=== PATIENT | female | born 1930 | race American Indian/Alaskan Native ===

== ENCOUNTER 2017-03-18 20:29 | Inpatient (IN) | payer MEDICARE ==
--- NOTE | 2017-03-18 20:52 | C.PDOC ---
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 Family notes earlier pt had slurred speech and c/o severe dizziness, stating that the room was turning. Denies headache, visual changes, change in speech, LOC, fever, chills, or any other complaints. Time Seen by Provider: 03/18/17 20:40 Chief Complaint (Nursing): Weakness/Neurological Deficit History Per: Patient History/Exam Limitations: no limitations Onset/Duration Of Symptoms: Hrs (2) Current Symptoms Are (Timing): Still Present Fall Associated With With Symptoms: No Severity: Mild Recent travel outside of the [place]: No Additional History Per: Patient, Family Past Medical History Reviewed: Historical Data, Nursing Documentation, Vital Signs Vital Signs: Last Vital Signs Temp 97.5 F L 03/18/17 20:36 Pulse 68 03/18/17 21:53 Resp 18 03/18/17 21:53 BP 176/73 H 03/18/17 21:53 Pulse Ox 99 03/18/17 22:21 - Medical History PMH: Arthritis, Diabetes, HTN, Hypercholesterolemia, TIA Denies: Chronic Kidney Disease Family History: States: Unknown Family Hx - Social History Hx Tobacco Use: No Hx Alcohol Use: No Hx Substance Use: No - Immunization History Hx Tetanus Toxoid Vaccination: No Hx Influenza Vaccination: Yes Hx Pneumococcal Vaccination: Yes Review Of Systems Except As Marked, All Systems Reviewed And Found Negative. Constitutional: Positive for: Weakness, Other (Uneasiness). Negative for: Fever , Chills Eyes: Negative for: Vision Change Neurological: Positive for: Change in Speech (Slurred), Dizziness. Negative for : Headache, Other (LOC) Physical Exam - Physical Exam Appears: Non-toxic, No Acute Distress, Other Skin: Warm, Dry Head: Atraumatic, Normacephalic Eye(s): bilateral: Normal Inspection, PERRL, EOMI Cardiovascular: Rhythm Regular, No Murmur Respiratory: Normal Breath Sounds, No Accessory Muscle Use, No Rales, No Rhonchi , No Wheezing Gastrointestinal/Abdominal: Soft, No Tenderness Neurological/Psych: Oriented x3, Normal Speech, Normal Cognition, Normal Sensation, Other (Conscious, alert, no definite focal deficit.) ED Course And Treatment - Laboratory Results Result Diagrams: 03/18/17 21:35 03/18/17 21:48 ECG: Interpreted By Me, Viewed By Me ECG Rhythm: Sinus Bradycardia ECG Interpretation: No Acute Changes, Abnormal Interpretation Of ECG: Sinus bradycardia, LAD, non-spc. T changes lateral leads Rate From EC O2 Sat by Pulse Oximetry: 99 (RA) Pulse Ox Interpretation: Normal - Radiology CXR: Interpreted by Me, Viewed By Me CXR Interpretation: Yes: No Acute Disease, Cardiomegaly, Other (no pulm. congestion, presence of mild cardiomegaly.) - CT Scan/US CT Head w/o contrast Other Rad Studies (CT/US): Interpreted By Me, Read By Radiologist CT/US Interpretation: EXAM: CT Head Without Intravenous Contrast. CLINICAL HISTORY: 86 years old, female; Signs and symptoms; Dizziness and speech disturbance; Slurred speech;. Additional info: Code stroke. TECHNIQUE: Axial computed tomography images of the head/brain without intravenous contrast. This CT exam. was performed using one or more of the following dose reduction techniques: automated exposure. control, adjustment of the mA and/or kV according to patient size, and/or use of iterative. reconstruction technique. EXAM DATE/TIME: 03/18/2017 8:41 PM. COMPARISON: There are no prior studies for comparison. FINDINGS: Brain: There is mild prominence of sulci, gyri and ventricles. There is no midline shift. There are no. intra-axial or extra axial mass lesions or areas of hemorrhage. There is mild decrease attenuation in. periventricular white matter.There is decreased attenuation in the left cobian radiata, ageindeterminate. There are very small age indeterminant left basal ganglia lacunar infarcts Urrutia-white. differentiation is maintained. Ventricles: See above. Bones/joints: Bony structures: Cranial vault is intact. Soft tissues: unremarkable. Sinuses: There is no acute sinusitis. Mastoid air cells: Ears and mastoids: Middle ears and mastoids unremarkable. Orbits: Orbital contents are unremarkable. IMPRESSION: Mild atrophy and small vessel disease, no bleed; age indeterminate ischemic. changes left basal ganglia and cobian radiata NIHSS Stroke Scale - Date/Time Evaluation Performed Date Performed: 03/18/17 Time Performed: 20:30 When Was NIHSS Performed: Baseline - How Severe is the Stoke Level of Consciousness: 0=Alert LOC to Questions: 0=Both comments correct LOC to commands: 0=Obeys both correctly Best Gaze: 0=Normal Visual: 0=No visual loss Facial: 0=Normal Motor Arm - Left: 0=No drift Motor Arm - Right: 0=No drift Motor Leg - Left: 0=No drift Motor Leg - Right: 0=No drift Limb Ataxia: 0=Absent Sensory: 0=Normal Best Language: 0=No aphasia Dysarthia: 0=Normal articulation Extinction & Inattention (Neglect): 0=Normal, no object Score: 0 Severity Of Stroke: 0= No Stroke Medical Decision Making Medical Decision Making: Impression: A 86 y/o F with a Hx of HTN and diabetes, c/o feeling weakness and uneasiness 2 hours DIRECTOR OF STRATEGIC PROGRAMS. Plans: -Blood labs -CT head -EKG -CXR -IV fluids Disposition Discussed With Dr.: Fazal Mosher Doctor Will See Patient In The: Hospital Counseled Patient/Family Regarding: Diagnosis - Disposition Disposition: HOSPITALIZED Disposition Time: 22:21 Condition: STABLE - POA Present On Arrival: None - Clinical Impression Clinical Impression: TIA (transient ischemic attack), Vertigo - Scribe Statement The provider has reviewed the documentation as recorded by the Scribe Tania chandra All medical record entries made by the Aishwaryaibruben were at my direction and personally dictated by me. I have reviewed the chart and agree that the record accurately reflects my personal performance of the history, physical exam, medical decision making, and the department course for this patient. I have also personally directed, reviewed, and agree with the discharge instructions and disposition.
[2017-03-18 21:41] LABS: BASO % 0.5 % (0.0-2.0); EOS # 0.3 K/uL (0.0-0.7); EOS % 4.8 % (0.0-4.0); LYMPH # 1.8 K/uL (1.0-4.3); MEAN CORPUSCULAR HEMOGLOBIN 26.2 pg (27.0-31.0); MEAN CORPUSCULAR HGB CONC 30.8 g/dL (33.0-37.0); MEAN PLATELET VOLUME 9.6 fL (7.2-11.7); MONO # 0.5 K/uL (0.0-0.8); MONO % 7.8 % (0.0-10.0); NEUT % 59.9 % (50.0-75.0); NRBC % 0.1 % (0.0-2.0); RBC 4.59 Mil/uL (3.80-5.20); RED CELL DISTRIBUTION WIDTH 15.2 % (11.5-14.5); WHITE BLOOD COUNT 6.7 K/uL (4.8-10.8)
[2017-03-18 21:56] LABS: PROTHROMBIN TIME 10.9 SECONDS (9.7-12.2)
[2017-03-18 22:01] LABS: ALBUMIN 3.7 g/dL (3.5-5.0)
[2017-03-18 22:03] LABS: GFR AFRICAN-AMERICAN 57; GFR NON-AFRICAN AMERICAN 47
[2017-03-18 22:04] LABS: ALB/GLOB RATIO 1.2 (1.0-2.1); AST/SGOT 20 U/L (14-36); BLOOD UREA NITROGEN 18 mg/dL (7-17); CALCIUM 8.9 mg/dl (8.6-10.4)
[2017-03-18 22:05] LABS: ALT/SGPT 17 U/L (9-52); HDL CHOLESTEROL 53 mg/dL (30-70)
[2017-03-18 22:16] LABS: LDL CHOLESTEROL 92 mg/dL (0-129)
[2017-03-18] MEDS ORDERED: Sodium Chloride 0.45% 1,000 ML IV SCH (23:15)
[2017-03-18] MEDS ORDERED: Sodium Chloride 0.45% 1,000 ML IV ONE (23:20)
--- NOTE | 2017-03-19 08:35 | CT ---
PROCEDURE: CT HEAD WITHOUT CONTRAST. HISTORY: Code Stroke COMPARISON: Comparison is made to the previous study dated 10/28/2013 TECHNIQUE: Axial computed tomography images were obtained through the head/brain without intravenous contrast. Radiation dose: Total exam DLP = 1106.48 mGy-cm. This CT exam was performed using one or more of the following dose reduction techniques: Automated exposure control, adjustment of the mA and/or kV according to patient size, and/or use of iterative reconstruction technique. FINDINGS: HEMORRHAGE: No intracranial hemorrhage. BRAIN: Small foci of encephalomalacia at the left basal ganglia and cobian radiata suggestive of subacute or old infarcts. [id number] white matter changes are again seen. VENTRICLES: Unremarkable. No hydrocephalus. CALVARIUM: Unremarkable. PARANASAL SINUSES: Unremarkable as visualized. No significant inflammatory changes. MASTOID AIR CELLS: Unremarkable as visualized. No inflammatory changes. OTHER FINDINGS: None. IMPRESSION: No evidence of acute intracranial hemorrhage small foci of encephalomalacia at the left basal ganglia and cobian radiata likely represent subacute or old infarcts. Preliminary report was submitted by [facility] at 9:03 p.m. 03/18/2017.
[2017-03-19] MEDS: (Novolog) Insulin Aspart, Recombinant 100 u/ml 10 ml vial SC SCH ×4 (08:43→22:28)
[2017-03-19] MEDS ORDERED: Home Med 1 UNIT (Valsartan [Diovan] 160 MG) PO SCH (10:00)
[2017-03-19] MEDS ORDERED: METFORMIN HYDROCHLORIDE 500 MG PO SCH (10:00)
[2017-03-19] MEDS ORDERED: CLONIDINE 0.1 MG PO SCH (10:00)
[2017-03-19] MEDS ORDERED: METOPROLOL SUCCINATE 50 MG PO SCH (10:00)
--- NOTE | 2017-03-19 11:14 | RAD ---
HISTORY: stroke alert COMPARISON: Comparison is made to 10/26/2013 FINDINGS: LUNGS: No active pulmonary disease. PLEURA: No significant pleural effusion identified, no pneumothorax apparent. CARDIOVASCULAR: Normal. OSSEOUS STRUCTURES: No significant abnormalities. VISUALIZED UPPER ABDOMEN: Normal. OTHER FINDINGS: None. IMPRESSION: No active disease.
[2017-03-19] MEDS ORDERED: PILOCARPINE 1% OU SCH (12:00)
[2017-03-19] MEDS: Metoprolol Succinate 50 mg XL Tab PO SCH ×2 (12:52→17:47)
[2017-03-19] MEDS: Brimonidine 0.2% Opth Sol (5ml) OU SCH ×2 (13:17→17:48)
[2017-03-19] MEDS: PILOCARPINE 1% OU SCH ×2 (13:18→17:48)
--- NOTE | 2017-03-19 15:30 | CP.PCM.HP ---
History of Present Illness - History of Present Illness History of Present Illness: 86 yo Female brought to the ED by her family because of severe dizziness and a temporary slurred speech last night. Denies any chest pain, palpitation. She is Known to have a hypertension, a NIDDM, a lymphoma in remission since 2000, a glaucoma, a s/p CVA with a transient left hemiparesis in 2013, a PAD( s/p right fem-pop by-pass in 11/2012. Present on Admission - Present on Admission Any Indicators Present on Admission: No Review of Systems - Musculoskeletal Musculoskeletal: Muscle Weakness - Neurological Neurological: Abnormal Speech, Dizziness, Weakness - Psychiatric Psychiatric: Anxiety Past Patient History - Infectious Disease Hx of Infectious Diseases: None - Tetanus Immunizations Tetanus Immunization: Unknown - Past Medical History & Family History Past Medical History?: Yes - Past Social History Smoking Status: Never Smoked Alcohol: None Drugs: Denies Home Situation {Lives}: With Family Domestic Violence: Negative - CARDIAC Hx Hypercholesterolemia: Yes Hx Hypertension: Yes Hx Peripheral Vascular Disease: Yes (S/p right fem-pop in 11/2012( Dr Maddox). ) - NEUROLOGICAL Hx Transient Ischemic Attacks (TIA): Yes - HEENT Hx Glaucoma: Yes - RENAL Hx Chronic Kidney Disease: No - ENDOCRINE/METABOLIC Hx Diabetes Mellitus Type 2: Yes - HEMATOLOGICAL/ONCOLOGICAL Hx Chemotherapy: Yes (Lymphoma in remission since 2000.) Hx Lymphoma: Yes (in remission since 2000.) - INTEGUMENTARY Hx Dermatological Problems: No - MUSCULOSKELETAL/RHEUMATOLOGICAL Hx Degenerative Joint Disease: Yes Hx Falls: Yes Hx Gout: Yes Hx Unsteady Gait: Yes - GASTROINTESTINAL Hx Gastrointestinal Disorders: No - GENITOURINARY/GYNECOLOGICAL Hx Genitourinary Disorders: No - PSYCHIATRIC Hx Substance Use: No - SURGICAL HISTORY Hx Surgeries: Yes Hx Hysterectomy: Yes (in 1995) Hx Vascular Surgery: Yes - ANESTHESIA Hx Anesthesia: Yes Hx Anesthesia Reactions: No Hx Malignant Hyperthermia: No Meds Allergies/Adverse Reactions: Allergies Allergy/AdvReac Type Severity Reaction Status Date / Time codeine Allergy Verified 03/18/17 20:37 Physical Exam - Constitutional Appears: No Acute Distress, Chronically Ill - Head Exam Head Exam: NORMAL INSPECTION - Eye Exam Eye Exam: Normal appearance - ENT Exam ENT Exam: Normal Exam - Neck Exam Neck exam: Positive for: Normal Inspection - Respiratory Exam Respiratory Exam: Clear to Auscultation Bilateral - Cardiovascular Exam Cardiovascular Exam: REGULAR RHYTHM - GI/Abdominal Exam GI & Abdominal Exam: Normal Bowel Sounds, Soft - Rectal Exam Rectal Exam: Deferred - Extremities Exam Extremities exam: Positive for: normal inspection - Back Exam Back exam: NORMAL INSPECTION - Neurological Exam Neurological exam: Alert, Oriented x3 - Psychiatric Exam Psychiatric exam: Anxious - Skin Skin Exam: Dry, Intact, Normal Color, Warm Results - Vital Signs Recent Vital Signs: Last Vital Signs Temp 98.2 F 03/19/17 07:35 Pulse 66 03/19/17 07:35 Resp 20 03/19/17 07:35 BP 173/75 H 03/19/17 07:35 Pulse Ox 96 03/19/17 07:35 - Labs Result Diagrams: 03/18/17 21:35 03/18/17 21:48 Labs: Laboratory Results - last 24 hr 03/19/17 03/19/17 06:07 11:38 POC Glucose (mg/dL) 95 100 Assessment & Plan (1) TIA (transient ischemic attack) Assessment and Plan: Neuro evaluation, PT, brain MRI, carotid doppler, echo. Status: Acute (2) Vertigo Assessment and Plan: Try Meclizine 25 mg PO TID Status: Acute (3) Near syncope Status: Acute Decision To Admit - Pt Status Changed To: Hospital Disposition Of: Inpatient - Admit Certification Admit to Inpatient:: After my assessment, the patient will require hospitalization for at least two midnights. This is because of the severity of symptoms shown, intensity of services needed, and/or the medical risk in this patient being treated as an outpatient. - InPatient: Physician Admission Certification:: After my assessements, the patient requires hospitalization for at least 2 midnights. - . Bed Request Type: Telemetry
[2017-03-19] MEDS: Dorzolamide 2% Opht Sol 10ml OU SCH (17:47)
[2017-03-19] MEDS: Latanoprost 2.5 ml Opht Soln OU SCH (21:29)
[2017-03-20] MEDS: (Novolog) Insulin Aspart, Recombinant 100 u/ml 10 ml vial SC SCH ×4 (08:13→21:54)
[2017-03-20] MEDS: PILOCARPINE 1% OU SCH ×3 (09:49→18:01)
[2017-03-20] MEDS: Metoprolol Succinate 50 mg XL Tab PO SCH ×2 (09:49→18:02)
[2017-03-20] MEDS: Brimonidine 0.2% Opth Sol (5ml) OU SCH ×3 (09:50→18:01)
[2017-03-20] MEDS: Dorzolamide 2% Opht Sol 10ml OU SCH ×2 (09:51→18:02)
--- NOTE | 2017-03-20 19:43 | CON ---
DATE: 03/18/2017 ATTENDING PHYSICIAN: Dr. Mosher. REASON FOR CONSULTATION: Transient change in mental state, dizziness, weakness of lower extremities. HISTORY OF PRESENT ILLNESS: The patient is an 86-year-old right-handed pleasant lady with past medical history of hypertension, diabetes mellitus, hyperlipidemia, CVA twice, macular degeneration, glaucoma, arthritis, chronic kidney disease, probable mild baseline dementia as per family. The patient was admitted because of an episode of slurred speech, dizziness, and weakness of the lower extremities lasting approximately 2 hours, have gradually improved while the patient in the emergency room. The patient had a similar episode 2 to 3 years ago and was admitted to the hospital and was to found to have the CVA at that time associated with right upper extremity weakness and previous CVA before that had left side lower extremity weakness as per daughters and the patient. The patient denies loss of consciousness. The patient describe also dizziness as spinning of the head and surrounding. PAST MEDICAL HISTORY: As mentioned above. SOCIAL HISTORY: Nonsmoker, ethanol, or drug abuser. ALLERGY: ALLERGIC TO CODEINE. PERSONAL HISTORY: The patient lives with her 2 daughters. Ambulates with a cane most of the time. MEDICATIONS: Losartan, clonidine, brimonidine, metformin, pilocarpine, insulin. REVIEW OF SYSTEMS: As per H and P and ER notes reviewed. PHYSICAL EXAMINATION: VITAL SIGNS: Blood pressure 176/73, pulse 68, respirations 18, temperature 98.5. MENTAL STATUS: The patient is alert, awake, and oriented x3. Decreased attention span, short-term memory, slow mental processing. It takes time for the patient to respond to questions, but able to follow 2-step commands, having difficulty following 3-step commands. No dysarthria or dysphagia. CRANIAL NERVES: Pupils 2 mm sluggishly reactive, status post right eye surgery secondary to glaucoma. There is a mild right center facial palsy. V1 to V3 intact. Tongue midline. Gag intact. Significantly decreased visual acuity bilaterally. Accessory nerve intact. MOTOR: Normal tone in the upper extremities. No pronator drift. No tremors. The patient is not fully cooperative for neurologic examination. Upper extremities overall deltoid *------* 5-/5. Lower extremities, right hip flexion and extension and ankle 5/5. Left hip flexion 4 to 4+/5. Knee flexion and extension and ankle 5-/5. Deep tendon reflexes 1 in upper extremities and absent bilateral lower extremities. Plantar reflex on both sides. SENSORY: Pinprick, light touch, and proprioception intact. Coordination and [id number]-[id number] intact. IMAGING: CAT scan of the brain consistent with periventricular white matter disease. There is small foci encephalomalacia in the left basal ganglia and cobian radiata, probably secondary to old infarct, which the patient had twice in the past. Carotid Doppler, no official report at this point. LABORATORY DATA: Reviewed. White blood cells 6.7, red blood cells 4.55, hemoglobin 12, hematocrit 39, and platelets 247,000. Chemistry: Sodium 141, potassium 3.7, chloride 103, CO2 of 24, anion gap 17, BUN 18, creatinine 1.1. Cholesterol 177, HDL 53, LDL 92. IMPRESSION AND PLAN: Transient severe vertigo, dizziness, lower extremity weakness, confusion, a possibility of procedure versus etiology has to be excluded. The patient will need MRI of the brain to rule out brainstem cerebrovascular accident. Other likely possibility of MRI is negative, probably positional vertigo. The patient do have a baseline dementia probably basically because of the patient's vertigo and severe anxiety associated with it. The patient had a change in mental state. MRI of the brain in progress. Carotid Doppler done, no official report. Intravenous hydration at least for the first 24 to 48 hours at 60 mL/hour. Continue current treatment with aspirin [address] Nixon will follow up the patient on Tuesday. If needed, I can be called. Thank you for the consultation. Russell Gutierrez MD
[2017-03-20] MEDS: Latanoprost 2.5 ml Opht Soln OU SCH (22:16)
--- NOTE | 2017-03-21 03:35 | PN ---
DATE: 03/20/2017 ATTENDING PHYSICIAN: As per daughter, the patient's mental status is fluctuating. Yesterday, during my examination, the patient was at baseline and as per daughter this morning the patient was fluctuating. She was confused. Now the patient is slightly better than this morning, but remained slightly confused. No other new complaints as per family. The patient denies any vertigo, dizziness, double vision, blurred vision. No other new complaints since yesterday. PHYSICAL EXAMINATION VITAL SIGNS: Blood pressure 177/76, pulse 61, respiration 20. MENTAL STATE: The patient is alert, awake and oriented to time, place and person. Slow mental processing, decreased attention span, did not know the day, date or the month, but knew the year. Otherwise, no significant changes compared to yesterday's exam. IMPRESSION: Baseline dementia superimposed by fluctuating mental state rule out sepsis, hypoxic etiology as possibility to be secondary to her baseline dementia as well as secondary to changing the environment in the hospital. The patient will need MRI of the brain, CTA and EEG to rule out subclinical seizures and complex partial seizures. Dehydration, continue IV hydration for now. Thank you for the consultation and Dr. Nixon will follow up the patient tomorrow. Russell Gutierrez MD
[2017-03-21] MEDS: (Novolog) Insulin Aspart, Recombinant 100 u/ml 10 ml vial SC SCH ×4 (07:39→22:28)
[2017-03-21] MEDS: Metoprolol Succinate 50 mg XL Tab PO SCH ×2 (09:57→18:13)
[2017-03-21] MEDS: PILOCARPINE 1% OU SCH ×3 (09:58→18:14)
[2017-03-21] MEDS: Dorzolamide 2% Opht Sol 10ml OU SCH ×2 (09:58→18:14)
[2017-03-21] MEDS: Brimonidine 0.2% Opth Sol (5ml) OU SCH ×3 (09:59→18:14)
--- NOTE | 2017-03-21 13:05 | CARD ---
APPROVED REPORT EKG Measurement Heart [id number] <Conclusion> Sinus bradycardia Left axis deviation Moderate voltage criteria for LVH, may be normal variant Abnormal ECG
--- NOTE | 2017-03-21 13:21 | VASCLAB ---
PROCEDURE: HISTORY: TIA, CEREBRO-VASCULAR ATHEROSCLEROSIS COMPARISON: None available. TECHNIQUE: Grayscale and duplex Doppler evaluation of the cervical carotid and vertebral arteries were performed. The common carotid, carotid bifurcations and cervical Internal Carotid Artery (ICA) and proximal External Carotid Artery (ECA) were evaluated. The vertebral arteries were evaluated for gross patency and flow direction. Report prepared by Jose Dodd, T FINDINGS: RIGHT CAROTID ARTERIES: 1. Common Carotid Artery: No significant focal plaque formation of the right common carotid artery. Maximum Peak Systolic velocity: 50.6 cm/sec: End-diastolic velocity 9.8 cm/sec. 2. Carotid Bifurcation: Calcific plaque formation. Maximum Peak Systolic velocity: 49.9 cm/sec: End-diastolic velocity 9.0 cm/sec. 3. Internal Carotid Artery: Plaque description: Calcific 3.1. Proximal Segment: Peak systolic velocity 35.1 cm/sec: End-diastolic velocity 10.1 cm/sec - % stenosis 30-49% 3.2. Middle Segment: Peak systolic velocity 38.5 cm/sec: End-diastolic velocity 13.5 cm/sec - % stenosis 3.3. Distal Segment: Peak systolic velocity 51.6 cm/sec: End-diastolic velocity 13.6 cm/sec - % stenosis 4. External Carotid Artery: No significant focal plaque formation. Peak systolic velocity 47.6 cm/sec 5. ICA/CCA Ratio: 1.5 LEFT CAROTID ARTERIES: 1. Common Carotid Artery: No significant focal plaque formation of the left common carotid artery. Maximum Peak Systolic velocity: 46.1 cm/sec: End-diastolic velocity 10.6 cm/sec. 2. Carotid Bifurcation: Calcific plaque formation. Maximum Peak Systolic velocity: 64.7 cm/sec: End-diastolic velocity 15.3 cm/sec. 3. Internal Carotid Artery: Plaque description: Heterogeneous 3.1. Proximal Segment: Peak systolic velocity 47.8 cm/sec: End-diastolic velocity 13.3 cm/sec - % stenosis 30-49% 3.2. Middle Segment: Peak systolic velocity 55.3 cm/sec: End-diastolic velocity 16.3 cm/sec - % stenosis 3.3. Distal Segment: Peak systolic velocity 46.2 cm/sec: End-diastolic velocity 9.9 cm/sec - % stenosis 4. External Carotid Artery: No significant focal plaque formation. Peak systolic velocity 38.5 cm/sec 5. ICA/CCA Ratio: 1.4 VERTEBRAL ARTERIES: 1. Right Vertebral Artery: The right vertebral artery flow direction is antegrade. 2. Left Vertebral Artery: The left vertebral artery flow direction is antegrade. OTHER FINDINGS: 1. Right Brachial Blood pressure: mmHg. 2. Left Brachial Blood pressure: mmHg. IMPRESSION: RIGHT: Duplex scan does suggest 30-49% (closer to the highest end of the range given) stenosis of the right internal carotid artery. LEFT: Duplex scan does suggest 30-49% (closer to the highest end of the range given) stenosis of the right internal carotid artery
--- NOTE | 2017-03-21 14:21 | MRI ---
PROCEDURE: MRI BRAIN WITHOUT CONTRAST HISTORY: TIA COMPARISON: Comparison made with prior CT scan brain 03/18/2017. TECHNIQUE: Multiplanar, multisequence MR images of the brain were obtained without intravenous contrast enhancement. FINDINGS: HEMORRHAGE: No acute parenchymal, subarachnoid nor extra-axial hemorrhage. There is a tiny focus of dark T2 signal in the right thalamus seen on gradient echo weighted sequence series 7, image number 14 consistent with a hemosiderin deposit (residua of old hemorrhage). DWI: No evidence of an acute or early subacute infarctio seen on diffusion imaging. N. BRAIN PARENCHYMA: Moderate diffuse/ confluent chronic white matter ischemic changes with multiple more discrete on lacunar-type infarcts scattered about the deep and subcortical white matter as well, both basal nuclei and to a lesser degree brainstem and bilateral cerebellar hemispheres. None of these changes exhibit restricted diffusion Moderate volume loss. VENTRICLES: No obstructive hydrocephalus. CRANIUM: No acute calvarial fractures. Hyperostosis frontalis interna. . Re- demonstrated is a rounded -elliptical shaped 17.6 x 12.8 mm soft tissue mass density in the left superior parietal scalp that may represent inspissated sebaceous cyst or some small benign mesenchymal type tumor. ORBITS: Orbits and contents grossly unremarkable PARANASAL SINUSES/MASTOIDS: Partial opacification of the left mastoid air complex with minimal mucosal thickening in the right maxillary sinus. VASCULAR SYSTEM: Visualized major vascular flow voids at skull base are patent. OTHER FINDINGS: Changes of right-sided cataract surgery again noted. IMPRESSION: No acute intracranial hemorrhage however there does appear to be a tiny hemosiderin deposit (residua of old tiny hemorrhage) within the right thalamus. No acute infarct. . Moderate chronic white matter basal nuclei and lesser brainstem and cerebellar ischemic changes. Moderate volume loss. See above discussion for additional findings and details.
--- NOTE | 2017-03-21 21:54 | CP.PCM.PN ---
Subjective - Date & Time of Evaluation Date of Evaluation: 03/21/17 Time of Evaluation: 13:30 - Subjective Subjective: Patient slightly confused, very weak. MRI of the brain: No acute stroke. Carotid duplex scan: no significant stenosis. Bp still elevated. Will discharge to sub acute rehabilitation in AM. Objective - Vital Signs/Intake and Output Vital Signs (last 24 hours): Temp Pulse Resp BP Pulse Ox 97.7 F 65 20 163/85 H 98 03/21/17 15:00 03/21/17 15:00 03/21/17 15:00 03/21/17 15:00 03/21/17 15:00 - Medications Medications: Current Medications Aspirin (Aspirin) 325 mg PO DAILY [facility] Last Admin: 03/21/17 09:57 Dose: 325 mg Brimonidine Tartrate (Alphagan 0.2% Opht) 0 ml OU TID [facility] Last Admin: 03/21/17 18:14 Dose: 1 drop Clonidine HCl (Catapres) 0.1 mg PO BID [facility] Last Admin: 03/21/17 18:13 Dose: 0.1 mg Dorzolamide HCl (Trusopt) 0 ml OU BID [facility] Last Admin: 03/21/17 18:14 Dose: 1 drop Insulin Aspart (Novolog) 0 unit SC ACHS [facility] PRN Reason: Protocol Last Admin: 03/21/17 17:22 Dose: Not Given Latanoprost (Xalatan Opht) 0 ml OU HS [facility] Last Admin: 03/20/17 22:16 Dose: 2.5 ml Losartan Potassium (Cozaar) 100 mg PO DAILY [facility] Last Admin: 03/21/17 09:57 Dose: 100 mg Metformin HCl (Glucophage) 500 mg PO BIDCC [facility] Last Admin: 03/21/17 18:13 Dose: 500 mg Metoprolol Succinate (Toprol Xl) 50 mg PO BID [facility] Last Admin: 03/21/17 18:13 Dose: 50 mg Pilocarpine HCl (Isopto Carpine 1% Opht Soln) 0 drop OU TID [facility] Last Admin: 03/21/17 18:14 Dose: 1 drop Rosuvastatin Calcium (Crestor) 10 mg PO HS [facility] Last Admin: 03/20/17 21:59 Dose: 10 mg - Labs Labs: PT 10.9 SECONDS (9.7-12.2) 07/14/17 21:35 INR 1.0 03/18/17 21:35 APTT 38 SECONDS (21-34) H 03/18/17 21:35 - Constitutional Appears: No Acute Distress - Head Exam Head Exam: NORMAL INSPECTION - Eye Exam Pupil Exam: NORMAL ACCOMODATION - ENT Exam ENT Exam: Normal Exam - Neck Exam Neck Exam: Normal Inspection - Respiratory Exam Respiratory Exam: Clear to Ausculation Bilateral - Cardiovascular Exam Cardiovascular Exam: REGULAR RHYTHM - GI/Abdominal Exam GI & Abdominal Exam: Soft, Normal Bowel Sounds - Rectal Exam Rectal Exam: Deferred - Extremities Exam Extremities Exam: Pedal Edema - Back Exam Back Exam: NORMAL INSPECTION - Neurological Exam Neurological Exam: Alert, Awake - Psychiatric Exam Psychiatric exam: Anxious - Skin Skin Exam: Dry, Intact, Warm Assessment and Plan (1) TIA (transient ischemic attack) Status: Resolved (2) Vertigo Status: Acute (3) Near syncope Status: Acute
[2017-03-21] MEDS: Latanoprost 2.5 ml Opht Soln OU SCH (23:00)
--- NOTE | 2017-03-22 01:19 | PN ---
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 Vital signs are blood pressure 170/78, respiratory rate is 18. The patient was seen by Dr. Gutierrez over the weekend because of her same problem. The patient was scheduled to have radiological studies and *------* program to rule out any neurological issues related to her problem. At present, she is little bit confused. She does not know where she is. She was in [facility]. She could not recall how she came to this current place. No history of loss of consciousness. No history of involuntary movements. This has been going on for while as per the history. BLOOD WORKUP: WBC 6.7, hemoglobin 12.2, hematocrit 39.2, and platelet 247. Sodium 141, potassium 3.7, chloride 103, bicarbonate 24, BUN 18, creatinine 1.1, glucose of 147. Hemoglobin A1c 6.2. Liver functions are normal. TSH of 4.2. Vitamin B12 of 243. RECOMMENDATIONS: The patient is requested to have an MRI of the brain and encephalogram. The patient will followed closely. If they are all medically stable, the patient can be give cholinesterase inhibitor for her underlying senile dementia of Alzheimer type. The patient will be followed closely with you. *------* Dio Nixon MD
[2017-03-22] MEDS: (Novolog) Insulin Aspart, Recombinant 100 u/ml 10 ml vial SC SCH ×4 (08:19→21:33)
[2017-03-22] MEDS: Metoprolol Succinate 50 mg XL Tab PO SCH ×2 (10:56→17:48)
[2017-03-22] MEDS: PILOCARPINE 1% OU SCH ×3 (10:57→17:47)
[2017-03-22] MEDS: Dorzolamide 2% Opht Sol 10ml OU SCH ×2 (10:57→17:46)
[2017-03-22] MEDS: Brimonidine 0.2% Opth Sol (5ml) OU SCH ×3 (10:58→17:47)
--- NOTE | 2017-03-22 18:48 | CP.PCM.PN ---
Subjective - Date & Time of Evaluation Date of Evaluation: 03/22/17 Time of Evaluation: 18:46 - Subjective Subjective: Patient awake, slightly confused. BP: 150/70 HR: 60 regular, afebrile. Venous duplex scan: no DVT. Subacute rehab [facility]. Objective - Vital Signs/Intake and Output Vital Signs (last 24 hours): Temp Pulse Resp BP Pulse Ox 98.5 F 80 20 123/79 96 03/22/17 16:52 03/22/17 16:52 03/22/17 16:52 03/22/17 16:52 03/22/17 16:52 Intake and Output: 03/22/17 03/22/17 06:59 18:59 Intake Total 250 Balance 250 - Medications Medications: Current Medications Acetaminophen (Tylenol 325mg Tab) 650 mg PO Q6 PRN PRN Reason: Pain, moderate (4-7) Aspirin (Aspirin) 325 mg PO DAILY [facility] Last Admin: 03/22/17 10:56 Dose: 325 mg Brimonidine Tartrate (Alphagan 0.2% Opht) 0 ml OU TID [facility] Last Admin: 03/22/17 17:47 Dose: 1 drop Clonidine HCl (Catapres) 0.1 mg PO TID [facility] Last Admin: 03/22/17 17:47 Dose: 0.1 mg Dorzolamide HCl (Trusopt) 0 ml OU BID [facility] Last Admin: 03/22/17 17:46 Dose: 1 drop Insulin Aspart (Novolog) 0 unit SC ACHS [facility] PRN Reason: Protocol Last Admin: 03/22/17 16:30 Dose: Not Given Latanoprost (Xalatan Opht) 0 ml OU HS [facility] Last Admin: 03/21/17 23:00 Dose: 2.5 ml Losartan Potassium (Cozaar) 100 mg PO DAILY [facility] Last Admin: 03/22/17 10:56 Dose: 100 mg [facility] Admin: 03/22/17 17:47 Dose: 500 mg Metoprolol Succinate (Toprol Xl) 50 mg PO BID [facility] Last Admin: 03/22/17 17:48 Dose: 50 mg Pilocarpine HCl (Isopto Carpine 1% Opht Soln) 0 drop OU TID [facility] Last Admin: 03/22/17 17:47 Dose: 1 drop Rosuvastatin Calcium (Crestor) 10 mg PO HS [facility] Last Admin: 03/21/17 23:00 Dose: 10 mg - Labs Labs: PT 10.9 SECONDS (9.7-12.2) 03/18/17 21:35 INR 1.0 03/18/17 21:35 APTT 38 SECONDS (21-34) H 03/18/17 21:35 - Constitutional Appears: No Acute Distress, Chronically Ill - Head Exam Head Exam: NORMAL INSPECTION - Eye Exam Eye Exam: Normal appearance - ENT Exam ENT Exam: Normal Exam - Neck Exam Neck Exam: Normal Inspection - Respiratory Exam Respiratory Exam: Clear to Ausculation Bilateral, NORMAL BREATHING PATTERN - Cardiovascular Exam Cardiovascular Exam: REGULAR RHYTHM - GI/Abdominal Exam GI & Abdominal Exam: Soft, Normal Bowel Sounds - Rectal Exam Rectal Exam: Deferred - Exam Exam: NORMAL INSPECTION - Extremities Exam Extremities Exam: Normal Inspection - Back Exam Back Exam: NORMAL INSPECTION - Neurological Exam Neurological Exam: Alert, Awake - Psychiatric Exam Psychiatric exam: Anxious Additional comments: Slightly confused. - Skin Skin Exam: Dry, Normal Color, Warm Assessment and Plan (1) TIA (transient ischemic attack) Status: Resolved (2) Vertigo Status: Acute (3) Near syncope Status: Acute
[2017-03-22] MEDS: Latanoprost 2.5 ml Opht Soln OU SCH (21:27)
[2017-03-23] MEDS: (Novolog) Insulin Aspart, Recombinant 100 u/ml 10 ml vial SC SCH (08:21)
[2017-03-23 09:02] VITALS: PULSE 79; O2SAT 98
--- NOTE | 2017-03-23 09:23 | CON ---
DATE OF EVALUATION: 03/22/2017 TIME OF EVALUATION: 07:05 a.m. NEUROLOGICAL PROBLEMS: Change in mental status which is probably secondary to senile dementia of Alzheimer type versus mixed form of dementia. PHYSICAL EXAMINATION VITAL SIGNS: Blood pressure 155/80 with mean arterial pressure of 106, respiratory rate 18, temperature 98.3, pulse rate is 67 and regular. The patient is arousable on calling her name; more awake, alert, less confused compared with yesterday. She knows she is in the hospital. She follows commands. She is comparing of left-sided arm and neck pain. Otherwise, no new findings noted on my exam. MRI of the brain, which was reviewed showed no acute intracranial ischemic process or hemorrhage noted. There is a mild hemosiderin deposit noted with residual of old tiny hemorrhage in the right thalamus. The patient is recommended to continue the present management. When medically stable, the patient can be given cholinesterase inhibitors. Dio Nixon MD
[2017-03-23] MEDS: Metoprolol Succinate 50 mg XL Tab PO SCH (10:34)
[2017-03-23] MEDS: PILOCARPINE 1% OU SCH ×2 (10:36→13:32)
[2017-03-23] MEDS: Dorzolamide 2% Opht Sol 10ml OU SCH (10:37)
[2017-03-23] MEDS: Brimonidine 0.2% Opth Sol (5ml) OU SCH ×2 (10:37→14:15)
--- NOTE | 2017-03-23 14:53 | VASCLAB ---
PROCEDURE: Lower Extremity Venous Duplex Exam. HISTORY: Leg pain PRIORS: None. TECHNIQUE: Bilateral common femoral, femoral, popliteal and posterior tibial, peroneal and great saphenous veins were evaluated. Flow was assessed with color Doppler, compressibility, assessment of phasic flow and augmentation response. Report prepared by NHUNG Carrion, RVT FINDINGS: RIGHT: 1. Common Femoral Vein: 1.1. Compressibility - Fully compressible: Thrombus - None : Flow - Phasic: Augmentation -Normal: Reflux - None. 2. Femoral Vein: 2.1. Compressibility - Fully compressible: Thrombus - None : Flow - Phasic: Augmentation -Normal: Reflux - None. 3. Popliteal Vein: 3.1. Compressibility - Fully compressible: Thrombus - None : Flow - Phasic: Augmentation -Normal: Reflux - None. 4. Posterior Tibial Vein: 4.1. Compressibility - Fully compressible: Thrombus - None: Flow - Phasic: Augmentation -Normal: Reflux - None. 5. Peroneal Vein: 5.1. Compressibility - Fully compressible: Thrombus - None: Flow - Phasic: Augmentation -Normal: Reflux - None. 6. Great Saphenous Vein: 6.1. Compressibility - Fully compressible: Thrombus - None: Flow - Phasic: Augmentation - Normal: Reflux - None. LEFT: 1. Common Femoral Vein: 1.1. Compressibility - Fully compressible: Thrombus - None: Flow - Phasic: Augmentation -Normal: Reflux - None. 2. Femoral Vein: 2.1. Compressibility - Fully compressible: Thrombus - None: Flow - Phasic: Augmentation -Normal: Reflux - None. 3. Popliteal Vein: 3.1. Compressibility - Fully compressible: Thrombus - None : Flow - Phasic: Augmentation -Normal: Reflux - None. 4. Posterior Tibial Vein: 4.1. Compressibility - Fully compressible: Thrombus - None: Flow - Phasic: Augmentation -Normal: Reflux - None. 5. Peroneal Vein: 5.1. Compressibility - Fully compressible: Thrombus - None: Flow - Phasic: Augmentation -Normal: Reflux - None. 6. Great Saphenous Vein: 6.1. Compressibility - Fully compressible: Thrombus - None: Flow - Phasic: Augmentation - Normal: Reflux - None. OTHER FINDINGS: Right: None significant. Left: None significant. IMPRESSION: Right: No evidence of deep or superficial vein thrombosis of the right lower extremity. Normal valve function noted of the right side. Left: No evidence of deep or superficial vein thrombosis of the left lower extremity. Normal valve function noted of the left side.
[2017-03-23 17:05] VITALS: BP 121/69; RESP 18; TEMP 97.9
--- NOTE | 2017-03-23 19:01 | CP.PCM.DIS ---
Provider - Provider Date of Admission: 03/18/17 22:22 Attending physician: Fazal Mosher MD Primary care physician: Fazal Mosher M.D. Consults: Dr Nixon( Neurologist). Time Spent in preparation of Discharge (in minutes): 30 Diagnosis - Discharge Diagnosis (1) Vertigo Status: Acute (2) Near syncope Status: Acute Hospital Course - Lab Results Lab Results: Most Recent Lab Values WBC 6.7 K/uL (4.8-10.8) 03/18/17 21:35 RBC 4.59 Mil/uL (3.80-5.20) 03/18/17 21:35 Hgb 12.0 g/dL (11.0-16.0) 03/18/17 21:35 Hct 39.0 % (34.0-47.0) 03/18/17 21:35 MCV 85.0 fL (81.0-99.0) D 03/18/17 21:35 MCH 26.2 pg (27.0-31.0) L 03/18/17 21:35 MCHC 30.8 g/dL (33.0-37.0) L 03/18/17 21:35 RDW 15.2 % (11.5-14.5) H 03/18/17 21:35 Plt Count 247 K/uL (130-400) 03/18/17 21:35 MPV 9.6 fL (7.2-11.7) 03/18/17 21:35 Neut % (Auto) 59.9 % (50.0-75.0) 03/18/17 21:35 Lymph % (Auto) 27.0 % (20.0-40.0) 03/18/17 21:35 Toombs % (Auto) 7.8 % (0.0-10.0) 03/18/17 21:35 Eos % (Auto) 4.8 % (0.0-4.0) H 03/18/17 21:35 Baso % (Auto) 0.5 % (0.0-2.0) 03/18/17 21:35 Neut # 4.0 K/uL (1.8-7.0) 03/18/17 21:35 Lymph # 1.8 K/uL (1.0-4.3) 03/18/17 21:35 Toombs # 0.5 K/uL (0.0-0.8) 03/18/17 21:35 Eos # 0.3 K/uL (0.0-0.7) 03/18/17 21:35 Baso # 0.0 K/uL (0.0-0.2) 03/18/17 21:35 PT 10.9 SECONDS (9.7-12.2) 03/18/17 21:35 INR 1.0 03/18/17 21:35 APTT 38 SECONDS (21-34) H 03/18/17 21:35 Sodium 141 mmol/L (132-148) 03/18/17 21:48 Potassium 3.7 mmol/L (3.6-5.2) 03/18/17 21:48 Chloride 103 mmol/L (98-107) 03/18/17 21:48 Carbon Dioxide 24 mmol/L (22-30) 03/18/17 21:48 Anion Gap 17 (10-20) 03/18/17 21:48 BUN 18 mg/dL (7-17) H 03/18/17 21:48 Creatinine 1.1 MG/DL (0.7-1.2) 03/18/17 21:48 Est GFR ( Amer) 57 03/18/17 21:48 Est GFR (Non-Af Amer) 47 03/18/17 21:48 POC Glucose (mg/dL) 232 mg/dL (65-110) H 03/23/17 11:22 Random Glucose 104 mg/dL (65-105) 03/18/17 21:48 Hemoglobin A1c 6.2 % (4.2-6.5) 03/18/17 21:37 Calcium 8.9 mg/dl (8.6-10.4) 03/18/17 21:48 Total Bilirubin 0.5 mg/dL (0.2-1.3) 03/18/17 21:48 AST 20 U/L (14-36) 03/18/17 21:48 ALT 17 U/L (9-52) 03/18/17 21:48 Alkaline Phosphatase 88 U/L (38-126) 03/18/17 21:48 Troponin I < 0.0120 ng/mL (0.00-0.120) 03/18/17 21:48 Total Protein 6.8 g/dL (6.3-8.3) 03/18/17 21:48 Albumin 3.7 g/dL (3.5-5.0) 03/18/17 21:48 Globulin 3.2 gm/dL (2.2-3.9) 03/18/17 21:48 Albumin/Globulin Ratio 1.2 (1.0-2.1) 03/18/17 21:48 Triglycerides 94 mg/dL (0-149) D 03/18/17 21:48 Cholesterol 177 mg/dL (0-199) 03/18/17 21:48 LDL Cholesterol Direct 92 mg/dL (0-129) 03/18/17 21:48 HDL Cholesterol 53 mg/dL (30-70) 03/18/17 21:48 Blood Type O POSITIVE 03/18/17 21:28 Antibody Screen Negative 03/18/17 21:28 - Hospital Course Hospital Course: This is an 86 years old Female who was brought to the ED at [facility] because of a slurred speech, generalized weakness and increasing confusion. a CT scan during a Code stroke revealed no cerebral hemorrhage, small foci of encephalomalacia at the left basal ganglia and cobian radiata from subacute or old infarcts. The patient was evaluated by Dr Nixon, a neurologist. Her CXRay did not show any acute infiltrate. Her blood glucose was normal. Her ECG revealed a sinus bradycardia with a left axis deviation, and a bordeline LVH. A carotid duplex scan disclosed no significant stenosis. A venous duplex scan was negative for a DVT. An MRI of the brain without contrast revealed chronic white matter ischemic change, and multiple discrete lacunar infarcts scattered in the basal nuclei, brain stem and cerebellar hemispheres, and an tiny, old hemorrhage in the right thalamus. She was put on Crestor and Ecotrin. Her BP was controlled with increased dose of Clonidine. She became less confused, and was discharged to [facility] subacute rehabilitation [place] on 03/23/2017 in a stable condition. - Date & Time of H&P Date of H&P: 03/19/17 Discharge Exam - Head Exam Head Exam: NORMAL INSPECTION - Eye Exam Eye Exam: Normal appearance Pupil Exam: NORMAL ACCOMODATION - ENT Exam ENT Exam: Normal Exam - Neck Exam Neck exam: Normal Inspection - Respiratory Exam Respiratory Exam: Clear to PA & Lateral, NORMAL BREATHING PATTERN, UNREMARKABLE - Cardiovascular Exam Cardiovascular Exam: REGULAR RHYTHM, Systolic Murmur - GI/Abdominal Exam GI & Abdominal Exam: Normal Bowel Sounds, Soft - Rectal Exam Rectal Exam: Deferred - Extremities Exam Extremities exam: normal inspection - Back Exam Back exam: NORMAL INSPECTION - Neurological Exam Neurological exam: Alert, CN II-XII Intact, Oriented x3, Reflexes Normal - Psychiatric Exam Psychiatric exam: Anxious - Skin Skin Exam: Dry, Intact, Normal Color, Warm Discharge Plan - Follow Up Plan Condition: STABLE Disposition: REHAB FACILITY/REHAB UNIT Instructions: Transient Ischemic Attack (DC), Vertigo (DC), Hypertension (DC) Clinical Quality Measures - CQM - Heart Failure Will be discharged to: Senior Living Facility - Date & Time of Discharge Summary Date of Discharge Summary: 03/23/17 Time of Discharge Summary: 19:03
--- NOTE | 2017-03-24 14:02 | PN ---
DATE: 03/23/2017 NEUROLOGICAL PROBLEMS: Change in mental status. PHYSICAL EXAMINATION GENERAL: The patient is sleeping, arousable on calling her name. Speech is fluent. No sign of confusion. VITAL SIGNS: Blood pressure 167/85, mean arterial pressure 112, respirations 16, temperature 98.6, pulse rate 78 regular. Rest of the patient's examination is basically unchanged when compared with my previous exam. ASSESSMENT AND PLAN: From a neurological point of view, the patient has completed her workup. At this point, continue the present management, no further interventional procedure is needed for her at present. Followup if needed. Dio Nixon MD
== END 2017-03-23 17:00 | DRG 69 ==
LOC: C.ER 20:29 → C.9E 22:22 → C.6T 23:20
PROVIDERS: ADMIT Internal Medicine Cardiovascular Disease; ATTEND Internal Medicine Cardiovascular Disease
DX: G45.9 Transient cerebral ischemic attack, unspecified (principal); G93.40 Encephalopathy, unspecified; C85.90 Non-Hodgkin lymphoma, unspecified, unspecified site; E11.22 Type 2 diabetes mellitus with diabetic chronic kidney disease; I69.354 Hemiplegia and hemiparesis following cerebral infarction affecting left non-dominant side; G30.1 Alzheimer's disease with late onset; R55 Syncope and collapse; F02.80 Dementia in other diseases classified elsewhere, unspecified severity, without behavioral disturbance, psychotic disturbance, mood disturbance, and anxiety; E86.0 Dehydration; E78.00 Pure hypercholesterolemia, unspecified; E78.5 Hyperlipidemia, unspecified; F41.9 Anxiety disorder, unspecified; H35.30 Unspecified macular degeneration; H40.9 Unspecified glaucoma; I12.9 Hypertensive chronic kidney disease with stage 1 through stage 4 chronic kidney disease, or unspecified chronic kidney disease; N18.9 Chronic kidney disease, unspecified; Z79.82 Long term (current) use of aspirin; Z79.84 Long term (current) use of oral hypoglycemic drugs; Z90.710 Acquired absence of both cervix and uterus

== ENCOUNTER 2017-09-20 08:06 | Inpatient (IN) | payer MEDICARE ==
[2017-09-20] MEDS ORDERED: Acetaminophen 160 mg/5 ml UD PO ONE (08:34)
[2017-09-20 08:47] LABS: BASO # 0.1 K/uL (0.0-0.2); BASO % 0.8 % (0.0-2.0); EOS # 0.2 K/uL (0.0-0.7); EOS % 1.7 % (0.0-4.0); HEMOGLOBIN 10.6 g/dL (11.0-16.0); LYMPH # 0.3 K/uL (1.0-4.3); LYMPH % 3.4 % (20.0-40.0); MEAN CELL VOLUME 83.4 fL (81.0-99.0); MEAN CORPUSCULAR HEMOGLOBIN 26.8 pg (27.0-31.0); MEAN CORPUSCULAR HGB CONC 32.2 g/dL (33.0-37.0); MEAN PLATELET VOLUME 8.7 fL (7.2-11.7); MONO # 0.7 K/uL (0.0-0.8); MONO % 7.1 % (0.0-10.0); NEUT # 8.9 K/uL (1.8-7.0); PLATELET COUNT 487 K/uL (130-400); RBC 3.96 Mil/uL (3.80-5.20); WHITE BLOOD COUNT 10.2 K/uL (4.8-10.8)
[2017-09-20] MEDS ORDERED: Acetaminophen 650mg/20.3ml solution UD ONE (08:49)
[2017-09-20 08:54] LABS: VENOUS BLOOD GAS BASE EXCESS -0.3 mmol/L (0.0-2.0); VENOUS BLOOD GAS PCO2 38 mmHg (40-60); VENOUS BLOOD GAS PO2 23 mm/Hg (30-55); VENOUS BLOOD PH 7.41 (7.32-7.43)
--- NOTE | 2017-09-20 08:54 | C.PDOC ---
History Of Present Illness 87 y/o female,brought by ambulance with daughters, presents to the ER for evaluation of fever. . Patient has a history of diabetes,HTN,and TIA( 2017). Patient has been experiencing a general decline in her health and memory over the past year. Patient received a flu shot this season. Of note, patient presented with URI 2 weeks ago. She was seen by her PMD, , and he prescribed her antibiotics. According to her daughters, patient is progressively weaker, has a decreased PO intake, febrile, and cannot stand. Patient is currently awake and has an oral Tmax of 102 in the ER. Patient is complaining of leg pain. Time Seen by Provider: 09/20/17 08:12 Chief Complaint (Nursing): Altered Mental Status History Per: Family (Daughters) Onset/Duration Of Symptoms: Days Severity: Moderate Reports Recently: Treated By A Physician () Past Medical History Reviewed: Historical Data, Nursing Documentation, Vital Signs Vital Signs: Last Vital Signs Temp 102.7 F H 09/20/17 08:30 Pulse 125 H 09/20/17 09:18 Resp 20 09/20/17 09:18 BP 128/55 L 09/20/17 09:18 Pulse Ox 100 09/20/17 09:18 - Medical History PMH: Arthritis, Diabetes, HTN, Hypercholesterolemia, TIA Denies: Chronic Kidney Disease Surgical History: No Surg Hx Family History: States: No Known Family Hx - Social History Hx Tobacco Use: No Hx Alcohol Use: No Hx Substance Use: No - Immunization History Hx Tetanus Toxoid Vaccination: No Hx Influenza Vaccination: Yes Hx Pneumococcal Vaccination: Yes Review Of Systems Review Of Systems: ROS cannot be obtained secondary to pt's inabilty to answer questions. Physical Exam - Physical Exam Appears: No Acute Distress, Other (awake, alert, responds to commands, opens eyes to commands) Skin: Normal Color, Warm Head: Atraumatic, Normacephalic Eye(s): bilateral: Normal Inspection, PERRL Nose: Normal Oral Mucosa: Moist Neck: Supple Chest: Symmetrical Cardiovascular: Rhythm Regular Respiratory: Normal Breath Sounds, No Accessory Muscle Use, No Rales, No Rhonchi , No Wheezing Gastrointestinal/Abdominal: Normal Exam, Soft, No Tenderness Extremity: Normal ROM (normal ROM in all 4 extremities) Neurological/Psych: Oriented x3, Normal Speech, Normal Cognition, Normal Motor, Normal Sensation ED Course And Treatment - Laboratory Results Result Diagrams: 09/20/17 08:43 09/20/17 08:43 O2 Sat by Pulse Oximetry: 99 (RA) Pulse Ox Interpretation: Normal Medical Decision Making Medical Decision Making: Impression: Possible Sepsis Plan: --Labs --Antibiotics --Consult with PMD Patient flu positive. Positive nitrates in the urine. Antibiotics and Tamiflu started. Discussed with Dr. Mosher. Patient admitted for fever/flu, decreased po intake, inability to ambulate. Does not meet sepsis criteria Disposition Counseled Patient/Family Regarding: Studies Performed, Diagnosis - Disposition Disposition Time: 09:35 Condition: GUARDED Forms: [employer] ([place]) - Clinical Impression Clinical Impression: Influenza, Fever, UTI (urinary tract infection) - Scribe Statement The provider has reviewed the documentation as recorded by the Aishwaryaibe Patricia Cui Provider Attestation: All medical record entries made by the Scribe were at my direction and personally dictated by me. I have reviewed the chart and agree that the record accurately reflects my personal performance of the history, physical exam, medical decision making, and the department course for this patient. I have also personally directed, reviewed, and agree with the discharge instructions and disposition. Decision To Admit - Pt Status Changed To: Hospital Disposition Of: Inpatient - Admit Certification Admit to Inpatient:: After my assessment, the patient will require hospitalization for at least two midnights. This is because of the severity of symptoms shown, intensity of services needed, and/or the medical risk in this patient being treated as an outpatient. - InPatient: Physician Admission Certification: I certify that this patient requires 2 or more midnights of care for the following reason:: Patient with complications from flu, elderly, debilitated. - . Bed Request Type: Regular Admitting Physician: Fazal Mosher Patient Diagnosis: Fever, Influenza, UTI (urinary tract infection)
[2017-09-20 08:58] LABS: INR 1.2; PROTHROMBIN TIME 13.2 SECONDS (9.7-12.2)
[2017-09-20 08:59] LABS: ALB/GLOB RATIO 0.9 (1.0-2.1); ALBUMIN 3.6 g/dL (3.5-5.0); ALT/SGPT 20 U/L (9-52); AST/SGOT 29 U/L (14-36); BLOOD UREA NITROGEN 11 mg/dL (7-17); CALCIUM 8.7 mg/dl (8.6-10.4); GFR AFRICAN-AMERICAN > 60; GFR NON-AFRICAN AMERICAN > 60
--- NOTE | 2017-09-20 09:09 | RAD ---
HISTORY: Sepsis Patient COMPARISON: 03/18/2017. FINDINGS: LUNGS: There are low lung volumes which may be related to poor inspiratory effort. There is mild pulmonary venous congestion. PLEURA: No significant pleural effusion identified, no pneumothorax apparent. CARDIOVASCULAR: There is stable mild cardiomegaly. OSSEOUS STRUCTURES: No significant abnormalities. VISUALIZED UPPER ABDOMEN: Normal. OTHER FINDINGS: None. IMPRESSION: No active pulmonary disease.
[2017-09-20 09:11] LABS: B-TYPE NATRIURETIC PEPTIDE 3390 pg/mL (0-900)
[2017-09-20 09:21] LABS: SQUAMOUS EPITHIAL < 1 /hpf (0-5); URINE BACTERIA OCC (<OCC); URINE BILIRUBIN NEGATIVE (NEGATIVE); URINE BLOOD NEGATIVE (NEGATIVE); URINE CLARITY Clear (Clear); URINE COLOR Yellow (YELLOW); URINE GLUCOSE (UA) NORMAL (Normal); URINE LEUKOCYTE ESTERASE NEG Leu/uL (Negative); URINE NITRATE POSITIVE (NEGATIVE); URINE PROTEIN 1+ mg/dL (NEGATIVE); URINE UROBILINOGEN NORMAL mg/dL (0.2-1.0)
[2017-09-20] MEDS ORDERED: cefTRIAXone IV 1 gm in Dextros 50 ML IVPB ONE ×2 (09:25→09:34)
[2017-09-20 09:39] LABS: ANISOCYTOSIS SLIGHT; BANDS 2 % (0-2); EOSINOPHIL 5 % (0-4); LARGE PLATELETS PRESENT; LYMPHOCYTE 2 % (20-40); MONOCYTE 7 % (0-10); NEUTROPHIL 84 % (50-75); PLATELET ESTIMATE SLIGHTLY INCREASED (NORMAL); TOTAL CELLS COUNTED 100
--- NOTE | 2017-09-20 10:53 | CT ---
PROCEDURE: CT HEAD WITHOUT CONTRAST. HISTORY: R/O Bleed COMPARISON: 03/18/2017 TECHNIQUE: Axial computed tomography images were obtained through the head/brain without intravenous contrast. Radiation dose: Total exam DLP = 1260 mGy-cm. This CT exam was performed using one or more of the following dose reduction techniques: Automated exposure control, adjustment of the mA and/or kV according to patient size, and/or use of iterative reconstruction technique. FINDINGS: HEMORRHAGE: On a single image, series 4, image 16, on this motion degraded image 8 3 mm slightly hyper dense focus is perceived. Equivocal trace ring of edema surrounding it is also questioned. Motion artifact noted. This is not seen on the prior study. A petechial hemorrhage here is a consideration. No other areas of hyperdensity concerning for potential bleed are noted. BRAIN: No significant appearing mass effect. Equivocal trace rim of edema surrounding a potential 3 mm petechial hemorrhage right paracentral moy raised. Similar generalized cerebral atrophy with chronic microvascular ischemic changes as outlined in noted previously. VENTRICLES: Age-appropriate and commensurate with degree of atrophy CALVARIUM: Benign bifrontalis hyperostoses Re- demonstrated is a rounded -elliptical shaped 17.6 x 12.8 mm soft tissue mass density in the left superior parietal scalp that may represent inspissated sebaceous cyst or some small benign mesenchymal type tumor. PARANASAL SINUSES: Maxillary sinus mucosal thickening with small fluid levels, bilateral ethmoidal sinus inflammatory changes. Interval changes MASTOID AIR CELLS: Bilateral mastoid effusions interval changes OTHER FINDINGS: None. IMPRESSION: Interval 3 mm right per central pontine hyperdensity with possible thin peripheral rim of edema - images degraded by motion. Potential petechial hemorrhage here raised. This concern was directly discussed with shyanne Rojas in the emergency room, at approximate 10:40 a.m. on 09/20/2017. Consider follow-up CT head imaging 24 hours. Interval paranasal sinus inflammatory changes. Interval mastoid effusion Similar chronic cerebral atrophy. Similar chronic microvascular ischemic disease Similar left superior parietal scalp probable inspissated sebaceous cyst
[2017-09-20 12:06] LABS: VENOUS BLOOD GAS BASE EXCESS -3.4 mmol/L (0.0-2.0); VENOUS BLOOD GAS PCO2 31 mmHg (40-60); VENOUS BLOOD GAS PO2 125 mm/Hg (30-55); VENOUS BLOOD PH 7.42 (7.32-7.43)
[2017-09-20] MEDS: (Novolog) Insulin Aspart, Recombinant 100 u/ml 10 ml vial SC SCH ×2 (17:14→22:21)
[2017-09-20] MEDS: Rosuvastatin Calcium 2.5 mg Tab PO SCH (22:29)
--- NOTE | 2017-09-20 23:17 | CP.PCM.HP ---
History of Present Illness - History of Present Illness History of Present Illness: 87 years old female brought by ambulance to the ED because of fever and generalized weakness. The patient is being treated for an acute bronchitis last week with antibiotics. In the ED, her Flu test was positive, her urine is positive for nitrate and a CT scan of the head without contrast suggests petechiae of the moy. Patient denies any headache, any nausea, vomiting. She is known to have a NIDDM, a HPTN, a Hx of TIA, a senile dementia, an osteoarthritis, a hx of lymphoma in remission. Present on Admission - Present on Admission Any Indicators Present on Admission: No Review of Systems - Constitutional Constitutional: Anorexia, Fever, Weakness - Respiratory Respiratory: Cough - Musculoskeletal Musculoskeletal: Muscle Weakness - Neurological Neurological: Weakness - Psychiatric Psychiatric: Confusion Past Patient History - Infectious Disease Hx of Infectious Diseases: None - Tetanus Immunizations Tetanus Immunization: Unknown - Past Medical History & Family History Past Medical History?: Yes - Past Social History Smoking Status: Never Smoked Home Situation {Lives}: With Family - CARDIAC Hx Hypercholesterolemia: Yes Hx Hypertension: Yes - PULMONARY Hx Respiratory Disorders: No - NEUROLOGICAL HX Cerebrovascular Accident: Yes Hx Dementia: Yes Hx Transient Ischemic Attacks (TIA): Yes - HEENT Hx Glaucoma: Yes - RENAL Hx Chronic Kidney Disease: No - ENDOCRINE/METABOLIC Hx Diabetes Mellitus Type 2: Yes - HEMATOLOGICAL/ONCOLOGICAL Hx Chemotherapy: Yes (Lymphoma in remission since 2000.) - INTEGUMENTARY Hx Dermatological Problems: No - MUSCULOSKELETAL/RHEUMATOLOGICAL Hx Arthritis: Yes Hx Falls: Yes Hx Unsteady Gait: Yes - GASTROINTESTINAL Hx Gastrointestinal Disorders: No - GENITOURINARY/GYNECOLOGICAL Hx Genitourinary Disorders: No - PSYCHIATRIC Hx Substance Use: No - SURGICAL HISTORY Hx Surgeries: Yes Hx Eye Surgery: Yes (Right cataract surgery in 2009.) Hx Hysterectomy: Yes (in 1995) Hx Vascular Surgery: Yes (riRiRight fem-pop by-pass in 2012 ( Dr Maddox)) - ANESTHESIA Hx Anesthesia: Yes Hx Anesthesia Reactions: No Hx Malignant Hyperthermia: No Has any member of the family had a problem w/ anesthesia?: No Meds Allergies/Adverse Reactions: Allergies Allergy/AdvReac Type Severity Reaction Status Date / Time codeine Allergy Verified 03/18/17 20:37 Physical Exam - Constitutional Appears: No Acute Distress, Chronically Ill - Head Exam Head Exam: NORMAL INSPECTION - Eye Exam Eye Exam: Normal appearance - ENT Exam ENT Exam: Normal Exam - Respiratory Exam Respiratory Exam: NORMAL BREATHING PATTERN - Cardiovascular Exam Cardiovascular Exam: REGULAR RHYTHM, Systolic Murmur - GI/Abdominal Exam GI & Abdominal Exam: Normal Bowel Sounds, Soft - Rectal Exam Rectal Exam: Deferred - Extremities Exam Extremities exam: Positive for: normal inspection - Back Exam Back exam: NORMAL INSPECTION - Neurological Exam Neurological exam: Altered - Psychiatric Exam Psychiatric exam: Flat Affect - Skin Skin Exam: Dry, Intact, Normal Color, Warm Results - Vital Signs Recent Vital Signs: Last Vital Signs Temp 99.8 F H 09/20/17 22:24 Pulse 89 09/20/17 22:24 Resp 20 09/20/17 22:24 BP 135/70 09/20/17 22:24 Pulse Ox 98 09/20/17 22:24 - Labs Result Diagrams: 09/20/17 08:43 09/20/17 08:43 Labs: Laboratory Results - last 24 hr 09/20/17 09/20/17 09/20/17 08:16 08:43 08:43 WBC 10.2 D RBC 3.96 Hgb 10.6 L Hct 33.1 L MCV 83.4 MCH 26.8 L MCHC 32.2 L RDW 15.0 H Plt Count 487 H D MPV 8.7 Neut % (Auto) 87.0 H Lymph % (Auto) 3.4 L [place] % (Auto) 7.1 Eos % (Auto) 1.7 Baso % (Auto) 0.8 Neut # 8.9 H Lymph # 0.3 L [place] # 0.7 Eos # 0.2 Baso # 0.1 Neutrophils % (Manual) 84 H Band Neutrophils % 2 Lymphocytes % (Manual) 2 L Monocytes % (Manual) 7 Eosinophils % (Manual) 5 H Platelet Estimate Slightly increased H Large Platelets Present Anisocytosis (manual) Slight PT 13.2 H INR 1.2 APTT 31 pO2 VBG pH VBG pCO2 VBG HCO3 VBG Total CO2 VBG O2 Sat (Calc) VBG Base Excess VBG Potassium Glucose Lactate Sodium Potassium Chloride Carbon Dioxide Anion Gap BUN Creatinine Est GFR ( Amer) Est GFR (Non-Af Amer) POC Glucose (mg/dL) 123 H Random Glucose Calcium Total Bilirubin AST ALT Alkaline Phosphatase Troponin I NT-Pro-B Natriuret Pep Total Protein Albumin Globulin Albumin/Globulin Ratio Venous Blood Potassium Urine Color Urine Clarity Urine pH Ur Specific [place] Urine Protein Urine Glucose (UA) Urine Ketones Urine Blood Urine Nitrate Urine Bilirubin Urine Urobilinogen Ur Leukocyte Esterase Urine WBC (Auto) Urine RBC (Auto) Ur Squamous Epith Cells Urine Bacteria Influenza Typ A,B (EIA) 09/20/17 09/20/17 09/20/17 08:43 08:44 08:50 WBC RBC Hgb Hct MCV MCH MCHC RDW Plt Count MPV Neut % (Auto) Lymph % (Auto) [place] % (Auto) Eos % (Auto) Baso % (Auto) Neut # Lymph # [place] # Eos # Baso # Neutrophils % (Manual) Band Neutrophils % Lymphocytes % (Manual) Monocytes % (Manual) Eosinophils % (Manual) Platelet Estimate Large Platelets Anisocytosis (manual) PT INR APTT pO2 23 L VBG pH 7.41 VBG pCO2 38 L VBG HCO3 23.2 VBG Total CO2 25.3 VBG O2 Sat (Calc) 45.3 VBG Base Excess -0.3 L VBG Potassium 3.7 Glucose 127 H Lactate 1.0 Sodium 138 138.0 Potassium 3.6 Chloride 103 108.0 H Carbon Dioxide 24 Anion Gap 14 BUN 11 Creatinine 0.8 Est GFR ( Amer) > 60 Est GFR (Non-Af Amer) > 60 POC Glucose (mg/dL) Random Glucose 122 H Calcium 8.7 Total Bilirubin 0.4 AST 29 ALT 20 Alkaline Phosphatase 96 Troponin I 0.0230 NT-Pro-B Natriuret Pep 3390 H Total Protein 7.6 Albumin 3.6 Globulin 4.0 H Albumin/Globulin Ratio 0.9 L Venous Blood Potassium 3.7 Urine Color Urine Clarity Urine pH Ur Specific [place] Urine Protein Urine Glucose (UA) Urine Ketones Urine Blood Urine Nitrate Urine Bilirubin Urine Urobilinogen Ur Leukocyte Esterase Urine WBC (Auto) Urine RBC (Auto) Ur Squamous Epith Cells Urine Bacteria Influenza Typ A,B (EIA) Pos for influenza a H 09/20/17 09/20/17 09/20/17 09:07 12:00 16:47 WBC RBC Hgb Hct MCV MCH MCHC RDW Plt Count MPV Neut % (Auto) Lymph % (Auto) [place] % (Auto) Eos % (Auto) Baso % (Auto) Neut # Lymph # [place] # Eos # Baso # Neutrophils % (Manual) Band Neutrophils % Lymphocytes % (Manual) Monocytes % (Manual) Eosinophils % (Manual) Platelet Estimate Large Platelets Anisocytosis (manual) PT INR APTT pO2 125 H VBG pH 7.42 VBG pCO2 31 L VBG HCO3 22.3 VBG Total CO2 21.1 L VBG O2 Sat (Calc) 99.6 H VBG Base Excess -3.4 L VBG Potassium 3.9 Glucose 105 Lactate 0.7 Sodium 142.0 Potassium Chloride 115.0 H Carbon Dioxide Anion Gap BUN Creatinine Est GFR ( Amer) Est GFR (Non-Af Amer) POC Glucose (mg/dL) 113 H Random Glucose Calcium Total Bilirubin AST ALT Alkaline Phosphatase Troponin I NT-Pro-B Natriuret Pep Total Protein Albumin Globulin Albumin/Globulin Ratio Venous Blood Potassium 3.9 Urine Color Yellow Urine Clarity Clear Urine pH 5.0 Ur Specific [place] 1.020 Urine Protein 1+ H Urine Glucose (UA) Normal Urine Ketones Negative Urine Blood Negative Urine Nitrate Positive H Urine Bilirubin Negative Urine Urobilinogen Normal Ur Leukocyte Esterase Neg Urine WBC (Auto) 1 Urine RBC (Auto) < 1 Ur Squamous Epith Cells < 1 Urine Bacteria Occ H Influenza Typ A,B (EIA) 09/20/17 22:09 WBC RBC Hgb Hct MCV MCH MCHC RDW Plt Count MPV Neut % (Auto) Lymph % (Auto) [place] % (Auto) Eos % (Auto) Baso % (Auto) Neut # Lymph # [place] # Eos # Baso # Neutrophils % (Manual) Band Neutrophils % Lymphocytes % (Manual) Monocytes % (Manual) Eosinophils % (Manual) Platelet Estimate Large Platelets Anisocytosis (manual) PT INR APTT pO2 VBG pH VBG pCO2 VBG HCO3 VBG Total CO2 VBG O2 Sat (Calc) VBG Base Excess VBG Potassium Glucose Lactate Sodium Potassium Chloride Carbon Dioxide Anion Gap BUN Creatinine Est GFR ( Amer) Est GFR (Non-Af Amer) POC Glucose (mg/dL) 122 H Random Glucose Calcium Total Bilirubin AST ALT Alkaline Phosphatase Troponin I NT-Pro-B Natriuret Pep Total Protein Albumin Globulin Albumin/Globulin Ratio Venous Blood Potassium Urine Color Urine Clarity Urine pH Ur Specific [place] Urine Protein Urine Glucose (UA) Urine Ketones Urine Blood Urine Nitrate Urine Bilirubin Urine Urobilinogen Ur Leukocyte Esterase Urine WBC (Auto) Urine RBC (Auto) Ur Squamous Epith Cells Urine Bacteria Influenza Typ A,B (EIA) Assessment & Plan (1) Influenza Assessment and Plan: Start Tamiflu 75 mg PO BID for 5 days. Status: Acute (2) UTI (urinary tract infection) Assessment and Plan: Start Rocephin pending urine culture. Status: Acute (3) Abnormal head CT Status: Acute (4) Abnormal head CT Assessment and Plan: Repeat CT scan of the head to-nuñez. Status: Acute Decision To Admit - Pt Status Changed To: Hospital Disposition Of: Inpatient - Admit Certification Admit to Inpatient:: After my assessment, the patient will require hospitalization for at least two midnights. This is because of the severity of symptoms shown, intensity of services needed, and/or the medical risk in this patient being treated as an outpatient. - InPatient: Physician Admission Certification:: After my assessments, the patient requires hospitalization for at least 2 midnights. - . Bed Request Type: Telemetry Admitting Physician: Fazal Mosher
[2017-09-21] MEDS: (Novolog) Insulin Aspart, Recombinant 100 u/ml 10 ml vial SC SCH ×4 (08:15→21:40)
[2017-09-21] MEDS: PILOCARPINE HCL 1% OD SCH ×4 (10:00→21:47)
[2017-09-21] MEDS: TIMOLOL OU SCH ×2 (10:00→17:07)
[2017-09-21] MEDS: DORZOLAMIDE OU SCH ×2 (10:00→17:07)
[2017-09-21] MEDS: Metoprolol Succinate 50 mg XL Tab PO SCH (12:20)
--- NOTE | 2017-09-21 13:06 | CT ---
PROCEDURE: CT HEAD WITHOUT CONTRAST. HISTORY: F/U questionable pontine bleeding. COMPARISON: 09/20/2017. TECHNIQUE: Axial computed tomography images were obtained through the head/brain without intravenous contrast. Radiation dose: Total exam DLP = 924.78 mGy-cm. This CT exam was performed using one or more of the following dose reduction techniques: Automated exposure control, adjustment of the mA and/or kV according to patient size, and/or use of iterative reconstruction technique. FINDINGS: HEMORRHAGE: No intracranial hemorrhage. BRAIN: There are mild chronic microangiopathic changes. There is no mass, mass effect or abnormal extra-axial fluid collection. There are coarse atherosclerotic calcifications in the cavernous carotid arteries. VENTRICLES: There is mild age-related global parenchymal volume loss and proportionate enlargement of the ventricles and cortical sulci. CALVARIUM: The skull base and calvarium are normal. There is hyperostosis frontalis interna. PARANASAL SINUSES: There is moderate mucosal thickening in the paranasal sinuses with relative sparing of the frontal sinuses, worse in the maxillary sinuses. MASTOID AIR CELLS: There are bilateral mastoid effusions. There is cerumen in the external auditory canals. OTHER FINDINGS: None. IMPRESSION: No acute intracranial abnormality. Mild chronic microangiopathic changes and mild age-related global parenchymal volume loss. Chronic sinusitis and bilateral mastoid effusions.
[2017-09-21] MEDS: Brimonidine 0.2% Opth Sol (5ml) OU SCH ×2 (14:44→21:47)
[2017-09-21] MEDS: Enoxaparin 40 mg Syringe SC SCH (17:06)
--- NOTE | 2017-09-21 20:15 | CP.PCM.PN ---
Subjective - Date & Time of Evaluation Date of Evaluation: 09/21/17 Time of Evaluation: 20:13 - Subjective Subjective: Patient is more alert today, but still very weak. Blood culture reveals Staph Aureus coagulase negative and urine culture reveals Gram negative rods. Patient is afebrile, and in no respiratory distress, VSS. On Tamiflu and Rocephin. Will ask Dr Kimbrough to evaluate. Repeated CT scan of head did not show any intra- cerebral bleeding. Patient is back on Lovenox 40 mg S/C qd for DVT prophylaxis. Objective - Vital Signs/Intake and Output Vital Signs (last 24 hours): Temp Pulse Resp BP Pulse Ox 98.8 F 79 20 126/67 97 09/21/17 15:58 09/21/17 17:00 09/21/17 15:58 09/21/17 15:58 09/21/17 15:58 - Medications Medications: Current Medications Acetaminophen (Tylenol 325mg Tab) 650 mg PO Q6 PRN PRN Reason: Pain, moderate (4-7) Aspirin (Ecotrin) 81 mg PO DAILY [facility] Last Admin: 09/21/17 10:49 Dose: 81 mg Brimonidine Tartrate (Alphagan 0.2% Opht) 0 ml OU Q8H [facility] Last Admin: 09/21/17 14:44 Dose: Not Given Clonidine HCl (Catapres) 0.1 mg PO TID PRN PRN Reason: Diastolic blood pressure Last Admin: 09/20/17 18:22 Dose: 0.1 mg Docusate Sodium (Colace) 100 mg PO BID [facility] Last Admin: 09/21/17 17:06 Dose: 100 mg Enoxaparin Sodium (Lovenox) 40 mg SC DAILY [facility] Last Admin: 09/21/17 17:06 Dose: 40 mg Home Med (Patient's Own Drops) 1 drop OU HS [facility] Home Med (Patient's Own Drops) 1 drop OU BID [facility] Last Admin: 09/21/17 17:07 Dose: 1 drop Home Med (Patient's Own Drops) 1 drop OD QID [facility] Last Admin: 09/21/17 18:51 Dose: 1 drop Hydrochlorothiazide (Hydrodiuril) 25 mg PO DAILY [facility] Last Admin: 09/21/17 10:48 Dose: 25 mg Ceftriaxone Sodium 1 gm/ (Sodium Chloride) 100 mls @ 100 mls/hr IVPB DAILY [facility] Last Admin: 09/21/17 12:20 Dose: 100 mls/hr Insulin Aspart (Novolog) 0 unit SC ACHS [facility] PRN Reason: Protocol Last Admin: 09/21/17 16:47 Dose: Not Given Losartan Potassium (Cozaar) 100 mg PO DAILY [facility] Last Admin: 09/21/17 10:49 Dose: 100 mg Metformin HCl (Glucophage) 500 mg PO BIDCC [facility] Last Admin: 09/21/17 17:06 Dose: 500 mg Metoprolol Succinate (Toprol Xl) 50 mg PO DAILY [facility] Last Admin: 09/21/17 12:20 Dose: 50 mg Oseltamivir Phosphate (Tamiflu Cap) 75 mg PO BID [facility] Stop: 09/25/17 12:09 Last Admin: 09/21/17 17:07 Dose: 75 mg Rosuvastatin Calcium (Crestor) 2.5 mg PO HS [facility] Last Admin: 09/20/17 22:29 Dose: 2.5 mg - Labs Labs: 09/20/17 08:43 09/20/17 08:43 PT 13.2 SECONDS (9.7-12.2) H 09/20/17 08:43 INR 1.2 09/20/17 08:43 APTT 31 SECONDS (21-34) 09/20/17 08:43 - Constitutional Appears: No Acute Distress, Chronically Ill - Head Exam Head Exam: NORMAL INSPECTION - Eye Exam Pupil Exam: NORMAL ACCOMODATION - ENT Exam ENT Exam: Normal Exam - Neck Exam Neck Exam: Normal Inspection - Respiratory Exam Respiratory Exam: Clear to Ausculation Bilateral, NORMAL BREATHING PATTERN - Cardiovascular Exam Cardiovascular Exam: REGULAR RHYTHM, Murmur - GI/Abdominal Exam GI & Abdominal Exam: Soft, Normal Bowel Sounds - Rectal Exam Rectal Exam: Deferred - Extremities Exam Extremities Exam: Normal Inspection - Back Exam Back Exam: NORMAL INSPECTION - Neurological Exam Neurological Exam: Alert, Awake, Oriented x3 - Psychiatric Exam Psychiatric exam: Anxious - Skin Skin Exam: Dry, Intact, Normal Color, Warm Assessment and Plan (1) Influenza Status: Acute (2) UTI (urinary tract infection) Status: Acute (3) Abnormal head CT Status: Resolved (4) Abnormal head CT Status: Resolved (5) Staphylococcus aureus bacteremia Assessment & Plan: Awaiting sensitivy result. ID evaluation. Status: Acute
[2017-09-21] MEDS: Rosuvastatin Calcium 2.5 mg Tab PO SCH (21:46)
[2017-09-21] MEDS: LUMIGAN OU SCH (21:47)
[2017-09-22] MEDS: Brimonidine 0.2% Opth Sol (5ml) OU SCH ×3 (05:44→21:00)
[2017-09-22] MEDS: (Novolog) Insulin Aspart, Recombinant 100 u/ml 10 ml vial SC SCH ×4 (08:05→23:01)
[2017-09-22] MEDS: DORZOLAMIDE OU SCH ×2 (10:18→17:39)
[2017-09-22] MEDS: TIMOLOL OU SCH ×2 (10:18→17:39)
[2017-09-22] MEDS: PILOCARPINE HCL 1% OD SCH ×4 (10:19→20:59)
[2017-09-22] MEDS: Enoxaparin 40 mg Syringe SC SCH (10:19)
[2017-09-22] MEDS: Metoprolol Succinate 50 mg XL Tab PO SCH (10:19)
--- NOTE | 2017-09-22 12:18 | CARD ---
APPROVED REPORT EKG Measurement Heart [id number] ID [id number] <Conclusion> Sinus tachycardia Left axis deviation Minimal voltage criteria for LVH, may be normal variant Abnormal ECG
[2017-09-22 17:24] LABS: BASO % 1.1 % (0.0-2.0); EOS # 0.2 K/uL (0.0-0.7); EOS % 6.6 % (0.0-4.0); HEMOGLOBIN 10.8 g/dL (11.0-16.0); LYMPH # 1.2 K/uL (1.0-4.3); LYMPH % 32.1 % (20.0-40.0); MEAN CELL VOLUME 83.2 fL (81.0-99.0); MEAN CORPUSCULAR HEMOGLOBIN 26.5 pg (27.0-31.0); MEAN CORPUSCULAR HGB CONC 31.9 g/dL (33.0-37.0); MEAN PLATELET VOLUME 8.5 fL (7.2-11.7); MONO # 0.4 K/uL (0.0-0.8); MONO % 11.6 % (0.0-10.0); NEUT # 1.8 K/uL (1.8-7.0); NEUT % 48.6 % (50.0-75.0); RBC 4.07 Mil/uL (3.80-5.20); RED CELL DISTRIBUTION WIDTH 14.9 % (11.5-14.5); WHITE BLOOD COUNT 3.8 K/uL (4.8-10.8)
[2017-09-22 17:51] LABS: ALB/GLOB RATIO 0.8 (1.0-2.1); ALT/SGPT 24 U/L (9-52); AST/SGOT 27 U/L (14-36); BLOOD UREA NITROGEN 15 mg/dL (7-17); GFR AFRICAN-AMERICAN > 60; GFR NON-AFRICAN AMERICAN > 60
--- NOTE | 2017-09-22 19:54 | CP.PCM.PN ---
Subjective - Date & Time of Evaluation Date of Evaluation: 09/22/17 Time of Evaluation: 19:52 - Subjective Subjective: Patient awake, in no acute respiratory distress, but still very weak and poor appetite. Afebrile. Urine culture yields E. Coli sensitive to Cefazolin. Objective - Vital Signs/Intake and Output Vital Signs (last 24 hours): Temp Pulse Resp BP Pulse Ox 98 F 65 18 154/74 H 98 09/22/17 08:15 09/22/17 08:15 09/22/17 08:15 09/22/17 08:15 09/22/17 08:15 Intake and Output: 09/22/17 09/23/17 18:59 06:59 Intake Total 300 Balance 300 - Medications Medications: Current Medications Acetaminophen (Tylenol 325mg Tab) 650 mg PO Q6 PRN PRN Reason: Pain, moderate (4-7) Last Admin: 09/21/17 21:51 Dose: 650 mg Aspirin (Ecotrin) 81 mg PO DAILY [facility] Last Admin: 09/22/17 10:18 Dose: 81 mg Brimonidine Tartrate (Alphagan 0.2% Opht) 0 ml OU Q8H [facility] Last Admin: 09/22/17 13:43 Dose: 1 drop Clonidine HCl (Catapres) 0.1 mg PO TID PRN PRN Reason: Diastolic blood pressure Last Admin: 09/20/17 18:22 Dose: 0.1 mg Docusate Sodium (Colace) 100 mg PO BID [facility] Last Admin: 09/22/17 17:38 Dose: 100 mg Enoxaparin Sodium (Lovenox) 40 mg SC DAILY [facility] Last Admin: 09/22/17 10:19 Dose: 40 mg Home Med (Patient's Own Drops) 1 drop OU HS [facility] Last Admin: 09/21/17 21:47 Dose: 1 drop Home Med (Patient's Own Drops) 1 drop OU BID [facility] Last Admin: 09/22/17 17:39 Dose: 1 drop Home Med (Patient's Own Drops) 1 drop OD QID [facility] Last Admin: 09/22/17 17:39 Dose: 1 drop Hydrochlorothiazide (Hydrodiuril) 25 mg PO DAILY [facility] Last Admin: 09/22/17 10:18 Dose: 25 mg Ceftriaxone Sodium 1 gm/ (Sodium Chloride) 100 mls @ 100 mls/hr IVPB DAILY [facility] Last Admin: 09/22/17 10:19 Dose: 100 mls/hr Insulin Aspart (Novolog) 0 unit SC ACHS [facility] PRN Reason: Protocol Last Admin: 09/22/17 17:34 Dose: Not Given Losartan Potassium (Cozaar) 100 mg PO DAILY [facility] Last Admin: 09/22/17 10:18 Dose: 100 mg Metformin HCl (Glucophage) 500 mg PO BIDCC [facility] Last Admin: 09/22/17 17:38 Dose: 500 mg Metoprolol Succinate (Toprol Xl) 50 mg PO DAILY [facility] Last Admin: 09/22/17 10:19 Dose: 50 mg Oseltamivir Phosphate (Tamiflu Cap) 75 mg PO BID [facility] Stop: 09/25/17 12:09 Last Admin: 09/22/17 17:38 Dose: 75 mg Rosuvastatin Calcium (Crestor) 2.5 mg PO HS [facility] Last Admin: 09/21/17 21:46 Dose: 2.5 mg - Labs Labs: 09/22/17 17:16 09/22/17 17:16 PT 13.2 SECONDS (9.7-12.2) H 09/20/17 08:43 INR 1.2 09/20/17 08:43 APTT 31 SECONDS (21-34) 09/20/17 08:43 - Constitutional Appears: No Acute Distress, Confused, Chronically Ill - Head Exam Head Exam: NORMAL INSPECTION - Eye Exam Eye Exam: Normal appearance - ENT Exam ENT Exam: Normal Exam - Neck Exam Neck Exam: Normal Inspection - Respiratory Exam Respiratory Exam: Clear to Ausculation Bilateral, NORMAL BREATHING PATTERN - Cardiovascular Exam Cardiovascular Exam: REGULAR RHYTHM - GI/Abdominal Exam GI & Abdominal Exam: Soft, Normal Bowel Sounds - Rectal Exam Rectal Exam: Deferred - Extremities Exam Extremities Exam: Normal Inspection - Back Exam Back Exam: NORMAL INSPECTION - Neurological Exam Neurological Exam: Alert, Awake - Psychiatric Exam Psychiatric exam: Anxious - Skin Skin Exam: Dry, Intact, Normal Color, Warm Assessment and Plan (1) Influenza Status: Acute (2) UTI (urinary tract infection) Status: Acute (3) Abnormal head CT Status: Resolved (4) Abnormal head CT Status: Resolved (5) Staphylococcus aureus bacteremia Status: Acute
--- NOTE | 2017-09-22 20:50 | CP.PCM.CON ---
History of Present Illness - History of Present Illness History of Present Illness: INFECTIOUS DISEASE CONSULTATION TUAN DURAN MD, FACP 5T 555 CHART REVIEWED PT EXAMINED CASE DISCUSSED CLINICALLY THIS PT, AN 87 YEAR OLD FEMALE, FORMER NURING INDIVIDUAL, WAS ADMITTED ON OR ABOUT 09/20/2017 FOR ACUTE RESPIRATORY DISFUNCTION, WITH POSITIVE INFLUENZA A TESTING. AN INFECTIOUS DISEASE CONSULTATION WAS REQUESTED SECONDARY, TEMP 102 WITH STAPH BACTEREMIA AND INFLUENZA DOCUMENTED-THESE ARE THE TYPICAL PATIENTS THAT SUCCUMB ACUTELY! 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 COLI UTI IN AN ELDERLY FEMALE WITH MULIPLE MEDICAL PROBLEMS. TAMIFLU PO BID TEFLARO BID FOR STAPH BACTEREMIA/ POSSIBLE PNEUMONIA AND UTI -IN THIS IMMUNODEFICIENT PATIENT. WATCH FOR RELAPSE AND/OR PROGRESSION CONTINUE HYDRATION, ALIMENTATION. THANK YOU TUAN DURAN MD, FACP Review of Systems - Constitutional Constitutional: Chills, Fever, Lethargy, Weakness - EENT Eyes: Blurred Vision, Change in Vision Ears: Decreased Hearing Nose/Mouth/Throat: Dry Mouth, Hoarsness, Sore Throat - Cardiovascular Cardiovascular: Dyspnea on Exertion, Rapid Heart Rate - Respiratory Respiratory: Cough, Dyspnea on Exertion, Wheezing, Chest Congestion, Excessive Mucous Production. absent: Pain with Coughing - Gastrointestinal Gastrointestinal: Dyspepsia, Early Satiety, Nausea - Genitourinary Genitourinary: Change in Urinary Stream - Musculoskeletal Musculoskeletal: Atrophy, Limited Range of Motion, Loss of Height, Muscle Weakness, Myalgias - Integumentary Integumentary: absent: Rash, Skin Pain, Sores, Unusual Bruising, Wounds - Neurological Neurological: Abnormal Hearing, Confusion, Dizziness, Lack of Coordination, Loss of Vision, Weakness, Other Visual Disturbances - Psychiatric Psychiatric: Confusion, Difficulty Concentrating - Endocrine Endocrine: Fatigue, Flushing Past Patient History - Infectious Disease Hx of Infectious Diseases: None - Tetanus Immunizations Tetanus Immunization: Unknown - Past Medical History & Family History Past Medical History?: Yes - Past Social History Smoking Status: Never Smoked Chewing Tobacco Use: No Cigar Use: No Occupation: WORKED IN NURSING Alcohol: Occasional Home Situation {Lives}: With Family - CARDIAC Hx Cardiac Disorders: Yes Hx Hypercholesterolemia: Yes Hx Hypertension: Yes - PULMONARY Hx Respiratory Disorders: Yes Hx Bronchitis: Yes - NEUROLOGICAL Hx Neurological Disorder: Yes HX Cerebrovascular Accident: Yes (TIA) Hx Transient Ischemic Attacks (TIA): Yes - HEENT Hx HEENT Problems: Yes Hx Glaucoma: Yes - RENAL Hx Chronic Kidney Disease: No - ENDOCRINE/METABOLIC Hx Endocrine Disorders: Yes Hx Diabetes Mellitus Type 2: Yes - HEMATOLOGICAL/ONCOLOGICAL Hx Blood Disorders: Yes Hx Cancer: Yes Hx Chemotherapy: Yes (Lymphoma in remission since 2000.) Hx Lymphoma: Yes - INTEGUMENTARY Hx Dermatological Problems: No - MUSCULOSKELETAL/RHEUMATOLOGICAL Hx Musculoskeletal Disorders: Yes Hx Arthritis: Yes - GASTROINTESTINAL Hx Gastrointestinal Disorders: No - GENITOURINARY/GYNECOLOGICAL Hx Genitourinary Disorders: No - PSYCHIATRIC Hx Psychophysiologic Disorder: Yes Hx Substance Use: No - SURGICAL HISTORY Hx Surgeries: Yes Hx Eye Surgery: Yes (Right cataract surgery in 2009.) Hx Hysterectomy: Yes (in 1995) Hx Vascular Surgery: Yes (riRiRight fem-pop by-pass in 2012 ( Dr Maddox)) - ANESTHESIA Hx Anesthesia: Yes Hx Anesthesia Reactions: No Hx Malignant Hyperthermia: No Has any member of the family had a problem w/ anesthesia?: No Meds Allergies/Adverse Reactions: Allergies Allergy/AdvReac Type Severity Reaction Status Date / Time codeine Allergy Verified 03/18/17 20:37 - Medications Medications: Current Medications Acetaminophen (Tylenol 325mg Tab) 650 mg PO Q6 PRN PRN Reason: Pain, moderate (4-7) Last Admin: 09/21/17 21:51 Dose: 650 mg Aspirin (Ecotrin) [address] [facility] Last Admin: 09/22/17 10:18 Dose: 81 mg Brimonidine Tartrate (Alphagan 0.2% Opht) [address] [facility] Last Admin: 09/22/17 13:43 Dose: 1 drop Clonidine HCl (Catapres) 0.1 mg PO TID PRN PRN Reason: Diastolic blood pressure Last Admin: 09/20/17 18:22 Dose: 0.1 mg Docusate Sodium (Colace) [address] [facility] Last Admin: 09/22/17 17:38 Dose: 100 mg Enoxaparin Sodium (Lovenox) [address] [facility] Last Admin: 09/22/17 10:19 Dose: 40 mg Home Med (Patient's Own Drops) [address] [facility] Last Admin: 09/21/17 21:47 Dose: 1 drop Home Med (Patient's Own Drops) [address] [facility] Last Admin: 09/22/17 17:39 Dose: 1 drop Home Med (Patient's Own Drops) [address] [facility] Last Admin: 09/22/17 17:39 Dose: 1 drop Hydrochlorothiazide (Hydrodiuril) [address] [facility] Last Admin: 09/22/17 10:18 Dose: 25 mg Ceftaroline Fosamil 600 mg/ (Sodium Chloride) 100 mls @ 100 mls/hr IVPB Q12H [facility] Insulin Aspart (Novolog) 0 unit SC [facility] PRN Reason: Protocol Last Admin: 09/22/17 17:34 Dose: Not Given Losartan Potassium (Cozaar) [address] [facility] Last Admin: 09/22/17 10:18 Dose: 100 mg [facility] Last Admin: 09/22/17 17:38 Dose: 500 mg Metoprolol Succinate (Toprol Xl) [address] [facility] Last Admin: 09/22/17 10:19 Dose: 50 mg Oseltamivir Phosphate (Tamiflu Cap) [address] [facility] Stop: 09/25/17 12:09 Last Admin: 09/22/17 17:38 Dose: 75 mg Rosuvastatin Calcium (Crestor) 2.5 mg PO [facility] Last Admin: 09/21/17 21:46 Dose: 2.5 mg Physical Exam - Constitutional Appears: Older Than Stated Age, Confused, Cachectic, Chronically Ill - Head Exam Head Exam: NORMAL INSPECTION - Eye Exam Eye Exam: absent: Normal appearance - ENT Exam ENT Exam: absent: Mucous Membranes Dry - Neck Exam Neck exam: Positive for: Normal Inspection - Respiratory Exam Respiratory Exam: Decreased Breath Sounds, Rhonchi, NORMAL BREATHING PATTERN - Cardiovascular Exam Cardiovascular Exam: REGULAR RHYTHM - GI/Abdominal Exam GI & Abdominal Exam: Soft. absent: Hypoactive Bowel Sounds, Rigid, Tenderness - Rectal Exam Rectal Exam: Deferred - Back Exam Back exam: absent: muscle spasm - Neurological Exam Neurological exam: Alert - Psychiatric Exam Psychiatric exam: Anxious, Flat Affect - Skin Skin Exam: Dry, Intact, Warm Results - Vital Signs Recent Vital Signs: Last Vital Signs Temp 98 F 09/22/17 08:15 Pulse 65 09/22/17 08:15 Resp 18 09/22/17 08:15 BP 154/74 H 09/22/17 08:15 Pulse Ox 98 09/22/17 08:15 - Labs Result Diagrams: 09/22/17 17:16 09/22/17 17:16 Labs: Laboratory Results - last 24 hr 09/21/17 09/22/17 09/22/17 21:27 06:13 11:27 WBC RBC Hgb Hct MCV MCH MCHC RDW Plt Count MPV Neut % (Auto) Lymph % (Auto) [place] % (Auto) Eos % (Auto) Baso % (Auto) Neut # Lymph # [place] # Eos # Baso # Sodium Potassium Chloride Carbon Dioxide Anion Gap BUN Creatinine Est GFR ( Amer) Est GFR (Non-Af Amer) POC Glucose (mg/dL) 133 H 89 97 Random Glucose Calcium Total Bilirubin AST ALT Alkaline Phosphatase Total Protein Albumin Globulin Albumin/Globulin Ratio 09/22/17 09/22/17 09/22/17 17:08 17:16 17:16 WBC 3.8 L D RBC 4.07 Hgb 10.8 L Hct 33.8 L MCV 83.2 MCH 26.5 L MCHC 31.9 L RDW 14.9 H Plt Count 479 H MPV 8.5 Neut % (Auto) 48.6 L Lymph % (Auto) 32.1 [place] % (Auto) 11.6 H Eos % (Auto) 6.6 H Baso % (Auto) 1.1 Neut # 1.8 Lymph # 1.2 [place] # 0.4 Eos # 0.2 Baso # 0.0 Sodium 131 L Potassium 3.4 L Chloride 97 L Carbon Dioxide 25 Anion Gap 13 BUN 15 Creatinine 0.7 Est GFR ( Amer) > 60 Est GFR (Non-Af Amer) > 60 POC Glucose (mg/dL) 113 H Random Glucose 117 H Calcium 8.0 L Total Bilirubin 0.3 AST 27 ALT 24 Alkaline Phosphatase 77 Total Protein 6.6 Albumin 3.0 L Globulin 3.6 Albumin/Globulin Ratio 0.8 L Assessment & Plan (1) Fever Status: Acute Priority: Medium (2) Coag negative Staphylococcus bacteremia Status: Acute Priority: High (3) UTI (urinary tract infection) Status: Acute Priority: Medium (4) Benign hypertension Status: Chronic Priority: Medium (5) Influenza Status: Acute Priority: High (6) Lymphoma in remission Status: Chronic Priority: Medium (7) Diabetes 1.5, managed as type 2 Status: Chronic Priority: Low
[2017-09-22] MEDS: Rosuvastatin Calcium 2.5 mg Tab PO SCH (20:59)
[2017-09-22] MEDS: Ceftaroline 600 MG in Sodium Chloride 0.9% 100 ML IVPB SCH (20:59)
[2017-09-22] MEDS: LUMIGAN OU SCH (23:01)
[2017-09-23] MEDS: Brimonidine 0.2% Opth Sol (5ml) OU SCH ×3 (05:56→22:41)
[2017-09-23 08:08] LABS: BASO % 0.7 % (0.0-2.0); EOS # 0.1 K/uL (0.0-0.7); EOS % 4.1 % (0.0-4.0); HEMOGLOBIN 11.2 g/dL (11.0-16.0); MEAN CORPUSCULAR HEMOGLOBIN 26.8 pg (27.0-31.0); MEAN CORPUSCULAR HGB CONC 32.8 g/dL (33.0-37.0); MEAN PLATELET VOLUME 8.6 fL (7.2-11.7); MONO # 0.4 K/uL (0.0-0.8); MONO % 11.7 % (0.0-10.0); NEUT # 1.9 K/uL (1.8-7.0); NEUT % 53.5 % (50.0-75.0); NRBC % 0.1 % (0.0-2.0); RBC 4.18 Mil/uL (3.80-5.20); WHITE BLOOD COUNT 3.5 K/uL (4.8-10.8)
[2017-09-23] MEDS: Ceftaroline 600 MG in Sodium Chloride 0.9% 100 ML IVPB SCH ×2 (08:30→19:38)
[2017-09-23] MEDS: (Novolog) Insulin Aspart, Recombinant 100 u/ml 10 ml vial SC SCH ×4 (08:30→21:59)
[2017-09-23 08:58] LABS: ALB/GLOB RATIO 0.9 (1.0-2.1); ALBUMIN 3.1 g/dL (3.5-5.0); ALT/SGPT 17 U/L (9-52); AST/SGOT 29 U/L (14-36); BLOOD UREA NITROGEN 13 mg/dL (7-17); CALCIUM 8.5 mg/dl (8.6-10.4); GFR AFRICAN-AMERICAN > 60; GFR NON-AFRICAN AMERICAN > 60; MAGNESIUM 1.5 mg/dL (1.6-2.3)
[2017-09-23] MEDS: Metoprolol Succinate 50 mg XL Tab PO SCH (10:28)
[2017-09-23] MEDS: Enoxaparin 40 mg Syringe SC SCH (10:29)
[2017-09-23] MEDS: TIMOLOL OU SCH ×2 (10:35→18:24)
[2017-09-23] MEDS: PILOCARPINE HCL 1% OD SCH ×4 (10:35→22:09)
[2017-09-23] MEDS: DORZOLAMIDE OU SCH ×2 (10:35→18:24)
[2017-09-23] MEDS ORDERED: Magnesium Sulfate 1 gm in D5W 1 GM/100 ML BAG IVPB ONE (17:26)
[2017-09-23] MEDS ORDERED: Potassium Chloride 20 mEq ER Tab PO ONE (17:30)
--- NOTE | 2017-09-23 19:01 | CP.PCM.PN ---
Subjective - Date & Time of Evaluation Date of Evaluation: 09/23/17 Time of Evaluation: 18:53 - Subjective Subjective: INFECTIOUS DISEASE PROGRESS NOTE 5T 555 09/23/2017 TUAN DURAN MD, FACP CHART REVIEWED PT EXAMINED CASE DISCUSSED CLINICALLY AWAKE BUT NOT FOCUSED KEEPS HER EYES CLOSED AND DOESN'T ANSWER APPROPIATELY SHE NEEDS HELP EATING OR SHE WILL SUCCUMB TO HER PROGRESSIVE MULTIFACTORIAL MALADIES, RANGING FROM ACUTE INFLUENZA, BACTEREMIA, UTI AND LYMPHOMA COMPLICATING HER ADVANCED AGE AND DEMENTIA. RECOMMEND HELP IN FEEDING, HYDRATING HER CAREFULLY AND POSSIBLY ALLOWING EXERCISE/MOVEMENT-EVEN IN HER ROOM. TO RECHECK HER CXR, ADD FOLIC ACID TO DAILY REGIME TO CONSIDER REPEATING BLOOD C/S TO HELP DECIDE IF THOSE BLOOD C/S ARE SIGNIFICANT OR NOT THANK YOU FOR ALLOWING ME TO HELP MANAGE THIS PLEASANT LITTLE OLD LADY, TUAN DURAN MD FACP TRIPLY BOARDED ID Objective - Vital Signs/Intake and Output Vital Signs (last 24 hours): Temp Pulse Resp BP Pulse Ox 98.1 F 66 20 147/73 98 09/23/17 15:00 09/23/17 16:36 09/23/17 15:00 09/23/17 15:00 09/23/17 15:00 - Medications Medications: Current Medications Acetaminophen (Tylenol 325mg Tab) 650 mg PO Q6 PRN PRN Reason: Pain, moderate (4-7) Last Admin: 09/21/17 21:51 Dose: 650 mg Aspirin (Ecotrin) 81 mg PO DAILY [facility] Last Admin: 09/23/17 10:28 Dose: 81 mg Brimonidine Tartrate (Alphagan 0.2% Opht) 0 ml OU Q8H [facility] Last Admin: 09/23/17 14:21 Dose: 1 drop Clonidine HCl (Catapres) 0.1 mg PO TID PRN PRN Reason: Diastolic blood pressure Last Admin: 09/20/17 18:22 Dose: 0.1 mg Docusate Sodium (Colace) 100 mg PO BID [facility] Last Admin: 09/23/17 18:18 Dose: 100 mg Enoxaparin Sodium (Lovenox) 40 mg SC DAILY [facility] Last Admin: 09/23/17 10:29 Dose: 40 mg Home Med (Patient's Own Drops) 1 drop OU HS [facility] Last Admin: 09/22/17 23:01 Dose: 1 drop Home Med (Patient's Own Drops) 1 drop OU BID [facility] Last Admin: 09/23/17 18:24 Dose: 1 drop Home Med (Patient's Own Drops) 1 drop OD QID [facility] Last Admin: 09/23/17 18:25 Dose: 1 drop Hydrochlorothiazide (Hydrodiuril) 25 mg PO DAILY [facility] Last Admin: 09/23/17 10:34 Dose: 25 mg Ceftaroline Fosamil 600 mg/ (Sodium Chloride) 100 mls @ 100 mls/hr IVPB Q12H [facility] Last Admin: 09/23/17 08:30 Dose: 100 mls/hr Insulin Aspart (Novolog) 0 unit SC ACHS [facility] PRN Reason: Protocol Last Admin: 09/23/17 17:05 Dose: Not Given Losartan Potassium (Cozaar) 100 mg PO DAILY [facility] Last Admin: 09/23/17 10:28 Dose: 100 mg Metformin HCl (Glucophage) 500 mg PO BIDCC [facility] Last Admin: 09/23/17 18:19 Dose: Not Given Metoprolol Succinate (Toprol Xl) 50 mg PO DAILY [facility] Last Admin: 09/23/17 10:28 Dose: 50 mg Oseltamivir Phosphate (Tamiflu Cap) 75 mg PO BID [facility] Stop: 09/25/17 12:09 Last Admin: 09/23/17 18:18 Dose: 75 mg Rosuvastatin Calcium (Crestor) 2.5 mg PO HS [facility] Last Admin: 09/22/17 20:59 Dose: 2.5 mg - Labs Labs: 09/23/17 07:47 09/23/17 07:47 PT 13.2 SECONDS (9.7-12.2) H 09/20/17 08:43 INR 1.2 09/20/17 08:43 APTT 31 SECONDS (21-34) 09/20/17 08:43 - Constitutional Appears: Non-toxic, Older Than Stated Age, Cachectic, Chronically Ill - Head Exam Head Exam: NORMAL INSPECTION - Eye Exam Eye Exam: Normal appearance - ENT Exam ENT Exam: Mucous Membranes Dry - Neck Exam Neck Exam: Normal Inspection - Respiratory Exam Respiratory Exam: Decreased Breath Sounds - Cardiovascular Exam Cardiovascular Exam: REGULAR RHYTHM - GI/Abdominal Exam GI & Abdominal Exam: Soft, Normal Bowel Sounds. 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
--- NOTE | 2017-09-23 19:28 | CP.PCM.PN ---
Subjective - Date & Time of Evaluation Date of Evaluation: 09/23/17 Time of Evaluation: 19:27 - Subjective Subjective: Patient is still very weak, with poor appetite, and a mild dry cough. Seen by Dr Kimbrough, started on Ceftaroline 600 mg IVPB q 12 h. Objective - Vital Signs/Intake and Output Vital Signs (last 24 hours): Temp Pulse Resp BP Pulse Ox 98.1 F 66 20 147/73 98 09/23/17 15:00 09/23/17 16:36 09/23/17 15:00 09/23/17 15:00 09/23/17 15:00 - Medications Medications: Current Medications Acetaminophen (Tylenol 325mg Tab) 650 mg PO Q6 PRN PRN Reason: Pain, moderate (4-7) Last Admin: 09/21/17 21:51 Dose: 650 mg Aspirin (Ecotrin) 81 mg PO DAILY [facility] Last Admin: 09/23/17 10:28 Dose: 81 mg Brimonidine Tartrate (Alphagan 0.2% Opht) 0 ml OU Q8H [facility] Last Admin: 09/23/17 14:21 Dose: 1 drop Clonidine HCl (Catapres) 0.1 mg PO TID PRN PRN Reason: Diastolic blood pressure Last Admin: 09/20/17 18:22 Dose: 0.1 mg Docusate Sodium (Colace) 100 mg PO BID [facility] Last Admin: 09/23/17 18:18 Dose: 100 mg Enoxaparin Sodium (Lovenox) 40 mg SC DAILY [facility] Last Admin: 09/23/17 10:29 Dose: 40 mg Home Med (Patient's Own Drops) 1 drop OU HS [facility] Last Admin: 09/22/17 23:01 Dose: 1 drop Home Med (Patient's Own Drops) 1 drop OU BID [facility] Last Admin: 09/23/17 18:24 Dose: 1 drop Home Med (Patient's Own Drops) 1 drop OD QID [facility] Last Admin: 09/23/17 18:25 Dose: 1 drop Hydrochlorothiazide (Hydrodiuril) 25 mg PO DAILY [facility] Last Admin: 09/23/17 10:34 Dose: 25 mg Ceftaroline Fosamil 600 mg/ (Sodium Chloride) 100 mls @ 100 mls/hr IVPB Q12H [facility] Last Admin: 09/23/17 08:30 Dose: 100 mls/hr Insulin Aspart (Novolog) 0 unit SC ACHS [facility] PRN Reason: Protocol Last Admin: 09/23/17 17:05 Dose: Not Given Losartan Potassium (Cozaar) 100 mg PO DAILY [facility] Last Admin: 09/23/17 10:28 Dose: 100 [facility] Admin: 09/23/17 18:19 Dose: Not Given Metoprolol Succinate (Toprol Xl) 50 mg PO DAILY [facility] Last Admin: 09/23/17 10:28 Dose: 50 mg Oseltamivir Phosphate (Tamiflu Cap) 75 mg PO BID [facility] Stop: 09/25/17 12:09 Last Admin: 09/23/17 18:18 Dose: 75 mg Rosuvastatin Calcium (Crestor) 2.[address] [facility] Last Admin: 09/22/17 20:59 Dose: 2.5 mg - Labs Labs: 09/23/17 07:47 09/23/17 07:47 PT 13.2 SECONDS (9.7-12.2) H 09/20/17 08:43 INR 1.2 09/20/17 08:43 APTT 31 SECONDS (21-34) 09/20/17 08:43 - Constitutional Appears: No Acute Distress, Chronically Ill - Head Exam Head Exam: NORMAL INSPECTION - Eye Exam Eye Exam: Normal appearance - ENT Exam ENT Exam: Normal Exam - Neck Exam Neck Exam: Normal Inspection - Respiratory Exam Respiratory Exam: Clear to Ausculation Bilateral, NORMAL BREATHING PATTERN - Cardiovascular Exam Cardiovascular Exam: REGULAR RHYTHM - GI/Abdominal Exam GI & Abdominal Exam: Soft, Normal Bowel Sounds - Rectal Exam Rectal Exam: Deferred - Extremities Exam Extremities Exam: Full ROM, Normal Capillary Refill, Normal Inspection - Back Exam Back Exam: NORMAL INSPECTION - Neurological Exam Additional comments: Awake, forgetful, slightly confused. - Psychiatric Exam Psychiatric exam: Anxious - Skin Skin Exam: Dry, Intact, Normal Color Assessment and Plan (1) Influenza Status: Acute (2) UTI (urinary tract infection) Status: Acute (3) Abnormal head CT Status: Resolved (4) Abnormal head CT Status: Resolved (5) Staphylococcus aureus bacteremia Assessment & Plan: On Ceftaroline IVPB by Dr Kimbrough. Status: Acute
[2017-09-23] MEDS: Rosuvastatin Calcium 2.5 mg Tab PO SCH (22:09)
[2017-09-23] MEDS: LUMIGAN OU SCH (22:10)
[2017-09-24] MEDS: Brimonidine 0.2% Opth Sol (5ml) OU SCH ×3 (06:26→21:50)
[2017-09-24] MEDS: (Novolog) Insulin Aspart, Recombinant 100 u/ml 10 ml vial SC SCH ×4 (07:43→21:56)
[2017-09-24 07:50] LABS: ALB/GLOB RATIO 0.9 (1.0-2.1); ALBUMIN 3.1 g/dL (3.5-5.0); ALT/SGPT 19 U/L (9-52); AST/SGOT 36 U/L (14-36); BLOOD UREA NITROGEN 16 mg/dL (7-17); CALCIUM 8.5 mg/dl (8.6-10.4); GFR AFRICAN-AMERICAN > 60; GFR NON-AFRICAN AMERICAN > 60; MAGNESIUM 1.8 mg/dL (1.6-2.3)
[2017-09-24 08:18] LABS: BASO % 0.5 % (0.0-2.0); EOS # 0.2 K/uL (0.0-0.7); EOS % 2.8 % (0.0-4.0); HEMOGLOBIN 11.1 g/dL (11.0-16.0); LYMPH # 2.8 K/uL (1.0-4.3); LYMPH % 34.3 % (20.0-40.0); MEAN CELL VOLUME 83.7 fL (81.0-99.0); MEAN CORPUSCULAR HEMOGLOBIN 26.7 pg (27.0-31.0); MEAN CORPUSCULAR HGB CONC 31.9 g/dL (33.0-37.0); MEAN PLATELET VOLUME 9.2 fL (7.2-11.7); MONO # 1.1 K/uL (0.0-0.8); MONO % 13.3 % (0.0-10.0); NEUT % 49.1 % (50.0-75.0); NRBC % 0.3 % (0.0-2.0); RBC 4.17 Mil/uL (3.80-5.20); WHITE BLOOD COUNT 8.1 K/uL (4.8-10.8)
[2017-09-24] MEDS: Ceftaroline 600 MG in Sodium Chloride 0.9% 100 ML IVPB SCH ×2 (09:15→20:19)
[2017-09-24] MEDS: Enoxaparin 40 mg Syringe SC SCH (09:34)
[2017-09-24] MEDS: TIMOLOL OU SCH ×2 (09:35→17:39)
[2017-09-24] MEDS: Metoprolol Succinate 50 mg XL Tab PO SCH (09:35)
[2017-09-24] MEDS: PILOCARPINE HCL 1% OD SCH ×4 (09:35→21:53)
[2017-09-24] MEDS: DORZOLAMIDE OU SCH ×2 (09:35→17:39)
--- NOTE | 2017-09-24 09:49 | RAD ---
HISTORY: acute influenza with possible pneumonia/bacteremia COMPARISON: 09/20/2017 FINDINGS: LUNGS: No active pulmonary disease. PLEURA: No significant pleural effusion identified, no pneumothorax apparent. CARDIOVASCULAR: Normal. OSSEOUS STRUCTURES: No significant abnormalities. VISUALIZED UPPER ABDOMEN: Normal. OTHER FINDINGS: None. IMPRESSION: No active disease.
--- NOTE | 2017-09-24 21:01 | CP.PCM.PN ---
Subjective - Date & Time of Evaluation Date of Evaluation: 09/24/17 Time of Evaluation: 20:58 - Subjective Subjective: Patient sleeping most of the time, weak with poor appetite. Afebrile. Objective - Vital Signs/Intake and Output Vital Signs (last 24 hours): Temp Pulse Resp BP Pulse Ox 98.0 F 68 20 117/65 95 09/24/17 15:37 09/24/17 19:14 09/24/17 15:37 09/24/17 15:37 09/24/17 15:37 Intake and Output: 09/24/17 09/25/17 18:59 06:59 Intake Total 580 400 Balance 580 400 - Medications Medications: Current Medications Acetaminophen (Tylenol 325mg Tab) 650 mg PO Q6 PRN PRN Reason: Pain, moderate (4-7) Last Admin: 09/21/17 21:51 Dose: 650 mg Aspirin (Ecotrin) 81 mg PO DAILY [facility] Last Admin: 09/24/17 09:35 Dose: 81 mg Brimonidine Tartrate (Alphagan 0.2% Opht) 0 ml OU Q8H [facility] Last Admin: 09/24/17 14:20 Dose: 1 drop Clonidine HCl (Catapres) 0.1 mg PO TID PRN PRN Reason: Diastolic blood pressure Last Admin: 09/20/17 18:22 Dose: 0.1 mg Docusate Sodium (Colace) 100 mg PO BID [facility] Last Admin: 09/24/17 17:40 Dose: 100 mg Enoxaparin Sodium (Lovenox) 40 mg SC DAILY [facility] Last Admin: 09/24/17 09:34 Dose: 40 mg Home Med (Patient's Own Drops) 1 drop OU HS [facility] Last Admin: 09/23/17 22:10 Dose: 1 drop Home Med (Patient's Own Drops) 1 drop OU BID [facility] Last Admin: 09/24/17 17:39 Dose: 1 drop Home Med (Patient's Own Drops) 1 drop OD QID [facility] Last Admin: 09/24/17 17:45 Dose: 1 drop Hydrochlorothiazide (Hydrodiuril) 25 mg PO DAILY [facility] Last Admin: 09/24/17 09:34 Dose: 25 mg Ceftaroline Fosamil 600 mg/ (Sodium Chloride) 100 mls @ 100 mls/hr IVPB Q12H [facility] Last Admin: 09/24/17 20:19 Dose: 100 mls/hr Insulin Aspart (Novolog) 0 unit SC ACHS [facility] PRN Reason: Protocol Last Admin: 09/24/17 16:22 Dose: Not Given Losartan Potassium (Cozaar) 100 mg PO DAILY [facility] Last Admin: 09/24/17 09:35 Dose: 100 mg Metformin HCl (Glucophage) 500 mg PO BIDCC [facility] Last Admin: 09/24/17 16:43 Dose: 500 mg Metoprolol Succinate (Toprol Xl) 50 mg PO DAILY [facility] Last Admin: 09/24/17 09:35 Dose: 50 mg Oseltamivir Phosphate (Tamiflu Cap) 75 mg PO BID [facility] Stop: 09/25/17 12:09 Last Admin: 09/24/17 17:40 Dose: 75 mg Rosuvastatin Calcium (Crestor) 2.5 mg PO HS [facility] Last Admin: 09/23/17 22:09 Dose: 2.5 mg - Labs Labs: 09/24/17 07:17 09/24/17 07:17 PT 13.2 SECONDS (9.7-12.2) H 09/20/17 08:43 INR 1.2 09/20/17 08:43 APTT 31 SECONDS (21-34) 09/20/17 08:43 - Constitutional Appears: No Acute Distress, Chronically Ill - Head Exam Head Exam: NORMAL INSPECTION - Eye Exam Eye Exam: Normal appearance - ENT Exam ENT Exam: Normal Exam - Neck Exam Neck Exam: Normal Inspection - Respiratory Exam Respiratory Exam: Clear to Ausculation Bilateral, NORMAL BREATHING PATTERN - Cardiovascular Exam Cardiovascular Exam: REGULAR RHYTHM, Murmur - GI/Abdominal Exam GI & Abdominal Exam: Soft, Normal Bowel Sounds - Rectal Exam Rectal Exam: Deferred - Extremities Exam Extremities Exam: Normal Inspection - Back Exam Back Exam: NORMAL INSPECTION - Neurological Exam Additional comments: Confused at times. Answers questions reluctantly. - Psychiatric Exam Additional comments: Slightly confused. - Skin Skin Exam: Dry, Intact, Normal Color, Warm Assessment and Plan (1) Influenza Assessment & Plan: Serum for Influenza A&B negative. Status: Acute (2) UTI (urinary tract infection) Status: Acute (3) Abnormal head CT Status: Resolved (4) Abnormal head CT Status: Resolved (5) Staphylococcus aureus bacteremia Assessment & Plan: To continue IV antibiotic. Status: Acute
[2017-09-24] MEDS: Rosuvastatin Calcium 2.5 mg Tab PO SCH (21:50)
[2017-09-24] MEDS: LUMIGAN OU SCH (21:51)
--- NOTE | 2017-09-25 | CP.PCM.PN ---
Subjective - Date & Time of Evaluation Date of Evaluation: 09/24/17 Time of Evaluation: 19:00 - Subjective Subjective: INFECTIOUS DISEASE PROGRESS NOTE TUAN DURAN MD, FACP 5T 555 09/24/2017 CHART REVIEWED CASE DISCUSSED RESPONDING TO ANTI INFLUENZA TREATMENT AND ALSO THERAPY FOR STAPH BACTEREMIA. BUT PT NOT EATING OR INGESTING WELL CONSIDER PO ALIMENTATION SUPPLEMENTATION ALSO PSY CONSULTATION FOR HER DEMENTIA. OFF TAMIFLU NOW FINISH TEFLARO IV Objective - Vital Signs/Intake and Output Vital Signs (last 24 hours): Temp Pulse Resp BP Pulse Ox 97.9 F 66 20 113/64 96 09/24/17 22:00 09/24/17 22:00 09/24/17 22:00 09/24/17 22:00 09/24/17 22:00 Intake and Output: 09/24/17 09/25/17 18:59 06:59 Intake Total 580 400 Balance 580 400 - Medications Medications: Current Medications Acetaminophen (Tylenol 325mg Tab) 650 mg PO Q6 PRN PRN Reason: Pain, moderate (4-7) Last Admin: 09/21/17 21:51 Dose: 650 mg Aspirin (Ecotrin) 81 mg PO DAILY [facility] Last Admin: 09/24/17 09:35 Dose: 81 mg Brimonidine Tartrate (Alphagan 0.2% Opht) 0 ml OU Q8H [facility] Last Admin: 09/24/17 21:50 Dose: 1 drop Clonidine HCl (Catapres) 0.1 mg PO TID PRN PRN Reason: Diastolic blood pressure Last Admin: 09/20/17 18:22 Dose: 0.1 mg Docusate Sodium (Colace) 100 mg PO BID [facility] Last Admin: 09/24/17 17:40 Dose: 100 mg Enoxaparin Sodium (Lovenox) 40 mg SC DAILY [facility] Last Admin: 09/24/17 09:34 Dose: 40 mg Home Med (Patient's Own Drops) 1 drop OU HS [facility] Last Admin: 09/24/17 21:51 Dose: 1 drop Home Med (Patient's Own Drops) 1 drop OU BID [facility] Last Admin: 09/24/17 17:39 Dose: 1 drop Home Med (Patient's Own Drops) 1 drop OD QID [facility] Last Admin: 09/24/17 21:53 Dose: 1 drop Hydrochlorothiazide (Hydrodiuril) 25 mg PO DAILY [facility] Last Admin: 09/24/17 09:34 Dose: 25 mg Ceftaroline Fosamil 600 mg/ (Sodium Chloride) 100 mls @ 100 mls/hr IVPB Q12H [facility] Last Admin: 09/24/17 20:19 Dose: 100 mls/hr Insulin Aspart (Novolog) 0 unit SC ACHS [facility] PRN Reason: Protocol Last Admin: 09/24/17 21:56 Dose: Not Given Losartan Potassium (Cozaar) 100 mg PO DAILY [facility] Last Admin: 09/24/17 09:35 Dose: 100 mg Metformin HCl (Glucophage) 500 mg PO BIDCC [facility] Last Admin: 09/24/17 16:43 Dose: 500 mg Metoprolol Succinate (Toprol Xl) 50 mg PO DAILY [facility] Last Admin: 09/24/17 09:35 Dose: 50 mg Oseltamivir Phosphate (Tamiflu Cap) 75 mg PO BID [facility] Stop: 09/25/17 12:09 Last Admin: 09/24/17 17:40 Dose: 75 mg Rosuvastatin Calcium (Crestor) 2.5 mg PO HS [facility] Last Admin: 09/24/17 21:50 Dose: 2.5 mg - Labs Labs: 09/24/17 07:17 09/24/17 07:17 PT 13.2 SECONDS (9.7-12.2) H 09/20/17 08:43 INR 1.2 09/20/17 08:43 APTT 31 SECONDS (21-34) 09/20/17 08:43 - Constitutional Appears: Non-toxic, Confused, Cachectic, Chronically Ill - Head Exam Head Exam: NORMAL INSPECTION - Eye Exam Additional comments: KEEPS HER EYES CLOSED, - ENT Exam ENT Exam: Mucous Membranes Dry - Respiratory Exam Respiratory Exam: NORMAL BREATHING PATTERN - Cardiovascular Exam Cardiovascular Exam: REGULAR RHYTHM - GI/Abdominal Exam GI & Abdominal Exam: Soft. 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
[2017-09-25] MEDS: Brimonidine 0.2% Opth Sol (5ml) OU SCH ×3 (05:57→22:26)
[2017-09-25] MEDS: (Novolog) Insulin Aspart, Recombinant 100 u/ml 10 ml vial SC SCH ×4 (08:04→22:32)
[2017-09-25] MEDS: Ceftaroline 600 MG in Sodium Chloride 0.9% 100 ML IVPB SCH ×2 (09:00→20:27)
[2017-09-25] MEDS: DORZOLAMIDE OU SCH ×2 (11:00→18:26)
[2017-09-25] MEDS: TIMOLOL OU SCH ×2 (11:00→18:26)
[2017-09-25] MEDS: PILOCARPINE HCL 1% OD SCH ×4 (11:00→22:27)
[2017-09-25] MEDS: Enoxaparin 40 mg Syringe SC SCH (11:18)
[2017-09-25] MEDS: Metoprolol Succinate 50 mg XL Tab PO SCH (11:19)
[2017-09-25] MEDS: Rosuvastatin Calcium 2.5 mg Tab PO SCH (22:26)
[2017-09-25] MEDS: LUMIGAN OU SCH (22:27)
[2017-09-26] MEDS: Brimonidine 0.2% Opth Sol (5ml) OU SCH ×3 (06:19→21:47)
[2017-09-26] MEDS: (Novolog) Insulin Aspart, Recombinant 100 u/ml 10 ml vial SC SCH ×4 (07:45→21:48)
[2017-09-26] MEDS: Ceftaroline 600 MG in Sodium Chloride 0.9% 100 ML IVPB SCH (08:57)
[2017-09-26] MEDS: PILOCARPINE HCL 1% OD SCH ×4 (10:31→21:48)
[2017-09-26] MEDS: DORZOLAMIDE OU SCH ×2 (10:31→17:41)
[2017-09-26] MEDS: Metoprolol Succinate 50 mg XL Tab PO SCH (10:31)
[2017-09-26] MEDS: TIMOLOL OU SCH ×2 (10:31→17:41)
[2017-09-26] MEDS: Enoxaparin 40 mg Syringe SC SCH (10:32)
--- NOTE | 2017-09-26 14:10 | CP.PCM.PN ---
Subjective - Date & Time of Evaluation Date of Evaluation: 09/26/17 Time of Evaluation: 14:07 - Subjective Subjective: Patient with excessive sleeping, hardly anwsering any questions. In no acute respiratory difficulty, but hardly eat. Will start IVF and ask for a psychiatric evaluation. Objective - Vital Signs/Intake and Output Vital Signs (last 24 hours): Temp Pulse Resp BP Pulse Ox 99.0 F 77 20 131/62 95 09/26/17 07:10 09/26/17 12:00 09/26/17 07:10 09/26/17 07:10 09/26/17 07:10 - Medications Medications: Current Medications Acetaminophen (Tylenol 325mg Tab) 650 mg PO Q6 PRN PRN Reason: Pain, moderate (4-7) Last Admin: 09/21/17 21:51 Dose: 650 mg Aspirin (Ecotrin) 81 mg PO DAILY [facility] Last Admin: 09/26/17 10:31 Dose: 81 mg Brimonidine Tartrate (Alphagan 0.2% Opht) 0 ml OU Q8H [facility] Last Admin: 09/26/17 06:19 Dose: 1 drop Clonidine HCl (Catapres) 0.1 mg PO TID PRN PRN Reason: Diastolic blood pressure Last Admin: 09/20/17 18:22 Dose: 0.1 mg Docusate Sodium (Colace) 100 mg PO BID [facility] Last Admin: 09/26/17 10:31 Dose: 100 mg Enoxaparin Sodium (Lovenox) 40 mg SC DAILY [facility] Last Admin: 09/26/17 10:32 Dose: 40 mg Home Med (Patient's Own Drops) 1 drop OU HS [facility] Last Admin: 09/25/17 22:27 Dose: 1 drop Home Med (Patient's Own Drops) 1 drop OU BID [facility] Last Admin: 09/26/17 10:31 Dose: 1 drop Home Med (Patient's Own Drops) 1 drop OD QID [facility] Last Admin: 09/26/17 10:31 Dose: 1 drop Hydrochlorothiazide (Hydrodiuril) 25 mg PO DAILY [facility] Last Admin: 09/26/17 10:31 Dose: 25 mg Ceftaroline Fosamil 600 mg/ (Sodium Chloride) 100 mls @ 100 mls/hr IVPB Q12H [facility] Last Admin: 09/26/17 08:57 Dose: 100 mls/hr Insulin Aspart (Novolog) 0 unit SC ACHS [facility] PRN Reason: Protocol Last Admin: 09/26/17 11:55 Dose: Not Given Losartan Potassium (Cozaar) 100 mg PO DAILY [facility] Last Admin: 09/26/17 10:31 Dose: 100 mg Metformin HCl (Glucophage) 500 mg PO BIDCC [facility] Last Admin: 09/26/17 08:57 Dose: 500 mg Metoprolol Succinate (Toprol Xl) 50 mg PO DAILY [facility] Last Admin: 09/26/17 10:31 Dose: 50 mg Rosuvastatin Calcium (Crestor) 2.5 mg PO HS [facility] Last Admin: 09/25/17 22:26 Dose: 2.5 mg - Labs Labs: 09/24/17 07:17 09/24/17 07:17 PT 13.2 SECONDS (9.7-12.2) H 09/20/17 08:43 INR 1.2 09/20/17 08:43 APTT 31 SECONDS (21-34) 09/20/17 08:43 - Constitutional Appears: Chronically Ill - Head Exam Head Exam: NORMAL INSPECTION - Eye Exam Eye Exam: Normal appearance - ENT Exam ENT Exam: Normal Exam - Neck Exam Neck Exam: Normal Inspection - Respiratory Exam Respiratory Exam: Clear to Ausculation Bilateral, NORMAL BREATHING PATTERN - Cardiovascular Exam Cardiovascular Exam: REGULAR RHYTHM - GI/Abdominal Exam GI & Abdominal Exam: Soft, Normal Bowel Sounds. absent: Tenderness - Rectal Exam Rectal Exam: Deferred - Extremities Exam Extremities Exam: Normal Inspection - Back Exam Back Exam: NORMAL INSPECTION - Neurological Exam Additional comments: Sleepy. - Skin Skin Exam: Dry, Intact, Normal Color, Warm Assessment and Plan (1) Influenza Status: Resolved (2) UTI (urinary tract infection) Status: Resolved (3) Abnormal head CT Status: Resolved (4) Abnormal head CT Status: Resolved (5) Staphylococcus aureus bacteremia Assessment & Plan: On IV antibiotics Status: Acute
[2017-09-26 14:32] LABS: BASO # 0.1 K/uL (0.0-0.2); BASO % 0.9 % (0.0-2.0); EOS % 0.1 % (0.0-4.0); HEMOGLOBIN 10.4 g/dL (11.0-16.0); LYMPH # 1.3 K/uL (1.0-4.3); LYMPH % 11.9 % (20.0-40.0); MEAN CELL VOLUME 82.3 fL (81.0-99.0); MEAN CORPUSCULAR HEMOGLOBIN 26.9 pg (27.0-31.0); MEAN CORPUSCULAR HGB CONC 32.6 g/dL (33.0-37.0); MEAN PLATELET VOLUME 8.6 fL (7.2-11.7); MONO # 1.4 K/uL (0.0-0.8); NEUT # 7.8 K/uL (1.8-7.0); NEUT % 74.1 % (50.0-75.0); RBC 3.86 Mil/uL (3.80-5.20); WHITE BLOOD COUNT 10.6 K/uL (4.8-10.8)
[2017-09-26] MEDS: Dextrose 5%/0.45% NS 1,000 ML IV SCH (14:45)
[2017-09-26 14:56] LABS: ALB/GLOB RATIO 0.9 (1.0-2.1); ALBUMIN 3.3 g/dL (3.5-5.0); ALT/SGPT 13 U/L (9-52); AST/SGOT 25 U/L (14-36); BLOOD UREA NITROGEN 19 mg/dL (7-17); CALCIUM 8.5 mg/dl (8.6-10.4); GFR AFRICAN-AMERICAN > 60; GFR NON-AFRICAN AMERICAN 59
[2017-09-26] MEDS ORDERED: Potassium Chloride 20 mEq ER Tab PO ONE (15:30)
--- NOTE | 2017-09-26 19:49 | CP.PCM.PN ---
Subjective - Date & Time of Evaluation Date of Evaluation: 09/26/17 Time of Evaluation: 19:44 - Subjective Subjective: INFECTIOUS DISEASE 5T 555 PROGRESS NOTE TUAN DURAN MD, FACP CHART REVIEWED PT EXAMINED CASE DISCUSSED CLINICALLY STABLE FROM THE INFLUENZA PT OF VIEW, REPEAT TESTING POST TREATMENT IS NEGATIVE. PER INF CONTROL COORDINATOR JANUARY D/C DROPLET PROTOCOL INVIEW OF DETAILED ID REVIEW HER REPEAT BLOOD C/S ARE NEGATIVE,, ERGO WILL D/C TEFLARO AND OBSERVE OFF MEDS FOR NOW. HER BIGGEST ISSUES ARE ALIMENTATION AND LACK OF BEING MOBLE. SHE JUST LAYS THERE AND DOESN'T HELP HERSELF, RESPONDS TO STIMULAE BUT WAPPEARS TO WITHDRAW. FOR PSY, IV FLUIDS OBSERVE CLOSELY Objective - Vital Signs/Intake and Output Vital Signs (last 24 hours): Temp Pulse Resp BP Pulse Ox 99.4 F 75 20 121/67 95 09/26/17 15:33 09/26/17 16:50 09/26/17 15:33 09/26/17 15:33 09/26/17 15:33 - Medications Medications: Current Medications Acetaminophen (Tylenol 325mg Tab) 650 mg PO Q6 PRN PRN Reason: Pain, moderate (4-7) Last Admin: 09/21/17 21:51 Dose: 650 mg Aspirin (Ecotrin) 81 mg PO DAILY [facility] Last Admin: 09/26/17 10:31 Dose: 81 mg Brimonidine Tartrate (Alphagan 0.2% Opht) 0 ml OU Q8H [facility] Last Admin: 09/26/17 14:45 Dose: 1 drop Clonidine HCl (Catapres) 0.1 mg PO TID PRN PRN Reason: Diastolic blood pressure Last Admin: 09/20/17 18:22 Dose: 0.1 mg Docusate Sodium (Colace) 100 mg PO BID [facility] Last Admin: 09/26/17 17:39 Dose: 100 mg Enoxaparin Sodium (Lovenox) 40 mg SC DAILY [facility] Last Admin: 09/26/17 10:32 Dose: 40 mg Home Med (Patient's Own Drops) 1 drop OU HS [facility] Last Admin: 09/25/17 22:27 Dose: 1 drop Home Med (Patient's Own Drops) 1 drop OU BID [facility] Last Admin: 09/26/17 17:41 Dose: 1 drop Home Med (Patient's Own Drops) 1 drop OD QID [facility] Last Admin: 09/26/17 17:42 Dose: 1 drop Hydrochlorothiazide (Hydrodiuril) 25 mg PO DAILY [facility] Last Admin: 09/26/17 10:31 Dose: 25 mg Dextrose/Sodium Chloride (Dextrose 5%/0.45% Ns 1000 Ml) 1,000 mls @ 60 mls/hr IV .[id number] [facility] Last Admin: 09/26/17 14:45 Dose: 60 mls/hr Insulin Aspart (Novolog) 0 unit SC ACHS [facility] PRN Reason: Protocol Last Admin: 09/26/17 16:36 Dose: Not Given Losartan Potassium (Cozaar) 100 mg PO DAILY [facility] Last Admin: 09/26/17 10:31 Dose: 100 mg Metformin HCl (Glucophage) 500 mg PO BIDCC [facility] Last Admin: 09/26/17 17:39 Dose: 500 mg Metoprolol Succinate (Toprol Xl) 50 mg PO DAILY [facility] Last Admin: 09/26/17 10:31 Dose: 50 mg Rosuvastatin Calcium (Crestor) 2.5 mg PO HS [facility] Last Admin: 09/25/17 22:26 Dose: 2.5 mg - Labs Labs: 09/26/17 14:22 09/26/17 14:22 PT 13.2 SECONDS (9.7-12.2) H 09/20/17 08:43 INR 1.2 09/20/17 08:43 APTT 31 SECONDS (21-34) 09/20/17 08:43 - Constitutional Appears: Non-toxic, Older Than Stated Age, Confused, Cachectic, Chronically Ill - Head Exam Head Exam: NORMAL INSPECTION - Eye Exam Additional comments: KEEPS HER EYES CLOSED - Neck Exam Neck Exam: Normal Inspection - Respiratory Exam Respiratory Exam: Decreased Breath Sounds, NORMAL BREATHING PATTERN - Cardiovascular Exam Cardiovascular Exam: REGULAR RHYTHM - GI/Abdominal Exam GI & Abdominal Exam: Soft, Normal Bowel Sounds. 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
[2017-09-26] MEDS: Rosuvastatin Calcium 2.5 mg Tab PO SCH (21:47)
[2017-09-26] MEDS: LUMIGAN OU SCH (21:48)
--- NOTE | 2017-09-27 04:21 | CON ---
DATE: PSYCHIATRIC CONSULTATION CHIEF COMPLAINT AND REASON FOR CONSULTATION: Patient referred by Dr. Mosher for co-management of dementia. HISTORY OF PRESENT ILLNESS: This is the case of an 87-year-old female, who was brought in by family for generalized weakness and fever. The patient was treated before for acute bronchitis. Patient presented for flu. Patient was noted to have change in mental status, but had a CAT scan of the head, which showed petechia of the moy. Patient has a history of diabetes, hypertension, TIA, osteoarthritis, and lymphoma, in remission. Patient referred for co-management as the patient has been noticed to be getting weaker, not eating well, getting more confused and also, unable to ambulate. Patient is referred for co-management of dementia. PAST PSYCHIATRIC HISTORY: History of dementia, no meds. PAST MEDICAL HISTORY: History of diabetes, hypertension, hypercholesterolemia, TIA, and arthritis. DRUG AND ALCOHOL HISTORY: Denies any. ALLERGIES: PATIENT HAS A KNOWN ALLERGY TO CODEINE. PSYCHOSOCIAL HISTORY: Patient lives with her family. MEDICATIONS: List of current medications include: Patient is on Alphagan eyedrops, Catapres, Cozaar, Crestor, Glucophage, HydroDIURIL, Lovenox, Toprol, and Tylenol. REVIEW OF SYSTEMS: GENERAL: Patient is very hard of hearing and also is cueing when answering questions. Other than that, she was seen in her room resting. She states that she is not hungry. She was offered to eat. SKIN: No diaphoresis. HEENT: No headache. Patient is hard of hearing. NECK: Supple. RESPIRATORY: No orthopnea, no dyspnea. CARDIOVASCULAR: No chest pain. GASTROINTESTINAL: The patient is refusing to eat her lunch. EXTREMITIES: Patient is moving her extremities. NEUROLOGIC: Alert with periods of confusion. GENITOURINARY: No dysuria. PHYSICAL EXAMINATION: VITAL SIGNS: Temperature is 99.4, pulse rate 75, blood pressure 121/67, respirations 20, and oxygen saturation 95%. MENTAL STATUS EXAMINATION: An 87-year-old female, who is about 5 feet 10 inches, weighs 150 pounds, marginally cooperative. Speech is slow. Affect restricted. Mood is dysphoric. Thought process is confused at times. Thought content with overt paranoia. No homicidal ideation. No suicidal ideation. Attention and memory seemed to be limited. Insight and judgment limited. Impulse control is fair at this time. LABORATORY DATA: Patient had a CAT scan of the head done, which is a repeat one, that showed no acute intracranial abnormality, mild chronic angiopathic changes and mild age-related global parenchymal volume loss, chronic sinusitis, and bilateral mastoid effusions, this was the second CAT scan. The first CAT scan of the head showed some petechial hemorrhage of the moy area, similar chronic cerebral atrophy, interval paranasal sinus inflammatory changes. Review of labs: The patient's blood sugar is 117, H and H is 10.4/31.8, and creatinine is 0.9. UA: Patient is positive for nitrites, +1 for protein. IMPRESSION: History of urinary tract infection, senile dementia with mood changes as well as the patient is hard of hearing, history of transient ischemic attack, history of lymphoma in remission, and diabetes. PLAN AND RECOMMENDATIONS: Patient is seen, meds reviewed. Continue present management. We will check her TSH, B12, and folate. Patient will benefit from ENT consult to address her hearing loss. Patient is hard of hearing and miscuing during conversation which compound her confusion. Psychiatry joyner, we will hold off any psych meds for now. Continue treatment plan as outlined, but for now, we will have her have an ENT consult to address her hearing loss. Fredy Harper MD MTDPatel
[2017-09-27] MEDS: Brimonidine 0.2% Opth Sol (5ml) OU SCH ×3 (05:30→21:22)
[2017-09-27] MEDS: (Novolog) Insulin Aspart, Recombinant 100 u/ml 10 ml vial SC SCH ×4 (07:38→21:42)
[2017-09-27 08:10] LABS: BASO % 0.2 % (0.0-2.0); EOS % 0.2 % (0.0-4.0); HEMOGLOBIN 10.6 g/dL (11.0-16.0); LYMPH # 1.3 K/uL (1.0-4.3); LYMPH % 12.3 % (20.0-40.0); MEAN CELL VOLUME 82.8 fL (81.0-99.0); MEAN CORPUSCULAR HEMOGLOBIN 26.7 pg (27.0-31.0); MEAN CORPUSCULAR HGB CONC 32.3 g/dL (33.0-37.0); MEAN PLATELET VOLUME 8.9 fL (7.2-11.7); MONO # 1.5 K/uL (0.0-0.8); MONO % 14.1 % (0.0-10.0); NEUT # 7.7 K/uL (1.8-7.0); NEUT % 73.2 % (50.0-75.0); NRBC % 0.1 % (0.0-2.0); RBC 3.98 Mil/uL (3.80-5.20); RED CELL DISTRIBUTION WIDTH 14.9 % (11.5-14.5); WHITE BLOOD COUNT 10.5 K/uL (4.8-10.8)
[2017-09-27 08:41] LABS: ALB/GLOB RATIO 0.9 (1.0-2.1); ALBUMIN 3.4 g/dL (3.5-5.0); CALCIUM 8.8 mg/dl (8.6-10.4)
[2017-09-27] MEDS: Dextrose 5%/0.45% NS 1,000 ML IV SCH (09:46)
[2017-09-27] MEDS: Enoxaparin 40 mg Syringe SC SCH ×3 (09:47→13:37)
[2017-09-27] MEDS: Metoprolol Succinate 50 mg XL Tab PO SCH ×3 (09:47→13:39)
[2017-09-27] MEDS: DORZOLAMIDE OU SCH ×2 (10:45→17:28)
[2017-09-27] MEDS: PILOCARPINE HCL 1% OD SCH ×4 (10:45→21:23)
[2017-09-27] MEDS: TIMOLOL OU SCH ×2 (10:45→17:28)
--- NOTE | 2017-09-27 14:56 | PN ---
DATE: FOLLOWUP PROGRESS NOTE SUBJECTIVE: The patient is seen. The patient is feeling weak, very hard of hearing. The patient is refusing to take her medications or eat. The patient may need the family to encourage her to eat. She is refusing to eat the food in the hospital. The patient is not agitated. Review of her labs, the patient's B12 is on the low side, 254; may benefit from B12 supplements , TSH 3rd gen is 2.01. PHYSICAL EXAMINATION: GENERAL: According to director of social services, the patient is for possible transfer to [facility]. She is not taking her medications, refusing to eat. VITAL SIGNS: Temperature is 99.1, pulse rate is 91, blood pressure 167/79, respirations 20, and oxygen saturation is 96% on nasal cannula. SKIN: No diaphoresis. HEENT: Patient is hard of hearing. No headache. NECK: Supple. RESPIRATORY: No dyspnea. CARDIOVASCULAR: No chest pain. GASTROINTESTINAL: No nausea, no vomiting. Has poor appetite. EXTREMITIES: The patient is moving extremities. MUSCULOSKELETAL: Feels weak. NEUROLOGIC: Alert with periods of confusion. GENITOURINARY: No dysuria. MENTAL STATUS EXAMINATION: Elderly female, 87 years old, oriented x2. . Mood is dysphoric. Affect is reactive. Speech spontaneous. Thought process, confused at times. Thought content, the patient refuses to take her medications or eat. No psychosis,No active si or hi.. Attention and memory seemed to be limited. Insight and judgment limited. Impulse control is fair at this time. IMPRESSION: History of dementia with mood changes as well as history of urinary tract infection, history of hard of hearing. PLAN AND RECOMMENDATIONS: Patient is seen, medications reviewed. Continue present management. The patient may benefit from B12 supplements. The patient needs to eat better_ and to be more compliant with medications prior to going to subacute rehab. The patient also may benefit from ENT consult advised for hearing loss. Fredy Harper MD MTDPatel
--- NOTE | 2017-09-27 20:33 | CP.PCM.PN ---
Subjective - Date & Time of Evaluation Date of Evaluation: 09/27/17 Time of Evaluation: 20:31 - Subjective Subjective: INFECTIOUS DISEASE PROGRESS NOTE TUAN DURAN MD, FACP 5T 555 09/27/2017 CLINICALLY LESS RESPONSIVE APPARENTLY CVA NEUROLOGY CALLED ID MOORE, AFEBRILE, C/S NEGATIVE, OFF ID TREATMENT IV MOORE WATCH FOR ASPIRATION Objective - Vital Signs/Intake and Output Vital Signs (last 24 hours): Temp Pulse Resp BP Pulse Ox 98.5 F 85 20 126/74 96 09/27/17 16:51 09/27/17 19:36 09/27/17 16:51 09/27/17 19:36 09/27/17 16:51 - Medications Medications: Current Medications Acetaminophen (Tylenol 325mg Tab) 650 mg PO Q6 PRN PRN Reason: Pain, moderate (4-7) Last Admin: 09/21/17 21:51 Dose: 650 mg Aspirin (Ecotrin) 81 mg PO DAILY [facility] Last Admin: 09/27/17 13:40 Dose: 81 mg Brimonidine Tartrate (Alphagan 0.2% Opht) 0 ml OU Q8H [facility] Last Admin: 09/27/17 13:37 Dose: 1 drop Clonidine HCl (Catapres) 0.1 mg PO TID PRN PRN Reason: Diastolic blood pressure Last Admin: 09/20/17 18:22 Dose: 0.1 mg Clopidogrel Bisulfate (Plavix) 75 mg PO DAILY [facility] Docusate Sodium (Colace) 100 mg PO BID [facility] Last Admin: 09/27/17 17:27 Dose: 100 mg Enoxaparin Sodium (Lovenox) 40 mg SC DAILY [facility] Last Admin: 09/27/17 13:37 Dose: 40 mg Home Med (Patient's Own Drops) 1 drop OU HS [facility] Last Admin: 09/26/17 21:48 Dose: 1 drop Home Med (Patient's Own Drops) 1 drop OU BID [facility] Last Admin: 09/27/17 17:28 Dose: 1 drop Home Med (Patient's Own Drops) 1 drop OD QID [facility] Last Admin: 09/27/17 17:28 Dose: 1 drop Hydrochlorothiazide (Hydrodiuril) 25 mg PO DAILY [facility] Last Admin: 09/27/17 13:39 Dose: 25 mg Dextrose/Sodium Chloride (Dextrose 5%/0.45% Ns 1000 Ml) 1,000 mls @ 60 mls/hr IV .[id number] [facility] Last Admin: 09/27/17 09:46 Dose: 60 mls/hr Insulin Aspart (Novolog) 0 unit SC ACHS [facility] PRN Reason: Protocol Last Admin: 09/27/17 17:26 Dose: 2 unit Losartan Potassium (Cozaar) 100 mg PO DAILY [facility] Last Admin: 09/27/17 13:40 Dose: 100 mg Metformin HCl (Glucophage) 500 mg PO BIDCC [facility] Last Admin: 09/27/17 17:27 Dose: 500 mg Metoprolol Succinate (Toprol Xl) 50 mg PO DAILY [facility] Last Admin: 09/27/17 13:39 Dose: 50 mg Rosuvastatin Calcium (Crestor) 2.5 mg PO HS [facility] Last Admin: 09/26/17 21:47 Dose: 2.5 mg - Labs Labs: 09/27/17 07:54 09/27/17 07:54 PT 13.2 SECONDS (9.7-12.2) H 09/20/17 08:43 INR 1.2 09/20/17 08:43 APTT 31 SECONDS (21-34) 09/20/17 08:43 - Constitutional Appears: Older Than Stated Age, Cachectic, Chronically Ill - Head Exam Head Exam: NORMAL INSPECTION - ENT Exam ENT Exam: Mucous Membranes Dry - Respiratory Exam Respiratory Exam: Decreased Breath Sounds, NORMAL BREATHING PATTERN - Cardiovascular Exam Cardiovascular Exam: REGULAR RHYTHM - GI/Abdominal Exam GI & Abdominal Exam: Soft. 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
[2017-09-27] MEDS: Rosuvastatin Calcium 2.5 mg Tab PO SCH (21:22)
[2017-09-27] MEDS: LUMIGAN OU SCH (21:23)
--- NOTE | 2017-09-27 22:53 | CP.PCM.PN ---
Subjective - Date & Time of Evaluation Date of Evaluation: 09/27/17 Time of Evaluation: 18:00 - Subjective Subjective: Patient very lethargic with twitching of the right leg occasionally. Unofficial result of the head MRI points to an cute lacunar infarct. Objective - Vital Signs/Intake and Output Vital Signs (last 24 hours): Temp Pulse Resp BP Pulse Ox 98 F 85 18 115/64 100 09/27/17 22:31 09/27/17 22:31 09/27/17 22:31 09/27/17 22:31 09/27/17 22:31 Intake and Output: 09/27/17 09/28/17 18:59 06:59 Intake Total 480 Balance 480 - Medications Medications: Current Medications Acetaminophen (Tylenol 325mg Tab) 650 mg PO Q6 PRN PRN Reason: Pain, moderate (4-7) Last Admin: 09/21/17 21:51 Dose: 650 mg Aspirin (Ecotrin) 81 mg PO DAILY [facility] Last Admin: 09/27/17 13:40 Dose: 81 mg Brimonidine Tartrate (Alphagan 0.2% Opht) 0 ml OU Q8H [facility] Last Admin: 09/27/17 21:22 Dose: 1 drop Clonidine HCl (Catapres) 0.1 mg PO TID PRN PRN Reason: Diastolic blood pressure Last Admin: 09/20/17 18:22 Dose: 0.1 mg Clopidogrel Bisulfate (Plavix) 75 mg PO DAILY [facility] Docusate Sodium (Colace) 100 mg PO BID [facility] Last Admin: 09/27/17 17:27 Dose: 100 mg Enoxaparin Sodium (Lovenox) 40 mg SC DAILY [facility] Last Admin: 09/27/17 13:37 Dose: 40 mg Home Med (Patient's Own Drops) 1 drop OU HS [facility] Last Admin: 09/27/17 21:23 Dose: 1 drop Home Med (Patient's Own Drops) 1 drop OU BID [facility] Last Admin: 09/27/17 17:28 Dose: 1 drop Home Med (Patient's Own Drops) 1 drop OD QID [facility] Last Admin: 09/27/17 21:23 Dose: 1 drop Hydrochlorothiazide (Hydrodiuril) 25 mg PO DAILY [facility] Last Admin: 09/27/17 13:39 Dose: 25 mg Dextrose/Sodium Chloride (Dextrose 5%/0.45% Ns 1000 Ml) 1,000 mls @ 60 mls/hr IV .[id number] [facility] Last Admin: 09/27/17 09:46 Dose: 60 mls/hr Insulin Aspart (Novolog) 0 unit SC ACHS [facility] PRN Reason: Protocol Last Admin: 09/27/17 21:42 Dose: Not Given Losartan Potassium (Cozaar) 100 mg PO DAILY [facility] Last Admin: 09/27/17 13:40 Dose: 100 mg Metformin HCl (Glucophage) 500 mg PO BIDCC [facility] Last Admin: 09/27/17 17:27 Dose: 500 mg Metoprolol Succinate (Toprol Xl) 50 mg PO DAILY [facility] Last Admin: 09/27/17 13:39 Dose: 50 mg Rosuvastatin Calcium (Crestor) 2.5 mg PO HS [facility] Last Admin: 09/27/17 21:22 Dose: 2.5 mg - Labs Labs: 09/27/17 07:54 09/27/17 07:54 PT 13.2 SECONDS (9.7-12.2) H 09/20/17 08:43 INR 1.2 09/20/17 08:43 APTT 31 SECONDS (21-34) 09/20/17 08:43 - Constitutional Appears: No Acute Distress, Confused, Chronically Ill - Head Exam Head Exam: NORMAL INSPECTION - Eye Exam Eye Exam: Normal appearance - ENT Exam ENT Exam: Normal Exam - Neck Exam Neck Exam: Normal Inspection - Respiratory Exam Respiratory Exam: Clear to Ausculation Bilateral, NORMAL BREATHING PATTERN - Cardiovascular Exam Cardiovascular Exam: REGULAR RHYTHM - GI/Abdominal Exam GI & Abdominal Exam: Soft, Normal Bowel Sounds - Rectal Exam Rectal Exam: Deferred - Extremities Exam Extremities Exam: Normal Inspection - Back Exam Back Exam: NORMAL INSPECTION - Neurological Exam Additional comments: Patient lethargic - Psychiatric Exam Additional comments: Lethargic. - Skin Skin Exam: Dry, Intact, Normal Color, Warm Assessment and Plan (1) Influenza Status: Resolved (2) UTI (urinary tract infection) Status: Resolved (3) Abnormal head CT Status: Resolved (4) Abnormal head CT Status: Resolved (5) Staphylococcus aureus bacteremia Status: Acute (6) CVA (cerebral vascular accident) Assessment & Plan: Acute cerebral lacunar infarct. Plavix ordered by Dr Nixon ( Neurologist). Status: Acute
[2017-09-28] MEDS: Brimonidine 0.2% Opth Sol (5ml) OU SCH ×3 (05:51→21:27)
[2017-09-28] MEDS: Dextrose 5%/0.45% NS 1,000 ML IV SCH ×3 (05:52→21:25)
--- NOTE | 2017-09-28 06:42 | CP.PCM.CON ---
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 CONTINUE ANTIPLATLETS NOW OOB PT AND DVT PROPHYLAXIS AND FALL PRECAUTION Past Patient History - Infectious Disease Hx of Infectious Diseases: None - Tetanus Immunizations Tetanus Immunization: Unknown - Past Medical History & Family History Past Medical History?: Yes - Past Social History Smoking Status: Never Smoked Chewing Tobacco Use: No Cigar Use: No Occupation: WORKED IN NURSING Alcohol: Occasional Home Situation {Lives}: With Family - CARDIAC Hx Cardiac Disorders: Yes Hx Hypercholesterolemia: Yes Hx Hypertension: Yes - PULMONARY Hx Respiratory Disorders: Yes Hx Bronchitis: Yes - NEUROLOGICAL Hx Neurological Disorder: Yes HX Cerebrovascular Accident: Yes (TIA) Hx Transient Ischemic Attacks (TIA): Yes - HEENT Hx HEENT Problems: Yes Hx Glaucoma: Yes - RENAL Hx Chronic Kidney Disease: No - ENDOCRINE/METABOLIC Hx Endocrine Disorders: Yes Hx Diabetes Mellitus Type 2: Yes - HEMATOLOGICAL/ONCOLOGICAL Hx Blood Disorders: Yes Hx Cancer: Yes Hx Chemotherapy: Yes (Lymphoma in remission since 2000.) - INTEGUMENTARY Hx Dermatological Problems: No - MUSCULOSKELETAL/RHEUMATOLOGICAL Hx Musculoskeletal Disorders: Yes Hx Arthritis: Yes - GASTROINTESTINAL Hx Gastrointestinal Disorders: No - GENITOURINARY/GYNECOLOGICAL Hx Genitourinary Disorders: No - PSYCHIATRIC Hx Psychophysiologic Disorder: Yes Hx Substance Use: No - SURGICAL HISTORY Hx Surgeries: Yes Hx Eye Surgery: Yes (Right cataract surgery in 2009.) Hx Hysterectomy: Yes (in 1995) Hx Vascular Surgery: Yes (toriRi fem-pop by-pass in 2012 ( Dr Maddox)) - ANESTHESIA Hx Anesthesia: Yes Hx Anesthesia Reactions: No Hx Malignant Hyperthermia: No Has any member of the family had a problem w/ anesthesia?: No Meds Allergies/Adverse Reactions: Allergies Allergy/AdvReac Type Severity Reaction Status Date / Time codeine Allergy Verified 03/18/17 20:37 - Medications Medications: Current Medications Acetaminophen (Tylenol 325mg Tab) 650 mg PO Q6 PRN PRN Reason: Pain, moderate (4-7) Last Admin: 09/21/17 21:51 Dose: 650 mg Aspirin (Ecotrin) 81 mg PO DAILY [facility] Last Admin: 09/27/17 13:40 Dose: 81 mg Brimonidine Tartrate (Alphagan 0.2% Opht) 0 ml OU Q8H [facility] Last Admin: 09/28/17 05:51 Dose: 1 drop Clonidine HCl (Catapres) 0.1 mg PO TID PRN PRN Reason: Diastolic blood pressure Last Admin: 09/20/17 18:22 Dose: 0.1 mg Clopidogrel Bisulfate (Plavix) 75 mg PO DAILY [facility] Docusate Sodium (Colace) 100 mg PO BID [facility] Last Admin: 09/27/17 17:27 Dose: 100 mg Enoxaparin Sodium (Lovenox) 40 mg SC DAILY [facility] Last Admin: 09/27/17 13:37 Dose: 40 mg Home Med (Patient's Own Drops) 1 drop OU HS [facility] Last Admin: 09/27/17 21:23 Dose: 1 drop Home Med (Patient's Own Drops) 1 drop OU BID [facility] Last Admin: 09/27/17 17:28 Dose: 1 drop Home Med (Patient's Own Drops) 1 drop OD QID [facility] Last Admin: 09/27/17 21:23 Dose: 1 drop Hydrochlorothiazide (Hydrodiuril) 25 mg PO DAILY [facility] Last Admin: 09/27/17 13:39 Dose: 25 mg Dextrose/Sodium Chloride (Dextrose 5%/0.45% Ns 1000 Ml) 1,000 mls @ 80 mls/hr IV .[id number] [facility] Last Admin: 09/28/17 05:52 Dose: 80 mls/hr Insulin Aspart (Novolog) 0 unit SC ACHS [facility] PRN Reason: Protocol Last Admin: 09/27/17 21:42 Dose: Not Given Losartan Potassium (Cozaar) 100 mg PO DAILY [facility] Last Admin: 09/27/17 13:40 Dose: 100 mg Metformin HCl (Glucophage) 500 mg PO BIDCC [facility] Last Admin: 09/27/17 17:27 Dose: 500 mg Metoprolol Succinate (Toprol Xl) 50 mg PO DAILY [facility] Last Admin: 09/27/17 13:39 Dose: 50 mg Rosuvastatin Calcium (Crestor) 2.5 mg PO HS [facility] Last Admin: 09/27/17 21:22 Dose: 2.5 mg Results - Vital Signs Recent Vital Signs: Last Vital Signs Temp 97.8 F 09/28/17 00:15 Pulse 80 09/28/17 00:15 Resp 20 09/28/17 00:15 BP 126/76 09/28/17 00:15 Pulse Ox 97 09/28/17 00:15 - Labs Result Diagrams: 09/27/17 07:54 09/27/17 07:54 Labs: Laboratory Results - last 24 hr 09/27/17 09/27/17 09/27/17 06:32 07:54 07:54 WBC 10.5 RBC 3.98 Hgb 10.6 L Hct 33.0 L MCV 82.8 MCH 26.7 L MCHC 32.3 L RDW 14.9 H Plt Count 514 H MPV 8.9 Neut % (Auto) 73.2 Lymph % (Auto) 12.3 L [place] % (Auto) 14.1 H Eos % (Auto) 0.2 Baso % (Auto) 0.2 Neut # 7.7 H Lymph # 1.3 [place] # 1.5 H Eos # 0.0 Baso # 0.0 Sodium 134 Potassium 4.1 Chloride 100 Carbon Dioxide 25 Anion Gap 14 BUN 24 H Creatinine 1.3 H Est GFR ( Amer) 47 Est GFR (Non-Af Amer) 39 POC Glucose (mg/dL) 127 H Random Glucose 133 H Calcium 8.8 Total Bilirubin 0.5 AST 27 ALT 6 L D Alkaline Phosphatase 80 Ammonia Total Protein 7.2 Albumin 3.4 L Globulin 3.8 Albumin/Globulin Ratio 0.9 L Prolactin 09/27/17 09/27/17 09/27/17 11:07 14:47 14:47 WBC RBC Hgb Hct MCV MCH MCHC RDW Plt Count MPV Neut % (Auto) Lymph % (Auto) [place] % (Auto) Eos % (Auto) Baso % (Auto) Neut # Lymph # [place] # Eos # Baso # Sodium Potassium Chloride Carbon Dioxide Anion Gap BUN Creatinine Est GFR ( Amer) Est GFR (Non-Af Amer) POC Glucose (mg/dL) 167 H Random Glucose Calcium Total Bilirubin AST ALT Alkaline Phosphatase Ammonia 23 Total Protein Albumin Globulin Albumin/Globulin Ratio Prolactin 15.4 09/27/17 09/27/17 16:37 21:28 WBC RBC Hgb Hct MCV MCH MCHC RDW Plt Count MPV Neut % (Auto) Lymph % (Auto) [place] % (Auto) Eos % (Auto) Baso % (Auto) Neut # Lymph # [place] # Eos # Baso # Sodium Potassium Chloride Carbon Dioxide Anion Gap BUN Creatinine Est GFR ( Amer) Est GFR (Non-Af Amer) POC Glucose (mg/dL) 178 H 137 H Random Glucose Calcium Total Bilirubin AST ALT Alkaline Phosphatase Ammonia Total Protein Albumin Globulin Albumin/Globulin Ratio Prolactin
[2017-09-28 07:47] LABS: BASO % 0.4 % (0.0-2.0); EOS % 0.4 % (0.0-4.0); HEMOGLOBIN 9.5 g/dL (11.0-16.0); LYMPH # 1.2 K/uL (1.0-4.3); LYMPH % 12.9 % (20.0-40.0); MEAN CELL VOLUME 82.5 fL (81.0-99.0); MEAN CORPUSCULAR HEMOGLOBIN 27.1 pg (27.0-31.0); MEAN CORPUSCULAR HGB CONC 32.9 g/dL (33.0-37.0); MONO # 1.4 K/uL (0.0-0.8); MONO % 15.6 % (0.0-10.0); NEUT # 6.5 K/uL (1.8-7.0); NEUT % 70.7 % (50.0-75.0); RBC 3.49 Mil/uL (3.80-5.20); RED CELL DISTRIBUTION WIDTH 14.9 % (11.5-14.5); WHITE BLOOD COUNT 9.1 K/uL (4.8-10.8)
[2017-09-28 08:16] LABS: ALB/GLOB RATIO 0.8 (1.0-2.1); ALBUMIN 2.7 g/dL (3.5-5.0); ALT/SGPT 14 U/L (9-52); AST/SGOT 21 U/L (14-36); BLOOD UREA NITROGEN 18 mg/dL (7-17); CALCIUM 8.2 mg/dl (8.6-10.4); GFR AFRICAN-AMERICAN > 60; GFR NON-AFRICAN AMERICAN 59
[2017-09-28] MEDS: (Novolog) Insulin Aspart, Recombinant 100 u/ml 10 ml vial SC SCH ×4 (08:28→21:40)
--- NOTE | 2017-09-28 10:51 | MRI ---
PROCEDURE: MRI BRAIN WITHOUT CONTRAST HISTORY: R/O MASS COMPARISON: None. TECHNIQUE: Multiplanar, multisequence MR images of the brain were obtained without intravenous contrast enhancement. FINDINGS: HEMORRHAGE: None DWI: There is focal restricted diffusion in the right basal ganglia. BRAIN PARENCHYMA: There are severe chronic microangiopathic changes. There is no mass, mass effect or abnormal extra-axial fluid collection. The midline sagittal structures are normal. There are old lacunar infarctions in the cerebellar VENTRICLES: There is moderate age-related global parenchymal volume loss and proportionate enlargement of the ventricles and cortical sulci. CRANIUM: There is normal bone marrow signal pattern. There is mild hyperostosis frontalis interna. ORBITS: Grossly unremarkable. PARANASAL SINUSES/MASTOIDS: There is mild polypoid mucosal thickening in the paranasal sinuses and bilateral mastoid effusions. VASCULAR SYSTEM: There are normal signal voids in the larger intracranial arteries. OTHER FINDINGS: None. IMPRESSION: 1. Acute infarction in the right basal ganglia. 2. Severe chronic microangiopathic changes. Old lacunar infarctions in the cerebellar hemispheres. 3. Moderate age-related global parenchymal volume loss. Important findings were discussed with nurse Nalini Stephens on 09/28/2017 at 10:45 a.m.
[2017-09-28] MEDS: Metoprolol Succinate 50 mg XL Tab PO SCH (11:25)
[2017-09-28] MEDS: Enoxaparin 40 mg Syringe SC SCH (11:26)
[2017-09-28] MEDS: PILOCARPINE HCL 1% OD SCH ×5 (11:27→21:27)
[2017-09-28] MEDS: DORZOLAMIDE OU SCH ×2 (11:28→18:18)
[2017-09-28] MEDS: TIMOLOL OU SCH ×2 (11:28→18:18)
[2017-09-28] MEDS ORDERED: Potassium Chloride 20 mEq ER Tab PO ONE ×2 (12:15→14:00)
--- NOTE | 2017-09-28 13:33 | CP.PCM.PN ---
Subjective - Date & Time of Evaluation Date of Evaluation: 09/28/17 Time of Evaluation: 13:30 - Subjective Subjective: Patient is still letargic, but afebrile and in no respiratory distress. 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 Duplex carotid scan reveals mild heterogeous plaque at both CCA's and proximal ICA's. Patient is complaining of swelling and pain in both knees. Objective - Vital Signs/Intake and Output Vital Signs (last 24 hours): Temp Pulse Resp BP Pulse Ox 98.6 F 77 20 112/66 96 09/28/17 07:00 09/28/17 07:00 09/28/17 07:00 09/28/17 07:00 09/28/17 07:00 Intake and Output: 09/28/17 09/28/17 06:59 18:59 Intake Total 1120 Balance 1120 - Medications Medications: Current Medications Acetaminophen (Tylenol 325mg Tab) 650 mg PO Q6 PRN PRN Reason: Pain, moderate (4-7) Last Admin: 09/21/17 21:51 Dose: 650 mg Aspirin (Ecotrin) 81 mg PO DAILY [facility] Last Admin: 09/28/17 11:25 Dose: 81 mg Brimonidine Tartrate (Alphagan 0.2% Opht) 0 ml OU Q8H [facility] Last Admin: 09/28/17 05:51 Dose: 1 drop Clonidine HCl (Catapres) 0.1 mg PO TID PRN PRN Reason: Diastolic blood pressure Last Admin: 09/20/17 18:22 Dose: 0.1 mg Clopidogrel Bisulfate (Plavix) 75 mg PO DAILY [facility] Last Admin: 09/28/17 11:25 Dose: 75 mg Docusate Sodium (Colace) 100 mg PO BID [facility] Last Admin: 09/28/17 11:25 Dose: 100 mg Enoxaparin Sodium (Lovenox) 40 mg SC DAILY [facility] Last Admin: 09/28/17 11:26 Dose: 40 mg Home Med (Patient's Own Drops) 1 drop OU HS [facility] Last Admin: 09/27/17 21:23 Dose: 1 drop Home Med (Patient's Own Drops) 1 drop OU BID [facility] Last Admin: 09/28/17 11:28 Dose: 1 drop Home Med (Patient's Own Drops) 1 drop OD QID [facility] Last Admin: 09/28/17 11:27 Dose: 1 drop Hydrochlorothiazide (Hydrodiuril) 25 mg PO DAILY [facility] Last Admin: 09/28/17 11:26 Dose: 25 mg Dextrose/Sodium Chloride (Dextrose 5%/0.45% Ns 1000 Ml) 1,000 mls @ 80 mls/hr IV .[id number] [facility] Last Admin: 09/28/17 05:52 Dose: 80 mls/hr Insulin Aspart (Novolog) 0 unit SC ACHS [facility] PRN Reason: Protocol Last Admin: 09/28/17 08:28 Dose: Not Given Losartan Potassium (Cozaar) 100 mg PO DAILY [facility] Last Admin: 09/28/17 11:25 Dose: 100 mg Metformin HCl (Glucophage) 500 mg PO BIDCC [facility] Last Admin: 09/28/17 08:42 Dose: 500 mg Metoprolol Succinate (Toprol Xl) 50 mg PO DAILY [facility] Last Admin: 09/28/17 11:25 Dose: 50 mg Potassium Chloride (K-Dur 20 Meq Er Tab) 40 meq PO ONCE ONE Stop: 09/28/17 14:01 Rosuvastatin Calcium (Crestor) 2.5 mg PO [facility] Last Admin: 09/27/17 21:22 Dose: 2.5 mg - Labs Labs: 09/28/17 07:36 09/28/17 07:36 PT 13.2 SECONDS (9.7-12.2) H 09/20/17 08:43 INR 1.2 09/20/17 08:43 APTT 31 SECONDS (21-34) 09/20/17 08:43 - Constitutional Appears: No Acute Distress, Chronically Ill - Head Exam Head Exam: NORMAL INSPECTION - Eye Exam Eye Exam: Normal appearance - ENT Exam ENT Exam: Normal Exam - Neck Exam Neck Exam: Normal Inspection - Respiratory Exam Respiratory Exam: Clear to Ausculation Bilateral, NORMAL BREATHING PATTERN - Cardiovascular Exam Cardiovascular Exam: REGULAR RHYTHM, Murmur - GI/Abdominal Exam GI & Abdominal Exam: Soft, Normal Bowel Sounds - Rectal Exam Rectal Exam: Deferred - Extremities Exam Additional comments: Mild tenderness and swelling of the right and left knees. - Back Exam Back Exam: NORMAL INSPECTION - Neurological Exam Neurological Exam: Alert, Awake Additional comments: Lethargic. - Psychiatric Exam Additional comments: Lethargic. - Skin Skin Exam: Dry, Intact, Normal Color, Warm Assessment and Plan (1) Influenza Status: Resolved (2) UTI (urinary tract infection) Status: Resolved (3) Abnormal head CT Status: Resolved (4) Abnormal head CT Status: Resolved (5) Staphylococcus aureus bacteremia Status: Acute (6) CVA (cerebral vascular accident) Assessment & Plan: Acute right basal ganglia infarct. Status: Acute
--- NOTE | 2017-09-28 14:00 | CON ---
DATE: ATTENDING PHYSICIAN: Fazal Mosher M.D. ROOM NUMBER: [id number], bed B. REASON FOR THE CONSULTATION: Increasing lethargy and weakness. CHIEF COMPLAINT: The patient was admitted with history of respiratory disturbances; been diagnosed with influenza, been treated. During the hospitalization, she did have abnormal CT scan and increased lethargy. From neurological point of view, I was called in to evaluate her for further management. HISTORY OF PRESENTING ILLNESS: Ms. Val Krause is an 87-year-old right-handed thinly built female brought into [facility] with history of fever. Respiratory disturbance has been diagnosed and that has been treated with hydration and appropriate antibiotic. She was found to have increasing lethargy and not in defined time at present. No history of fall. No history of trauma. No history of involuntary movements been witnessed or documented in the chart. During the admission, the patient did have CT of the head, which was diagnosed as abnormal single signal consistent with some petechial hemorrhagic component over region at the moy. The patient's repeated CT scan does not document the same finding. Because of the increasing lethargy, the patient did have MRI of the brain. MRI of the brain, diffusion-weighted image, showed a bright spot over right basal ganglia region consistent with new stroke process. PAST MEDICAL HISTORY: Hypertension; diabetes mellitus; osteoarthritis; lymphoma, in remission, status post right femoral popliteal bypass surgery. ALLERGIES: NO KNOWN ALLERGIES. SOCIAL HISTORY: No history of smoking and no history of alcohol use in the past. REVIEW OF SYSTEMS: 12 point system been reviewed. From neuro, new increasing weakness and lethargy. MEDICATIONS: In-house, she has been getting a Catapres, Colace, Cozaar, Crestor, Ecotrin, metformin, Glucophage, HydroDIURIL, Lovenox. PHYSICAL EXAMINATION: Vital signs: Blood pressure 126/76 with mean artery pressure of 92, respiratory rate 18, temperature 97.8, pulse rate 80 and regular. NECK: Supple. Bilateral soft carotid artery bruit heard. HEART: Sounds are regular. No murmur. EXTREMITIES: Right leg externally rotated. Distal muscle group atrophy. NEUROLOGIC: The patient is arousable on verbally calling her last name. The patient knows she is in the hospital. She is in the [facility]. However, she could not recall why she is in the hospital. She knows the year is 2018. She follows one to two-step command though hard of hearing. She could move both upper extremities against the gravity, right more than the left and lower extremities, she has to use leg to lift her legs, right better than the left. CRANIAL NERVE EXAMINATION: Not responding to visual threat. The patient is legally blind. Pupil sluggishly reactive to light. Right eye isotropic. Extraocular movements seems to be intact. No facial sensory deficit. No facial asymmetry. Hearing as documented, deafness. Mouth moist. Tongue midline. Good gag. MOTOR EXAMINATION: She had a problem lifting her left upper extremity. However, with help, she could keep her arms up. Inability to move her right as well as left leg without any assistance. Significant weakness of the left more than the right side. Deep tendon reflexes absent throughout. Plantars are upgoing on both sides. COORDINATION: She could do finger-nose testing, right side better than the left side. WORKUP: Radiological findings as documented earlier. Blood workup: WBC 10.5, hemoglobin 10.6, hematocrit 33.0, platelets 514,000. Sodium 134, potassium 4.1, chloride 100, bicarbonate 25, BUN 24, creatinine 1.3, glucose 127, calcium 8.8. B12 254. TSH 2.0. Ammonia, within normal. Prolactin also within normal. CONCLUSIONS: Val Krause has been presenting with following from neurological point of view: 1. Bilateral cerebral dysfunction, which is complicated with underlying metabolic versus toxic encephalopathy. No clear evidence of meningitis or meningoencephalitis at present. 2. Left hemiparesis consistent with her new stroke process in the subcortical region related to a small vessel disease. 3. Symptomatic carotid artery bruit as per exam. 4. 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 RECOMMENDATIONS 1. Continue antiplatelets with aspirin and Plavix for now. Continue JUWAN inhibitor and statin. 2. Diabetic control. 3. Getting out of bed. Physical therapy, keep in fall precaution and aware of blindness and deafness. 4. DVT prophylaxis. 5. The patient should get a carotid Doppler and electroencephalogram to rule out any subclinical seizures or significant stenosis. 6. Following all workup if the patient is stable, the patient is a good candidate for rehabilitation. However, physical therapy should be initiated while she is in the hospital. Dio Nixon MD [facility] # [id number] FERMIN
--- NOTE | 2017-09-28 14:01 | VASCLAB ---
PROCEDURE: HISTORY: ASSESS STENOSIS COMPARISON: None available. TECHNIQUE: Grayscale and duplex Doppler evaluation of the cervical carotid and vertebral arteries were performed. The common carotid, carotid bifurcations and cervical Internal Carotid Artery (ICA) and proximal External Carotid Artery (ECA) were evaluated. The vertebral arteries were evaluated for gross patency and flow direction. Report prepared by Jay Sadlana, BS, RVT FINDINGS: RIGHT CAROTID ARTERIES: 1. Common Carotid Artery: No significant focal plaque formation of the right common carotid artery. Maximum Peak Systolic velocity: 62 cm/sec: End-diastolic velocity 13 cm/sec. 2. Carotid Bifurcation: Calcific plaque formation. Maximum Peak Systolic velocity: 61 cm/sec: End-diastolic velocity 10 cm/sec. 3. Internal Carotid Artery: Moderate plaque formation of the right proximal ICA which does not results in hemodynamically significant stenosis. Plaque description: Calcific 3.1. Proximal Segment: Peak systolic velocity 74 cm/sec: End-diastolic velocity 17 cm/sec - % stenosis 0-15% 3.2. Middle Segment: Peak systolic velocity 87 cm/sec: End-diastolic velocity 14 cm/sec - % stenosis 0-15% 3.3. Distal Segment: Peak systolic velocity 33 cm/sec: End-diastolic velocity 7 cm/sec - % stenosis 0-15% 4. External Carotid Artery: No significant focal plaque formation. Peak systolic velocity 73 cm/sec 5. ICA/CCA Ratio: 1.4 LEFT CAROTID ARTERIES: 1. Common Carotid Artery: No significant focal plaque formation of the left common carotid artery. Maximum Peak Systolic velocity: 58 cm/sec: End-diastolic velocity 9 cm/sec. 2. Carotid Bifurcation: Calcific plaque formation. Maximum Peak Systolic velocity: 53 cm/sec: End-diastolic velocity 13 cm/sec. 3. Internal Carotid Artery: Moderate plaque formation of the left proximal ICA which does not results in hemodynamically significant stenosis. Plaque description: Calcific 3.1. Proximal Segment: Peak systolic velocity 64 cm/sec: End-diastolic velocity 13 cm/sec - % stenosis 0-15% 3.2. Middle Segment: Peak systolic velocity 73 cm/sec: End-diastolic velocity 17 cm/sec - % stenosis 0-15% 3.3. Distal Segment: Peak systolic velocity 36 cm/sec: End-diastolic velocity 7 cm/sec - % stenosis 0-15% 4. External Carotid Artery: No significant focal plaque formation. Peak systolic velocity 72 cm/sec 5. ICA/CCA Ratio: 1.3 VERTEBRAL ARTERIES: 1. Right Vertebral Artery: The right vertebral artery flow direction is antegrade. 2. Left Vertebral Artery: The left vertebral artery flow direction is antegrade. OTHER FINDINGS: 1. Right Brachial Blood pressure: 82 mmHg. 2. Left Brachial Blood pressure: 80 mmHg. IMPRESSION: RIGHT: Duplex scan does not suggest hemodynamically significant stenosis of the right extracranial carotid arteries. LEFT: Duplex scan does not suggest hemodynamically significant stenosis of the left extracranial carotid arteries.
--- NOTE | 2017-09-28 16:36 | PN ---
DATE: 09/28/2017 SUBJECTIVE: The patient is seen with her daughter who is an employee in the hospital. The patient is still feeling lethargic, weak, not eating, hard of hearing. According to the daughter, the patient has history of impacted cerumen in the past and was seen by ENT, but the patient refused to go back stating that during the cleaning procedure, her ears hurt. PHYSICAL EXAMINATION: VITAL SIGNS: Temperature is 98.6, pulse rate 77, blood pressure is 112/66, respirations 20, oxygen sat is 96% on nasal cannula. REVIEW OF SYSTEMS: GENERAL: The patient is alert, but forgetful, seen in her room, still hard of hearing. SKIN: No diaphoresis. HEENT: No headache or dizziness. NECK: Supple. RESPIRATORY: No dyspnea. CARDIOVASCULAR: No chest pain. GASTROINTESTINAL: No nausea. No vomiting. The patient is refusing to eat. MUSCULOSKELETAL: Feels week. EXTREMITIES: No tremors. NEUROLOGIC: Alert with periods of confusion. According to the daughter, the patient has history of senile dementia, but I did explain to the daughter I did not give her anything right now such as the patient has history of acute stroke. The patient's MRI showed acute infarction in the right basal ganglia. MENTAL STATUS EXAMINATION: Elderly female who is 87 years old. Oriented to place and person, not to time. Seen in her room with her daughter. Mood is calm. Affect is reactive. Speech is spontaneous. Thought process is forgetful. Thought content, no overt psychosis. No suicidal or homicidal ideation. Attention and memory seem limited. Insight and judgment limited. Impulse control is fair at this time. IMPRESSION: History of dementia with mood changes as well as acute infarction in the right basal ganglia. Consider delirium. PLAN AND RECOMMENDATIONS: The patient is seen, meds reviewed. The patient has been referred to be followed with Dr. Nixon, neurologist. Psych joyner, I hold off any psych meds for now, especially the patient has acute stroke. Continue treatment and plan as outlined. The patient will benefit from the ENT consult to clean her ears once more medically stable. The patient may benefit from subacute rehab once she is cleared from neuro. Fredy Harper MD [facility] # [id number]
[2017-09-28] MEDS: Rosuvastatin Calcium 2.5 mg Tab PO SCH (21:26)
[2017-09-28] MEDS: LUMIGAN OU SCH (21:27)
[2017-09-29] MEDS: Brimonidine 0.2% Opth Sol (5ml) OU SCH ×3 (05:46→22:40)
--- NOTE | 2017-09-29 07:40 | PN ---
DATE: 09/29/2017 NEUROLOGICAL PROBLEM: Right subcortical stroke manifesting with left hemiparesis as well as paraparesis. The patient also presenting with bilateral cerebral dysfunction, which could be senile dementia of Alzheimer type superimposed with vascular dementia or metabolic encephalopathy. PHYSICAL EXAMINATION: VITAL SIGNS: Blood pressure 132/69, mean arterial pressure of 90, respiratory rate 16, temperature 98.1, pulse rate 72. NEUROLOGIC: The patient is arousable on calling her name. She claims she feels better as she can go home that is what she said. She could move her arms good; however, lower extremities with pain limited as well as subjective weakness of her lower extremities. Rest of the examinations are unchanged. LABORATORY DATA: Her EEG had been reviewed. No paroxysmal activities noted or focal slowing. However, the patient does have bilateral slow activities consistent with bilateral cerebral dysfunction. RECOMMENDATION: Continue the present management, DVT prophylaxis, getting her out of bed and physical therapy. If medically stable, the patient can be discharged and followup visit as outpatient. The patient may need electrodiagnostic studies to rule out any peripheral causes for her lower extremity weakness. Dio Nixon MD
[2017-09-29] MEDS: (Novolog) Insulin Aspart, Recombinant 100 u/ml 10 ml vial SC SCH ×4 (08:59→22:30)
[2017-09-29] MEDS: Metoprolol Succinate 50 mg XL Tab PO SCH (09:11)
[2017-09-29] MEDS: Enoxaparin 40 mg Syringe SC SCH (09:12)
[2017-09-29] MEDS: TIMOLOL OU SCH ×2 (09:13→17:33)
[2017-09-29] MEDS: DORZOLAMIDE OU SCH ×2 (09:13→17:33)
[2017-09-29] MEDS: PILOCARPINE HCL 1% OD SCH ×4 (09:14→22:40)
[2017-09-29] MEDS: Dextrose 5%/0.45% NS 1,000 ML IV SCH ×2 (09:15→22:38)
[2017-09-29 12:27] LABS: BLOOD UREA NITROGEN 16 mg/dL (7-17); CALCIUM 8.7 mg/dl (8.6-10.4); GFR AFRICAN-AMERICAN > 60; GFR NON-AFRICAN AMERICAN > 60
--- NOTE | 2017-09-29 18:20 | CP.PCM.PN ---
Subjective - Date & Time of Evaluation Date of Evaluation: 09/29/17 Time of Evaluation: 18:17 - Subjective Subjective: Patient arousable, in no respiratory distress. Still with poor appetite but afebrile. Objective - Vital Signs/Intake and Output Vital Signs (last 24 hours): Temp Pulse Resp BP Pulse Ox 97.2 F L 94 H 20 132/79 99 09/29/17 16:00 09/29/17 16:00 09/29/17 16:00 09/29/17 16:00 09/29/17 16:00 Intake and Output: 09/29/17 09/29/17 06:59 18:59 Intake Total 760 890 Balance 760 890 - Medications Medications: Current Medications Acetaminophen (Tylenol 325mg Tab) 650 mg PO Q6 PRN PRN Reason: Pain, moderate (4-7) Last Admin: 09/21/17 21:51 Dose: 650 mg Aspirin (Ecotrin) 81 mg PO DAILY [facility] Last Admin: 09/29/17 09:12 Dose: 81 mg Brimonidine Tartrate (Alphagan 0.2% Opht) 0 ml OU Q8H [facility] Last Admin: 09/29/17 13:50 Dose: 1 drop Clonidine HCl (Catapres) 0.1 mg PO TID PRN PRN Reason: Diastolic blood pressure Last Admin: 09/20/17 18:22 Dose: 0.1 mg Clopidogrel Bisulfate (Plavix) 75 mg PO DAILY [facility] Last Admin: 09/29/17 09:11 Dose: 75 mg Docusate Sodium (Colace) 100 mg PO BID [facility] Last Admin: 09/29/17 17:32 Dose: 100 mg Enoxaparin Sodium (Lovenox) 40 mg SC DAILY [facility] Last Admin: 09/29/17 09:12 Dose: 40 mg Home Med (Patient's Own Drops) 1 drop OU HS [facility] Last Admin: 09/28/17 21:27 Dose: 1 drop Home Med (Patient's Own Drops) 1 drop OU BID [facility] Last Admin: 09/29/17 17:33 Dose: 1 drop Home Med (Patient's Own Drops) 1 drop OD QID [facility] Last Admin: 09/29/17 17:33 Dose: 1 drop Hydrochlorothiazide (Hydrodiuril) 25 mg PO DAILY [facility] Last Admin: 09/29/17 09:17 Dose: 25 mg Dextrose/Sodium Chloride (Dextrose 5%/0.45% Ns 1000 Ml) 1,000 mls @ 80 mls/hr IV .[id number] [facility] Last Admin: 09/29/17 09:15 Dose: 80 mls/hr Insulin Aspart (Novolog) 0 unit SC ACHS [facility] PRN Reason: Protocol Last Admin: 09/29/17 17:14 Dose: Not Given Losartan Potassium (Cozaar) 100 mg PO DAILY [facility] Last Admin: 09/29/17 09:11 Dose: 100 mg Metformin HCl (Glucophage) 500 mg PO BIDCC [facility] Last Admin: 09/29/17 17:32 Dose: 500 mg Metoprolol Succinate (Toprol Xl) 50 mg PO DAILY [facility] Last Admin: 09/29/17 09:11 Dose: 50 mg Rosuvastatin Calcium (Crestor) 2.5 mg PO HS [facility] Last Admin: 09/28/17 21:26 Dose: 2.5 mg - Labs Labs: 09/28/17 07:36 09/29/17 11:54 PT 13.2 SECONDS (9.7-12.2) H 09/20/17 08:43 INR 1.2 09/20/17 08:43 APTT 31 SECONDS (21-34) 09/20/17 08:43 - Constitutional Appears: No Acute Distress, Chronically Ill - Head Exam Head Exam: NORMAL INSPECTION - Eye Exam Eye Exam: Normal appearance - ENT Exam ENT Exam: Normal Exam - Neck Exam Neck Exam: Full ROM - Respiratory Exam Respiratory Exam: Clear to Ausculation Bilateral, NORMAL BREATHING PATTERN - Cardiovascular Exam Cardiovascular Exam: REGULAR RHYTHM, Murmur - GI/Abdominal Exam GI & Abdominal Exam: Soft, Normal Bowel Sounds - Rectal Exam Rectal Exam: Deferred - Extremities Exam Extremities Exam: Normal Inspection - Back Exam Back Exam: NORMAL INSPECTION - Neurological Exam Additional comments: Sleepy. Answers questions when aroused. - Skin Skin Exam: Dry, Intact, Normal Color, Warm Assessment and Plan (1) Influenza Status: Resolved (2) UTI (urinary tract infection) Status: Resolved (3) Abnormal head CT Status: Resolved (4) Abnormal head CT Status: Resolved (5) Staphylococcus aureus bacteremia Status: Acute (6) CVA (cerebral vascular accident) Assessment & Plan: Pt could not be performed becauss of the patient's lethargy. Status: Acute
--- NOTE | 2017-09-29 20:43 | PN ---
DATE: SUBJECTIVE: The patient is seen with the family. The patient is very drowsy, refusing to eat. The patient's family tried to feed the patient, but ate like less than 25%. The patient is sleeping all the time. The patient seen by Dr. Nixon. For evaluation, the patient's family wants the patient to go for subacute rehab once the patient is more medically stable. Psych joyner, the patient is off psych meds; however, if the patient is lethargic, continues to persist, patient may benefit from psychostimulant to keep her awake. The patient is sleeping all the time. She continues to be hard of hearing and still feeling weak. REVIEW OF SYSTEM: The patient is very drowsy, seen in her room, sleeping with family at bedside, refusing to eat. SKIN: No diaphoresis. HEENT: Hard of hearing, no headache. NECK: Supple. RESPIRATORY: No dyspnea. CARDIOVASCULAR: No chest pain. GASTROINTESTINAL: Has very poor appetites. EXTREMITIES: The patient is mostly bed bound. MUSCULOSKELETAL: Feels weak. NEUROLOGIC: Alert with periods of confusion. GENITOURINARY: No dysuria. PHYSICAL EXAMINATION: VITAL SIGNS: Temperature is 97.2, pulse rate is 94, blood pressure 132/79, respirations 20, oxygen sat 99%. MENTAL STATUS EXAMINATION: Elderly female, looks stated age, very drowsy, speaks with a soft voice. Affect is reactive. Speech is spontaneous. Thought process confused. The patient is confused at times due to hard of hearing. Thought content, the patient refusing to eat, no overt psychosis. No suicidal thought or ideation. Attention and memory seem to be limited. Insight and judgment limited. Impulse control is fair at this time. LABORATORY DATA: Review of her labs, the patient's blood sugar is 121. IMPRESSION: History of cerebrovascular accident as well as dementia with mood changes and possible superimposed delirium. PLAN AND RECOMMENDATION: The patient is seen. Meds reviewed. Continue present management. We are hold the psych meds for now; however, if the patient continues to be drowsy, we will try consult with Neuro if the patient can benefit from psychostimulant. The patient is not eating due to lethargy and the patient is very weak. The patient needs to eat a little better and be more active before going for subacute rehab. Fredy Harper MD
--- NOTE | 2017-09-29 21:32 | CP.PCM.PN ---
Subjective - Date & Time of Evaluation Date of Evaluation: 09/28/17 Time of Evaluation: 19:35 - Subjective Subjective: INFECTIOUS DISEASE PROGRESS NOTES TUAN DURAN MD, FACP 09/28/2017 6T CHART REVIEWED PT EXAMINED CASE DISCUSSED Patient is still letargic, but afebrile and in no respiratory distress. 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 Duplex carotid scan reveals mild heterogeous plaque at both CCA's and proximal ICA's. Patient is complaining of swelling and pain in both knees. EVERYDAY MORE AWAKE AND POORLY ALERT QUESTION OF DECREASED HEARING AND LEGALLY BLIND NOTED OFF ID TREATMENT OBSERVE CVA ISSUES Objective - Vital Signs/Intake and Output Vital Signs (last 24 hours): Temp Pulse Resp BP Pulse Ox 97.2 F L 94 H 20 132/79 99 09/29/17 16:00 09/29/17 16:00 09/29/17 16:00 09/29/17 16:00 09/29/17 16:00 Intake and Output: 09/29/17 09/30/17 18:59 06:59 Intake Total 890 Balance 890 - Medications Medications: Current Medications Acetaminophen (Tylenol 325mg Tab) 650 mg PO Q6 PRN PRN Reason: Pain, moderate (4-7) Last Admin: 09/21/17 21:51 Dose: 650 mg Aspirin (Ecotrin) 81 mg PO DAILY [facility] Last Admin: 09/29/17 09:12 Dose: 81 mg Brimonidine Tartrate (Alphagan 0.2% Opht) 0 ml OU Q8H [facility] Last Admin: 09/29/17 13:50 Dose: 1 drop Clonidine HCl (Catapres) 0.1 mg PO TID PRN PRN Reason: Diastolic blood pressure Last Admin: 09/20/17 18:22 Dose: 0.1 mg Clopidogrel Bisulfate (Plavix) 75 mg PO DAILY [facility] Last Admin: 09/29/17 09:11 Dose: 75 mg Docusate Sodium (Colace) 100 mg PO BID [facility] Last Admin: 09/29/17 17:32 Dose: 100 mg Enoxaparin Sodium (Lovenox) 40 mg SC DAILY [facility] Last Admin: 09/29/17 09:12 Dose: 40 mg Home Med (Patient's Own Drops) 1 drop OU HS [facility] Last Admin: 09/28/17 21:27 Dose: 1 drop Home Med (Patient's Own Drops) 1 drop OU BID [facility] Last Admin: 09/29/17 17:33 Dose: 1 drop Home Med (Patient's Own Drops) 1 drop OD QID [facility] Last Admin: 09/29/17 17:33 Dose: 1 drop Hydrochlorothiazide (Hydrodiuril) 25 mg PO DAILY [facility] Last Admin: 09/29/17 09:17 Dose: 25 mg Dextrose/Sodium Chloride (Dextrose 5%/0.45% Ns 1000 Ml) 1,000 mls @ 80 mls/hr IV .[id number] [facility] Last Admin: 09/29/17 09:15 Dose: 80 mls/hr Insulin Aspart (Novolog) 0 unit SC ACHS [facility] PRN Reason: Protocol Last Admin: 09/29/17 17:14 Dose: Not Given Losartan Potassium (Cozaar) 100 mg PO DAILY [facility] Last Admin: 09/29/17 09:11 Dose: 100 mg Metformin HCl (Glucophage) 500 mg PO BIDCC [facility] Last Admin: 09/29/17 17:32 Dose: 500 mg Metoprolol Succinate (Toprol Xl) 50 mg PO DAILY [facility] Last Admin: 09/29/17 09:11 Dose: 50 mg Rosuvastatin Calcium (Crestor) 2.5 mg PO HS [facility] Last Admin: 09/28/17 21:26 Dose: 2.5 mg - Labs Labs: 09/28/17 07:36 09/29/17 11:54 PT 13.2 SECONDS (9.7-12.2) H 09/20/17 08:43 INR 1.2 09/20/17 08:43 APTT 31 SECONDS (21-34) 09/20/17 08:43 Assessment and Plan (1) Fever Status: Resolved (2) Coag negative Staphylococcus bacteremia Status: Resolved (3) UTI (urinary tract infection) Status: Resolved (4) Benign hypertension Status: Chronic (5) Influenza Status: Resolved (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
[2017-09-29] MEDS: Rosuvastatin Calcium 2.5 mg Tab PO SCH (22:37)
[2017-09-29] MEDS: LUMIGAN OU SCH (22:41)
[2017-09-30] MEDS: Brimonidine 0.2% Opth Sol (5ml) OU SCH ×3 (06:00→22:00)
[2017-09-30] MEDS: (Novolog) Insulin Aspart, Recombinant 100 u/ml 10 ml vial SC SCH ×4 (07:46→21:55)
[2017-09-30] MEDS: Metoprolol Succinate 50 mg XL Tab PO SCH (09:15)
[2017-09-30] MEDS: Enoxaparin 40 mg Syringe SC SCH (09:16)
[2017-09-30] MEDS: PILOCARPINE HCL 1% OD SCH ×4 (09:17→21:51)
[2017-09-30] MEDS: DORZOLAMIDE OU SCH ×2 (09:18→18:51)
[2017-09-30] MEDS: TIMOLOL OU SCH ×2 (09:18→18:51)
--- NOTE | 2017-09-30 09:52 | EEG ---
DATE: 09/28/2017 This is a 16-channel electroencephalogram of awake and lethargic adult. The study was performed in the lab. The resting electroencephalogram consist of low amplitude 20-30 microvolt diffuse 6-7 Hz theta activity seen at the parietal and occipital leads. Intermittent movement artifact and muscle artifact contaminated the frontal and temporal leads. The photic stimulation did not evoke driving response noted at 2-20 Hz. There is evidence sleep spindle with a K-complex consistent with N2 sleep. This is an abnormal electroencephalogram because of persistent slowing throughout the record suggestive of bilateral cerebral dysfunction. This is probably secondary to metabolic vascular degenerative process. Please correlate the finding with neurologic and radiologic studies. Dio Nixon MD
--- NOTE | 2017-09-30 11:28 | PN ---
DATE: NEUROLOGICAL PROBLEM: Senile dementia of Alzheimer's type, superimposed with metabolic versus toxic encephalopathy and vascular compromisation of hypoperfusion syndrome. PHYSICAL EXAMINATION: Patient is arousable. Moves both upper extremities more than her lower extremities on examination, which is unchanged to compare with my previous examination. No new findings at present. Her vital signs are stable. ASSESSMENT AND PLAN: The patient should get bedside physical therapy. If possible, the patient should be get out of the bed and ambulation with support. Continue the present management as she has been getting it. If medically stable, the patient is a good candidate to have rehabilitation. Dio Nixon MD
[2017-09-30] MEDS: Dextrose 5%/0.45% NS 1,000 ML IV SCH ×2 (13:56→21:56)
--- NOTE | 2017-09-30 18:09 | CP.PCM.PN ---
Subjective - Date & Time of Evaluation Date of Evaluation: 09/30/17 Time of Evaluation: 18:06 - Subjective Subjective: INFECTIOUS DISEASE PROGRESS NOTE TUAN DURAN MD, FACP 6T 665-B 09/30/2017 CHART REVIEWED PT EXAMINED CASE DISCUSSED CLINICALLY JUST LYING IN BED POOR, RESPONSE TO VERBAL STIMULUS EATING AND DRINKING POORLY OBSERVE OFF AB/ANTIVIRALS. Objective - Vital Signs/Intake and Output Vital Signs (last 24 hours): Temp Pulse Resp BP Pulse Ox 97.6 F 69 18 121/69 100 09/30/17 15:42 09/30/17 15:42 09/30/17 15:42 09/30/17 15:42 09/30/17 15:42 Intake and Output: 09/30/17 09/30/17 06:59 18:59 Intake Total 1400 Output Total 450 Balance 950 - Medications Medications: Current Medications Acetaminophen (Tylenol 325mg Tab) 650 mg PO Q6 PRN PRN Reason: Pain, moderate (4-7) Last Admin: 09/30/17 09:21 Dose: 650 mg Aspirin (Ecotrin) 81 mg PO DAILY [facility] Last Admin: 09/30/17 09:15 Dose: 81 mg Brimonidine Tartrate (Alphagan 0.2% Opht) 0 ml OU Q8H [facility] Last Admin: 09/30/17 13:55 Dose: 1 drop Clonidine HCl (Catapres) 0.1 mg PO TID PRN PRN Reason: Diastolic blood pressure Last Admin: 09/20/17 18:22 Dose: 0.1 mg Clopidogrel Bisulfate (Plavix) 75 mg PO DAILY [facility] Last Admin: 09/30/17 09:15 Dose: 75 mg Docusate Sodium (Colace) 100 mg PO BID [facility] Last Admin: 09/30/17 09:15 Dose: 100 mg Enoxaparin Sodium (Lovenox) 40 mg SC DAILY [facility] Last Admin: 09/30/17 09:16 Dose: 40 mg Home Med (Patient's Own Drops) 1 drop OU HS [facility] Last Admin: 09/29/17 22:41 Dose: 1 drop Home Med (Patient's Own Drops) 1 drop OU BID [facility] Last Admin: 09/30/17 09:18 Dose: 1 drop Home Med (Patient's Own Drops) 1 drop OD QID [facility] Last Admin: 09/30/17 13:56 Dose: 1 drop Hydrochlorothiazide (Hydrodiuril) 25 mg PO DAILY [facility] Last Admin: 09/30/17 09:16 Dose: 25 mg Dextrose/Sodium Chloride (Dextrose 5%/0.45% Ns 1000 Ml) 1,000 mls @ 80 mls/hr IV .[id number] [facility] Last Admin: 09/30/17 13:56 Dose: 80 mls/hr Insulin Aspart (Novolog) 0 unit SC ACHS [facility] PRN Reason: Protocol Last Admin: 09/30/17 12:55 Dose: Not Given Losartan Potassium (Cozaar) 100 mg PO DAILY [facility] Last Admin: 09/30/17 09:15 Dose: 100 mg Metformin HCl (Glucophage) 500 mg PO BIDCC [facility] Last Admin: 09/30/17 08:55 Dose: 500 mg Metoprolol Succinate (Toprol Xl) 50 mg PO DAILY [facility] Last Admin: 09/30/17 09:15 Dose: 50 mg Rosuvastatin Calcium (Crestor) 2.5 mg PO HS [facility] Last Admin: 09/29/17 22:37 Dose: 2.5 mg - Labs Labs: 09/28/17 07:36 09/29/17 11:54 PT 13.2 SECONDS (9.7-12.2) H 09/20/17 08:43 INR 1.2 09/20/17 08:43 APTT 31 SECONDS (21-34) 09/20/17 08:43 - Constitutional Appears: Non-toxic, Older Than Stated Age, Cachectic, Chronically Ill - Head Exam Head Exam: NORMAL INSPECTION - Eye Exam Additional comments: KEEPS HER EYES CLOSED - ENT Exam ENT Exam: Mucous Membranes Dry - Respiratory Exam Respiratory Exam: Decreased Breath Sounds, NORMAL BREATHING PATTERN - Cardiovascular Exam Cardiovascular Exam: REGULAR RHYTHM - GI/Abdominal Exam GI & Abdominal Exam: Soft, Normal Bowel Sounds. 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
--- NOTE | 2017-09-30 19:00 | PN ---
DATE: 09/30/2017 SUBJECTIVE: Patient is seen. Patient is still drowsy, but better than yesterday, still refusing to eat, hard of hearing. Case discussed with Dr. Chan as we were discussing earlier putting her on psychostimulant, but since patient is improving, we will hold off any psych medication for now. Patient also has history of infarction in the basal ganglia, which can present also with mood changes and lethargy. Her appetite is still very poor. VITAL SIGNS: Temperature is 98.3, pulse rate 73, blood pressure 154/78, respirations 20, oxygen sat 97% on room air. REVIEW OF SYSTEM: CONSTITUTIONAL: Patient is sleepy, but arousable, seen in her room, still with periods of confusion, seen with daughter. SKIN: No diaphoresis. HEENT: Hard of hearing. No headache. NECK: Supple. RESPIRATORY: No dyspnea. CARDIOVASCULAR: No chest pain. GASTROINTESTINAL: Appetite is still very poor. Patient will eat a few bites and then stop. No nausea. No vomiting. EXTREMITIES: Gait is unsteady. MUSCULOSKELETAL: Feels weak. NEUROLOGIC: Alert with periods of confusion, still very drowsy. GENITOURINARY: No dysuria. MENTAL STATUS EXAMINATION: An 87-year-old female who looked stated age with history of dementia and possible delirium. Speech is slow. Affect is restricted. Mood is dysphoric. Thought process, confused off and on. Thought content, no overt psychosis. No suicidal or homicidal ideation. Attention and memory seem to be limited. Insight and judgment limited. Impulse control is fair at this time. IMPRESSION: History of dementia with mood changes with superimposed delirium, metabolic encephalopathy, history of cerebrovascular accident in the right basal ganglia. PLAN AND RECOMMENDATIONS: Patient is seen, meds reviewed. Continue present management. We will hold off any psych meds for now. Patient is improving slowly. Once patient is medically stable and once she is more alert and able to eat better, patient can go to [facility] for subacute rehab. Fredy Harper MD [facility]
--- NOTE | 2017-09-30 21:28 | CP.PCM.PN ---
Subjective - Date & Time of Evaluation Date of Evaluation: 09/30/17 Time of Evaluation: 14:00 - Subjective Subjective: Patient a little more alert today, but appetite is still poor. Objective - Vital Signs/Intake and Output Vital Signs (last 24 hours): Temp Pulse Resp BP Pulse Ox 97.6 F 69 18 121/69 100 09/30/17 15:42 09/30/17 15:42 09/30/17 15:42 09/30/17 15:42 09/30/17 15:42 - Medications Medications: Current Medications Acetaminophen (Tylenol 325mg Tab) 650 mg PO Q6 PRN PRN Reason: Pain, moderate (4-7) Last Admin: 09/30/17 09:21 Dose: 650 mg Aspirin (Ecotrin) 81 mg PO DAILY [facility] Last Admin: 09/30/17 09:15 Dose: 81 mg Brimonidine Tartrate (Alphagan 0.2% Opht) 0 ml OU Q8H [facility] Last Admin: 09/30/17 13:55 Dose: 1 drop Clonidine HCl (Catapres) 0.1 mg PO TID PRN PRN Reason: Diastolic blood pressure Last Admin: 09/20/17 18:22 Dose: 0.1 mg Clopidogrel Bisulfate (Plavix) 75 mg PO DAILY [facility] Last Admin: 09/30/17 09:15 Dose: 75 mg Docusate Sodium (Colace) 100 mg PO BID [facility] Last Admin: 09/30/17 18:45 Dose: 100 mg Enoxaparin Sodium (Lovenox) 40 mg SC DAILY [facility] Last Admin: 09/30/17 09:16 Dose: 40 mg Home Med (Patient's Own Drops) 1 drop OU HS [facility] Last Admin: 09/29/17 22:41 Dose: 1 drop Home Med (Patient's Own Drops) 1 drop OU BID [facility] Last Admin: 09/30/17 18:51 Dose: 1 drop Home Med (Patient's Own Drops) 1 drop OD QID [facility] Last Admin: 09/30/17 18:51 Dose: 1 drop Hydrochlorothiazide (Hydrodiuril) 25 mg PO DAILY [facility] Last Admin: 09/30/17 09:16 Dose: 25 mg Dextrose/Sodium Chloride (Dextrose 5%/0.45% Ns 1000 Ml) 1,000 mls @ 80 mls/hr IV .[id number] [facility] Last Admin: 09/30/17 13:56 Dose: 80 mls/hr Insulin Aspart (Novolog) 0 unit SC ACHS [facility] PRN Reason: Protocol Last Admin: 09/30/17 18:52 Dose: Not Given Losartan Potassium (Cozaar) 100 mg PO DAILY [facility] Last Admin: 09/30/17 09:15 Dose: 100 mg Metformin HCl (Glucophage) 500 mg PO BIDCC [facility] Last Admin: 09/30/17 18:45 Dose: 500 mg Metoprolol Succinate (Toprol Xl) 50 mg PO DAILY [facility] Last Admin: 09/30/17 09:15 Dose: 50 mg Rosuvastatin Calcium (Crestor) 2.5 mg PO HS [facility] Last Admin: 09/29/17 22:37 Dose: 2.5 mg - Labs Labs: 09/28/17 07:36 09/29/17 11:54 PT 13.2 SECONDS (9.7-12.2) H 09/20/17 08:43 INR 1.2 09/20/17 08:43 APTT 31 SECONDS (21-34) 09/20/17 08:43 - Constitutional Appears: No Acute Distress, Chronically Ill - Head Exam Head Exam: NORMAL INSPECTION - Eye Exam Eye Exam: Normal appearance - ENT Exam ENT Exam: Normal Exam - Neck Exam Neck Exam: Normal Inspection - Respiratory Exam Respiratory Exam: Clear to Ausculation Bilateral, NORMAL BREATHING PATTERN - Cardiovascular Exam Cardiovascular Exam: REGULAR RHYTHM, Murmur - GI/Abdominal Exam GI & Abdominal Exam: Soft, Normal Bowel Sounds - Rectal Exam Rectal Exam: Deferred - Extremities Exam Extremities Exam: Normal Inspection - Back Exam Back Exam: NORMAL INSPECTION - Neurological Exam Additional comments: Still very sleepy. - Skin Skin Exam: Dry, Normal Color Assessment and Plan (1) Influenza Status: Resolved (2) UTI (urinary tract infection) Status: Resolved (3) Abnormal head CT Status: Resolved (4) Abnormal head CT Status: Resolved (5) Staphylococcus aureus bacteremia Status: Acute (6) CVA (cerebral vascular accident) Assessment & Plan: Start PT when the patient is more alert. Status: Acute
[2017-09-30] MEDS: Rosuvastatin Calcium 2.5 mg Tab PO SCH (21:51)
[2017-09-30] MEDS: LUMIGAN OU SCH (21:52)
[2017-10-01] MEDS: Brimonidine 0.2% Opth Sol (5ml) OU SCH ×3 (05:16→22:46)
[2017-10-01] MEDS: (Novolog) Insulin Aspart, Recombinant 100 u/ml 10 ml vial SC SCH ×4 (08:13→22:00)
[2017-10-01] MEDS: Dextrose 5%/0.45% NS 1,000 ML IV SCH ×2 (10:28→23:09)
[2017-10-01] MEDS: Enoxaparin 40 mg Syringe SC SCH (10:31)
[2017-10-01] MEDS: PILOCARPINE HCL 1% OD SCH ×4 (10:32→22:46)
[2017-10-01] MEDS: TIMOLOL OU SCH ×2 (10:33→19:15)
[2017-10-01] MEDS: Metoprolol Succinate 50 mg XL Tab PO SCH (10:33)
[2017-10-01] MEDS: DORZOLAMIDE OU SCH ×2 (10:33→19:15)
--- NOTE | 2017-10-01 14:23 | CP.PCM.PN ---
Subjective - Date & Time of Evaluation Date of Evaluation: 10/01/17 Time of Evaluation: 14:20 - Subjective Subjective: Patient much more alert today, but still with a poor appetite and a slight confusion. Cannot stand up for PT. Objective - Vital Signs/Intake and Output Vital Signs (last 24 hours): Temp Pulse Resp BP Pulse Ox 98.5 F 70 20 145/71 95 10/01/17 08:30 10/01/17 09:00 10/01/17 08:30 10/01/17 08:30 10/01/17 08:30 Intake and Output: 10/01/17 10/01/17 06:59 18:59 Intake Total 1530 Balance 1530 - Medications Medications: Current Medications Acetaminophen (Tylenol 325mg Tab) 650 mg PO Q6 PRN PRN Reason: Pain, moderate (4-7) Last Admin: 09/30/17 09:21 Dose: 650 mg Aspirin (Ecotrin) 81 mg PO DAILY [facility] Last Admin: 10/01/17 10:30 Dose: 81 mg Brimonidine Tartrate (Alphagan 0.2% Opht) 0 ml OU Q8H [facility] Last Admin: 10/01/17 13:56 Dose: 1 drop Clonidine HCl (Catapres) 0.1 mg PO TID PRN PRN Reason: Diastolic blood pressure Last Admin: 09/20/17 18:22 Dose: 0.1 mg Clopidogrel Bisulfate (Plavix) 75 mg PO DAILY [facility] Last Admin: 10/01/17 10:33 Dose: 75 mg Docusate Sodium (Colace) 100 mg PO BID [facility] Last Admin: 10/01/17 10:30 Dose: 100 mg Enoxaparin Sodium (Lovenox) 40 mg SC DAILY [facility] Last Admin: 10/01/17 10:31 Dose: 40 mg Home Med (Patient's Own Drops) 1 drop OU HS [facility] Last Admin: 09/30/17 21:52 Dose: 1 drop Home Med (Patient's Own Drops) 1 drop OU BID [facility] Last Admin: 10/01/17 10:33 Dose: 1 drop Home Med (Patient's Own Drops) 1 drop OD QID [facility] Last Admin: 10/01/17 13:56 Dose: 1 drop Hydrochlorothiazide (Hydrodiuril) 25 mg PO DAILY [facility] Last Admin: 10/01/17 10:31 Dose: 25 mg Insulin Aspart (Novolog) 0 unit SC ACHS [facility] PRN Reason: Protocol Last Admin: 10/01/17 13:54 Dose: Not Given Losartan Potassium (Cozaar) 100 mg PO DAILY [facility] Last Admin: 10/01/17 10:30 Dose: 100 mg Metformin HCl (Glucophage) 500 mg PO BIDCC [facility] Last Admin: 10/01/17 08:15 Dose: 500 mg Metoprolol Succinate (Toprol Xl) 50 mg PO DAILY [facility] Last Admin: 10/01/17 10:33 Dose: 50 mg Rosuvastatin Calcium (Crestor) 2.5 mg PO HS [facility] Last Admin: 09/30/17 21:51 Dose: 2.5 mg - Labs Labs: 09/28/17 07:36 09/29/17 11:54 PT 13.2 SECONDS (9.7-12.2) H 09/20/17 08:43 INR 1.2 09/20/17 08:43 APTT 31 SECONDS (21-34) 09/20/17 08:43 - Constitutional Appears: No Acute Distress, Chronically Ill - Head Exam Head Exam: NORMAL INSPECTION - Eye Exam Eye Exam: Normal appearance - ENT Exam ENT Exam: Normal Exam - Neck Exam Neck Exam: Normal Inspection - Respiratory Exam Respiratory Exam: Clear to Ausculation Bilateral, NORMAL BREATHING PATTERN - Cardiovascular Exam Cardiovascular Exam: REGULAR RHYTHM - GI/Abdominal Exam GI & Abdominal Exam: Soft, Normal Bowel Sounds - Rectal Exam Rectal Exam: Deferred - Extremities Exam Extremities Exam: Normal Inspection - Back Exam Back Exam: NORMAL INSPECTION - Neurological Exam Neurological Exam: Alert, Awake - Psychiatric Exam Psychiatric exam: Anxious - Skin Skin Exam: Dry, Intact, Normal Color, Warm Assessment and Plan (1) Influenza Status: Resolved (2) UTI (urinary tract infection) Status: Resolved (3) Abnormal head CT Status: Resolved (4) Abnormal head CT Status: Resolved (5) Staphylococcus aureus bacteremia Assessment & Plan: Off IV antibiotics. Status: Acute (6) CVA (cerebral vascular accident) Assessment & Plan: More alert today. Status: Acute
--- NOTE | 2017-10-01 17:57 | CP.PCM.PN ---
Subjective - Date & Time of Evaluation Date of Evaluation: 10/01/17 Time of Evaluation: 17:55 - Subjective Subjective: INFECTIOUS DISEASE PROGRESS NOTE TUAN DURAN MD, FACP 6T [id number]-B 10/01/2017 CHART REVIEWED PT EXAMINED CASE DISCUSSED MUCH MORE AWAKE BUT CAN'T AMBULATE POOR ORAL INTAKE NOT IN NEED OF AB, ERGO RECALL NEEDED. Objective - Vital Signs/Intake and Output Vital Signs (last 24 hours): Temp Pulse Resp BP Pulse Ox 97.8 F 66 18 105/65 99 10/01/17 15:23 10/01/17 15:23 10/01/17 15:23 10/01/17 15:23 10/01/17 15:23 Intake and Output: 10/01/17 10/01/17 06:59 18:59 Intake Total 1530 Balance 1530 - Medications Medications: Current Medications Acetaminophen (Tylenol 325mg Tab) 650 mg PO Q6 PRN PRN Reason: Pain, moderate (4-7) Last Admin: 09/30/17 09:21 Dose: 650 mg Aspirin (Ecotrin) 81 mg PO DAILY [facility] Last Admin: 10/01/17 10:30 Dose: 81 mg Brimonidine Tartrate (Alphagan 0.2% Opht) 0 ml OU Q8H [facility] Last Admin: 10/01/17 13:56 Dose: 1 drop Clonidine HCl (Catapres) 0.1 mg PO TID PRN PRN Reason: Diastolic blood pressure Last Admin: 09/20/17 18:22 Dose: 0.1 mg Clopidogrel Bisulfate (Plavix) 75 mg PO DAILY [facility] Last Admin: 10/01/17 10:33 Dose: 75 mg Docusate Sodium (Colace) 100 mg PO BID [facility] Last Admin: 10/01/17 10:30 Dose: 100 mg Enoxaparin Sodium (Lovenox) 40 mg SC DAILY [facility] Last Admin: 10/01/17 10:31 Dose: 40 mg Home Med (Patient's Own Drops) 1 drop OU HS [facility] Last Admin: 09/30/17 21:52 Dose: 1 drop Home Med (Patient's Own Drops) 1 drop OU BID [facility] Last Admin: 10/01/17 10:33 Dose: 1 drop Home Med (Patient's Own Drops) 1 drop OD QID [facility] Last Admin: 10/01/17 13:56 Dose: 1 drop Hydrochlorothiazide (Hydrodiuril) 25 mg PO DAILY [facility] Last Admin: 10/01/17 10:31 Dose: 25 mg Insulin Aspart (Novolog) 0 unit SC ACHS [facility] PRN Reason: Protocol Last Admin: 10/01/17 13:54 Dose: Not Given Losartan Potassium (Cozaar) 100 mg PO DAILY [facility] Last Admin: 10/01/17 10:30 Dose: 100 mg Metformin HCl (Glucophage) 500 mg PO BIDCC [facility] Last Admin: 10/01/17 08:15 Dose: 500 mg Metoprolol Succinate (Toprol Xl) 50 mg PO DAILY [facility] Last Admin: 10/01/17 10:33 Dose: 50 mg Rosuvastatin Calcium (Crestor) 2.5 mg PO HS [facility] Last Admin: 09/30/17 21:51 Dose: 2.5 mg - Labs Labs: 09/28/17 07:36 09/29/17 11:54 PT 13.2 SECONDS (9.7-12.2) H 09/20/17 08:43 INR 1.2 09/20/17 08:43 APTT 31 SECONDS (21-34) 09/20/17 08:43 - Constitutional Appears: Non-toxic, Older Than Stated Age, Chronically Ill - Head Exam Head Exam: NORMAL INSPECTION - Eye Exam Additional comments: KEEPS EYES CLOSED - ENT Exam ENT Exam: Mucous Membranes Moist - Neck Exam Neck Exam: Normal Inspection - Respiratory Exam Respiratory Exam: NORMAL BREATHING PATTERN - Cardiovascular Exam Cardiovascular Exam: REGULAR RHYTHM - GI/Abdominal Exam GI & Abdominal Exam: Soft, Normal Bowel Sounds. 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
--- NOTE | 2017-10-01 19:08 | PN ---
DATE: SUBJECTIVE: Patient is seen with family. Patient is still not eating well, but more alert and verbal. Today, she was asking for water. Patient is still awaiting medical clearance to go to [facility] fro subacute rehab. Her appetite is still very poor. Patient is off psych meds. PHYSICAL EXAMINATION: VITAL SIGNS: Temperature is 97.8, pulse is 66, blood pressure is 105/65, respirations is 18, oxygen saturation 99%. REVIEW OF SYSTEMS: CONSTITUTIONAL: Patient is still alert, verbal, forgetful, hard of hearing, seen in her room with family. SKIN: No diaphoresis. HEENT: Still hard of hearing. No headache. NECK: Supple. RESPIRATORY: No dyspnea. CARDIOVASCULAR: No chest pain. GASTROINTESTINAL: Appetite is still poor. No nausea. No vomiting. EXTREMITIES: Patient moves extremities. MUSCULOSKELETAL: Feels weak. NEUROLOGIC: Alert with periods of confusion. GENITOURINARY: Denies dysuria. MENTAL STATUS EXAMINATION: Elderly female, looked stated age, alert, oriented to place and person. Still with periods of confusion, but improving. Speech is spontaneous. Affect is reactive. Thought process confused off and on. Thought content, no overt psychosis. No suicidal ideation. Attention and memory seem to be limited. Insight and judgment limited. Impulse control is fair at this time. 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 PLAN AND RECOMMENDATION: Patient is seen, meds reviewed. We will keep patient off psych meds for now. Patient is improving slowly. Patient will be going to [facility] for subacute rehab, once she is eating better and she is more alert. I did advice the family also to have the patient is seen by ENT to have her probably ears checked; patient has a history of impacted cerumen; to improve her hearing once she is more medically stable. Psych joyner for now, we will hold off her psych meds. Fredy Harper MD
[2017-10-01] MEDS: Rosuvastatin Calcium 2.5 mg Tab PO SCH (22:46)
[2017-10-01] MEDS: LUMIGAN OU SCH (23:10)
[2017-10-02] MEDS: Brimonidine 0.2% Opth Sol (5ml) OU SCH ×3 (05:59→22:15)
[2017-10-02] MEDS: (Novolog) Insulin Aspart, Recombinant 100 u/ml 10 ml vial SC SCH ×4 (07:45→22:12)
[2017-10-02] MEDS: Enoxaparin 40 mg Syringe SC SCH (10:03)
[2017-10-02] MEDS: TIMOLOL OU SCH ×2 (10:04→18:16)
[2017-10-02] MEDS: DORZOLAMIDE OU SCH ×2 (10:04→18:16)
[2017-10-02] MEDS: PILOCARPINE HCL 1% OD SCH ×4 (10:04→22:11)
[2017-10-02] MEDS: Metoprolol Succinate 50 mg XL Tab PO SCH (10:04)
[2017-10-02] MEDS: Dextrose 5%/0.45% NS 1,000 ML IV SCH (11:54)
--- NOTE | 2017-10-02 17:30 | CP.PCM.PN ---
Subjective - Date & Time of Evaluation Date of Evaluation: 10/02/17 Time of Evaluation: 17:28 - Subjective Subjective: Patient is more alert, but is still very weak with a very poor appetite. Afebrile. Objective - Vital Signs/Intake and Output Vital Signs (last 24 hours): Temp Pulse Resp BP Pulse Ox 97.1 F L 70 20 124/66 98 10/02/17 07:35 10/02/17 07:35 10/02/17 07:35 10/02/17 07:35 10/02/17 07:35 Intake and Output: 10/02/17 10/02/17 06:59 18:59 Intake Total 1240 690 Balance 1240 690 - Medications Medications: Current Medications Acetaminophen (Tylenol 325mg Tab) 650 mg PO Q6 PRN PRN Reason: Pain, moderate (4-7) Last Admin: 09/30/17 09:21 Dose: 650 mg Aspirin (Ecotrin) 81 mg PO DAILY [facility] Last Admin: 10/02/17 10:03 Dose: 81 mg Brimonidine Tartrate (Alphagan 0.2% Opht) 0 ml OU Q8H [facility] Last Admin: 10/02/17 13:32 Dose: 1 drop Clonidine HCl (Catapres) 0.1 mg PO TID PRN PRN Reason: Diastolic blood pressure Last Admin: 09/20/17 18:22 Dose: 0.1 mg Clopidogrel Bisulfate (Plavix) 75 mg PO DAILY [facility] Last Admin: 10/02/17 10:04 Dose: 75 mg Docusate Sodium (Colace) 100 mg PO BID [facility] Last Admin: 10/02/17 10:02 Dose: 100 mg Enoxaparin Sodium (Lovenox) 40 mg SC DAILY [facility] Last Admin: 10/02/17 10:03 Dose: 40 mg Home Med (Patient's Own Drops) 1 drop OU HS [facility] Last Admin: 10/01/17 23:10 Dose: 1 drop Home Med (Patient's Own Drops) 1 drop OU BID [facility] Last Admin: 10/02/17 10:04 Dose: 1 drop Home Med (Patient's Own Drops) 1 drop OD QID [facility] Last Admin: 10/02/17 13:32 Dose: 1 drop Hydrochlorothiazide (Hydrodiuril) 25 mg PO DAILY [facility] Last Admin: 10/02/17 10:03 Dose: 25 mg Insulin Aspart (Novolog) 0 unit SC ACHS [facility] PRN Reason: Protocol Last Admin: 10/02/17 12:03 Dose: Not Given Losartan Potassium (Cozaar) 100 mg PO DAILY [facility] Last Admin: 10/02/17 10:03 Dose: 100 mg Metformin HCl (Glucophage) 500 mg PO BIDCC [facility] Last Admin: 10/02/17 07:54 Dose: 500 mg Metoprolol Succinate (Toprol Xl) 50 mg PO DAILY [facility] Last Admin: 10/02/17 10:04 Dose: 50 mg Rosuvastatin Calcium (Crestor) 2.5 mg PO HS [facility] Last Admin: 10/01/17 22:46 Dose: 2.5 mg - Labs Labs: 09/28/17 07:36 09/29/17 11:54 PT 13.2 SECONDS (9.7-12.2) H 09/20/17 08:43 INR 1.2 09/20/17 08:43 APTT 31 SECONDS (21-34) 09/20/17 08:43 - Constitutional Appears: No Acute Distress, Chronically Ill - Head Exam Head Exam: NORMAL INSPECTION - Eye Exam Eye Exam: Normal appearance - ENT Exam ENT Exam: Normal Exam - Neck Exam Neck Exam: Normal Inspection - Respiratory Exam Respiratory Exam: Clear to Ausculation Bilateral, NORMAL BREATHING PATTERN - Cardiovascular Exam Cardiovascular Exam: REGULAR RHYTHM - GI/Abdominal Exam GI & Abdominal Exam: Soft, Normal Bowel Sounds - Rectal Exam Rectal Exam: Deferred - Extremities Exam Extremities Exam: Normal Inspection - Back Exam Back Exam: NORMAL INSPECTION - Neurological Exam Neurological Exam: Alert, Awake - Psychiatric Exam Psychiatric exam: Anxious - Skin Skin Exam: Dry, Intact, Normal Color, Warm Assessment and Plan (1) Influenza Status: Resolved (2) UTI (urinary tract infection) Status: Resolved (3) Abnormal head CT Status: Resolved (4) Abnormal head CT Status: Resolved (5) Staphylococcus aureus bacteremia Status: Resolved (6) CVA (cerebral vascular accident) Status: Acute
[2017-10-02] MEDS: Rosuvastatin Calcium 2.5 mg Tab PO SCH (22:10)
[2017-10-02] MEDS: LUMIGAN OU SCH (22:12)
[2017-10-03] MEDS: Brimonidine 0.2% Opth Sol (5ml) OU SCH ×3 (06:21→21:52)
[2017-10-03] MEDS: (Novolog) Insulin Aspart, Recombinant 100 u/ml 10 ml vial SC SCH ×3 (08:20→21:32)
--- NOTE | 2017-10-03 08:47 | PN ---
DATE: 10/02/2017 SUBJECTIVE: The patient is more alert, but the problem is the patient is not eating. The patient has been taking her meds with some resistance. The patient states she has no appetite despite encouragement. The patient has a history of stroke in the basal ganglia, which can cause some cognitive changes as well as depressive changes and sometimes lack of motivation. If the patient continues to exhibit this poor appetite, the patient may benefit from short term course of antidepressant or may be a stimulant to keep her more awake as the patient is refusing to eat. The patient is still not medically cleared to go for subacute rehab due to her poor intake and the patient is feeling weak. She has been compliant with her medications so far. VITAL SIGNS: Temperature is 97.1, pulse rate 70, blood pressure 124/66, respirations 20, oxygen sat is 98%. REVIEW OF SYSTEMS: GENERAL: The patient is more alert, verbal, still hard of hearing, seen with staff, refusing to eat. SKIN: No diaphoresis. HEENT: Still hard of hearing. No dizziness. NECK: Supple. RESPIRATORY: No dyspnea. CARDIOVASCULAR: No chest pain. GASTROINTESTINAL: She has very poor appetite. No nausea. No vomiting. EXTREMITIES: The patient has been bed bound. MUSCULOSKELETAL: Feels weak. NEUROLOGIC: Alert with periods of confusion. GENITOURINARY: No urinary problem. No dysuria. MENTAL STATUS EXAMINATION: Elderly female who is 87 years old, oriented to place and person. Mood is dysphoric. Affect is restricted. Speech is spontaneous. Thought process, confused off and on. Thought content, the patient is refusing to eat. No overt psychosis. No suicidal or homicidal ideation. Attention and memory seem to be limited. Insight and judgment limited. Impulse control is fair at this time. IMPRESSION: History of acute cerebrovascular accident of the right basal ganglia as well as possibly secondary delirium, metabolic encephalopathy, and dementia. PLAN AND RECOMMENDATIONS: The patient seen, meds reviewed. Continue present management. If the patient continues to refuse to eat, the patient may benefit from a short course of antidepressant, probably Remeron or to use a psychostimulant to keep her more awake such as probably Provigil or Nuvigil to keep her more awake as she is still drowsy and refusing to eat. We will discuss this with Dr. Mosher,, attending. In cases of patient with stroke in the basal ganglia, patient may present with cognitive changes and depressive mood, which can compound her hospital course. Fredy Harper MD [facility]
[2017-10-03] MEDS: Metoprolol Succinate 50 mg XL Tab PO SCH (09:22)
[2017-10-03] MEDS: Enoxaparin 40 mg Syringe SC SCH (09:22)
[2017-10-03] MEDS: TIMOLOL OU SCH ×2 (09:26→18:08)
[2017-10-03] MEDS: PILOCARPINE HCL 1% OD SCH ×4 (09:26→21:51)
[2017-10-03] MEDS: DORZOLAMIDE OU SCH ×2 (09:26→18:08)
--- NOTE | 2017-10-03 15:55 | CP.PCM.PN ---
Subjective - Date & Time of Evaluation Date of Evaluation: 10/03/17 Time of Evaluation: 15:52 - Subjective Subjective: Patient alert, in no respiratory distress, still with very poor appetite, and weak. Dr Diamond will try Remeron. Objective - Vital Signs/Intake and Output Vital Signs (last 24 hours): Temp Pulse Resp BP Pulse Ox 97.6 F 60 18 125/71 100 10/03/17 15:45 10/03/17 15:45 10/03/17 15:45 10/03/17 15:45 10/03/17 15:45 - Medications Medications: Current Medications Acetaminophen (Tylenol 325mg Tab) 650 mg PO Q6 PRN PRN Reason: Pain, moderate (4-7) Last Admin: 10/03/17 06:19 Dose: 650 mg Aspirin (Ecotrin) 81 mg PO DAILY [facility] Last Admin: 10/03/17 09:22 Dose: 81 mg Brimonidine Tartrate (Alphagan 0.2% Opht) 0 ml OU Q8H [facility] Last Admin: 10/03/17 14:20 Dose: 1 drop Clonidine HCl (Catapres) 0.1 mg PO TID PRN PRN Reason: Diastolic blood pressure Last Admin: 09/20/17 18:22 Dose: 0.1 mg Clopidogrel Bisulfate (Plavix) 75 mg PO DAILY [facility] Last Admin: 10/03/17 09:22 Dose: 75 mg Docusate Sodium (Colace) 100 mg PO BID [facility] Last Admin: 10/03/17 09:22 Dose: 100 mg Enoxaparin Sodium (Lovenox) 40 mg SC DAILY [facility] Last Admin: 10/03/17 09:22 Dose: 40 mg Home Med (Patient's Own Drops) 1 drop OU HS [facility] Last Admin: 10/02/17 22:12 Dose: 1 drop Home Med (Patient's Own Drops) 1 drop OU BID [facility] Last Admin: 10/03/17 09:26 Dose: 1 drop Home Med (Patient's Own Drops) 1 drop OD QID [facility] Last Admin: 10/03/17 14:20 Dose: 1 drop Hydrochlorothiazide (Hydrodiuril) 25 mg PO DAILY [facility] Last Admin: 10/03/17 09:22 Dose: 25 mg Insulin Aspart (Novolog) 0 unit SC ACHS [facility] PRN Reason: Protocol Last Admin: 10/03/17 08:20 Dose: Not Given Losartan Potassium (Cozaar) 100 mg PO DAILY [facility] Last Admin: 10/03/17 09:22 Dose: 100 mg Metformin HCl (Glucophage) 500 mg PO BIDCC [facility] Last Admin: 10/03/17 08:42 Dose: 500 mg Metoprolol Succinate (Toprol Xl) 50 mg PO DAILY [facility] Last Admin: 10/03/17 09:22 Dose: 50 mg Mirtazapine (Remeron) 7.5 mg PO [facility] Rosuvastatin Calcium (Crestor) 2.5 mg PO [facility] Last Admin: 10/02/17 22:10 Dose: 2.5 mg - Labs Labs: 09/28/17 07:36 09/29/17 11:54 PT 13.2 SECONDS (9.7-12.2) H 09/20/17 08:43 INR 1.2 09/20/17 08:43 APTT 31 SECONDS (21-34) 09/20/17 08:43 - Constitutional Appears: Chronically Ill - Head Exam Head Exam: NORMAL INSPECTION - Eye Exam Eye Exam: Normal appearance - ENT Exam ENT Exam: Normal Exam - Neck Exam Neck Exam: Normal Inspection - Respiratory Exam Respiratory Exam: Clear to Ausculation Bilateral, NORMAL BREATHING PATTERN - Cardiovascular Exam Cardiovascular Exam: REGULAR RHYTHM - GI/Abdominal Exam GI & Abdominal Exam: Soft, Normal Bowel Sounds - Rectal Exam Rectal Exam: Deferred - Extremities Exam Extremities Exam: Normal Inspection - Back Exam Back Exam: NORMAL INSPECTION - Neurological Exam Neurological Exam: Alert, Awake, Oriented x3 - Psychiatric Exam Psychiatric exam: Depressed - Skin Skin Exam: Dry, Intact, Normal Color Assessment and Plan (1) Influenza Status: Resolved (2) UTI (urinary tract infection) Status: Resolved (3) Abnormal head CT Status: Resolved (4) Abnormal head CT Status: Resolved (5) Staphylococcus aureus bacteremia Status: Resolved (6) CVA (cerebral vascular accident) Status: Acute
--- NOTE | 2017-10-03 18:53 | PN ---
DATE: 10/03/2017 SUBJECTIVE: The patient is more alert and verbal, still with periods of confusion, was seen with family at bedside. The patient has very poor p.o. intake. The patient states she has no appetite. Mood seems to be dysphoric. Case discussed with family. As the patient is not eating, she may benefit from a trial of Remeron to improve her appetite as well as her mood. The patient may develop depression as a consequence of basal ganglia infarction. Case discussed with Dr. Chan who agreed that the patient will benefit from a trial of Remeron. She does not need modafinil right now as the patient is more alert. VITAL SIGNS: Temperature is 98.1, pulse rate is 62, blood pressure 137/74, respirations 20, oxygen sat 96%. The patient is eating about less than 20% of her meals, even food from home. REVIEW OF SYSTEMS: GENERAL: The patient is alert, seen in her room, verbal but still feeling weak, see with family at bedside. SKIN: No diaphoresis. HEENT: Still hard of hearing. No headache. NECK: Supple. RESPIRATORY: No dyspnea. CARDIOVASCULAR: No chest pain. GASTROINTESTINAL: Appetite is poor. No nausea or vomiting. EXTREMITIES: The patient has been bedbound, has not been ambulating. MUSCULOSKELETAL: Feels weak. NEUROLOGIC: Alert with periods of confusion. GENITOURINARY: No dysuria. MENTAL STATUS EXAMINATION: Elderly female who looks her stated age, oriented x2, see in her room more alert. Mood is dysphoric. Affect is constricted. Speech is spontaneous. Thought process is confused at times. Thought content, patient states she has no appetite, no overt psychosis. No suicidal or homicidal ideation. Attention and memory seem to be bad. Insight and judgment limited. Impulse control is fair at this time. IMPRESSION: History of acute cerebrovascular accident of the right basal ganglia as well as possibly delirium, metabolic encephalopathy, senile dementia with mood changes. PLAN AND RECOMMENDATIONS: The patient is seen, meds reviewed. The patient has been stable neuro joyner. We will add Remeron 7.5 mg at bedtime to improve her mood as well as her appetite. Once appetite is better, patient may go to [facility] for subacute rehab. Her vital signs seem to be stable at this time, but patient's p.o. intake is very poor. Fredy Harper MD [facility] # [id number]
[2017-10-03] MEDS: LUMIGAN OU SCH (21:51)
[2017-10-03] MEDS: Rosuvastatin Calcium 2.5 mg Tab PO SCH (21:51)
[2017-10-04] MEDS: Brimonidine 0.2% Opth Sol (5ml) OU SCH ×3 (06:24→23:00)
[2017-10-04] MEDS: (Novolog) Insulin Aspart, Recombinant 100 u/ml 10 ml vial SC SCH ×4 (08:45→21:44)
[2017-10-04] MEDS: Metoprolol Succinate 50 mg XL Tab PO SCH (12:20)
[2017-10-04] MEDS: TIMOLOL OU SCH ×2 (12:21→18:36)
[2017-10-04] MEDS: PILOCARPINE HCL 1% OD SCH ×4 (12:21→22:59)
[2017-10-04] MEDS: Enoxaparin 40 mg Syringe SC SCH (12:21)
[2017-10-04] MEDS: DORZOLAMIDE OU SCH ×2 (12:21→18:36)
--- NOTE | 2017-10-04 15:30 | PN ---
DATE: 10/04/2017 SUBJECTIVE: Patient is seen. Patient is more alert today. Still hard of hearing, but according to the staff, she ate about 30% of the meal. Patient was started on Remeron 7.5 mg at bedtime. VITAL SIGNS: Temperature is 98.5, pulse rate is 59, blood pressure 124/67, respirations 20, oxygen sat is 98%. REVIEW OF SYSTEMS: GENERAL: Patient is still more alert, forgetful, hard of hearing, seen with family at bedside.SKIN: No diaphoresis. HEENT: Hard of hearing. No dizziness, legally blind.. NECK: Supple. RESPIRATORY: No dyspnea. CARDIOVASCULAR: No chest pain. GASTROINTESTINAL: Patient is eating about 30% of her meals. No nausea, no vomiting. EXTREMITIES: Patient is moving her extremities. NEUROLOGIC: Alert, but forgetful. GENITOURINARY: No dysuria. MENTAL STATUS EXAMINATION: Elderly female, seen in room, more alert, verbal, still legally blind, forgetful, hard of hearing. Speech is spontaneous. Affect is reactive. Mood is dysphoric. Thought process forgetful. Thought content: Patient is t eating better. No psychosis, no si or hi. Attention and memory seems to be limited. Insight and judgment limited. Impulse control is fair at this time. IMPRESSION: History of delirium, metabolic encephalopathy, history of infarction in the right basal ganglia, possible reactive depression as well as dementia. PLAN AND RECOMMENDATIONS: Patient seen and meds reviewed. Continue Remeron 7.5 mg at bedtime. Also, once patient is more medically stable, she can go to the subacute rehab at [facility] once medically cleared. Fredy Harper MD [facility]
--- NOTE | 2017-10-04 18:08 | CP.PCM.PN ---
Subjective - Date & Time of Evaluation Date of Evaluation: 10/04/17 Time of Evaluation: 18:05 - Subjective Subjective: Patient is alert, slightly confused, in no respiratory distress, but is very weak and with a poor appetite. On Remeron 7.5 mg PO HS. Objective - Vital Signs/Intake and Output Vital Signs (last 24 hours): Temp Pulse Resp BP Pulse Ox 97.6 F 72 18 96/59 L 99 10/04/17 15:45 10/04/17 16:00 10/04/17 15:45 10/04/17 15:45 10/04/17 15:45 Intake and Output: 10/04/17 10/04/17 06:59 18:59 Intake Total 1340 Balance 1340 - Medications Medications: Current Medications Acetaminophen (Tylenol 325mg Tab) 650 mg PO Q6 PRN PRN Reason: Pain, moderate (4-7) Last Admin: 10/03/17 06:19 Dose: 650 mg Aspirin (Ecotrin) 81 mg PO DAILY [facility] Last Admin: 10/04/17 12:20 Dose: 81 mg Brimonidine Tartrate (Alphagan 0.2% Opht) 0 ml OU Q8H [facility] Last Admin: 10/04/17 14:53 Dose: 2 drop Clonidine HCl (Catapres) 0.1 mg PO TID PRN PRN Reason: Diastolic blood pressure Last Admin: 09/20/17 18:22 Dose: 0.1 mg Clopidogrel Bisulfate (Plavix) 75 mg PO DAILY [facility] Last Admin: 10/04/17 12:20 Dose: 75 mg Docusate Sodium (Colace) 100 mg PO BID [facility] Last Admin: 10/04/17 12:20 Dose: 100 mg Enoxaparin Sodium (Lovenox) 40 mg SC DAILY [facility] Last Admin: 10/04/17 12:21 Dose: 40 mg Home Med (Patient's Own Drops) 1 drop OU HS [facility] Last Admin: 10/03/17 21:51 Dose: 1 drop Home Med (Patient's Own Drops) 1 drop OU BID [facility] Last Admin: 10/04/17 12:21 Dose: 1 drop Home Med (Patient's Own Drops) 1 drop OD QID [facility] Last Admin: 10/04/17 14:53 Dose: 1 drop Hydrochlorothiazide (Hydrodiuril) 25 mg PO DAILY [facility] Last Admin: 10/04/17 12:20 Dose: 25 mg Insulin Aspart (Novolog) 0 unit SC ACHS [facility] PRN Reason: Protocol Last Admin: 10/04/17 17:15 Dose: Not Given Losartan Potassium (Cozaar) 100 mg PO DAILY [facility] Last Admin: 10/04/17 12:20 Dose: 100 mg Metformin HCl (Glucophage) 500 mg PO BIDCC [facility] Last Admin: 10/04/17 12:20 Dose: 500 mg Metoprolol Succinate (Toprol Xl) 50 mg PO DAILY [facility] Last Admin: 10/04/17 12:20 Dose: 50 mg Mirtazapine (Remeron) 7.5 mg PO [facility] Last Admin: 10/03/17 21:51 Dose: 7.5 mg Rosuvastatin Calcium (Crestor) 2.5 mg PO [facility] Last Admin: 10/03/17 21:51 Dose: 2.5 mg - Labs Labs: 09/28/17 07:36 09/29/17 11:54 PT 13.2 SECONDS (9.7-12.2) H 09/20/17 08:43 INR 1.2 09/20/17 08:43 APTT 31 SECONDS (21-34) 09/20/17 08:43 - Head Exam Head Exam: NORMOCEPHALIC - Eye Exam Eye Exam: Normal appearance - ENT Exam ENT Exam: Normal Exam - Neck Exam Neck Exam: Normal Inspection - Respiratory Exam Respiratory Exam: Clear to Ausculation Bilateral, NORMAL BREATHING PATTERN - Cardiovascular Exam Cardiovascular Exam: REGULAR RHYTHM - GI/Abdominal Exam GI & Abdominal Exam: Soft, Normal Bowel Sounds - Rectal Exam Rectal Exam: Deferred - Extremities Exam Extremities Exam: Normal Inspection - Back Exam Back Exam: NORMAL INSPECTION - Neurological Exam Neurological Exam: Alert, Awake, Oriented x3 - Psychiatric Exam Psychiatric exam: Anxious - Skin Skin Exam: Dry, Intact, Normal Color, Warm Assessment and Plan (1) Influenza Status: Resolved (2) UTI (urinary tract infection) Status: Resolved (3) Abnormal head CT Status: Resolved (4) Abnormal head CT Status: Resolved (5) Staphylococcus aureus bacteremia Status: Resolved (6) CVA (cerebral vascular accident) Assessment & Plan: For subacute rehab when more stable. Status: Acute
[2017-10-04] MEDS: Rosuvastatin Calcium 2.5 mg Tab PO SCH (22:59)
[2017-10-04] MEDS: LUMIGAN OU SCH (23:00)
[2017-10-05] MEDS: Brimonidine 0.2% Opth Sol (5ml) OU SCH ×3 (05:26→22:44)
[2017-10-05] MEDS: (Novolog) Insulin Aspart, Recombinant 100 u/ml 10 ml vial SC SCH ×4 (08:05→21:42)
[2017-10-05] MEDS: Metoprolol Succinate 50 mg XL Tab PO SCH (09:21)
[2017-10-05] MEDS: Enoxaparin 40 mg Syringe SC SCH (09:24)
[2017-10-05] MEDS: TIMOLOL OU SCH ×2 (09:24→17:36)
[2017-10-05] MEDS: DORZOLAMIDE OU SCH ×2 (09:24→17:36)
[2017-10-05] MEDS: PILOCARPINE HCL 1% OD SCH ×4 (09:25→22:44)
--- NOTE | 2017-10-05 15:01 | PN ---
DATE: 10/05/2017 SUBJECTIVE: The patient today noted to be very drowsy, confused and at times disoriented. She is talking that she is at home. Her appetite is still very poor and today she is sleeping more. Patient is on Remeron 7.5 mg at bedtime. Her p.o. intake is very poor and I did discuss it with her daughter that patient may need to be in the hospital for few more days until her p.o. intake will improve before going to the rehab. She is not agitated, but sleeping a lot. Has been compliant with meds. VITAL SIGNS: Temperature is 98.2, heart rate 81, blood pressure 166/78, respirations 20 and oxygen sat is 97%. MEDICATIONS: Psych meds joyner, the patient is on Remeron only 7.5 mg at bedtime. REVIEW OF SYSTEMS: GENERAL: The patient is sleepy. but arousable, seen in her room, refusing to eat. According to the nurse, she ate a little better, but since yesterday, she was eating better. SKIN: No diaphoresis. HEENT: Still hard of hearing, legally blind. NECK: Supple. RESPIRATORY: No dyspnea. CARDIOVASCULAR: No chest pain. GASTROINTESTINAL: Appetite is still poor. No nausea, no vomiting. EXTREMITIES: Patient is moving extremities. MUSCULOSKELETAL: Feels weak. NEUROLOGIC: Alert with periods of confusion. GENITOURINARY: No dysuria. MENTAL STATUS EXAMINATION: Elderly female who looks stated age, oriented to person, but somewhat more confused, states she is at home, seen with her family. Speech is spontaneous. Patient still hard of hearing. Affect is reactive. Mood is dysphoric. Thought process, confused often and thought content, no overt hallucinations, no suicidal or homicidal ideation. Attention and memory seems to be limited. Insight and judgment limited. Impulse control is fair. 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 PLAN AND RECOMMENDATIONS: Patient seen and meds reviewed, continue present management. We will keep the Remeron 7.5 mg at bedtime. If the patient is more drowsy, we will start to reduce it to every other night. We will monitor her p.o. intake. Patient is still awaiting medical clearance to go possibly to [facility] for subacute rehab. Patient is still not ready to go because of her poor intake. Fredy Harper MD [facility] # [id number]
--- NOTE | 2017-10-05 18:25 | CP.PCM.PN ---
Subjective - Date & Time of Evaluation Date of Evaluation: 10/05/17 Time of Evaluation: 18:23 - Subjective Subjective: Patient very lethargic today. Remeron discontinued by Dr Diamond.. In no acute distress. Objective - Vital Signs/Intake and Output Vital Signs (last 24 hours): Temp Pulse Resp BP Pulse Ox 98.1 F 77 18 124/69 97 10/05/17 15:24 10/05/17 15:24 10/05/17 15:24 10/05/17 15:24 10/05/17 15:24 Intake and Output: 10/05/17 10/05/17 06:59 18:59 Intake Total 1390 Balance 1390 - Medications Medications: Current Medications Acetaminophen (Tylenol 325mg Tab) 650 mg PO Q6 PRN PRN Reason: Pain, moderate (4-7) Last Admin: 10/05/17 14:57 Dose: 650 mg Aspirin (Ecotrin) 81 mg PO DAILY [facility] Last Admin: 10/05/17 09:22 Dose: 81 mg Brimonidine Tartrate (Alphagan 0.2% Opht) 0 ml OU Q8H [facility] Last Admin: 10/05/17 14:20 Dose: 1 drop Clonidine HCl (Catapres) 0.1 mg PO TID PRN PRN Reason: Diastolic blood pressure Last Admin: 09/20/17 18:22 Dose: 0.1 mg Clopidogrel Bisulfate (Plavix) 75 mg PO DAILY [facility] Last Admin: 10/05/17 09:22 Dose: 75 mg Cyanocobalamin (Vitamin B12 1000 Mcg Tab) 1,000 mcg PO DAILY [facility] Home Med (Patient's Own Drops) 1 drop OU HS [facility] Last Admin: 10/04/17 23:00 Dose: 1 drop Home Med (Patient's Own Drops) 1 drop OD QID [facility] Last Admin: 10/05/17 17:36 Dose: 1 drop Hydrochlorothiazide (Hydrodiuril) 25 mg PO DAILY [facility] Last Admin: 10/05/17 09:29 Dose: 25 mg Insulin Aspart (Novolog) 0 unit SC ACHS [facility] PRN Reason: Protocol Last Admin: 10/05/17 16:54 Dose: Not Given Losartan Potassium (Cozaar) 100 mg PO DAILY [facility] Last Admin: 10/05/17 09:22 Dose: 100 mg Metformin HCl (Glucophage) 500 mg PO BIDCC [facility] Last Admin: 10/05/17 17:35 Dose: 500 mg Metoprolol Succinate (Toprol Xl) 50 mg PO DAILY [facility] Last Admin: 10/05/17 09:21 Dose: 50 mg Mirtazapine (Remeron) 7.5 mg PO [facility] Last Admin: 10/04/17 22:59 Dose: 7.5 mg Rosuvastatin Calcium (Crestor) 2.5 mg PO [facility] Last Admin: 10/04/17 22:59 Dose: 2.5 mg - Labs Labs: 09/28/17 07:36 09/29/17 11:54 PT 13.2 SECONDS (9.7-12.2) H 09/20/17 08:43 INR 1.2 09/20/17 08:43 APTT 31 SECONDS (21-34) 09/20/17 08:43 - Constitutional Appears: No Acute Distress, Chronically Ill - Head Exam Head Exam: NORMOCEPHALIC - Eye Exam Eye Exam: Normal appearance - ENT Exam ENT Exam: Normal Exam - Neck Exam Neck Exam: Normal Inspection - Respiratory Exam Respiratory Exam: Clear to Ausculation Bilateral, NORMAL BREATHING PATTERN - Cardiovascular Exam Cardiovascular Exam: REGULAR RHYTHM, Murmur - GI/Abdominal Exam GI & Abdominal Exam: Soft, Normal Bowel Sounds - Rectal Exam Rectal Exam: Deferred - Extremities Exam Extremities Exam: Normal Inspection - Back Exam Back Exam: NORMAL INSPECTION - Neurological Exam Additional comments: Lethargic. - Skin Skin Exam: Dry, Intact, Normal Color, Warm Assessment and Plan (1) Influenza Status: Resolved (2) UTI (urinary tract infection) Status: Resolved (3) Abnormal head CT Status: Resolved (4) Abnormal head CT Status: Resolved (5) Staphylococcus aureus bacteremia Status: Resolved (6) CVA (cerebral vascular accident) Status: Acute
[2017-10-05] MEDS: Rosuvastatin Calcium 2.5 mg Tab PO SCH (22:44)
[2017-10-05] MEDS: LUMIGAN OU SCH (22:45)
[2017-10-06] MEDS: Brimonidine 0.2% Opth Sol (5ml) OU SCH ×3 (05:41→22:07)
[2017-10-06] MEDS: (Novolog) Insulin Aspart, Recombinant 100 u/ml 10 ml vial SC SCH ×4 (08:10→22:04)
[2017-10-06] MEDS: Metoprolol Succinate 50 mg XL Tab PO SCH (09:52)
[2017-10-06] MEDS: PILOCARPINE HCL 1% OD SCH ×3 (09:59→22:07)
--- NOTE | 2017-10-06 13:01 | PN ---
DATE: 10/06/2017 SUBJECTIVE: The patient is seen. The patient is more alert, but has very poor appetite, did not eat much of her breakfast and still has periods of confusion. We will stop the Remeron as the patient seems to get more confused, we will start Marinol 2.5 mg b.i.d. to improve her appetite. PHYSICAL EXAMINATION: VITAL SIGNS: Temperature is 99, pulse is 87, blood pressure is 171/81, respirations 20, oxygen sat is 96%. REVIEW OF SYSTEMS: GENERAL: The patient is alert, but still hard of hearing, confused off and on. SKIN: No diaphoresis. HEENT: Legally blind, hard of hearing. No headache. NECK: Supple. RESPIRATORY: No dyspnea. CARDIOVASCULAR: No chest pain. GASTROINTESTINAL: Appetite has been very poor. No nausea or vomiting. EXTREMITIES: The patient has been bed-bound. MUSCULOSKELETAL: Feels weak. NEUROLOGIC: Alert with periods of confusion. GENITOURINARY: No dysuria. MENTAL STATUS EXAMINATION: An elderly female who looks stated age, see in her room, still with periods of confusion, hard of hearing. Speech is spontaneous. Affect is reactive. Thought process, confused. Thought content, no overt psychosis, no suicidal or homicidal ideation. Attention and memory seem to be limited. Insight and judgment limited. Impulse control is fair at this time. IMPRESSION: Delirium, metabolic encephalopathy, history of infarction of the right basal ganglia, history of dementia with mood changes. PLAN AND RECOMMENDATIONS: The patient is seen, medications reviewed. We will discontinue the Remeron. We will put her on Marinol 2.5 mg b.i.d. to improve her appetite and continue the B12 supplement. Once the patient's p.o. intake will improve, the patient can go for subacute rehab at [facility]. Fredy Harper MD [facility]
[2017-10-06] MEDS: Dextrose 5%/0.45% NS 1,000 ML IV SCH (15:31)
--- NOTE | 2017-10-06 16:03 | CP.PCM.PN ---
Subjective - Date & Time of Evaluation Date of Evaluation: 10/06/17 Time of Evaluation: 16:00 - Subjective Subjective: Patient is very sleepy and does not eat at all. Remeron was discontinued, and will hold Marinol for now. Objective - Vital Signs/Intake and Output Vital Signs (last 24 hours): Temp Pulse Resp BP Pulse Ox 99 F 87 20 171/81 H 96 10/06/17 08:10 10/06/17 11:43 10/06/17 08:10 10/06/17 08:10 10/06/17 08:10 Intake and Output: 10/06/17 10/06/17 06:59 18:59 Intake Total 700 Balance 700 - Medications Medications: Current Medications Acetaminophen (Tylenol 325mg Tab) 650 mg PO Q6 PRN PRN Reason: Pain, moderate (4-7) Last Admin: 10/05/17 14:57 Dose: 650 mg Aspirin (Ecotrin) 81 mg PO DAILY [facility] Last Admin: 10/06/17 09:52 Dose: 81 mg Brimonidine Tartrate (Alphagan 0.2% Opht) 0 ml OU Q8H [facility] Last Admin: 10/06/17 13:27 Dose: 1 drop Clonidine HCl (Catapres) 0.1 mg PO TID PRN PRN Reason: Diastolic blood pressure Last Admin: 09/20/17 18:22 Dose: 0.1 mg Clopidogrel Bisulfate (Plavix) 75 mg PO DAILY [facility] Last Admin: 10/06/17 09:52 Dose: 75 mg Cyanocobalamin (Vitamin B12 1000 Mcg Tab) 1,000 mcg PO DAILY [facility] Last Admin: 10/06/17 09:52 Dose: 1,000 mcg Dronabinol (Marinol) 2.5 mg PO BID [facility] Last Admin: 10/06/17 09:53 Dose: 2.5 mg Home Med (Patient's Own Drops) 1 drop OU HS [facility] Last Admin: 10/05/17 22:45 Dose: 1 drop Hydrochlorothiazide (Hydrodiuril) 25 mg PO DAILY [facility] Last Admin: 10/06/17 09:53 Dose: 25 mg Dextrose/Sodium Chloride (Dextrose 5%/0.45% Ns 1000 Ml) 1,000 mls @ 50 mls/hr IV .Q20H [facility] Stop: 10/08/17 06:44 Last Admin: 10/06/17 15:31 Dose: 50 mls/hr Insulin Aspart (Novolog) 0 unit SC ACHS [facility] PRN Reason: Protocol Last Admin: 10/06/17 11:57 Dose: Not Given Losartan Potassium (Cozaar) 100 mg PO DAILY [facility] Last Admin: 10/06/17 09:52 Dose: 100 mg Metformin HCl (Glucophage) 500 mg PO BIDCC [facility] Last Admin: 10/06/17 08:40 Dose: 500 mg Metoprolol Succinate (Toprol Xl) 50 mg PO DAILY [facility] Last Admin: 10/06/17 09:52 Dose: 50 mg Pilocarpine HCl (Isopto Carpine 1% Opht Soln) 1 drop OD QID [facility] - Labs Labs: 09/28/17 07:36 09/29/17 11:54 PT 13.2 SECONDS (9.7-12.2) H 09/20/17 08:43 INR 1.2 09/20/17 08:43 APTT 31 SECONDS (21-34) 09/20/17 08:43 - Constitutional Appears: Chronically Ill - Head Exam Head Exam: NORMAL INSPECTION - Eye Exam Eye Exam: Normal appearance - ENT Exam ENT Exam: Normal Exam - Neck Exam Neck Exam: Normal Inspection - Respiratory Exam Respiratory Exam: NORMAL BREATHING PATTERN - Cardiovascular Exam Cardiovascular Exam: REGULAR RHYTHM - GI/Abdominal Exam GI & Abdominal Exam: Soft, Normal Bowel Sounds - Rectal Exam Rectal Exam: Deferred - Extremities Exam Extremities Exam: Normal Inspection - Back Exam Back Exam: NORMAL INSPECTION - Neurological Exam Additional comments: Lethargic. - Skin Skin Exam: Intact, Normal Color Assessment and Plan (1) Influenza Status: Resolved (2) UTI (urinary tract infection) Status: Resolved (3) Abnormal head CT Status: Resolved (4) Abnormal head CT Status: Resolved (5) Staphylococcus aureus bacteremia Status: Resolved (6) CVA (cerebral vascular accident) Status: Acute
[2017-10-06] MEDS ORDERED: PILOCARPINE 1% OD SCH (18:00)
[2017-10-06] MEDS: DORZOLAMIDE OU SCH (22:06)
[2017-10-06] MEDS: TIMOLOL OU SCH (22:06)
[2017-10-06] MEDS: LUMIGAN OU SCH (22:07)
[2017-10-07] MEDS: Brimonidine 0.2% Opth Sol (5ml) OU SCH ×3 (05:38→22:47)
[2017-10-07] MEDS: (Novolog) Insulin Aspart, Recombinant 100 u/ml 10 ml vial SC SCH ×4 (07:17→22:00)
[2017-10-07] MEDS: Metoprolol Succinate 50 mg XL Tab PO SCH (10:29)
[2017-10-07] MEDS: PILOCARPINE HCL 1% OD SCH (10:29)
[2017-10-07] MEDS: PILOCARPINE 1% OD SCH ×3 (14:57→22:48)
--- NOTE | 2017-10-07 20:14 | PN ---
DATE: 10/07/2017 SUBJECTIVE: The patient is seen. The patient was given Marinol, but noted to again became lethargic and was discontinued. The patient also has similar reaction with the Remeron. Case was discussed with Dr. Chan. We will keep the patient off any psych medications for now as the patient becomes very lethargic for the medications. Her appetite is still poor, but she is more alert. No behavioral problems. She was seen with her family. VITAL SIGNS: Temperature 98, pulse rate 83, blood pressure 126/69, respirations 20, oxygen saturation is 100% on room air. REVIEW OF SYSTEMS: CONSTITUTIONAL: The patient is more alert, still confused and hard of hearing. The patient also is visually impaired, but exhibiting no behavioral problems. Today, when asked, she states she wants fish and chips from home. SKIN: No diaphoresis. HEENT: Legally blind. No headache. Hard of hearing. NECK: Supple. RESPIRATORY: No dyspnea. CARDIOVASCULAR: No chest pain. GASTROINTESTINAL: Appetite is still poor. No nausea or vomiting. EXTREMITIES: The patient has been bed bound. MUSCULOSKELETAL: Feel weak. NEUROLOGIC: Alert with periods of confusion. GENITOURINARY: No dysuria. MENTAL STATUS EXAMINATION: Elderly female who looks stated age, oriented x2 to place and person. The patient knows she is in the hospital. Speech is spontaneous. Mood is dysphoric. Affect is reactive. Thought process forgetful. Thought content, the patient still has poor appetite, but she was asking for fish and chips to eat. No paranoia. No hallucinations. Attention and memory seem to be limited. Insight and judgment limited. Impulse control is fair at this time. IMPRESSION: Delirium, metabolic encephalopathy secondary to infarction of basal ganglia, as well as history of dementia with mood changes. The patient also has history of urinary tract infection. PLAN AND RECOMMENDATIONS: The patient is seen and medications reviewed, Continue present management. We will keep the patient off psych medications for now. Monitor p.o. intake. The patient states she wants some homemade food. The patient's mental status still waxing and waning. Once the patient is medically cleared, the patient can go to [facility] for subacute rehab. The patient is also receiving now B12 supplements. Her B12 level was a little low. Fredy Harper MD [facility] # [id number]
--- NOTE | 2017-10-07 21:18 | CON ---
DATE: 10/07/2017 REASON FOR CONSULTATION: Hearing loss. REQUESTING PHYSICIAN: Dr. Mosher. HISTORY OF PRESENT ILLNESS: This is an 87-year-old female with multiple-day history of bilateral hearing loss, that is constant, moderate in intensity. There is no pain. The patient is not a good historian, therefore the history I got may not be very accurate; however, she can communicate to me. PAST MEDICAL HISTORY: As noted in the chart by me. MEDICATIONS: As noted in the chart by me. ALLERGIES: NO KNOWN DRUG ALLERGIES. PHYSICAL EXAMINATION: HEAD: Atraumatic and normocephalic. FACE: Good facial movements bilaterally. COMMUNICATION: The patient does not communicate well and appropriately. The patient is not following directions. CONSTITUTIONAL: Well fed, well nourished. EXTERNAL NOSE AND EARS: No masses. No lesions. No erythema. No edema. INTERNAL NOSE AND EARS: Deviated septum. No masses. No lesions. No erythema. No edema. EARS: Ear wax noted in both ear canals. The TM and ear canals could not be visualized secondary to ear wax impaction. ORAL CAVITY AND OROPHARYNX: No masses. No lesions. No erythema. No edema. LIPS AND GUMS: No masses. No lesions. No erythema. No edema. NECK: Supple. THYROID: No thyromegaly. No goiter. LYMPH NODES: No lymphadenopathy of the neck. ASSESSMENT: 1. Ear wax impaction. 2. Hearing loss, bilateral conductive and sensorineural. 3. Deviated septum. PLAN: The patient should followup in the office in order to have ear wax removed. Johann Summers MD [facility]
[2017-10-07] MEDS: LUMIGAN OU SCH (22:49)
--- NOTE | 2017-10-07 23:20 | CP.PCM.PN ---
Subjective - Date & Time of Evaluation Date of Evaluation: 10/07/17 Time of Evaluation: 14:00 - Subjective Subjective: Patient is a little more alert, but appetite still poor and very weak. Objective - Vital Signs/Intake and Output Vital Signs (last 24 hours): Temp Pulse Resp BP Pulse Ox 98.7 F 88 20 149/77 100 10/07/17 15:07 10/07/17 15:07 10/07/17 15:07 10/07/17 15:07 10/07/17 15:07 - Medications Medications: Current Medications Acetaminophen (Tylenol 325mg Tab) 650 mg PO Q6 PRN PRN Reason: Pain, moderate (4-7) Last Admin: 10/07/17 12:51 Dose: 650 mg Aspirin (Ecotrin) 81 mg PO DAILY [facility] Last Admin: 10/07/17 10:29 Dose: 81 mg Brimonidine Tartrate (Alphagan 0.2% Opht) 0 ml OU Q8H [facility] Last Admin: 10/07/17 22:47 Dose: 1 drop Clonidine HCl (Catapres) 0.1 mg PO TID PRN PRN Reason: Diastolic blood pressure Last Admin: 09/20/17 18:22 Dose: 0.1 mg Clopidogrel Bisulfate (Plavix) 75 mg PO DAILY [facility] Last Admin: 10/07/17 10:29 Dose: 75 mg Cyanocobalamin (Vitamin B12 1000 Mcg Tab) 1,000 mcg PO DAILY [facility] Last Admin: 10/07/17 11:00 Dose: 1,000 mcg Home Med (Patient's Own Drops) 1 drop OU HS [facility] Last Admin: 10/07/17 22:49 Dose: 1 drop Home Med (Patient's Own Drops) 1 drop OD QID [facility] Last Admin: 10/07/17 10:29 Dose: 1 drop Hydrochlorothiazide (Hydrodiuril) 25 mg PO DAILY [facility] Last Admin: 10/07/17 10:29 Dose: 25 mg Dextrose/Sodium Chloride (Dextrose 5%/0.45% Ns 1000 Ml) 1,000 mls @ 50 mls/hr IV .Q20H [facility] Stop: 10/08/17 06:44 Last Admin: 10/06/17 15:31 Dose: 50 mls/hr Insulin Aspart (Novolog) 0 unit SC ACHS [facility] PRN Reason: Protocol Last Admin: 10/07/17 16:49 Dose: Not Given Losartan Potassium (Cozaar) 100 mg PO DAILY [facility] Last Admin: 10/07/17 10:29 Dose: 100 mg Metformin HCl (Glucophage) 500 mg PO BIDCC [facility] Last Admin: 10/07/17 10:23 Dose: Not Given Metoprolol Succinate (Toprol Xl) 50 mg PO DAILY [facility] Last Admin: 10/07/17 10:29 Dose: 50 mg Pilocarpine HCl (Isopto Carpine 1% Opht Soln) 1 drop OD QID [facility] Last Admin: 10/07/17 22:48 Dose: 1 drop - Labs Labs: 09/28/17 07:36 09/29/17 11:54 PT 13.2 SECONDS (9.7-12.2) H 09/20/17 08:43 INR 1.2 09/20/17 08:43 APTT 31 SECONDS (21-34) 09/20/17 08:43 - Constitutional Appears: No Acute Distress, Chronically Ill - Head Exam Head Exam: NORMAL INSPECTION - Eye Exam Eye Exam: Normal appearance - ENT Exam ENT Exam: Normal Exam - Neck Exam Neck Exam: Normal Inspection - Respiratory Exam Respiratory Exam: Clear to Ausculation Bilateral, NORMAL BREATHING PATTERN - Cardiovascular Exam Cardiovascular Exam: REGULAR RHYTHM - GI/Abdominal Exam GI & Abdominal Exam: Soft, Normal Bowel Sounds - Rectal Exam Rectal Exam: Deferred - Extremities Exam Extremities Exam: Normal Inspection - Back Exam Back Exam: NORMAL INSPECTION - Neurological Exam Additional comments: Lethargic. - Skin Skin Exam: Dry, Intact, Normal Color, Warm Assessment and Plan (1) Influenza Status: Resolved (2) UTI (urinary tract infection) Status: Resolved (3) Abnormal head CT Status: Resolved (4) Abnormal head CT Status: Resolved (5) Staphylococcus aureus bacteremia Status: Resolved (6) CVA (cerebral vascular accident) Status: Acute
[2017-10-08] MEDS: Brimonidine 0.2% Opth Sol (5ml) OU SCH ×3 (06:45→21:58)
[2017-10-08] MEDS: (Novolog) Insulin Aspart, Recombinant 100 u/ml 10 ml vial SC SCH ×4 (09:23→21:41)
[2017-10-08] MEDS: Metoprolol Succinate 50 mg XL Tab PO SCH (09:23)
[2017-10-08] MEDS ORDERED: Dextrose 5%/0.45% NS 1,000 ML IV SCH (09:30)
[2017-10-08] MEDS: PILOCARPINE 1% OD SCH ×4 (10:21→21:59)
--- NOTE | 2017-10-08 18:19 | CP.PCM.PN ---
Subjective - Date & Time of Evaluation Date of Evaluation: 10/08/17 Time of Evaluation: 18:16 - Subjective Subjective: Patient is little more alert with slight improvement in appetite. In no respiratory distress. Complaining of a right knee pain. Objective - Vital Signs/Intake and Output Vital Signs (last 24 hours): Temp Pulse Resp BP Pulse Ox 97.7 F 70 20 136/73 100 10/08/17 15:47 10/08/17 15:47 10/08/17 15:47 10/08/17 15:47 10/08/17 15:47 Intake and Output: 10/08/17 10/08/17 06:59 18:59 Intake Total 1070 Output Total 200 Balance 870 - Medications Medications: Current Medications Acetaminophen (Tylenol 325mg Tab) 650 mg PO Q6 PRN PRN Reason: Pain, moderate (4-7) Last Admin: 10/08/17 06:45 Dose: 650 mg Aspirin (Ecotrin) 81 mg PO DAILY [facility] Last Admin: 10/08/17 10:21 Dose: 81 mg Brimonidine Tartrate (Alphagan 0.2% Opht) 0 ml OU Q8H [facility] Last Admin: 10/08/17 13:45 Dose: 1 drop Clonidine HCl (Catapres) 0.1 mg PO TID PRN PRN Reason: Diastolic blood pressure Last Admin: 09/20/17 18:22 Dose: 0.1 mg Clopidogrel Bisulfate (Plavix) 75 mg PO DAILY [facility] Last Admin: 10/08/17 10:21 Dose: 75 mg Cyanocobalamin (Vitamin B12 1000 Mcg Tab) 1,000 mcg PO DAILY [facility] Last Admin: 10/08/17 10:21 Dose: 1,000 mcg Home Med (Patient's Own Drops) 1 drop OU HS [facility] Last Admin: 10/07/17 22:49 Dose: 1 drop Home Med (Patient's Own Drops) 1 drop OD QID [facility] Last Admin: 10/07/17 10:29 Dose: 1 drop Hydrochlorothiazide (Hydrodiuril) 25 mg PO DAILY [facility] Last Admin: 10/08/17 09:22 Dose: Not Given Dextrose/Sodium Chloride (Dextrose 5%/0.45% Ns 1000 Ml) 1,000 mls @ 100 mls/hr IV .Q10H [facility] Last Admin: 10/08/17 09:30 Dose: 100 mls/hr Insulin Aspart (Novolog) 0 unit SC ACHS [facility] PRN Reason: Protocol Last Admin: 10/08/17 17:31 Dose: Not Given Losartan Potassium (Cozaar) 100 mg PO DAILY [facility] Last Admin: 10/08/17 09:22 Dose: Not Given Metformin HCl (Glucophage) 500 mg PO BIDCC [facility] Last Admin: 10/08/17 17:30 Dose: Not Given Metoprolol Succinate (Toprol Xl) 50 mg PO DAILY [facility] Last Admin: 10/08/17 09:23 Dose: Not Given Pilocarpine HCl (Isopto Carpine 1% Opht Soln) 1 drop OD QID [facility] Last Admin: 10/08/17 13:44 Dose: 1 drop - Labs Labs: 09/28/17 07:36 09/29/17 11:54 PT 13.2 SECONDS (9.7-12.2) H 09/20/17 08:43 INR 1.2 09/20/17 08:43 APTT 31 SECONDS (21-34) 09/20/17 08:43 - Constitutional Appears: No Acute Distress, Chronically Ill - Head Exam Head Exam: NORMAL INSPECTION - Eye Exam Eye Exam: Normal appearance - ENT Exam ENT Exam: Normal Exam - Neck Exam Neck Exam: Normal Inspection - Respiratory Exam Respiratory Exam: Clear to Ausculation Bilateral, NORMAL BREATHING PATTERN - Cardiovascular Exam Cardiovascular Exam: REGULAR RHYTHM - GI/Abdominal Exam GI & Abdominal Exam: Soft, Normal Bowel Sounds - Rectal Exam Rectal Exam: Deferred - Extremities Exam Additional comments: Tender left knee. - Back Exam Back Exam: NORMAL INSPECTION - Neurological Exam Neurological Exam: Alert, Awake - Psychiatric Exam Additional comments: Confused. - Skin Skin Exam: Dry, Intact, Normal Color, Warm Assessment and Plan (1) Influenza Status: Resolved (2) UTI (urinary tract infection) Status: Resolved (3) Abnormal head CT Status: Resolved (4) Abnormal head CT Status: Resolved (5) Staphylococcus aureus bacteremia Status: Resolved (6) CVA (cerebral vascular accident) Status: Acute
--- NOTE | 2017-10-08 21:42 | PN ---
SUBJECTIVE: Patient is seen. Patient had episodes of hypotension this morning. She continues to eat very poorly despite encouragement. The patient ate basically less than 20% of her meals and also seems to be very sensitive to any appetite stimulant, maybe, psychotropic meds. As discussed with family and we also tried to discuss with Dr. Chan, the patient will benefit from TPN for general nutrition as patient is not eating p.o. PHYSICAL EXAMINATION: VITAL SIGNS: Last blood pressure was 136/73, although patient had 2 readings of 87/53 and also 98/56. GENERAL: She is alert, verbal, hard of hearing, seen in her room, still appears with some confusion. SKIN: No diaphoresis. HEENT: The patient, as stated, is hard of hearing and also legally blind. No headache. NECK: Supple. RESPIRATORY: No dyspnea. CARDIOVASCULAR: No chest pain. GASTROINTESTINAL: Very poor appetite, no nausea or vomiting. EXTREMITIES: The patient is moving extremities and has been ambulatory. MUSCULOSKELETAL: Feels weak. NEUROLOGIC: Alert with periods of confusion. GENITOURINARY: No dysuria. MENTAL STATUS EXAMINATION: Elderly female who looks stated age, oriented to place and person, seen with family at bedside. Mood is dysphoric, depressed. Affect is restricted. Speech is spontaneous, still hard of hearing. Thought process confused at times. Thought content, patient is not complaining of pain but refusing to eat, states she has no appetite. No suicidal or homicidal ideation. No psychosis. Attention and memory seem to be limited. Insight and judgment limited. Impulse control is fair at this time. IMPRESSION: History of delirium, metabolic encephalopathy, infarction in the right basal ganglia, dementia. PLAN AND RECOMMENDATIONS: The patient is seen and medications reviewed. I will discuss with Dr. Chan and patient would benefit from TPN as the patient has not been eating for almost 2 weeks, and patient is only on D5W at this time. Patient will need parenteral nutrition to beef up the nutritional support. Fredy Harper MD
[2017-10-08] MEDS: Dextrose 5%/0.45% NS 1,000 ML IV SCH ×2 (22:00→22:01)
[2017-10-08] MEDS: LUMIGAN OU SCH (22:01)
[2017-10-09] MEDS: Brimonidine 0.2% Opth Sol (5ml) OU SCH ×3 (05:47→22:20)
[2017-10-09] MEDS: (Novolog) Insulin Aspart, Recombinant 100 u/ml 10 ml vial SC SCH ×4 (07:16→22:07)
[2017-10-09] MEDS: Metoprolol Succinate 50 mg XL Tab PO SCH (09:31)
[2017-10-09] MEDS: PILOCARPINE 1% OD SCH ×4 (09:33→22:21)
[2017-10-09] MEDS: Dextrose 5%/0.45% NS 1,000 ML IV SCH ×2 (11:00→13:34)
--- NOTE | 2017-10-09 18:30 | CP.PCM.PN ---
Subjective - Date & Time of Evaluation Date of Evaluation: 10/09/17 Time of Evaluation: 18:27 - Subjective Subjective: Patient lethargic, weak and with poor appetite. Afebrile, in no respiratory distress. Objective - Vital Signs/Intake and Output Vital Signs (last 24 hours): Temp Pulse Resp BP Pulse Ox 97.8 F 68 20 127/70 96 10/09/17 16:00 10/09/17 16:00 10/09/17 16:00 10/09/17 16:00 10/09/17 16:00 Intake and Output: 10/09/17 10/09/17 06:59 18:59 Intake Total 555 Output Total 350 Balance 205 - Medications Medications: Current Medications Acetaminophen (Tylenol 325mg Tab) 650 mg PO Q6 PRN PRN Reason: Pain, moderate (4-7) Last Admin: 10/09/17 09:32 Dose: 650 mg Aspirin (Ecotrin) 81 mg PO DAILY [facility] Last Admin: 10/09/17 09:32 Dose: 81 mg Brimonidine Tartrate (Alphagan 0.2% Opht) 0 ml OU Q8H [facility] Last Admin: 10/09/17 13:30 Dose: 1 drop Clonidine HCl (Catapres) 0.1 mg PO TID PRN PRN Reason: Diastolic blood pressure Last Admin: 09/20/17 18:22 Dose: 0.1 mg Clopidogrel Bisulfate (Plavix) 75 mg PO DAILY [facility] Last Admin: 10/09/17 09:31 Dose: 75 mg Cyanocobalamin (Vitamin B12 1000 Mcg Tab) 1,000 mcg PO DAILY [facility] Last Admin: 10/09/17 09:31 Dose: 1,000 mcg Home Med (Patient's Own Drops) 1 drop OU HS [facility] Last Admin: 10/08/17 22:01 Dose: 1 drop Home Med (Patient's Own Drops) 1 drop OD QID [facility] Last Admin: 10/07/17 10:29 Dose: 1 drop Hydrochlorothiazide (Hydrodiuril) 25 mg PO DAILY [facility] Last Admin: 10/09/17 09:31 Dose: 25 mg Dextrose/Sodium Chloride (Dextrose 5%/0.45% Ns 1000 Ml) 1,000 mls @ 60 mls/hr IV .[id number] [facility] Last Admin: 10/09/17 11:00 Dose: Not Given Insulin Aspart (Novolog) 0 unit SC ACHS [facility] PRN Reason: Protocol Last Admin: 10/09/17 17:52 Dose: Not Given Losartan Potassium (Cozaar) 100 mg PO DAILY [facility] Last Admin: 10/09/17 09:32 Dose: 100 mg Metformin HCl (Glucophage) 500 mg PO BIDCC [facility] Last Admin: 10/09/17 17:52 Dose: Not Given Metoprolol Succinate (Toprol Xl) 50 mg PO DAILY [facility] Last Admin: 10/09/17 09:31 Dose: 50 mg Pilocarpine HCl (Isopto Carpine 1% Opht Soln) 1 drop OD QID [facility] Last Admin: 10/09/17 18:07 Dose: 1 drop - Labs Labs: 09/28/17 07:36 09/29/17 11:54 PT 13.2 SECONDS (9.7-12.2) H 09/20/17 08:43 INR 1.2 09/20/17 08:43 APTT 31 SECONDS (21-34) 09/20/17 08:43 - Constitutional Appears: No Acute Distress, Chronically Ill - Head Exam Head Exam: NORMOCEPHALIC - Eye Exam Eye Exam: Normal appearance - ENT Exam ENT Exam: Normal Exam - Neck Exam Neck Exam: Normal Inspection - Respiratory Exam Respiratory Exam: NORMAL BREATHING PATTERN - Cardiovascular Exam Cardiovascular Exam: REGULAR RHYTHM - GI/Abdominal Exam GI & Abdominal Exam: Soft, Normal Bowel Sounds - Rectal Exam Rectal Exam: Deferred - Extremities Exam Extremities Exam: Normal Inspection - Back Exam Back Exam: NORMAL INSPECTION - Neurological Exam Additional comments: Lethargic. - Skin Skin Exam: Dry, Intact, Normal Color, Warm Assessment and Plan (1) Influenza Status: Resolved (2) UTI (urinary tract infection) Status: Resolved (3) Abnormal head CT Status: Resolved (4) Abnormal head CT Status: Resolved (5) Staphylococcus aureus bacteremia Status: Resolved (6) CVA (cerebral vascular accident) Status: Acute
--- NOTE | 2017-10-09 20:30 | PN ---
DATE: SUBJECTIVE: The patient is stable, refusing to eat, very poor p.o. intake despite encouragement and getting weaker. We will discuss with Dr. Chan. The patient may benefit from TPN or parenteral nutrition to supplement the patient as the patient is only on IV fluids and not eating well. The patient's mood is dysphoric. She is still hard of hearing and also legally blind. The patient is refusing to eat even given homemade food brought in by the family. The patient is on B12 supplements. VITAL SIGNS: Today, temperature 99.3, pulse 86, blood pressure 131/87, respirations 20, and oxygen saturation is 100% on room air. REVIEW OF SYSTEMS: GENERAL: The patient is more alert but still confused, maybe secondary to hard of hearing and also legally blind. She was seen in her room. She was resting, refusing to eat. SKIN: No diaphoresis. HEENT: Legally blind, no headache. NECK: Supple. RESPIRATORY: No dyspnea. CARDIOVASCULAR: No chest pain. GASTROINTESTINAL: No nausea. No vomiting. She has poor p.o. intake. EXTREMITIES: The patient is moving extremities. MUSCULOSKELETAL: Feels weak. NEURO: Alert with periods of confusion. GENITOURINARY: No dysuria. MENTAL STATUS EXAMINATION: Elderly female who looks stated age with periods of confusion. Oriented to place and person. Speech is slow. Affect is restricted. Mood is dysphoric and depressed. Thought process confused at times. Thought content, the patient is refusing to eat. No overt psychosis. No suicidal or homicidal ideation. Attention and memory seems to be limited. Insight and judgment is limited. Impulse control is fair at this time. IMPRESSION: Delirium, metabolic encephalopathy, failure to thrive, the patient has history of CVA of the right basal ganglia, as well as history of dementia, the patient is hard of hearing, legally blind. RECOMMENDATIONS: The patient is seen, medications reviewed. I did suggest the patient can be given PPN if it is okay with Dr. Chan, continue B12 supplement. As the patient with a history of CVA of the right basal ganglia, discussed with Dr. Chan if the patient is medically cleared to try psychostimulants, especially if it is not medically contraindicated whether to use modafinil or probably low-dose Ritalin as mood enhancers. Continue treatment plan as outlined. Fredy Harper MD [facility] # [id number] FERMIN
[2017-10-09] MEDS: LUMIGAN OU SCH (22:21)
[2017-10-10] MEDS: Brimonidine 0.2% Opth Sol (5ml) OU SCH ×3 (05:56→21:43)
[2017-10-10 07:28] LABS: BASO # 0.1 K/uL (0.0-0.2); EOS # 0.3 K/uL (0.0-0.7); EOS % 5.4 % (0.0-4.0); HEMOGLOBIN 8.7 g/dL (11.0-16.0); LYMPH # 1.7 K/uL (1.0-4.3); LYMPH % 31.2 % (20.0-40.0); MEAN CELL VOLUME 81.2 fL (81.0-99.0); MEAN CORPUSCULAR HEMOGLOBIN 27.1 pg (27.0-31.0); MEAN CORPUSCULAR HGB CONC 33.3 g/dL (33.0-37.0); MEAN PLATELET VOLUME 8.3 fL (7.2-11.7); MONO # 0.5 K/uL (0.0-0.8); MONO % 9.2 % (0.0-10.0); NEUT % 53.2 % (50.0-75.0); RBC 3.2 Mil/uL (3.80-5.20); RED CELL DISTRIBUTION WIDTH 14.8 % (11.5-14.5); WHITE BLOOD COUNT 5.6 K/uL (4.8-10.8)
[2017-10-10] MEDS: (Novolog) Insulin Aspart, Recombinant 100 u/ml 10 ml vial SC SCH ×4 (07:39→21:43)
[2017-10-10 07:49] LABS: FREE T4 1.53 ng/dL (0.78-2.19)
[2017-10-10 08:16] LABS: ALB/GLOB RATIO 0.8 (1.0-2.1); ALBUMIN 2.7 g/dL (3.5-5.0); ALT/SGPT 19 U/L (9-52); AMYLASE 58 U/L (30-110); AST/SGOT 23 U/L (14-36); BLOOD UREA NITROGEN 8 mg/dL (7-17); CALCIUM 8.8 mg/dl (8.6-10.4); GFR AFRICAN-AMERICAN > 60; GFR NON-AFRICAN AMERICAN > 60; LIPASE 40 U/L (23-300)
[2017-10-10] MEDS: PILOCARPINE 1% OD SCH ×4 (10:50→21:42)
[2017-10-10] MEDS: Metoprolol Succinate 50 mg XL Tab PO SCH (10:50)
[2017-10-10] MEDS: Dextrose 5%/0.45% NS 1,000 ML IV SCH ×2 (14:15→14:58)
--- NOTE | 2017-10-10 17:00 | CP.PCM.PN ---
Subjective - Date & Time of Evaluation Date of Evaluation: 10/10/17 Time of Evaluation: 15:15 - Subjective Subjective: Patient lethargic weak with poor appetite. Hgb: 8.7 K+: 2.7. Will replace K+, and check stools for occult blood. Also will get a CT scan of the abdomen and pelvis. Objective - Vital Signs/Intake and Output Vital Signs (last 24 hours): Temp Pulse Resp BP Pulse Ox 97.8 F 75 18 122/67 100 10/10/17 07:05 10/10/17 07:05 10/10/17 07:05 10/10/17 07:05 10/10/17 07:05 Intake and Output: 10/10/17 10/10/17 06:59 18:59 Intake Total 470 Output Total 650 Balance -180 - Medications Medications: Current Medications Acetaminophen (Tylenol 325mg Tab) 650 mg PO Q6 PRN PRN Reason: Pain, moderate (4-7) Last Admin: 10/10/17 15:26 Dose: 650 mg Aspirin (Ecotrin) 81 mg PO DAILY [facility] Last Admin: 10/10/17 10:50 Dose: 81 mg Brimonidine Tartrate (Alphagan 0.2% Opht) 0 ml OU Q8H [facility] Last Admin: 10/10/17 13:52 Dose: 1 drop Clonidine HCl (Catapres) 0.1 mg PO TID PRN PRN Reason: Diastolic blood pressure Last Admin: 09/20/17 18:22 Dose: 0.1 mg Clopidogrel Bisulfate (Plavix) 75 mg PO DAILY [facility] Last Admin: 10/10/17 10:50 Dose: 75 mg Cyanocobalamin (Vitamin B12 1000 Mcg Tab) 1,000 mcg PO DAILY [facility] Last Admin: 10/10/17 10:49 Dose: 1,000 mcg Home Med (Patient's Own Drops) 1 drop OU HS [facility] Last Admin: 10/09/17 22:21 Dose: 1 drop Home Med (Patient's Own Drops) 1 drop OD QID [facility] Last Admin: 10/07/17 10:29 Dose: 1 drop Hydrochlorothiazide (Hydrodiuril) 25 mg PO DAILY [facility] Last Admin: 10/10/17 10:50 Dose: Not Given Dextrose/Sodium Chloride (Dextrose 5%/0.45% Ns 1000 Ml) 1,000 mls @ 60 mls/hr IV .[id number] [facility] Last Admin: 10/10/17 14:58 Dose: 60 mls/hr Potassium Chloride (Potassium Chloride 20 Meq/100 Ml) 20 meq in 100 mls @ 50 mls/hr IVPB Q2 [facility] Stop: 10/10/17 17:59 Last Admin: 10/10/17 14:58 Dose: 50 mls/hr Insulin Aspart (Novolog) 0 unit SC ACHS [facility] PRN Reason: Protocol Last Admin: 10/10/17 16:54 Dose: Not Given Losartan Potassium (Cozaar) 100 mg PO DAILY [facility] Last Admin: 10/10/17 10:49 Dose: 100 mg Metoprolol Succinate (Toprol Xl) 50 mg PO DAILY [facility] Last Admin: 10/10/17 10:50 Dose: 50 mg Pilocarpine HCl (Isopto Carpine 1% Opht Soln) 1 drop OD QID [facility] Last Admin: 10/10/17 13:52 Dose: 1 drop - Labs Labs: 10/10/17 06:56 10/10/17 06:56 PT 13.2 SECONDS (9.7-12.2) H 09/20/17 08:43 INR 1.2 09/20/17 08:43 APTT 31 SECONDS (21-34) 09/20/17 08:43 - Constitutional Appears: Chronically Ill - Head Exam Head Exam: NORMAL INSPECTION - Eye Exam Eye Exam: Normal appearance - ENT Exam ENT Exam: Normal Exam - Neck Exam Neck Exam: Normal Inspection - Respiratory Exam Respiratory Exam: Clear to Ausculation Bilateral, NORMAL BREATHING PATTERN - Cardiovascular Exam Cardiovascular Exam: REGULAR RHYTHM, Murmur - GI/Abdominal Exam GI & Abdominal Exam: Soft, Normal Bowel Sounds - Rectal Exam Rectal Exam: Deferred - Extremities Exam Extremities Exam: Normal Inspection - Back Exam Back Exam: NORMAL INSPECTION - Neurological Exam Additional comments: Lethargic, confused. - Skin Skin Exam: Dry, Intact, Normal Color, Warm Assessment and Plan (1) Influenza Status: Resolved (2) UTI (urinary tract infection) Status: Resolved (3) Abnormal head CT Status: Resolved (4) Abnormal head CT Status: Resolved (5) Staphylococcus aureus bacteremia Status: Resolved (6) CVA (cerebral vascular accident) Status: Acute
--- NOTE | 2017-10-10 19:07 | PN ---
DATE: SUBJECTIVE: The patient is seen. The patient continues to eat very poorly, still confused, hard of hearing, and legally blind. The patient is seen with family at bedside. The patient is noted to be more alert, but seems to have persistent confusion. We discussed with the family if she is wiling to try another class of psychotropic meds, like stimulant without any side effect. At this time, the patient may benefit from a GI consult and possibly PEG tube placement with nutritional support. Family seems to be in agreement with that. This was discussed with Dr. Mosher. The patient is not taking any PPN at this time as she is getting weaker. The patient may need PEG tube, so this can beef up her nutritional status before going to the rehab. LABS: Potassium noted to be low at 2.7, however, blood glucose seems to be within normal limits, 106 was the last one. PHYSICAL EXAMINATION VITAL SIGNS: Temperature 97.8, pulse 75, blood pressure 122/67, respirations 18, oxygen saturation 100%. REVIEW OF SYSTEMS: GENERAL: The patient is alert, seen in her room resting, not in acute respiratory distress. but hard of hearing and legally blind. Seen with family members at bedside. The patient is refusing to eat according to the family. She will take one to two bites and then refuses to open her mouth. She states she has no appetite. SKIN: No diaphoresis. HEENT: Legally blind. Hard of hearing. No headache. NECK: Supple. RESPIRATORY: No dyspnea. CARDIOVASCULAR: No chest pain. GASTROINTESTINAL: Has very poor p.o. intake. No nausea or vomiting. No abdominal pain. Has no appetite. EXTREMITIES: The patient has been bed bound. MUSCULOSKELETAL: Feels weak. NEURO: Alert with periods of confusion. GENITOURINARY: No dysuria. MENTAL STATUS EXAMINATION: Elderly female who looks stated age, oriented to place and person. Mood seems to be dysphoric, depressed. Affect is restricted. Speech is spontaneous. Thought process, confused off and on. Thought content, the patient refusing to eat, stating she has no appetite. No suicidal ideation and psychosis. Attention and memory seems to be limited. Insight and judgment seems to be limited. Impulse control is fair at this time. IMPRESSION: Delirium, metabolic encephalopathy, as well as dementia with mood changes. The patient has history of cerebrovascular accident of the right basal ganglion, failure to thrive, anorexia. PLAN AND RECOMMENDATIONS: The patient is seen, Meds reviewed. I discussed with the family. The patient's family is reluctant for patient to try any psychotropic for now due to her previous paradoxical reactions in the past making her more confused.. The patient to try to _hold off any psychotropic for now. I did suggest if the patient can be seen by GI and probably have PEG tube placement, so the patient can have nutritional support. The patient is getting weaker and not eating well and not medically stable to go for subacute rehab. The patient is supposed to go to [facility] [place] once medically stable. Fredy Harper MD [facility]
[2017-10-10] MEDS: LUMIGAN OU SCH (21:43)
[2017-10-11] MEDS: Brimonidine 0.2% Opth Sol (5ml) OU SCH ×3 (05:56→21:56)
[2017-10-11] MEDS: (Novolog) Insulin Aspart, Recombinant 100 u/ml 10 ml vial SC SCH ×3 (08:07→16:44)
[2017-10-11] MEDS ORDERED: Iodixanol 320 MG/ML 100 ML BOTTLE IV ONE (08:46)
[2017-10-11 08:57] LABS: IRON 14 ug/dL (37-170)
[2017-10-11] MEDS ORDERED: Iohexol 240 (50 ml) PO ONE (09:00)
[2017-10-11 09:09] LABS: % IRON SATURATION 7 (20-55); TOTAL IRON BINDING CAPACITY 184 ug/dL (250-450)
[2017-10-11] MEDS: PILOCARPINE 1% OD SCH ×4 (10:00→21:56)
[2017-10-11] MEDS: Metoprolol Succinate 50 mg XL Tab PO SCH (10:01)
[2017-10-11 10:04] LABS: FOLATE 6.5 ng/mL
--- NOTE | 2017-10-11 15:09 | CT ---
PROCEDURE: CT Abdomen and Pelvis with contrast HISTORY: Anorerxia. Hx of lymphoma COMPARISON: None. TECHNIQUE: Contrast dose: 100 cc of Visipaque Radiation dose: Total exam DLP = 642 mGy-cm. This CT exam was performed using one or more of the following dose reduction techniques: Automated exposure control, adjustment of the mA and/or kV according to patient size, and/or use of iterative reconstruction technique. FINDINGS: LOWER THORAX: Unremarkable. LIVER: Unremarkable. No gross lesion or ductal dilatation. There is a 3 cm simple cyst GALLBLADDER AND BILE DUCTS: Unremarkable. PANCREAS: Unremarkable. No gross lesion or ductal dilatation. SPLEEN: Unremarkable. ADRENALS: Unremarkable. No mass. KIDNEYS AND URETERS: Unremarkable. No hydronephrosis. No solid mass. VASCULATURE: There is calcification of the abdominal aorta with a small amount of mural thrombus BOWEL: Unremarkable. No obstruction. No gross mural thickening. APPENDIX: Normal appendix. PERITONEUM: There is a minimal amount of free fluid in the pelvis LYMPH NODES: Unremarkable. No enlarged lymph nodes. BLADDER: Unremarkable. REPRODUCTIVE: Unremarkable. BONES: Multilevel disc degeneration OTHER FINDINGS: None. IMPRESSION: No acute intra-abdominal findings
--- NOTE | 2017-10-11 15:33 | PN ---
DATE: 10/11/2017 SUBJECTIVE: The patient is in room. The patient seems to have increasing confusion. She was talking of her and also talking about going home. The patient states that she does not know what is going with her and p.o. intake is very poor, and the patient however claimed that she ate yesterday and today. According to nurse, the patient refused to eat. The patient went for a CAT scan of the abdomen but refused. The patient would benefit if she will schedule for CAT scan, if her daughter accompanied her, so that the patient will be more cooperative. Patient may need premedication prior to the test, but patient has history of paradoxical reaction to psych meds that made her more confused and so maybe the family can be just with her, so she will be more cooperative. The patient may benefit from GI consult and possible PEG tube feeding. Her p.o. intake is very deteriorating although the patient thinks she is eating. VITAL SIGNS: Temperature is 98.3, pulse rate 76, blood pressure 151/77, respirations 20, and O2 saturation is 98%. REVIEW OF SYSTEMS: GENERAL: The patient is alert, verbal, she is hard of hearing and legally blind, seen in her room insisting that she ate and the patient did not eat. The patient states that she ate yesterday and today, but her p.o. intake still poor. SKIN: No diaphoresis. HEENT: The patient is hard of hearing, legally blind. NECK: Supple. RESPIRATORY: No dyspnea. CARDIOVASCULAR: No chest pain. GASTROINTESTINAL: Has very poor p.o. intake stating she has no appetite. No nausea or vomiting. EXTREMITIES: The patient is mostly bed bound. MUSCULOSKELETAL: Generalized weakness. NEURO: Alert, appears to have confusion. GENITOURINARY: No urinary problems, dysuria. MENTAL STATUS EXAMINATION: Elderly female, who looks stated age, is more confused, oriented only to person. Speech is spontaneous. Affect is reactive. Mood state is irritable and confused. Thought process, confused. Thought content, the patient thinks that she is at home and and with her . No paranoia, No suicidal or homicidal ideation. Attention and memory seem to be limited. Insight and judgment seems to be limited. Impulse control is guarded at this time. IMPRESSION: History of delirium, metabolic encephalopathy, history of CVA in the right basal ganglia, failure to thrive, senile onset_ dementia with mood changes. The patient also has anorexia. PLAN AND RECOMMENDATIONS: The patient is seen and medications reviewed. The patient is for CAT scan of the abdomen. We will ask the family to accompany her during the test. Will hold the psych meds for now. The patient is for GI consult and also for possible PEG tube feeding. Fredy Harper MD [facility]
--- NOTE | 2017-10-11 19:16 | CP.PCM.PN ---
Subjective - Date & Time of Evaluation Date of Evaluation: 10/11/17 Time of Evaluation: 19:13 - Subjective Subjective: Patient remains confused, lethargic, weak, with poor foods intake. CT scan of the abdomen is essentially unremarkable. To ask the family about a PEG insertion. Objective - Vital Signs/Intake and Output Vital Signs (last 24 hours): Temp Pulse Resp BP Pulse Ox 98.3 F 71 20 146/72 98 10/11/17 15:02 10/11/17 15:02 10/11/17 15:02 10/11/17 15:02 10/11/17 15:02 - Medications Medications: Current Medications Acetaminophen (Tylenol 325mg Tab) 650 mg PO Q6 PRN PRN Reason: Pain, moderate (4-7) Last Admin: 10/10/17 15:26 Dose: 650 mg Aspirin (Ecotrin) 81 mg PO DAILY [facility] Last Admin: 10/11/17 09:59 Dose: 81 mg Brimonidine Tartrate (Alphagan 0.2% Opht) 0 ml OU Q8H [facility] Last Admin: 10/11/17 13:38 Dose: 1 drop Clonidine HCl (Catapres) 0.1 mg PO TID PRN PRN Reason: Diastolic blood pressure Last Admin: 09/20/17 18:22 Dose: 0.1 mg Clopidogrel Bisulfate (Plavix) 75 mg PO DAILY [facility] Last Admin: 10/11/17 10:01 Dose: 75 mg Cyanocobalamin (Vitamin B12 1000 Mcg Tab) 1,000 mcg PO DAILY [facility] Last Admin: 10/11/17 10:01 Dose: 1,000 mcg Home Med (Patient's Own Drops) 1 drop OU HS [facility] Last Admin: 10/10/17 21:43 Dose: 1 drop Home Med (Patient's Own Drops) 1 drop OD QID [facility] Last Admin: 10/07/17 10:29 Dose: 1 drop Hydrochlorothiazide (Hydrodiuril) 25 mg PO DAILY [facility] Last Admin: 10/11/17 09:59 Dose: 25 mg Dextrose/Sodium Chloride (Dextrose 5%/0.45% Ns 1000 Ml) 1,000 mls @ 60 mls/hr IV .[id number] [facility] Last Admin: 10/10/17 14:58 Dose: 60 mls/hr Insulin Aspart (Novolog) 0 unit SC ACHS [facility] PRN Reason: Protocol Last Admin: 10/11/17 16:44 Dose: Not Given Losartan Potassium (Cozaar) 100 mg PO DAILY [facility] Last Admin: 10/11/17 09:59 Dose: 100 mg Metoprolol Succinate (Toprol Xl) 50 mg PO DAILY [facility] Last Admin: 10/11/17 10:01 Dose: 50 mg Pilocarpine HCl (Isopto Carpine 1% Opht Soln) 1 drop OD QID [facility] Last Admin: 10/11/17 17:15 Dose: 1 drop - Labs Labs: 10/10/17 06:56 10/10/17 06:56 PT 13.2 SECONDS (9.7-12.2) H 09/20/17 08:43 INR 1.2 09/20/17 08:43 APTT 31 SECONDS (21-34) 09/20/17 08:43 - Constitutional Appears: No Acute Distress, Chronically Ill - Head Exam Head Exam: NORMAL INSPECTION - Eye Exam Eye Exam: Normal appearance - ENT Exam ENT Exam: Normal Exam - Neck Exam Neck Exam: Normal Inspection - Respiratory Exam Respiratory Exam: Clear to Ausculation Bilateral, NORMAL BREATHING PATTERN - Cardiovascular Exam Cardiovascular Exam: REGULAR RHYTHM - GI/Abdominal Exam GI & Abdominal Exam: Soft, Normal Bowel Sounds - Rectal Exam Rectal Exam: Deferred - Extremities Exam Extremities Exam: Normal Inspection - Back Exam Back Exam: NORMAL INSPECTION - Neurological Exam Additional comments: Lethargic. - Skin Skin Exam: Dry, Intact, Normal Color, Warm Assessment and Plan (1) Influenza Status: Resolved (2) UTI (urinary tract infection) Status: Resolved (3) Abnormal head CT Status: Resolved (4) Abnormal head CT Status: Resolved (5) Staphylococcus aureus bacteremia Status: Resolved (6) CVA (cerebral vascular accident) Status: Acute (7) Anorexia Assessment & Plan: Consider a PEG insertion. Status: Acute
[2017-10-11] MEDS: LUMIGAN OU SCH (21:56)
[2017-10-12] MEDS: Brimonidine 0.2% Opth Sol (5ml) OU SCH ×3 (05:54→21:23)
[2017-10-12] MEDS: (Novolog) Insulin Aspart, Recombinant 100 u/ml 10 ml vial SC SCH ×3 (07:52→17:00)
[2017-10-12] MEDS: Metoprolol Succinate 50 mg XL Tab PO SCH (10:50)
[2017-10-12] MEDS: PILOCARPINE 1% OD SCH ×4 (10:53→21:21)
[2017-10-12] MEDS: Dextrose 5%/0.45% NS 1,000 ML IV SCH ×2 (13:30→21:20)
--- NOTE | 2017-10-12 13:31 | CP.PCM.PN ---
Subjective - Date & Time of Evaluation Date of Evaluation: 10/12/17 Time of Evaluation: 13:29 - Subjective Subjective: Patient's condition unchanged: weak, confused, no eating. Patient 's family agrees for a PEG insertion. Will ask Dr Farooq to perform it. Stop ASA and Plavix now. Objective - Vital Signs/Intake and Output Vital Signs (last 24 hours): Temp Pulse Resp BP Pulse Ox 98 F 68 20 108/62 96 10/12/17 07:00 10/12/17 07:00 10/12/17 07:00 10/12/17 07:00 10/12/17 07:00 Intake and Output: 10/12/17 10/12/17 06:59 18:59 Intake Total 690 Output Total 100 Balance 590 - Medications Medications: Current Medications Acetaminophen (Tylenol 325mg Tab) 650 mg PO Q6 PRN PRN Reason: Pain, moderate (4-7) Last Admin: 10/10/17 15:26 Dose: 650 mg Brimonidine Tartrate (Alphagan 0.2% Opht) 0 ml OU Q8H [facility] Last Admin: 10/12/17 05:54 Dose: 1 drop Clonidine HCl (Catapres) 0.1 mg PO TID PRN PRN Reason: Diastolic blood pressure Last Admin: 09/20/17 18:22 Dose: 0.1 mg Cyanocobalamin (Vitamin B12 1000 Mcg Tab) 1,000 mcg PO DAILY [facility] Last Admin: 10/12/17 10:50 Dose: 1,000 mcg Home Med (Patient's Own Drops) 1 drop OU HS [facility] Last Admin: 10/11/17 21:56 Dose: 1 drop Home Med (Patient's Own Drops) 1 drop OD QID [facility] Last Admin: 10/07/17 10:29 Dose: 1 drop Hydrochlorothiazide (Hydrodiuril) 25 mg PO DAILY [facility] Last Admin: 10/12/17 10:56 Dose: 25 mg Dextrose/Sodium Chloride (Dextrose 5%/0.45% Ns 1000 Ml) 1,000 mls @ 60 mls/hr IV .[id number] [facility] Insulin Aspart (Novolog) 0 unit SC ACHS [facility] PRN Reason: Protocol Last Admin: 10/12/17 07:52 Dose: Not Given Losartan Potassium (Cozaar) 100 mg PO DAILY [facility] Last Admin: 10/12/17 10:50 Dose: 100 mg Metoprolol Succinate (Toprol Xl) 50 mg PO DAILY [facility] Last Admin: 10/12/17 10:50 Dose: 50 mg Pilocarpine HCl (Isopto Carpine 1% Opht Soln) 1 drop OD QID [facility] Last Admin: 10/12/17 10:53 Dose: 1 drop - Labs Labs: 10/10/17 06:56 10/10/17 06:56 PT 13.2 SECONDS (9.7-12.2) H 09/20/17 08:43 INR 1.2 09/20/17 08:43 APTT 31 SECONDS (21-34) 09/20/17 08:43 - Constitutional Appears: Chronically Ill - Head Exam Head Exam: NORMOCEPHALIC - Eye Exam Eye Exam: Normal appearance - ENT Exam ENT Exam: Normal Exam - Neck Exam Neck Exam: Normal Inspection - Respiratory Exam Respiratory Exam: Clear to Ausculation Bilateral, NORMAL BREATHING PATTERN - Cardiovascular Exam Cardiovascular Exam: REGULAR RHYTHM - GI/Abdominal Exam GI & Abdominal Exam: Soft, Normal Bowel Sounds - Rectal Exam Rectal Exam: Deferred - Exam Exam: NORMAL INSPECTION - Extremities Exam Extremities Exam: Normal Inspection - Back Exam Back Exam: NORMAL INSPECTION - Neurological Exam Additional comments: Confused. Assessment and Plan (1) Influenza Status: Resolved (2) UTI (urinary tract infection) Status: Resolved (3) Abnormal head CT Status: Resolved (4) Abnormal head CT Status: Resolved (5) Staphylococcus aureus bacteremia Status: Resolved (6) CVA (cerebral vascular accident) Status: Acute (7) Anorexia Assessment & Plan: For a Peg insertion. Will hold ASA and Plavix. Status: Acute
--- NOTE | 2017-10-12 17:55 | CP.PCM.CON ---
History of Present Illness - History of Present Illness History of Present Illness: This is an 87 year old woman with inadequate oral intake. Patient was admitted 09/20/2017 with fever and generalized weakenss. She was diagnosed with senile dementia, Alzheimer's type, toxic/metabolic encephalopathy , and basal ganglia infarct. She has remained confused and is not eating well. Gastroenterology was consulted for placement of gastrostomy tube. Review of Systems - Constitutional Constitutional: Anorexia, Fever, Weakness - Respiratory Respiratory: Cough - Neurological Neurological: Confusion, Weakness Past Patient History - Infectious Disease Hx of Infectious Diseases: None - Tetanus Immunizations Tetanus Immunization: Unknown - Past Medical History & Family History Past Medical History?: Yes - Past Social History Smoking Status: Never Smoked Chewing Tobacco Use: No Cigar Use: No Occupation: WORKED IN NURSING Alcohol: Occasional Home Situation {Lives}: With Family - CARDIAC Hx Cardiac Disorders: Yes Hx Hypercholesterolemia: Yes Hx Hypertension: Yes - PULMONARY Hx Respiratory Disorders: Yes Hx Bronchitis: Yes - NEUROLOGICAL HX Cerebrovascular Accident: Yes (TIA) - HEENT Hx HEENT Problems: Yes Hx Glaucoma: Yes - RENAL Hx Chronic Kidney Disease: No - ENDOCRINE/METABOLIC Hx Diabetes Mellitus Type 2: Yes - HEMATOLOGICAL/ONCOLOGICAL Hx Blood Disorders: Yes Hx Cancer: Yes Hx Chemotherapy: Yes (Lymphoma in remission since 2000.) - INTEGUMENTARY Hx Dermatological Problems: No - MUSCULOSKELETAL/RHEUMATOLOGICAL Hx Arthritis: Yes - GASTROINTESTINAL Hx Gastrointestinal Disorders: No - GENITOURINARY/GYNECOLOGICAL Hx Genitourinary Disorders: No - PSYCHIATRIC Hx Psychophysiologic Disorder: Yes Hx Substance Use: No - SURGICAL HISTORY Hx Surgeries: Yes Hx Eye Surgery: Yes (Right cataract surgery in 2009.) Hx Hysterectomy: Yes (in 1995) Hx Vascular Surgery: Yes (riRiRight fem-pop by-pass in 2012 ( Dr Maddox)) - ANESTHESIA Hx Anesthesia: Yes Hx Anesthesia Reactions: No Hx Malignant Hyperthermia: No Has any member of the family had a problem w/ anesthesia?: No Meds Allergies/Adverse Reactions: Allergies Allergy/AdvReac Type Severity Reaction Status Date / Time codeine Allergy Verified 03/18/17 20:37 - Medications Medications: Current Medications Acetaminophen (Tylenol 325mg Tab) 650 mg PO Q6 PRN PRN Reason: Pain, moderate (4-7) Last Admin: 10/10/17 15:26 Dose: 650 mg Brimonidine Tartrate (Alphagan 0.2% Opht) 0 ml OU Q8H [facility] Last Admin: 10/12/17 13:55 Dose: 1 drop Clonidine HCl (Catapres) 0.1 mg PO TID PRN PRN Reason: Diastolic blood pressure Last Admin: 09/20/17 18:22 Dose: 0.1 mg Cyanocobalamin (Vitamin B12 1000 Mcg Tab) 1,000 mcg PO DAILY [facility] Last Admin: 10/12/17 10:50 Dose: 1,000 mcg Home Med (Patient's Own Drops) 1 drop OU HS [facility] Last Admin: 10/11/17 21:56 Dose: 1 drop Home Med (Patient's Own Drops) 1 drop OD QID [facility] Last Admin: 10/07/17 10:29 Dose: 1 drop Hydrochlorothiazide (Hydrodiuril) 25 mg PO DAILY [facility] Last Admin: 10/12/17 10:56 Dose: 25 mg Dextrose/Sodium Chloride (Dextrose 5%/0.45% Ns 1000 Ml) 1,000 mls @ 60 mls/hr IV .[id number] [facility] Last Admin: 10/12/17 13:30 Dose: Not Given Losartan Potassium (Cozaar) 100 mg PO DAILY [facility] Last Admin: 10/12/17 10:50 Dose: 100 mg Metoprolol Succinate (Toprol Xl) 50 mg PO DAILY [facility] Last Admin: 10/12/17 10:50 Dose: 50 mg Pilocarpine HCl (Isopto Carpine 1% Opht Soln) 1 drop OD QID [facility] Last Admin: 10/12/17 17:29 Dose: 1 drop Physical Exam - Constitutional Appears: Confused - Eye Exam Eye Exam: EOMI, PERRL - Neck Exam Neck exam: Negative for: Lymphadenopathy, Thyromegaly - Respiratory Exam Respiratory Exam: NORMAL BREATHING PATTERN. absent: Rales, Rhonchi, Wheezes - Cardiovascular Exam Cardiovascular Exam: REGULAR RHYTHM, +S1, +S2. absent: Gallop, Rubs, Systolic Murmur - GI/Abdominal Exam GI & Abdominal Exam: Normal Bowel Sounds, Soft. absent: Mass, Organomegaly, Tenderness - Rectal Exam Rectal Exam: Deferred - Extremities Exam Extremities exam: Negative for: calf tenderness, full ROM Results - Vital Signs Recent Vital Signs: Last Vital Signs Temp 98.8 F 10/12/17 15:00 Pulse 75 10/12/17 15:00 Resp 18 10/12/17 15:00 BP 146/73 10/12/17 15:00 Pulse Ox 99 10/12/17 15:00 - Labs Result Diagrams: 10/10/17 06:56 10/10/17 06:56 Labs: Laboratory Results - last 24 hr 10/11/17 10/12/17 10/12/17 21:31 06:40 11:40 POC Glucose (mg/dL) 115 H 116 H 129 H 10/12/17 16:04 POC Glucose (mg/dL) 125 H Assessment & Plan (1) Inadequate oral intake Assessment and Plan: Patient is a suitable candidate for PEG. Will hold Plavix for five days, and schedule PEG for Tuesday. The gastrostomy tube should remain in place for at least 4-6 weeks to allow for the formation of a tract between the stomach and the skin. After this, the tube may be removed if it is no longer needed. Status: Acute
--- NOTE | 2017-10-12 20:05 | PN ---
DATE: SUBJECTIVE: The patient is seen with family. Case discussed with Dr. Chan. The patient continues to refuse to eat and is getting more weak and more confused. Today, she ate barely 20% of her meals and as discussed with the family and the patient, the patient may need PEG tube feeding and has been referred to be seen by Dr. Farooq. the patient is on blood thinners and need to be off blood thinners for two to three days before the procedure. Today, she was resting but she states that she ate yesterday. VITAL SIGNS: Temperature 98, pulse 68, blood pressure 108/62, respirations 20, and oxygen saturation is 96%. REVIEW OF SYSTEMS: GENERAL: The patient is alert, still confused, seen in her room resting, not in acute respiratory distress. SKIN: No diaphoresis. HEENT: Legally blind, hard of hearing. No dizziness. NECK: Supple. RESPIRATORY: No dyspnea. CARDIOVASCULAR: No chest pain. GASTROINTESTINAL: Abdominal pain, refusing to eat regular food. She said she has no appetite. EXTREMITIES: She has been bedbound. MUSCULOSKELETAL: Has generalized weakness. NEUROLOGIC: Alert with increasing periods of confusion, the patient is not sure if she is in the hospital or not. GENITOURINARY: Denies dysuria. MENTAL STATUS EXAM: Elderly female, who looks frail and weak, oriented to place and person, still confused. Affect is restrictive. Mood seems to be dysphoric. Speech is low. Thought process, confused. Thought content, no overt paranoid hallucinations. No suicidal thought or ideation. Attention and memory seem to be limited. Insight and judgment limited. Impulse control is fair at this time. IMPRESSION: Delirium, metabolic encephalopathy, history of stroke of the right basal ganglia, dementia with mood changes, anorexia, and failure to thrive. PLAN AND RECOMMENDATIONS: The patient is seen, medications reviewed. The patient referred to see DARON Granados for possible PEG tube. As discussed with family, we will keep the patient off any psych medications for now as the patient seems to have paradoxical reaction to any psych medications. She seems to become more confused instead of getting its beneficial side effects. Continue treatment plan as outlined. Fredy Harper MD [facility] # [phone] [facility]ER[facility]
[2017-10-12] MEDS: LUMIGAN OU SCH (21:22)
[2017-10-13] MEDS: Brimonidine 0.2% Opth Sol (5ml) OU SCH ×3 (06:13→22:10)
[2017-10-13] MEDS: Dextrose 5%/0.45% NS 1,000 ML IV SCH ×3 (06:18→22:50)
[2017-10-13] MEDS: Metoprolol Succinate 50 mg XL Tab PO SCH (10:57)
[2017-10-13] MEDS: PILOCARPINE 1% OD SCH ×4 (10:57→22:10)
--- NOTE | 2017-10-13 13:10 | CP.PCM.PN ---
Subjective - Date & Time of Evaluation Date of Evaluation: 10/13/17 Time of Evaluation: 13:07 - Subjective Subjective: Patient sleeping most of the time, weak, confused, with poor foods intake. No complaint of pain, shortness of breath. Objective - Vital Signs/Intake and Output Vital Signs (last 24 hours): Temp Pulse Resp BP Pulse Ox 99 F 80 20 147/70 99 10/12/17 23:30 10/12/17 23:30 10/12/17 23:30 10/12/17 23:30 10/12/17 23:30 Intake and Output: 10/13/17 10/13/17 06:59 18:59 Intake Total 1400 Balance 1400 - Medications Medications: Current Medications Acetaminophen (Tylenol 325mg Tab) 650 mg PO Q6 PRN PRN Reason: Pain, moderate (4-7) Last Admin: 10/10/17 15:26 Dose: 650 mg Brimonidine Tartrate (Alphagan 0.2% Opht) 0 ml OU Q8H [facility] Last Admin: 10/13/17 06:13 Dose: 1 drop Clonidine HCl (Catapres) 0.1 mg PO TID PRN PRN Reason: Diastolic blood pressure Last Admin: 09/20/17 18:22 Dose: 0.1 mg Cyanocobalamin (Vitamin B12 1000 Mcg Tab) 1,000 mcg PO DAILY [facility] Last Admin: 10/13/17 10:57 Dose: 1,000 mcg Home Med (Patient's Own Drops) 1 drop OU HS [facility] Last Admin: 10/12/17 21:22 Dose: 1 drop Home Med (Patient's Own Drops) 1 drop OD QID [facility] Last Admin: 10/07/17 10:29 Dose: 1 drop Hydrochlorothiazide (Hydrodiuril) 25 mg PO DAILY [facility] Last Admin: 10/13/17 10:57 Dose: 25 mg Dextrose/Sodium Chloride (Dextrose 5%/0.45% Ns 1000 Ml) 1,000 mls @ 60 mls/hr IV .[id number] [facility] Last Admin: 10/13/17 06:18 Dose: Not Given Losartan Potassium (Cozaar) 100 mg PO DAILY [facility] Last Admin: 10/13/17 10:56 Dose: 100 mg Metoprolol Succinate (Toprol Xl) 50 mg PO DAILY [facility] Last Admin: 10/13/17 10:57 Dose: 50 mg Pilocarpine HCl (Isopto Carpine 1% Opht Soln) 1 drop OD QID [facility] Last Admin: 10/13/17 10:57 Dose: 1 drop - Labs Labs: 10/10/17 06:56 10/10/17 06:56 PT 13.2 SECONDS (9.7-12.2) H 09/20/17 08:43 INR 1.2 09/20/17 08:43 APTT 31 SECONDS (21-34) 09/20/17 08:43 - Constitutional Appears: Confused, Chronically Ill - Head Exam Head Exam: NORMAL INSPECTION - Eye Exam Eye Exam: Normal appearance - ENT Exam ENT Exam: Normal Exam - Neck Exam Neck Exam: Normal Inspection - Respiratory Exam Respiratory Exam: Clear to Ausculation Bilateral, NORMAL BREATHING PATTERN - Cardiovascular Exam Cardiovascular Exam: REGULAR RHYTHM - GI/Abdominal Exam GI & Abdominal Exam: Soft, Normal Bowel Sounds - Rectal Exam Rectal Exam: Deferred - Extremities Exam Extremities Exam: Normal Inspection - Back Exam Back Exam: NORMAL INSPECTION - Neurological Exam Additional comments: Patient confused. - Psychiatric Exam Additional comments: Patient sleeping most of the time. - Skin Skin Exam: Dry, Intact, Normal Color, Warm Assessment and Plan (1) Influenza Status: Resolved (2) UTI (urinary tract infection) Status: Resolved (3) Abnormal head CT Status: Resolved (4) Abnormal head CT Status: Resolved (5) Staphylococcus aureus bacteremia Status: Resolved (6) CVA (cerebral vascular accident) Status: Acute (7) Anorexia Assessment & Plan: For a PEG insertion on Tuesday by Dr Farooq. Status: Acute
--- NOTE | 2017-10-13 14:26 | CP.PCM.PN ---
Subjective - Date & Time of Evaluation Date of Evaluation: 10/13/17 Time of Evaluation: 14:22 - Subjective Subjective: Patient has no new complaints. She remains confused. Objective - Vital Signs/Intake and Output Vital Signs (last 24 hours): Temp Pulse Resp BP Pulse Ox 99 F 80 20 147/70 99 10/12/17 23:30 10/12/17 23:30 10/12/17 23:30 10/12/17 23:30 10/12/17 23:30 Intake and Output: 10/13/17 10/13/17 06:59 18:59 Intake Total 1400 Balance 1400 - Medications Medications: Current Medications Acetaminophen (Tylenol 325mg Tab) 650 mg PO Q6 PRN PRN Reason: Pain, moderate (4-7) Last Admin: 10/10/17 15:26 Dose: 650 mg Brimonidine Tartrate (Alphagan 0.2% Opht) 0 ml OU Q8H [facility] Last Admin: 10/13/17 13:29 Dose: 1 drop Clonidine HCl (Catapres) 0.1 mg PO TID PRN PRN Reason: Diastolic blood pressure Last Admin: 09/20/17 18:22 Dose: 0.1 mg Cyanocobalamin (Vitamin B12 1000 Mcg Tab) 1,000 mcg PO DAILY [facility] Last Admin: 10/13/17 10:57 Dose: 1,000 mcg Home Med (Patient's Own Drops) 1 drop OU HS [facility] Last Admin: 10/12/17 21:22 Dose: 1 drop Home Med (Patient's Own Drops) 1 drop OD QID [facility] Last Admin: 10/07/17 10:29 Dose: 1 drop Hydrochlorothiazide (Hydrodiuril) 25 mg PO DAILY [facility] Last Admin: 10/13/17 10:57 Dose: 25 mg Dextrose/Sodium Chloride (Dextrose 5%/0.45% Ns 1000 Ml) 1,000 mls @ 60 mls/hr IV .[id number] [facility] Last Admin: 10/13/17 06:18 Dose: Not Given Losartan Potassium (Cozaar) 100 mg PO DAILY [facility] Last Admin: 10/13/17 10:56 Dose: 100 mg Metoprolol Succinate (Toprol Xl) 50 mg PO DAILY [facility] Last Admin: 10/13/17 10:57 Dose: 50 mg Pilocarpine HCl (Isopto Carpine 1% Opht Soln) 1 drop OD QID [facility] Last Admin: 10/13/17 13:29 Dose: 1 drop - Labs Labs: 10/10/17 06:56 10/10/17 06:56 PT 13.2 SECONDS (9.7-12.2) H 09/20/17 08:43 INR 1.2 09/20/17 08:43 APTT 31 SECONDS (21-34) 09/20/17 08:43 - Constitutional Appears: No Acute Distress - Head Exam Head Exam: ATRAUMATIC, NORMOCEPHALIC - Eye Exam Eye Exam: EOMI, PERRL - Neck Exam Neck Exam: absent: Lymphadenopathy, Thyromegaly - Respiratory Exam Respiratory Exam: NORMAL BREATHING PATTERN. absent: Rales, Rhonchi, Wheezes - Cardiovascular Exam Cardiovascular Exam: REGULAR RHYTHM, +S1, +S2. absent: Gallop, Rubs, Murmur - GI/Abdominal Exam GI & Abdominal Exam: Soft, Normal Bowel Sounds. absent: Tenderness, Mass, Organomegaly - Rectal Exam Rectal Exam: Deferred - Extremities Exam Extremities Exam: absent: Calf Tenderness, Pedal Edema Assessment and Plan (1) Inadequate oral intake Assessment & Plan: PEG has been scheduled for Tuesday. Status: Acute
[2017-10-13] MEDS ORDERED: ceFAZolin 1 GM in Sodium Chloride 0.9% 100 ML IVPB ONE (15:00)
[2017-10-13] MEDS: LUMIGAN OU SCH (22:09)
[2017-10-14] MEDS: Brimonidine 0.2% Opth Sol (5ml) OU SCH ×3 (05:55→21:18)
[2017-10-14 08:01] LABS: INR 1.3; PROTHROMBIN TIME 14.1 SECONDS (9.7-12.2)
--- NOTE | 2017-10-14 08:10 | PN ---
DATE: 10/13/2017 SUBJECTIVE: The patient in her room, still confused, feeling weak, and very poor p.o. intake. The patient is seen by Dr. Farooq for PEG tube bleeding. The patient states that she is not hungry. She is also confused where she is and unsure if she is in the hospital. PHYSICAL EXAMINATION VITAL SIGNS: Temperature is 99, pulse 80, blood pressure 147/70, respirations 20, and oxygen saturation is 99%. REVIEW OF SYSTEMS: GENERAL: The patient is alert, verbal, but still confused. SKIN: No diaphoresis. HEENT: Legally blind, also hard of hearing. No headache. NECK: Supple. RESPIRATORY: No dyspnea. CARDIOVASCULAR: No chest pain. GASTROINTESTINAL: Has very poor p.o. intake. No nausea, no vomiting. No abdominal pain. EXTREMITIES: The patient moving all extremities. MUSCULOSKELETAL: Feels weak. NEUROLOGIC: Alert with increasing periods of confusion, probably secondary to very poor p.o. intake. The patient is getting more confused daily. The patient is on IV fluids, will leave PEG tube feeding. GENITOURINARY: No dysuria. MENTAL STATUS EXAMINATION: A very frail elderly female, looks alert but confused. Oriented only to present. The patient unsure if she is in hospital or at home. She is not agitated. Speech spontaneous. Affect is reactive. Mood is dysphoric. Thought process confused. Thought content, no si o rhi, no psychosis. No suicidal or homicidal ideation. Attention and memory seems to be limited. Insight and judgment limited. Impulse control is fair at this time. IMPRESSION: Delirium, metabolic encephalopathy, superimposed on dementia, history of cerebrovascular accident at the right basal ganglia, and failure to thrive, but no intervention. PLAN AND RECOMMENDATIONS: The patient is seen and medications reviewed. The patient is for PEG tube feedings once medically cleared. We will hold her psych meds for now. Continue treatment plan as outlined. We will also monitor her electrolytes, as well as her PT, PTT, INR values. Fredy Harper MD [facility]
[2017-10-14 08:23] LABS: BASO # 0.1 K/uL (0.0-0.2); BASO % 0.9 % (0.0-2.0); EOS # 0.4 K/uL (0.0-0.7); EOS % 5.2 % (0.0-4.0); HEMOGLOBIN 8.5 g/dL (11.0-16.0); LYMPH # 1.8 K/uL (1.0-4.3); LYMPH % 25.1 % (20.0-40.0); MEAN CELL VOLUME 81.5 fL (81.0-99.0); MEAN CORPUSCULAR HEMOGLOBIN 26.5 pg (27.0-31.0); MEAN CORPUSCULAR HGB CONC 32.6 g/dL (33.0-37.0); MEAN PLATELET VOLUME 8.4 fL (7.2-11.7); MONO # 0.6 K/uL (0.0-0.8); MONO % 7.9 % (0.0-10.0); NEUT # 4.3 K/uL (1.8-7.0); NEUT % 60.9 % (50.0-75.0); RBC 3.21 Mil/uL (3.80-5.20); RED CELL DISTRIBUTION WIDTH 14.9 % (11.5-14.5)
--- NOTE | 2017-10-14 08:29 | CP.PCM.PN ---
Subjective - Date & Time of Evaluation Date of Evaluation: 10/14/17 Time of Evaluation: 08:27 - Subjective Subjective: Patient complains of pain in the right arm from the IV. She denies having nausea, vomiting, abdominal pain. She remains confused. Objective - Vital Signs/Intake and Output Vital Signs (last 24 hours): Temp Pulse Resp BP Pulse Ox 97.5 F L 77 20 92/55 L 98 10/14/17 08:02 10/14/17 08:02 10/14/17 08:02 10/14/17 08:02 10/14/17 08:02 Intake and Output: 10/14/17 10/14/17 06:59 18:59 Intake Total 1080 Balance 1080 - Medications Medications: Current Medications Acetaminophen (Tylenol 325mg Tab) 650 mg PO Q6 PRN PRN Reason: Pain, moderate (4-7) Last Admin: 10/10/17 15:26 Dose: 650 mg Brimonidine Tartrate (Alphagan 0.2% Opht) 0 ml OU Q8H [facility] Last Admin: 10/14/17 05:55 Dose: 1 drop Clonidine HCl (Catapres) 0.1 mg PO TID PRN PRN Reason: Diastolic blood pressure Last Admin: 09/20/17 18:22 Dose: 0.1 mg Cyanocobalamin (Vitamin B12 1000 Mcg Tab) 1,000 mcg PO DAILY [facility] Last Admin: 10/13/17 10:57 Dose: 1,000 mcg Home Med (Patient's Own Drops) 1 drop OU HS [facility] Last Admin: 10/13/17 22:09 Dose: 1 drop Home Med (Patient's Own Drops) 1 drop OD QID [facility] Last Admin: 10/07/17 10:29 Dose: 1 drop Hydrochlorothiazide (Hydrodiuril) 25 mg PO DAILY [facility] Last Admin: 10/13/17 10:57 Dose: 25 mg Dextrose/Sodium Chloride (Dextrose 5%/0.45% Ns 1000 Ml) 1,000 mls @ 60 mls/hr IV .[id number] [facility] Last Admin: 10/13/17 22:50 Dose: Not Given Losartan Potassium (Cozaar) 100 mg PO DAILY [facility] Last Admin: 10/13/17 10:56 Dose: 100 mg Metoprolol Succinate (Toprol Xl) 50 mg PO DAILY [facility] Last Admin: 10/13/17 10:57 Dose: 50 mg Pilocarpine HCl (Isopto Carpine 1% Opht Soln) 1 drop OD QID [facility] Last Admin: 10/13/17 22:10 Dose: 1 drop - Labs Labs: 10/14/17 07:48 10/10/17 06:56 PT 14.1 SECONDS (9.7-12.2) H 10/14/17 07:48 INR 1.3 10/14/17 07:48 APTT 31 SECONDS (21-34) 09/20/17 08:43 - Constitutional Appears: No Acute Distress - Head Exam Head Exam: ATRAUMATIC, NORMOCEPHALIC - Neck Exam Neck Exam: absent: Lymphadenopathy, Thyromegaly - Respiratory Exam Respiratory Exam: NORMAL BREATHING PATTERN. absent: Rales, Rhonchi, Wheezes - Cardiovascular Exam Cardiovascular Exam: REGULAR RHYTHM, +S1, +S2. absent: Gallop, Rubs, Murmur - GI/Abdominal Exam GI & Abdominal Exam: Soft, Normal Bowel Sounds. absent: Tenderness, Mass, Organomegaly - Rectal Exam Rectal Exam: Deferred - Extremities Exam Extremities Exam: absent: Calf Tenderness, Pedal Edema Assessment and Plan (1) Inadequate oral intake Assessment & Plan: Plan is for EGD on Tuesday morning. Please keep patient NPO past midnight. Antibiotics have been ordered. Status: Acute
[2017-10-14 08:33] LABS: ALB/GLOB RATIO 0.8 (1.0-2.1); ALBUMIN 2.7 g/dL (3.5-5.0); ALT/SGPT 18 U/L (9-52); AST/SGOT 16 U/L (14-36); BLOOD UREA NITROGEN 8 mg/dL (7-17); CALCIUM 8.5 mg/dl (8.6-10.4); GFR AFRICAN-AMERICAN > 60; GFR NON-AFRICAN AMERICAN > 60
[2017-10-14] MEDS: PILOCARPINE 1% OD SCH ×4 (09:27→21:18)
[2017-10-14] MEDS: Metoprolol Succinate 50 mg XL Tab PO SCH (09:29)
[2017-10-14] MEDS: Dextrose 5%/0.45% NS 1,000 ML IV SCH (16:13)
[2017-10-14] MEDS ORDERED: Potassium Chloride 20 mEq ER Tab PO ONE (16:45)
--- NOTE | 2017-10-14 17:22 | PN ---
DATE: 10/14/2017 SUBJECTIVE: The patient noted to be still confused, feeling weak, refusing to eat as per daughter. The patient is scheduled for PEG tube placement this coming Tuesday. Her blood pressure seems to be low 92/55 and the patient still has hypokalemia, her last potassium was 2.9. Has very poor p.o. intake and seems to be getting weaker. Her confusion seems to be getting worse, but not agitated. VITAL SIGNS: Temperature Is 97.5, pulse rate 77, blood pressure as stated 92/55, respirations 20, oxygen saturation is 98% on room air. REVIEW OF SYSTEMS: GENERAL: The patient is arousable but drowsy, seen in her room with daughter, refusing to eat. The patient has periods of confusion. SKIN: No diaphoresis. HEENT: Legally blind. No headache as well as hard of hearing. NECK: Supple. RESPIRATORY: Not in acute respiratory distress. No dyspnea. CARDIOVASCULAR: No chest pain. GASTROINTESTINAL: Has very poor p.o. intake. No nausea, no vomiting. No abdominal pain. EXTREMITIES: The patient has been bed bound. MUSCULOSKELETAL: Generalized weakness. NEUROLOGIC: Alert with increasing periods of confusion. GENITOURINARY: No urinary problems, no dysuria. MENTAL STATUS EXAMINATION: A fairly looking elderly female who looks stated age, but very weak. The patient has not been eating. Speech is slow. Mood is dysphoric, depressed. Affect is restricted. Thought process, getting more confused. Thought content, refusing to eat. No overt psychosis. No suicidal or homicidal ideation. Attention and memory seems to be limited. Insight and judgment limited. Impulse control is fair. IMPRESSION: History of delirium, dementia, failure to thrive, anorexia, history of cerebrovascular accident of the right basal ganglia. PLAN AND RECOMMENDATIONS: The patient is seen. Medications reviewed. Continue present management. The patient is for PEG tube placement on Tuesday as per Dr. Farooq. Supportive care. Also, we will monitor her electrolytes and correct if it is needed. The patient is hypokalemic. Fredy Harper MD
--- NOTE | 2017-10-14 20:06 | CP.PCM.PN ---
Subjective - Date & Time of Evaluation Date of Evaluation: 10/14/17 Time of Evaluation: 20:03 - Subjective Subjective: Patient's condition unchanged: weak, not eating. Today K+: 2.9. K-Dur 40 mEq PO given. Objective - Vital Signs/Intake and Output Vital Signs (last 24 hours): Temp Pulse Resp BP Pulse Ox 97.8 F 84 18 128/69 100 10/14/17 15:36 10/14/17 15:36 10/14/17 15:36 10/14/17 15:36 10/14/17 15:36 - Medications Medications: Current Medications Acetaminophen (Tylenol 325mg Tab) 650 mg PO Q6 PRN PRN Reason: Pain, moderate (4-7) Last Admin: 10/10/17 15:26 Dose: 650 mg Brimonidine Tartrate (Alphagan 0.2% Opht) 0 ml OU Q8H [facility] Last Admin: 10/14/17 14:15 Dose: 1 drop Clonidine HCl (Catapres) 0.1 mg PO TID PRN PRN Reason: Diastolic blood pressure Last Admin: 09/20/17 18:22 Dose: 0.1 mg Cyanocobalamin (Vitamin B12 1000 Mcg Tab) 1,000 mcg PO DAILY [facility] Last Admin: 10/14/17 09:25 Dose: 1,000 mcg Home Med (Patient's Own Drops) 1 drop OU HS [facility] Last Admin: 10/13/17 22:09 Dose: 1 drop Home Med (Patient's Own Drops) 1 drop OD QID [facility] Last Admin: 10/07/17 10:29 Dose: 1 drop Hydrochlorothiazide (Hydrodiuril) 25 mg PO DAILY [facility] Last Admin: 10/14/17 09:29 Dose: Not Given Dextrose/Sodium Chloride (Dextrose 5%/0.45% Ns 1000 Ml) 1,000 mls @ 60 mls/hr IV .[id number] [facility] Last Admin: 10/14/17 16:13 Dose: Not Given Losartan Potassium (Cozaar) 100 mg PO DAILY [facility] Last Admin: 10/14/17 09:29 Dose: Not Given Metoprolol Succinate (Toprol Xl) 50 mg PO DAILY [facility] Last Admin: 10/14/17 09:29 Dose: Not Given Pilocarpine HCl (Isopto Carpine 1% Opht Soln) 1 drop OD QID [facility] Last Admin: 10/14/17 17:56 Dose: 1 drop - Labs Labs: 10/14/17 07:48 10/14/17 07:48 PT 14.1 SECONDS (9.7-12.2) H 10/14/17 07:48 INR 1.3 10/14/17 07:48 APTT 31 SECONDS (21-34) 09/20/17 08:43 - Constitutional Appears: No Acute Distress, Cachectic, Chronically Ill - Head Exam Head Exam: NORMAL INSPECTION - Eye Exam Eye Exam: Normal appearance - ENT Exam ENT Exam: Normal Exam - Neck Exam Neck Exam: Normal Inspection - Respiratory Exam Respiratory Exam: Clear to Ausculation Bilateral, NORMAL BREATHING PATTERN - Cardiovascular Exam Cardiovascular Exam: REGULAR RHYTHM - GI/Abdominal Exam GI & Abdominal Exam: Soft, Normal Bowel Sounds - Rectal Exam Rectal Exam: Deferred - Extremities Exam Extremities Exam: Full ROM, Normal Capillary Refill, Normal Inspection - Back Exam Back Exam: NORMAL INSPECTION - Neurological Exam Additional comments: Lethargic. - Skin Skin Exam: Dry, Intact, Normal Color Assessment and Plan (1) Influenza Status: Resolved (2) UTI (urinary tract infection) Status: Resolved (3) Abnormal head CT Status: Resolved (4) Abnormal head CT Status: Resolved (5) Staphylococcus aureus bacteremia Status: Resolved (6) CVA (cerebral vascular accident) Status: Acute (7) Anorexia Assessment & Plan: For a PEG insertion on Tuesday. Status: Acute
[2017-10-14] MEDS: LUMIGAN OU SCH (21:17)
[2017-10-15] MEDS: Brimonidine 0.2% Opth Sol (5ml) OU SCH ×3 (06:00→21:18)
[2017-10-15] MEDS: Dextrose 5%/0.45% NS 1,000 ML IV SCH ×2 (06:00→17:14)
[2017-10-15] MEDS: Metoprolol Succinate 50 mg XL Tab PO SCH (10:10)
[2017-10-15] MEDS: PILOCARPINE 1% OD SCH ×4 (10:10→21:18)
--- NOTE | 2017-10-15 11:24 | CP.PCM.PN ---
Subjective - Date & Time of Evaluation Date of Evaluation: 10/15/17 Time of Evaluation: 11:22 - Subjective Subjective: COVERING DR BABB No new c/o. Not SOB. WBC normal. Objective - Vital Signs/Intake and Output Vital Signs (last 24 hours): Temp Pulse Resp BP Pulse Ox 97.8 F 88 20 157/81 H 98 10/15/17 08:50 10/15/17 08:50 10/15/17 08:50 10/15/17 08:50 10/15/17 08:50 Intake and Output: 10/15/17 10/15/17 06:59 18:59 Intake Total 900 Output Total 300 Balance 600 - Medications Medications: Current Medications Acetaminophen (Tylenol 325mg Tab) 650 mg PO Q6 PRN PRN Reason: Pain, moderate (4-7) Last Admin: 10/15/17 00:40 Dose: 650 mg Brimonidine Tartrate (Alphagan 0.2% Opht) 0 ml OU Q8H [facility] Last Admin: 10/15/17 06:00 Dose: 1 drop Clonidine HCl (Catapres) 0.1 mg PO TID PRN PRN Reason: Diastolic blood pressure Last Admin: 09/20/17 18:22 Dose: 0.1 mg Cyanocobalamin (Vitamin B12 1000 Mcg Tab) 1,000 mcg PO DAILY [facility] Last Admin: 10/15/17 10:10 Dose: 1,000 mcg Home Med (Patient's Own Drops) 1 drop OU HS [facility] Last Admin: 10/14/17 21:17 Dose: 1 drop Home Med (Patient's Own Drops) 1 drop OD QID [facility] Last Admin: 10/07/17 10:29 Dose: 1 drop Hydrochlorothiazide (Hydrodiuril) 25 mg PO DAILY [facility] Last Admin: 10/15/17 10:10 Dose: 25 mg Dextrose/Sodium Chloride (Dextrose 5%/0.45% Ns 1000 Ml) 1,000 mls @ 60 mls/hr IV .[id number] [facility] Last Admin: 10/15/17 06:00 Dose: 60 mls/hr Losartan Potassium (Cozaar) 100 mg PO DAILY [facility] Last Admin: 10/15/17 10:10 Dose: 100 mg Metoprolol Succinate (Toprol Xl) 50 mg PO DAILY [facility] Last Admin: 10/15/17 10:10 Dose: 50 mg Pilocarpine HCl (Isopto Carpine 1% Opht Soln) 1 drop OD QID [facility] Last Admin: 10/15/17 10:10 Dose: 1 drop - Labs Labs: 10/14/17 07:48 10/14/17 07:48 PT 14.1 SECONDS (9.7-12.2) H 10/14/17 07:48 INR 1.3 10/14/17 07:48 APTT 31 SECONDS (21-34) 09/20/17 08:43 - Constitutional Appears: No Acute Distress - Head Exam Head Exam: ATRAUMATIC, NORMOCEPHALIC - Eye Exam Additional comments: blind - Respiratory Exam Respiratory Exam: NORMAL BREATHING PATTERN - Cardiovascular Exam Cardiovascular Exam: REGULAR RHYTHM, +S1 - GI/Abdominal Exam GI & Abdominal Exam: Soft, Normal Bowel Sounds. absent: Tenderness Additional comments: moderately obese - Extremities Exam Extremities Exam: Normal Inspection Assessment and Plan (1) CVA (cerebral vascular accident) Status: Acute (2) Inadequate oral intake Assessment & Plan: Patient scheduled for PEG tube on tuesday with Dr Babb NPO after midnight order placed Antibiotics as ordered. Status: Acute (3) Staphylococcus aureus bacteremia Status: Resolved
[2017-10-15 12:11] LABS: ALB/GLOB RATIO 0.8 (1.0-2.1); ALBUMIN 2.8 g/dL (3.5-5.0); ALT/SGPT 18 U/L (9-52); AST/SGOT 27 U/L (14-36); BLOOD UREA NITROGEN 9 mg/dL (7-17); CALCIUM 8.7 mg/dl (8.6-10.4); GFR AFRICAN-AMERICAN > 60; GFR NON-AFRICAN AMERICAN > 60
[2017-10-15] MEDS ORDERED: Potassium Chloride 20 mEq/15 ml LIQ UD PO ONE (12:30)
[2017-10-15] MEDS ORDERED: Potassium Chloride 10 MEQ in Dextrose 5%/0.45% NS 1,000 ML IV SCH (15:00)
[2017-10-15] MEDS ORDERED: Potassium Chloride 20 mEq ER Tab PO STA (16:57)
--- NOTE | 2017-10-15 17:03 | CP.PCM.PN ---
Subjective - Date & Time of Evaluation Date of Evaluation: 10/15/17 Time of Evaluation: 17:00 - Subjective Subjective: Patient's condition unchanged: still weak, confused, with poor appetite. K+: 3.2. Complaining of of severe burning at the IV site where IV KCl was given. Will discontinue IV KCl and order PO K-DUR instead. Will also discontinue HCTZ. Objective - Vital Signs/Intake and Output Vital Signs (last 24 hours): Temp Pulse Resp BP Pulse Ox 97.8 F 88 20 157/81 H 98 10/15/17 08:50 10/15/17 08:50 10/15/17 08:50 10/15/17 08:50 10/15/17 08:50 Intake and Output: 10/15/17 10/15/17 06:59 18:59 Intake Total 900 Output Total 300 Balance 600 - Medications Medications: Current Medications Acetaminophen (Tylenol 325mg Tab) 650 mg PO Q6 PRN PRN Reason: Pain, moderate (4-7) Last Admin: 10/15/17 16:49 Dose: 650 mg Brimonidine Tartrate (Alphagan 0.2% Opht) 0 ml OU Q8H [facility] Last Admin: 10/15/17 13:22 Dose: 1 drop Clonidine HCl (Catapres) 0.1 mg PO TID PRN PRN Reason: Diastolic blood pressure Last Admin: 09/20/17 18:22 Dose: 0.1 mg Cyanocobalamin (Vitamin B12 1000 Mcg Tab) 1,000 mcg PO DAILY [facility] Last Admin: 10/15/17 10:10 Dose: 1,000 mcg Home Med (Patient's Own Drops) 1 drop OU HS [facility] Last Admin: 10/14/17 21:17 Dose: 1 drop Home Med (Patient's Own Drops) 1 drop OD QID [facility] Last Admin: 10/07/17 10:29 Dose: 1 drop Dextrose/Sodium Chloride (Dextrose 5%/0.45% Ns 1000 Ml) 1,000 mls @ 60 mls/hr IV .[id number] [facility] Losartan Potassium (Cozaar) 100 mg PO DAILY [facility] Last Admin: 10/15/17 10:10 Dose: 100 mg Metoprolol Succinate (Toprol Xl) 50 mg PO DAILY [facility] Last Admin: 10/15/17 10:10 Dose: 50 mg Pilocarpine HCl (Isopto Carpine 1% Opht Soln) 1 drop OD QID [facility] Last Admin: 10/15/17 13:22 Dose: 1 drop Potassium Chloride (K-Dur 20 Meq Er Tab) 20 meq PO STAT [facility] Stop: 10/15/17 16:58 - Labs Labs: 10/14/17 07:48 10/15/17 11:35 PT 14.1 SECONDS (9.7-12.2) H 10/14/17 07:48 INR 1.3 10/14/17 07:48 APTT 31 SECONDS (21-34) 09/20/17 08:43 - Constitutional Appears: Cachectic, Chronically Ill - Head Exam Head Exam: NORMAL INSPECTION - Eye Exam Eye Exam: Normal appearance - ENT Exam ENT Exam: Normal Exam - Neck Exam Neck Exam: Normal Inspection - Respiratory Exam Respiratory Exam: Clear to Ausculation Bilateral, NORMAL BREATHING PATTERN - Cardiovascular Exam Cardiovascular Exam: REGULAR RHYTHM - GI/Abdominal Exam GI & Abdominal Exam: Soft, Normal Bowel Sounds - Rectal Exam Rectal Exam: Deferred - Exam Exam: NORMAL INSPECTION - Extremities Exam Extremities Exam: Normal Inspection - Back Exam Back Exam: NORMAL INSPECTION - Neurological Exam Additional comments: Patient lethargic. - Skin Skin Exam: Dry, Intact, Normal Color, Warm Assessment and Plan (1) Influenza Status: Resolved (2) UTI (urinary tract infection) Status: Resolved (3) Abnormal head CT Status: Resolved (4) Abnormal head CT Status: Resolved (5) Staphylococcus aureus bacteremia Status: Resolved (6) CVA (cerebral vascular accident) Status: Acute (7) Anorexia Assessment & Plan: For a PEG insertion on Tuesday. Status: Acute
--- NOTE | 2017-10-15 18:56 | PN ---
DATE: 10/15/2017 SUBJECTIVE: The patient is seen. The patient was alert, still with periods of confusion. The patient tried to eat today but she is still eating less than 50% of her meals, still hard of hearing. She is also legally blind. The patient is for PEG tube on this coming Tuesday by Dr. Farooq. VITAL SIGNS: Temperature is 97.8, pulse rate 88, blood pressure 157/81, respirations 20, oxygen saturation 98%. REVIEW OF SYSTEMS: GENERAL: The patient is alert, feeling weak, frail, seen in her room, still confused. SKIN: No pruritus. HEENT: Still legally blind. Hard of hearing. No headache. NECK: Supple. RESPIRATORY: No dyspnea. CARDIOVASCULAR: No chest pain. GASTROINTESTINAL: No abdominal pain. Has very poor p.o. intake. No nausea. No vomiting. EXTREMITIES: The patient is moving the extremities but mostly bend down, has not been ambulating. MUSCULOSKELETAL: Has generalized weakness. NEUROLOGIC: Alert with periods of confusion. GENITOURINARY: No dysuria. MENTAL STATUS EXAMINATION: Elderly female, who looks weak, alert but still with periods of confusion, seen in her room, oriented to place only. Speech is spontaneous. Affect is reactive. Mood is dysphoric. Thought process, confused. Thought content, the patient still not eating well. The patient vomited today when she was given the liquid potassium. On review of her labs, the potassium last level is 3.2 which is a little improved. Thought content, no psychosis. No suicidal or homicidal ideation. Attention and memory seems to be limited. Insight and judgment is limited. Impulse control is fair at this time. IMPRESSION: Delirium, metabolic encephalopathy, history of cerebrovascular vascular accident at the right basal ganglia, anorexia, failure to thrive, dementia with mood changes. PLAN/RECOMMENDATIONS: The patient's meds reviewed. Continue IV fluids as ordered. The patient is for PEG tube on this tuesday. Fredy Harper MD
[2017-10-15] MEDS: LUMIGAN OU SCH (21:18)
[2017-10-16] MEDS: Dextrose 5%/0.45% NS 1,000 ML IV SCH (00:25)
[2017-10-16] MEDS: Brimonidine 0.2% Opth Sol (5ml) OU SCH ×3 (06:09→21:58)
[2017-10-16 09:04] LABS: ALB/GLOB RATIO 0.8 (1.0-2.1); ALBUMIN 2.7 g/dL (3.5-5.0); ALT/SGPT 16 U/L (9-52); AST/SGOT 23 U/L (14-36); BLOOD UREA NITROGEN 7 mg/dL (7-17); CALCIUM 8.9 mg/dl (8.6-10.4); GFR AFRICAN-AMERICAN > 60; GFR NON-AFRICAN AMERICAN > 60; MAGNESIUM 1.3 mg/dL (1.6-2.3)
[2017-10-16] MEDS: PILOCARPINE 1% OD SCH ×4 (09:11→21:58)
[2017-10-16] MEDS: Metoprolol Succinate 50 mg XL Tab PO SCH (09:11)
--- NOTE | 2017-10-16 12:05 | CP.PCM.PN ---
Subjective - Date & Time of Evaluation Date of Evaluation: 10/16/17 Time of Evaluation: 12:04 - Subjective Subjective: COVERING DR BABB No new complaints per patient. Aware of procedure tomorrow Objective - Vital Signs/Intake and Output Vital Signs (last 24 hours): Temp Pulse Resp BP Pulse Ox 98.4 F 89 21 128/68 89 L 10/16/17 07:58 10/16/17 07:58 10/16/17 07:58 10/16/17 07:58 10/16/17 07:58 Intake and Output: 10/16/17 10/16/17 06:59 18:59 Intake Total 1300 Output Total 1000 Balance 300 - Medications Medications: Current Medications Acetaminophen (Tylenol 325mg Tab) 650 mg PO Q6 PRN PRN Reason: Pain, moderate (4-7) Last Admin: 10/15/17 16:49 Dose: 650 mg Brimonidine Tartrate (Alphagan 0.2% Opht) 0 ml OU Q8H [facility] Last Admin: 10/16/17 06:09 Dose: 1 drop Clonidine HCl (Catapres) 0.1 mg PO TID PRN PRN Reason: Diastolic blood pressure Last Admin: 09/20/17 18:22 Dose: 0.1 mg Cyanocobalamin (Vitamin B12 1000 Mcg Tab) 1,000 mcg PO DAILY [facility] Last Admin: 10/16/17 09:11 Dose: 1,000 mcg Home Med (Patient's Own Drops) 1 drop OU HS [facility] Last Admin: 10/15/17 21:18 Dose: 1 drop Home Med (Patient's Own Drops) 1 drop OD QID [facility] Last Admin: 10/07/17 10:29 Dose: 1 drop Dextrose/Sodium Chloride (Dextrose 5%/0.45% Ns 1000 Ml) 1,000 mls @ 60 mls/hr IV .[id number] [facility] Last Admin: 10/16/17 00:25 Dose: 60 mls/hr Losartan Potassium (Cozaar) 100 mg PO DAILY [facility] Last Admin: 10/16/17 09:11 Dose: 100 mg Metoprolol Succinate (Toprol Xl) 50 mg PO DAILY [facility] Last Admin: 10/16/17 09:11 Dose: 50 mg Pilocarpine HCl (Isopto Carpine 1% Opht Soln) 1 drop OD QID [facility] Last Admin: 10/16/17 09:11 Dose: 1 drop - Labs Labs: 10/14/17 07:48 10/16/17 08:29 PT 14.1 SECONDS (9.7-12.2) H 10/14/17 07:48 INR 1.3 10/14/17 07:48 APTT 31 SECONDS (21-34) 09/20/17 08:43 - Constitutional Appears: No Acute Distress - Head Exam Head Exam: ATRAUMATIC, NORMOCEPHALIC - Respiratory Exam Respiratory Exam: NORMAL BREATHING PATTERN - Cardiovascular Exam Cardiovascular Exam: REGULAR RHYTHM - GI/Abdominal Exam GI & Abdominal Exam: Soft, Normal Bowel Sounds. absent: Tenderness Assessment and Plan (1) CVA (cerebral vascular accident) Status: Acute (2) Inadequate oral intake Assessment & Plan: Stable for PEG insertion tomorrow am NPO after midnight. Blood thinners on hold. Antibiotics as previously ordered. Status: Acute (3) Staphylococcus aureus bacteremia Status: Resolved
--- NOTE | 2017-10-16 20:28 | PN ---
DATE: SUBJECTIVE: The patient is seen. The patient continues to be weak with periods of confusion. She was seen by her grandson who visited her.The patient has very poor p.o. intake. The patient is for PEG tube in the morning. The patient is a little bit disoriented, but her blood sugar last one is 111. The patient is on IV fluids. Her last potassium is 3.6. PHYSICAL EXAMINATION VITAL SIGNS: Temperature is 98.4, pulse rate 89, blood pressure 128/68, respirations 21, oxygen saturation is 98% on room air. REVIEW OF SYSTEMS: GENERAL: The patient is alert, but still confused, not agitated, not in acute respiratory distress. SKIN: No diaphoresis. HEENT: Legally blind. No hard of hearing. No headache. NECK: Supple. RESPIRATORY: No dyspnea. CARDIOVASCULAR: No chest pain. GASTROINTESTINAL: The patient has very poor p.o. intake yesterday. She rarely eats less than 20% of her meals. No abdominal pain. No nausea. No vomiting. EXTREMITIES: The patient has been bed bound. MUSCULOSKELETAL: Generalized weakness. NEUROLOGIC: Alert with increasing periods of confusion. MENTAL STATUS EXAMINATION: Elderly female, who looks frail, weak with increasing confusion, oriented only to person, not to time and place. Speech is slow. Affect is restricted. Mood is dysphoric. Thought process, confused off and on. Thought content, no overt psychosis. No suicidal ideation. Attention and memory seem to be limited. Insight and judgment are limited. Impulse control is fair at this time. IMPRESSION: History of delirium and metabolic encephalopathy as well as superimposed dementia with changes, history of anorexia, history of cerebrovascular accident with a right basal ganglia. PLAN AND RECOMMENDATIONS: The patient is seen and meds reviewed. The patient is for PEG tube placement in the morning as the patient's p.o. intake is very poor. We will keep the patient on psych meds for now. Once the patient improve. The patient will go for subacute rehab once she is more medically stable. Fredy Harper MD [facility]
[2017-10-16] MEDS: LUMIGAN OU SCH (21:58)
[2017-10-17] MEDS: Dextrose 5%/0.45% NS 1,000 ML IV SCH ×2 (02:40→19:39)
[2017-10-17] MEDS: Brimonidine 0.2% Opth Sol (5ml) OU SCH ×3 (06:00→21:19)
[2017-10-17] MEDS: Metoprolol Succinate 50 mg XL Tab PO SCH ×2 (07:30→10:28)
[2017-10-17] MEDS ORDERED: ceFAZolin 1 GM in Sodium Chloride 0.9% 100 ML IVPB ONE (10:00)
[2017-10-17] MEDS ORDERED: Lactated Ringer's 1,000 ML IV ONE (10:10)
[2017-10-17] MEDS: PILOCARPINE 1% OD SCH ×4 (10:28→21:21)
[2017-10-17] MEDS ORDERED: Propofol 10 mg/ml Inj (20 ML) ONE (10:54)
[2017-10-17] MEDS ORDERED: Lidocaine Hydrochloride 5 ML INJ ONE (10:55)
[2017-10-17] MEDS ORDERED: Etomidate 20 mg/10ml Inj IV ONE (10:55)
[2017-10-17] MEDS ORDERED: Esmolol 100 mg/10ml Inj IV ONE (10:56)
[2017-10-17] MEDS: ceFAZolin 1 GM in Sodium Chloride 0.9% 100 ML IVPB SCH (17:45)
--- NOTE | 2017-10-17 19:07 | PN ---
DATE: SUBJECTIVE: The patient went for PEG tube placement to be done by Dr. Farooq today. She is sleepy, still with periods of confusion, seen by family member at bedside. VITAL SIGNS: Temperature 97.3, pulse 95, blood pressure 160/75, respirations 17, and oxygen saturation 99%. REVIEW OF SYSTEMS: GENERAL: The patient is sleepy but arousable, resting, still confused, hard of hearing, legally blind. SKIN: No diaphoresis. HEENT: No headache. NECK: Supple. RESPIRATORY: No dyspnea. CARDIOVASCULAR: No chest pain. GASTROINTESTINAL: No abdominal pain. No nausea. No vomiting. Status post PEG tube placement. EXTREMITIES: The patient has been bedbound. MUSCULOSKELETAL: Has generalized debility. NEUROLOGIC: Alert with periods of confusion. MENTAL STATUS EXAMINATION: Elderly female who looks stated age, drowsy but arousable, still confused. Speech is slow. Mood is dysphoric. Affect is restricted. Thought process, confused. Thought content, no overt paranoia or hallucination. No suicidal thought or ideation. Attention and memory seem to be limited. Insight and judgment are limited. Impulse control is fair at this time. IMPRESSION: History of delirium, metabolic encephalopathy, cerebrovascular accident of the right basal ganglia, anorexia, dementia with mood changes, status post percutaneous endoscopic gastrostomy tube feeding. PLAN AND RECOMMENDATIONS: The patient is seen, medications reviewed. Continue present management. The patient is for PEG tube feeding once cleared by Dr. Farooq. We will hold off any psychiatric medications for now. Once the patient is medically stable, the patient may go for subacute rehab for reconditioning, possibly to [facility]. Fredy Harper MD [facility]
--- NOTE | 2017-10-17 20:36 | CP.PCM.PN ---
Subjective - Date & Time of Evaluation Date of Evaluation: 10/17/17 Time of Evaluation: 20:33 - Subjective Subjective: Patient has a PEG insertion today. Confused, but in no respiratory distress. Objective - Vital Signs/Intake and Output Vital Signs (last 24 hours): Temp Pulse Resp BP Pulse Ox 99.1 F 80 18 153/75 H 100 10/17/17 16:00 10/17/17 16:00 10/17/17 16:00 10/17/17 16:00 10/17/17 16:00 - Medications Medications: Current Medications Acetaminophen (Tylenol 325mg Tab) 650 mg PO Q6 PRN PRN Reason: Pain, moderate (4-7) Last Admin: 10/15/17 16:49 Dose: 650 mg Brimonidine Tartrate (Alphagan 0.2% Opht) 0 ml OU Q8H [facility] Last Admin: 10/17/17 13:11 Dose: 1 drop Clonidine HCl (Catapres) 0.1 mg PO TID PRN PRN Reason: Diastolic blood pressure Last Admin: 09/20/17 18:22 Dose: 0.1 mg Cyanocobalamin (Vitamin B12 1000 Mcg Tab) 1,000 mcg PO DAILY [facility] Last Admin: 10/17/17 10:28 Dose: Not Given Home Med (Patient's Own Drops) 1 drop OU HS [facility] Last Admin: 10/16/17 21:58 Dose: 1 drop Home Med (Patient's Own Drops) 1 drop OD QID [facility] Last Admin: 10/07/17 10:29 Dose: 1 drop Dextrose/Sodium Chloride (Dextrose 5%/0.45% Ns 1000 Ml) 1,000 mls @ 60 mls/hr IV .[id number] [facility] Last Admin: 10/17/17 19:39 Dose: Not Given Cefazolin Sodium 1 gm/ Sodium (Chloride) 100 mls @ 200 mls/hr IVPB Q8H [facility] Stop: 10/18/17 18:29 Last Admin: 10/17/17 17:45 Dose: 200 mls/hr Losartan Potassium (Cozaar) 100 mg PO DAILY [facility] Last Admin: 10/17/17 10:28 Dose: Not Given Metoprolol Succinate (Toprol Xl) 50 mg PO DAILY [facility] Last Admin: 10/17/17 10:28 Dose: Not Given Pilocarpine HCl (Isopto Carpine 1% Opht Soln) 1 drop OD QID [facility] Last Admin: 10/17/17 17:47 Dose: 1 drop - Labs Labs: 10/14/17 07:48 10/16/17 08:29 PT 14.1 SECONDS (9.7-12.2) H 10/14/17 07:48 INR 1.3 10/14/17 07:48 APTT 31 SECONDS (21-34) 09/20/17 08:43 - Constitutional Appears: Cachectic, Chronically Ill - Head Exam Head Exam: NORMOCEPHALIC - Eye Exam Eye Exam: Normal appearance - ENT Exam ENT Exam: Normal Exam - Neck Exam Neck Exam: Normal Inspection - Respiratory Exam Respiratory Exam: Clear to Ausculation Bilateral, NORMAL BREATHING PATTERN - Cardiovascular Exam Cardiovascular Exam: REGULAR RHYTHM - GI/Abdominal Exam GI & Abdominal Exam: Soft, Normal Bowel Sounds - Rectal Exam Rectal Exam: Deferred - Extremities Exam Extremities Exam: Normal Inspection - Back Exam Back Exam: NORMAL INSPECTION - Neurological Exam Additional comments: Lethargic. - Psychiatric Exam Additional comments: Confused. - Skin Skin Exam: Dry, Intact, Normal Color, Warm Assessment and Plan (1) Influenza Status: Resolved (2) UTI (urinary tract infection) Status: Resolved (3) Abnormal head CT Status: Resolved (4) Abnormal head CT Status: Resolved (5) Staphylococcus aureus bacteremia Status: Resolved (6) CVA (cerebral vascular accident) Status: Acute (7) Anorexia Assessment & Plan: PEG inserted today by DR Farooq. Status: Acute
[2017-10-17] MEDS: LUMIGAN OU SCH (21:20)
[2017-10-18] MEDS: ceFAZolin 1 GM in Sodium Chloride 0.9% 100 ML IVPB SCH (01:00)
[2017-10-18] MEDS: Dextrose 5%/0.45% NS 1,000 ML IV SCH (01:01)
[2017-10-18] MEDS: Brimonidine 0.2% Opth Sol (5ml) OU SCH ×3 (06:19→21:16)
[2017-10-18 06:36] LABS: HEMOGLOBIN 9.7 g/dL (11.0-16.0); MEAN CELL VOLUME 82.1 fL (81.0-99.0); MEAN CORPUSCULAR HEMOGLOBIN 26.5 pg (27.0-31.0); MEAN CORPUSCULAR HGB CONC 32.3 g/dL (33.0-37.0); RBC 3.65 Mil/uL (3.80-5.20); RED CELL DISTRIBUTION WIDTH 15.5 % (11.5-14.5); WHITE BLOOD COUNT 23.4 K/uL (4.8-10.8)
[2017-10-18 07:56] LABS: ALB/GLOB RATIO 0.8 (1.0-2.1); ALT/SGPT 8 U/L (9-52); AST/SGOT 23 U/L (14-36); BLOOD UREA NITROGEN 8 mg/dL (7-17); CALCIUM 9.1 mg/dl (8.6-10.4); GFR AFRICAN-AMERICAN > 60; GFR NON-AFRICAN AMERICAN > 60
[2017-10-18] MEDS: Metoprolol Succinate 50 mg XL Tab PO SCH (10:42)
[2017-10-18] MEDS: PILOCARPINE 1% OD SCH ×4 (10:44→21:17)
--- NOTE | 2017-10-18 13:23 | RAD ---
HISTORY: wbc elevated pt has PEG COMPARISON: Chest x-ray performed 09/24/17 TECHNIQUE: Chest, one view. FINDINGS: LUNGS: No focal consolidation. Please note that chest x-ray has limited sensitivity for the detection of pulmonary masses. PLEURA: No significant pleural effusion identified. No definite pneumothorax . CARDIOVASCULAR: Heart size appears top normal. Ectatic aorta. OSSEOUS STRUCTURES: Osseous demineralization. Degenerative changes. Acromioclavicular arthropathy. VISUALIZED UPPER ABDOMEN: Unremarkable. OTHER FINDINGS: None. IMPRESSION: No focal consolidation identified.
--- NOTE | 2017-10-18 13:45 | PN ---
DATE: 10/18/2017. SUBJECTIVE: The patient is seen. The patient is status post PEG tube placement but has not been using it for nutritional supplement; however, the patient today noted to be still confused but more alert. The patient was asking if her family is okay. Review of her lab showed her WBC went up so drastically high, her current WBC now is 23.4, compared to the last one which was just 7. The patient's potassium also went down, the patient's potassium is only 3. The patient is not agitated. VITAL SIGNS: The patient's temperature is 97, pulse rate is 86, blood pressure 158/83. MEDICATIONS: The only medication change the patient had, the patient was given an Ancef yesterday antibiotic. REVIEW OF SYSTEMS: GENERAL: The patient is alert, but confused, seen in her room, not agitated. It was noted also that her upper lips to be swollen. SKIN: No pruritus. HEENT: Legally blind, hard of hearing. No headache. NECK: Supple. RESPIRATORY: No dyspnea. CARDIOVASCULAR: No chest pain. GASTROINTESTINAL: The patient is status post PEG tube placement. No abdominal pain. No diarrhea. No nausea, no vomiting. EXTREMITIES: Has been bedbound. MUSCULOSKELETAL: Generalized weakness. NEUROLOGIC: Alert but seems to be increasing periods of confusion. The patient is disoriented. She just knows she is in hospital. She only oriented to person. MENTAL STATUS EXAMINATION: Fair looking elderly female who looks stated age, oriented only to person. Speech is slow. Affect is restricted. Mood is dysphoric. Thought process is confused. Thought content, the patient thinks she is at home. No overt paranoia. No suicidal thought or ideation. Her mental status seems to be waxing and waning. Attention and memory seems to be limited. Insight and judgment limited. Impulse control is fair at this time. IMPRESSION: Delirium, metabolic encephalopathy, rule out sepsis with superimposed dementia with mood changes, status post percutaneous endoscopic gastrostomy tube placement, anorexia. PLAN AND RECOMMENDATIONS: Case is discussed with Dr. Mosher. The patient may need blood culture although she is afebrile at this time. For now, we will keep monitoring the patient's mental status. We will keep her off psyche meds for now. The patient is awaiting medical clearance to go for subacute rehab once she is medically cleared and once her PEG tube is functioning. Fredy Harper MD [facility] # [id number] [facility]
[2017-10-18] MEDS ORDERED: Dextrose 5%/0.45% NS 1,000 ML IV SCH (14:30)
[2017-10-18 17:06] LABS: ALB/GLOB RATIO 0.8 (1.0-2.1); ALBUMIN 2.8 g/dL (3.5-5.0); ALT/SGPT 15 U/L (9-52); AST/SGOT 16 U/L (14-36); BLOOD UREA NITROGEN 8 mg/dL (7-17); CALCIUM 8.8 mg/dl (8.6-10.4); GFR AFRICAN-AMERICAN > 60; GFR NON-AFRICAN AMERICAN > 60
--- NOTE | 2017-10-18 17:13 | CP.PCM.PN ---
Subjective - Date & Time of Evaluation Date of Evaluation: 10/18/17 Time of Evaluation: 17:11 - Subjective Subjective: Patient's mental status is unchanged. She denies having abdominal pain or shortness of breath. Objective - Vital Signs/Intake and Output Vital Signs (last 24 hours): Temp Pulse Resp BP Pulse Ox 98 F 83 18 115/53 L 99 10/18/17 16:00 10/18/17 16:00 10/18/17 16:00 10/18/17 16:00 10/18/17 16:00 Intake and Output: 10/18/17 10/18/17 06:59 18:59 Intake Total 480 480 Balance 480 480 - Medications Medications: Current Medications Acetaminophen (Tylenol 325mg Tab) 650 mg PO Q6 PRN PRN Reason: Pain, moderate (4-7) Last Admin: 10/15/17 16:49 Dose: 650 mg Aspirin (Ecotrin) 81 mg PO DAILY [facility] Last Admin: 10/18/17 12:58 Dose: 81 mg Brimonidine Tartrate (Alphagan 0.2% Opht) 0 ml OU Q8H [facility] Last Admin: 10/18/17 14:04 Dose: 1 drop Clonidine HCl (Catapres) 0.1 mg PO TID PRN PRN Reason: Diastolic blood pressure Last Admin: 09/20/17 18:22 Dose: 0.1 mg Clopidogrel Bisulfate (Plavix) 75 mg PO DAILY [facility] Last Admin: 10/18/17 12:58 Dose: 75 mg Cyanocobalamin (Vitamin B12 1000 Mcg Tab) 1,000 mcg PO DAILY [facility] Last Admin: 10/18/17 10:42 Dose: 1,000 mcg Heparin Sodium (Porcine) (Heparin) 5,000 units SC Q8 [facility] Last Admin: 10/18/17 14:05 Dose: 5,000 units Home Med (Patient's Own Drops) 1 drop OU HS [facility] Last Admin: 10/17/17 21:20 Dose: 1 drop Home Med (Patient's Own Drops) 1 drop OD QID [facility] Last Admin: 10/07/17 10:29 Dose: 1 drop Dextrose/Sodium Chloride (Dextrose 5%/0.45% Ns 1000 Ml) 1,000 mls @ 40 mls/hr IV .Q24H [facility] Last Admin: 10/18/17 16:31 Dose: 40 mls/hr Imipenem/Cilastatin Sodium 500 (mg/ Sodium Chloride) 100 mls @ 100 mls/hr IVPB Q8H [facility] Last Admin: 10/18/17 16:53 Dose: 100 mls/hr Losartan Potassium (Cozaar) 100 mg PO DAILY [facility] Last Admin: 10/18/17 10:42 Dose: 100 mg Metoprolol Succinate (Toprol Xl) 50 mg PO DAILY [facility] Last Admin: 10/18/17 10:42 Dose: 50 mg Pilocarpine HCl (Isopto Carpine 1% Opht Soln) 1 drop OD QID [facility] Last Admin: 10/18/17 14:08 Dose: 1 drop - Labs Labs: 10/18/17 06:23 10/18/17 16:44 PT 14.1 SECONDS (9.7-12.2) H 10/14/17 07:48 INR 1.3 10/14/17 07:48 APTT 31 SECONDS (21-34) 09/20/17 08:43 - Constitutional Appears: No Acute Distress - Head Exam Head Exam: ATRAUMATIC, NORMOCEPHALIC - Eye Exam Eye Exam: EOMI - Neck Exam Neck Exam: absent: Lymphadenopathy, Thyromegaly - Respiratory Exam Respiratory Exam: NORMAL BREATHING PATTERN. absent: Rales, Rhonchi, Wheezes - Cardiovascular Exam Cardiovascular Exam: REGULAR RHYTHM, +S1, +S2. absent: Gallop, Rubs, Murmur - GI/Abdominal Exam GI & Abdominal Exam: Soft, Normal Bowel Sounds. absent: Tenderness, Organomegaly Additional comments: Gastrostomy site clean and dry. - Rectal Exam Rectal Exam: Deferred - Extremities Exam Extremities Exam: absent: Calf Tenderness, Pedal Edema Assessment and Plan (1) Inadequate oral intake Assessment & Plan: Patient is day 1 post PEG. The WBC count went up to 23,400. The CXR shows no infiltrates. Will repeat CBC and check urine culture. Status: Acute
--- NOTE | 2017-10-18 18:50 | CP.PCM.PN ---
Subjective - Date & Time of Evaluation Date of Evaluation: 10/18/17 Time of Evaluation: 18:48 - Subjective Subjective: Patient more alert today, but still confused. WBC: 23.400. Afebrile, no cough, no congestion. Blood and urine cultures ordered by Dr Kimbrough. Patient was started on Merem. Objective - Vital Signs/Intake and Output Vital Signs (last 24 hours): Temp Pulse Resp BP Pulse Ox 98 F 83 18 115/53 L 99 10/18/17 16:00 10/18/17 16:00 10/18/17 16:00 10/18/17 16:00 10/18/17 16:00 Intake and Output: 10/18/17 10/18/17 06:59 18:59 Intake Total 480 480 Balance 480 480 - Medications Medications: Current Medications Acetaminophen (Tylenol 325mg Tab) 650 mg PO Q6 PRN PRN Reason: Pain, moderate (4-7) Last Admin: 10/15/17 16:49 Dose: 650 mg Aspirin (Ecotrin) 81 mg PO DAILY [facility] Last Admin: 10/18/17 12:58 Dose: 81 mg Brimonidine Tartrate (Alphagan 0.2% Opht) 0 ml OU Q8H [facility] Last Admin: 10/18/17 14:04 Dose: 1 drop Clonidine HCl (Catapres) 0.1 mg PO TID PRN PRN Reason: Diastolic blood pressure Last Admin: 09/20/17 18:22 Dose: 0.1 mg Clopidogrel Bisulfate (Plavix) 75 mg PO DAILY [facility] Last Admin: 10/18/17 12:58 Dose: 75 mg Cyanocobalamin (Vitamin B12 1000 Mcg Tab) 1,000 mcg PO DAILY [facility] Last Admin: 10/18/17 10:42 Dose: 1,000 mcg Heparin Sodium (Porcine) (Heparin) 5,000 units SC Q8 [facility] Last Admin: 10/18/17 14:05 Dose: 5,000 units Home Med (Patient's Own Drops) 1 drop OU HS [facility] Last Admin: 10/17/17 21:20 Dose: 1 drop Home Med (Patient's Own Drops) 1 drop OD QID [facility] Last Admin: 10/07/17 10:29 Dose: 1 drop Dextrose/Sodium Chloride (Dextrose 5%/0.45% Ns 1000 Ml) 1,000 mls @ 40 mls/hr IV .Q24H [facility] Last Admin: 10/18/17 16:31 Dose: 40 mls/hr Imipenem/Cilastatin Sodium 500 (mg/ Sodium Chloride) 100 mls @ 100 mls/hr IVPB Q8H [facility] Last Admin: 10/18/17 16:53 Dose: 100 mls/hr Losartan Potassium (Cozaar) 100 mg PO DAILY [facility] Last Admin: 10/18/17 10:42 Dose: 100 mg Metoprolol Succinate (Toprol Xl) 50 mg PO DAILY [facility] Last Admin: 10/18/17 10:42 Dose: 50 mg Pilocarpine HCl (Isopto Carpine 1% Opht Soln) 1 drop OD QID [facility] Last Admin: 10/18/17 18:09 Dose: 1 drop - Labs Labs: 10/18/17 06:23 10/18/17 16:44 PT 14.1 SECONDS (9.7-12.2) H 10/14/17 07:48 INR 1.3 10/14/17 07:48 APTT 31 SECONDS (21-34) 09/20/17 08:43 - Constitutional Appears: Chronically Ill - Head Exam Head Exam: NORMAL INSPECTION - Eye Exam Eye Exam: Normal appearance - ENT Exam ENT Exam: Normal Exam - Neck Exam Neck Exam: Normal Inspection - Respiratory Exam Respiratory Exam: Clear to Ausculation Bilateral - Cardiovascular Exam Cardiovascular Exam: REGULAR RHYTHM - GI/Abdominal Exam GI & Abdominal Exam: Soft, Normal Bowel Sounds - Rectal Exam Rectal Exam: Deferred - Extremities Exam Extremities Exam: Normal Inspection - Back Exam Back Exam: NORMAL INSPECTION - Neurological Exam Additional comments: Confused. - Psychiatric Exam Additional comments: Alert, confused. - Skin Skin Exam: Intact, Normal Color, Warm Assessment and Plan (1) Influenza Status: Resolved (2) UTI (urinary tract infection) Status: Resolved (3) Abnormal head CT Status: Resolved (4) Abnormal head CT Status: Resolved (5) Staphylococcus aureus bacteremia Status: Resolved (6) CVA (cerebral vascular accident) Status: Acute (7) Anorexia Assessment & Plan: PEG inserted yesterday. On Glucerna via PEG. Status: Acute (8) Leucocytosis Status: Acute
--- NOTE | 2017-10-18 20:32 | CP.PCM.PN ---
Subjective - Date & Time of Evaluation Date of Evaluation: 10/18/17 Time of Evaluation: 20:25 - Subjective Subjective: INFECTIOUS DISEASE NEW EVALUATION TUAN DURAN MD, FACP 10/18/2017 6T 665-B CHART REVIEWED PT EXAMINED CASE DISCUSSED WITH MEDICALLY STAFF 87 YR OLD FEMALE INITIALLY ADMITTED FOR ACUTE INFLUENZA, STAPH BACTEREMIA, AND DEHYDRATION, NOW POST PEG POD #1 AND RECALLED WITH AND ELEVATED WBC OF 23,000 PLUS. PT EXAMINED ORDERS WRITTEN RE BLOOD C/S, URINE C/S, CBC CMP AND PRIMAXIN RECOMMENDED AT 500MG IVPB Q 6 HRS. AWAKE AND TALKATIVE BUT DECREASED HEARING AND DECREASED VISION AND SIGNS OF DEMENTIA. DECREASED BS COR NOTED ABD SORE R/O INFECTION POST OP DAY #1 OF PEG VS UTI VS OTHER POSSIBLE SOURCES AND OF COURSE PATHOGENS, TO RE SEE TUAN DURAN MD, FACP BOARD CERTIFIED AND RECERTIFIED IN INFECTIUS DISEASES Objective - Vital Signs/Intake and Output Vital Signs (last 24 hours): Temp Pulse Resp BP Pulse Ox 98 F 83 18 115/53 L 99 10/18/17 16:00 10/18/17 16:00 10/18/17 16:00 10/18/17 16:00 10/18/17 16:00 Intake and Output: 10/18/17 10/19/17 18:59 06:59 Intake Total 480 Balance 480 - Medications Medications: Current Medications Acetaminophen (Tylenol 325mg Tab) 650 mg PO Q6 PRN PRN Reason: Pain, moderate (4-7) Last Admin: 10/15/17 16:49 Dose: 650 mg Aspirin (Ecotrin) 81 mg PO DAILY [facility] Last Admin: 10/18/17 12:58 Dose: 81 mg Brimonidine Tartrate (Alphagan 0.2% Opht) 0 ml OU Q8H [facility] Last Admin: 10/18/17 14:04 Dose: 1 drop Clonidine HCl (Catapres) 0.1 mg PO TID PRN PRN Reason: Diastolic blood pressure Last Admin: 09/20/17 18:22 Dose: 0.1 mg Clopidogrel Bisulfate (Plavix) 75 mg PO DAILY [facility] Last Admin: 10/18/17 12:58 Dose: 75 mg Cyanocobalamin (Vitamin B12 1000 Mcg Tab) 1,000 mcg PO DAILY [facility] Last Admin: 10/18/17 10:42 Dose: 1,000 mcg Heparin Sodium (Porcine) (Heparin) 5,000 units SC Q8 [facility] Last Admin: 10/18/17 14:05 Dose: 5,000 units Home Med (Patient's Own Drops) 1 drop OU HS [facility] Last Admin: 10/17/17 21:20 Dose: 1 drop Home Med (Patient's Own Drops) 1 drop OD QID [facility] Last Admin: 10/07/17 10:29 Dose: 1 drop Dextrose/Sodium Chloride (Dextrose 5%/0.45% Ns 1000 Ml) 1,000 mls @ 40 mls/hr IV .Q24H [facility] Last Admin: 10/18/17 16:31 Dose: 40 mls/hr Imipenem/Cilastatin Sodium 500 (mg/ Sodium Chloride) 100 mls @ 100 mls/hr IVPB Q8H [facility] Last Admin: 10/18/17 16:53 Dose: 100 mls/hr Losartan Potassium (Cozaar) 100 mg PO DAILY [facility] Last Admin: 10/18/17 10:42 Dose: 100 mg Metoprolol Succinate (Toprol Xl) 50 mg PO DAILY [facility] Last Admin: 10/18/17 10:42 Dose: 50 mg Pilocarpine HCl (Isopto Carpine 1% Opht Soln) 1 drop OD QID [facility] Last Admin: 10/18/17 18:09 Dose: 1 drop - Labs Labs: 10/18/17 06:23 10/18/17 16:44 PT 14.1 SECONDS (9.7-12.2) H 10/14/17 07:48 INR 1.3 10/14/17 07:48 APTT 31 SECONDS (21-34) 09/20/17 08:43 - Constitutional Appears: Non-toxic, Older Than Stated Age, Chronically Ill - Head Exam Head Exam: NORMAL INSPECTION - ENT Exam ENT Exam: Mucous Membranes Moist - Respiratory Exam Respiratory Exam: Decreased Breath Sounds, NORMAL BREATHING PATTERN - Cardiovascular Exam Cardiovascular Exam: REGULAR RHYTHM - GI/Abdominal Exam GI & Abdominal Exam: Soft, Tenderness - Rectal Exam Rectal Exam: Deferred - Neurological Exam Neurological Exam: Alert, Awake Assessment and Plan (1) Fever Status: Resolved (2) Coag negative Staphylococcus bacteremia Status: Resolved (3) UTI (urinary tract infection) Status: Suspected (4) Benign hypertension Status: Chronic (5) Influenza Status: Resolved (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
[2017-10-18] MEDS: LUMIGAN OU SCH (21:17)
[2017-10-19] MEDS: Brimonidine 0.2% Opth Sol (5ml) OU SCH ×3 (05:10→21:15)
[2017-10-19 07:19] LABS: BASO % 0.4 % (0.0-2.0); EOS # 0.2 K/uL (0.0-0.7); EOS % 2.3 % (0.0-4.0); HEMOGLOBIN 8.9 g/dL (11.0-16.0); LYMPH # 1.6 K/uL (1.0-4.3); LYMPH % 14.5 % (20.0-40.0); MEAN CELL VOLUME 81.6 fL (81.0-99.0); MEAN CORPUSCULAR HEMOGLOBIN 27.1 pg (27.0-31.0); MEAN CORPUSCULAR HGB CONC 33.2 g/dL (33.0-37.0); MONO # 0.9 K/uL (0.0-0.8); MONO % 8.6 % (0.0-10.0); NEUT % 74.2 % (50.0-75.0); RBC 3.28 Mil/uL (3.80-5.20); RED CELL DISTRIBUTION WIDTH 15.4 % (11.5-14.5); WHITE BLOOD COUNT 10.7 K/uL (4.8-10.8)
[2017-10-19 07:57] LABS: BLOOD UREA NITROGEN 10 mg/dL (7-17); CALCIUM 8.8 mg/dl (8.6-10.4); GFR AFRICAN-AMERICAN > 60; GFR NON-AFRICAN AMERICAN > 60
[2017-10-19] MEDS: Metoprolol Succinate 50 mg XL Tab PO SCH (09:37)
[2017-10-19] MEDS: PILOCARPINE 1% OD SCH ×4 (09:38→21:15)
[2017-10-19] MEDS ORDERED: Potassium Chloride 20 mEq/15 ml LIQ UD PO ONE (10:00)
--- NOTE | 2017-10-19 16:03 | CP.PCM.PN ---
Subjective - Date & Time of Evaluation Date of Evaluation: 10/19/17 Time of Evaluation: 16:01 - Subjective Subjective: Patient is more alert, but still very confused. Tolerated PEG feeding well. On Meropenem. WBC today: 10.4 K+:3.3 . K-Dur 40 mEq via PEG given. Objective - Vital Signs/Intake and Output Vital Signs (last 24 hours): Temp Pulse Resp BP Pulse Ox 98.7 F 99 H 20 130/71 98 10/19/17 08:00 10/19/17 08:00 10/19/17 08:00 10/19/17 08:00 10/19/17 08:00 Intake and Output: 10/19/17 10/19/17 06:59 18:59 Intake Total 390 Output Total 100 Balance 290 - Medications Medications: Current Medications Acetaminophen (Tylenol 325mg Tab) 650 mg PO Q6 PRN PRN Reason: Pain, moderate (4-7) Last Admin: 10/15/17 16:49 Dose: 650 mg Aspirin (Ecotrin) 81 mg PO DAILY [facility] Last Admin: 10/19/17 09:38 Dose: 81 mg Brimonidine Tartrate (Alphagan 0.2% Opht) 0 ml OU Q8H [facility] Last Admin: 10/19/17 13:23 Dose: 1 drop Clonidine HCl (Catapres) 0.1 mg PO TID PRN PRN Reason: Diastolic blood pressure Last Admin: 09/20/17 18:22 Dose: 0.1 mg Clopidogrel Bisulfate (Plavix) 75 mg PO DAILY [facility] Last Admin: 10/19/17 09:37 Dose: 75 mg Cyanocobalamin (Vitamin B12 1000 Mcg Tab) 1,000 mcg PO DAILY [facility] Last Admin: 10/19/17 09:44 Dose: 1,000 mcg Heparin Sodium (Porcine) (Heparin) 5,000 units SC Q8 [facility] Last Admin: 10/19/17 13:23 Dose: 5,000 units Home Med (Patient's Own Drops) 1 drop OU HS [facility] Last Admin: 10/18/17 21:17 Dose: 1 drop Home Med (Patient's Own Drops) 1 drop OD QID [facility] Last Admin: 10/07/17 10:29 Dose: 1 drop Imipenem/Cilastatin Sodium 500 (mg/ Sodium Chloride) 100 mls @ 100 mls/hr IVPB Q6 [facility] Last Admin: 10/19/17 13:00 Dose: 100 mls/hr Dextrose/Sodium Chloride (Dextrose 5%/0.45% Ns 1000 Ml) 1,000 mls @ 20 mls/hr IV .Q24H [facility] Losartan Potassium (Cozaar) 100 mg PO DAILY [facility] Last Admin: 10/19/17 09:37 Dose: 100 mg Metoprolol Succinate (Toprol Xl) 50 mg PO DAILY [facility] Last Admin: 10/19/17 09:37 Dose: 50 mg Pilocarpine HCl (Isopto Carpine 1% Opht Soln) 1 drop OD QID [facility] Last Admin: 10/19/17 13:25 Dose: 1 drop - Labs Labs: 10/19/17 07:01 10/19/17 07:01 PT 14.1 SECONDS (9.7-12.2) H 10/14/17 07:48 INR 1.3 10/14/17 07:48 APTT 31 SECONDS (21-34) 09/20/17 08:43 - Constitutional Appears: Chronically Ill - Head Exam Head Exam: NORMAL INSPECTION - Eye Exam Eye Exam: Normal appearance - ENT Exam ENT Exam: Normal Exam - Neck Exam Neck Exam: Normal Inspection - Respiratory Exam Respiratory Exam: Clear to Ausculation Bilateral - Cardiovascular Exam Cardiovascular Exam: REGULAR RHYTHM - GI/Abdominal Exam GI & Abdominal Exam: Soft, Normal Bowel Sounds - Rectal Exam Rectal Exam: Deferred - Extremities Exam Extremities Exam: Normal Inspection - Back Exam Back Exam: NORMAL INSPECTION - Neurological Exam Additional comments: Sleeping most of the time. In no respiratory distress. Very confused. - Skin Skin Exam: Dry, Intact, Normal Color Assessment and Plan (1) Influenza Status: Resolved (2) UTI (urinary tract infection) Status: Suspected (3) Abnormal head CT Status: Resolved (4) Abnormal head CT Status: Resolved (5) Staphylococcus aureus bacteremia Status: Resolved (6) CVA (cerebral vascular accident) Status: Resolved (7) Anorexia Assessment & Plan: On Glucerna via PEG. Status: Acute (8) Leucocytosis Assessment & Plan: On IV antibiotic. Awaiting blood and urine cultures result. Status: Acute
[2017-10-19] MEDS: Dextrose 5%/0.45% NS 1,000 ML IV SCH (16:30)
--- NOTE | 2017-10-19 16:35 | CP.PCM.PN ---
Subjective - Date & Time of Evaluation Date of Evaluation: 10/19/17 Time of Evaluation: 16:33 - Subjective Subjective: Patient is drowsy but arousable. Mental status is otherwise unchanged. Objective - Vital Signs/Intake and Output Vital Signs (last 24 hours): Temp Pulse Resp BP Pulse Ox 98.7 F 99 H 20 130/71 98 10/19/17 08:00 10/19/17 08:00 10/19/17 08:00 10/19/17 08:00 10/19/17 08:00 Intake and Output: 10/19/17 10/19/17 06:59 18:59 Intake Total 390 Output Total 100 Balance 290 - Medications Medications: Current Medications Acetaminophen (Tylenol 325mg Tab) 650 mg PO Q6 PRN PRN Reason: Pain, moderate (4-7) Last Admin: 10/15/17 16:49 Dose: 650 mg Aspirin (Ecotrin) 81 mg PO DAILY [facility] Last Admin: 10/19/17 09:38 Dose: 81 mg Brimonidine Tartrate (Alphagan 0.2% Opht) 0 ml OU Q8H [facility] Last Admin: 10/19/17 13:23 Dose: 1 drop Clonidine HCl (Catapres) 0.1 mg PO TID PRN PRN Reason: Diastolic blood pressure Last Admin: 09/20/17 18:22 Dose: 0.1 mg Clopidogrel Bisulfate (Plavix) 75 mg PO DAILY [facility] Last Admin: 10/19/17 09:37 Dose: 75 mg Cyanocobalamin (Vitamin B12 1000 Mcg Tab) 1,000 mcg PO DAILY [facility] Last Admin: 10/19/17 09:44 Dose: 1,000 mcg Heparin Sodium (Porcine) (Heparin) 5,000 units SC Q8 [facility] Last Admin: 10/19/17 13:23 Dose: 5,000 units Home Med (Patient's Own Drops) 1 drop OU HS [facility] Last Admin: 10/18/17 21:17 Dose: 1 drop Home Med (Patient's Own Drops) 1 drop OD QID [facility] Last Admin: 10/07/17 10:29 Dose: 1 drop Imipenem/Cilastatin Sodium 500 (mg/ Sodium Chloride) 100 mls @ 100 mls/hr IVPB Q6 [facility] Last Admin: 10/19/17 13:00 Dose: 100 mls/hr Dextrose/Sodium Chloride (Dextrose 5%/0.45% Ns 1000 Ml) 1,000 mls @ 20 mls/hr IV .Q24H [facility] Losartan Potassium (Cozaar) 100 mg PO DAILY [facility] Last Admin: 10/19/17 09:37 Dose: 100 mg Metoprolol Succinate (Toprol Xl) 50 mg PO DAILY [facility] Last Admin: 10/19/17 09:37 Dose: 50 mg Pilocarpine HCl (Isopto Carpine 1% Opht Soln) 1 drop OD QID [facility] Last Admin: 10/19/17 13:25 Dose: 1 drop - Labs Labs: 10/19/17 07:01 10/19/17 07:01 PT 14.1 SECONDS (9.7-12.2) H 10/14/17 07:48 INR 1.3 10/14/17 07:48 APTT 31 SECONDS (21-34) 09/20/17 08:43 - Constitutional Appears: No Acute Distress - Neck Exam Neck Exam: absent: Lymphadenopathy, Thyromegaly - Respiratory Exam Respiratory Exam: NORMAL BREATHING PATTERN. absent: Rales, Rhonchi, Wheezes - Cardiovascular Exam Cardiovascular Exam: REGULAR RHYTHM, +S1, +S2. absent: Gallop, Rubs, Murmur - GI/Abdominal Exam GI & Abdominal Exam: Soft, Normal Bowel Sounds. absent: Tenderness, Mass, Organomegaly - Rectal Exam Rectal Exam: Deferred - Extremities Exam Extremities Exam: absent: Calf Tenderness, Pedal Edema Assessment and Plan (1) Inadequate oral intake Assessment & Plan: Tube feedings in progress. No signs of infection around gastrostomy. The WBC count is down to 10.7. Blood cultures and U/A are negative. Advance tube feedings as tolerated. Status: Acute
--- NOTE | 2017-10-19 17:44 | PN ---
DATE: 10/19/2017 SUBJECTIVE: The patient is seen. The patient is starting to have PEG tube feeding. Seen and examined at bedside. The patient was seen by Dr. Kimbrough and the patient was given antibiotic. WBC went down from 22 to 14.7. The patient is not agitated, but still confused. The patient also went for EGD today and showed the following results. The patient had small hiatal hernia. The patient has diffuse atopic discitis, status post PEG tube feeding. The patient is not complaining of pain when seen. VITAL SIGNS: Temperature 98.7, 99, blood pressure 130/71, respirations 20, oxygen saturations 98%. LABORATORY DATA: Labs showed her potassium is 3.3. WBC much better at 10.7. REVIEW OF SYSTEMS: GENERAL: The patient is sleepy, but arousable, still confused, hard of hearing, legally blind. SKIN: No diaphoresis. NECK: Supple. RESPIRATORY: No dyspnea. CARDIOVASCULAR: No chest pain. GASTROINTESTINAL: s/p PEG tube feeding. No abdominal pain. The patient also noted to have loose stools. EXTREMITIES: Bed bound. MUSCULOSKELETAL: Feels weak. NEUROLOGIC: Alert with intermittent periods of confusion. The confusion seems to be more pronounced compared to the first few days of admission. MENTAL STATUS EXAMINATION: Elderly female, who looks stated age, still very confused, the patient still hard of hearing. Speech spontaneous. Affect is reactive. Mood is dysphoric. Thought process is confused off and on. Thought content, no behavioral problems noted. No suicidal ideation or psychosis. Attention and memory seem to be limited. Insight and judgement are limited. Impulse control is fair at this time. IMPRESSION: History of delirium, metabolic encephalopathy, history of CVA of the right basal ganglia, anorexia, status post PEG tube feeding, history of dementia with mood changes. PLAN AND RECOMMENDATION: The patient is seen. Medications reviewed. Continue PEG tube feeding. Continue antibiotics as ordered. We will monitor mental status, just confusion, but seems to be secondary to dementia as well as the patient has not been eating for the last few days, now on PEG tube feeding. Once the patient is more medically stable and her behaviors remained in control, she can go to [facility] which the family wants for subacute rehab. Fredy Harper MD [facility] # [id number] [place]
[2017-10-19] MEDS: LUMIGAN OU SCH (21:15)
[2017-10-20] MEDS: Brimonidine 0.2% Opth Sol (5ml) OU SCH ×3 (05:06→22:12)
[2017-10-20 06:40] LABS: BASO % 0.6 % (0.0-2.0); EOS # 0.3 K/uL (0.0-0.7); EOS % 4.2 % (0.0-4.0); LYMPH # 1.5 K/uL (1.0-4.3); LYMPH % 19.1 % (20.0-40.0); MEAN CELL VOLUME 81.7 fL (81.0-99.0); MEAN CORPUSCULAR HEMOGLOBIN 26.5 pg (27.0-31.0); MEAN CORPUSCULAR HGB CONC 32.4 g/dL (33.0-37.0); MEAN PLATELET VOLUME 8.6 fL (7.2-11.7); MONO # 0.5 K/uL (0.0-0.8); MONO % 6.8 % (0.0-10.0); NEUT # 5.5 K/uL (1.8-7.0); NEUT % 69.3 % (50.0-75.0); RBC 3.04 Mil/uL (3.80-5.20); RED CELL DISTRIBUTION WIDTH 15.1 % (11.5-14.5)
[2017-10-20 07:07] LABS: ALB/GLOB RATIO 0.8 (1.0-2.1); ALBUMIN 2.6 g/dL (3.5-5.0); ALT/SGPT 15 U/L (9-52); AST/SGOT 19 U/L (14-36); BLOOD UREA NITROGEN 12 mg/dL (7-17); CALCIUM 8.4 mg/dl (8.6-10.4); GFR AFRICAN-AMERICAN > 60; GFR NON-AFRICAN AMERICAN > 60
[2017-10-20] MEDS: PILOCARPINE 1% OD SCH ×4 (10:06→22:11)
[2017-10-20] MEDS: Metoprolol Succinate 50 mg XL Tab PO SCH (10:07)
--- NOTE | 2017-10-20 14:03 | CP.PCM.PN ---
Subjective - Date & Time of Evaluation Date of Evaluation: 10/20/17 Time of Evaluation: 14:01 - Subjective Subjective: Patient complains of soreness at gastrostomy site, Objective - Vital Signs/Intake and Output Vital Signs (last 24 hours): Temp Pulse Resp BP Pulse Ox 98.2 F 88 20 142/72 100 10/20/17 09:17 10/20/17 09:17 10/20/17 09:17 10/20/17 09:17 10/20/17 09:17 Intake and Output: 10/20/17 10/20/17 06:59 18:59 Intake Total 520 880 Output Total 200 Balance 520 680 - Medications Medications: Current Medications Acetaminophen (Tylenol 325mg Tab) 650 mg PO Q6 PRN PRN Reason: Pain, moderate (4-7) Last Admin: 10/15/17 16:49 Dose: 650 mg Aspirin (Ecotrin) 81 mg PO DAILY [facility] Last Admin: 10/20/17 10:06 Dose: 81 mg Brimonidine Tartrate (Alphagan 0.2% Opht) 0 ml OU Q8H [facility] Last Admin: 10/20/17 13:26 Dose: 1 drop Clonidine HCl (Catapres) 0.1 mg PO TID PRN PRN Reason: Diastolic blood pressure Last Admin: 09/20/17 18:22 Dose: 0.1 mg Clopidogrel Bisulfate (Plavix) 75 mg PO DAILY [facility] Last Admin: 10/20/17 10:07 Dose: 75 mg Cyanocobalamin (Vitamin B12 1000 Mcg Tab) 1,000 mcg PO DAILY [facility] Last Admin: 10/20/17 10:07 Dose: 1,000 mcg Heparin Sodium (Porcine) (Heparin) 5,000 units SC Q8 [facility] Last Admin: 10/20/17 13:26 Dose: 5,000 units Home Med (Patient's Own Drops) 1 drop OU HS [facility] Last Admin: 10/19/17 21:15 Dose: 1 drop Home Med (Patient's Own Drops) 1 drop OD QID [facility] Last Admin: 10/07/17 10:29 Dose: 1 drop Imipenem/Cilastatin Sodium 500 (mg/ Sodium Chloride) 100 mls @ 100 mls/hr IVPB Q6 [facility] Last Admin: 10/20/17 12:17 Dose: 100 mls/hr Dextrose/Sodium Chloride (Dextrose 5%/0.45% Ns 1000 Ml) 1,000 mls @ 20 mls/hr IV .Q24H [facility] Last Admin: 10/19/17 16:30 Dose: Not Given Losartan Potassium (Cozaar) 100 mg PO DAILY [facility] Last Admin: 10/20/17 10:06 Dose: 100 mg Metoprolol Succinate (Toprol Xl) 50 mg PO DAILY [facility] Last Admin: 10/20/17 10:07 Dose: 50 mg Pilocarpine HCl (Isopto Carpine 1% Opht Soln) 1 drop OD QID [facility] Last Admin: 10/20/17 13:26 Dose: 1 drop - Labs Labs: 10/20/17 06:32 10/20/17 06:32 PT 14.1 SECONDS (9.7-12.2) H 10/14/17 07:48 INR 1.3 10/14/17 07:48 APTT 31 SECONDS (21-34) 09/20/17 08:43 - Constitutional Appears: No Acute Distress - Neck Exam Neck Exam: absent: Lymphadenopathy, Thyromegaly - Respiratory Exam Respiratory Exam: NORMAL BREATHING PATTERN. absent: Rales, Rhonchi, Wheezes - Cardiovascular Exam Cardiovascular Exam: REGULAR RHYTHM, +S1, +S2. absent: Gallop, Rubs, Murmur - GI/Abdominal Exam GI & Abdominal Exam: Soft, Normal Bowel Sounds. absent: Tenderness, Organomegaly Additional comments: Gastrostomy site clean and dry, non-tender - Rectal Exam Rectal Exam: Deferred - Extremities Exam Extremities Exam: absent: Calf Tenderness, Pedal Edema Assessment and Plan (1) Inadequate oral intake Assessment & Plan: Repeat EBC is 8.0. Blood cultures and urine cultures were negative, as was CXR. Advance tube feedings as tolerated. Status: Acute
[2017-10-20 15:23] LABS: METHYLMALONIC ACID,SERUM 150 nmol/L (87-318)
[2017-10-20] MEDS: Dextrose 5%/0.45% NS 1,000 ML IV SCH (16:00)
--- NOTE | 2017-10-20 18:47 | CP.PCM.PN ---
Subjective - Date & Time of Evaluation Date of Evaluation: 10/20/17 Time of Evaluation: 18:45 - Subjective Subjective: Patient awake, confused, afebrile, in no respiratory difficulty. wBC: 8.0 Hgb: 8.0 Objective - Vital Signs/Intake and Output Vital Signs (last 24 hours): Temp Pulse Resp BP Pulse Ox 98.2 F 88 20 142/72 100 10/20/17 09:17 10/20/17 09:17 10/20/17 09:17 10/20/17 09:17 10/20/17 09:17 Intake and Output: 10/20/17 10/20/17 06:59 18:59 Intake Total 520 880 Output Total 200 Balance 520 680 - Medications Medications: Current Medications Acetaminophen (Tylenol 325mg Tab) 650 mg PO Q6 PRN PRN Reason: Pain, moderate (4-7) Last Admin: 10/15/17 16:49 Dose: 650 mg Aspirin (Ecotrin) 81 mg PO DAILY [facility] Last Admin: 10/20/17 10:06 Dose: 81 mg Brimonidine Tartrate (Alphagan 0.2% Opht) 0 ml OU Q8H [facility] Last Admin: 10/20/17 13:26 Dose: 1 drop Clonidine HCl (Catapres) 0.1 mg PO TID PRN PRN Reason: Diastolic blood pressure Last Admin: 09/20/17 18:22 Dose: 0.1 mg Clopidogrel Bisulfate (Plavix) 75 mg PO DAILY [facility] Last Admin: 10/20/17 10:07 Dose: 75 mg Cyanocobalamin (Vitamin B12 1000 Mcg Tab) 1,000 mcg PO DAILY [facility] Last Admin: 10/20/17 10:07 Dose: 1,000 mcg Heparin Sodium (Porcine) (Heparin) 5,000 units SC Q8 [facility] Last Admin: 10/20/17 13:26 Dose: 5,000 units Home Med (Patient's Own Drops) 1 drop OU HS [facility] Last Admin: 10/19/17 21:15 Dose: 1 drop Home Med (Patient's Own Drops) 1 drop OD QID [facility] Last Admin: 10/07/17 10:29 Dose: 1 drop Imipenem/Cilastatin Sodium 500 (mg/ Sodium Chloride) 100 mls @ 100 mls/hr IVPB Q6 [facility] Last Admin: 10/20/17 18:05 Dose: 100 mls/hr Dextrose/Sodium Chloride (Dextrose 5%/0.45% Ns 1000 Ml) 1,000 mls @ 20 mls/hr IV .Q24H [facility] Last Admin: 10/20/17 16:00 Dose: Not Given Losartan Potassium (Cozaar) 100 mg PO DAILY [facility] Last Admin: 10/20/17 10:06 Dose: 100 mg Metoprolol Succinate (Toprol Xl) 50 mg PO DAILY [facility] Last Admin: 10/20/17 10:07 Dose: 50 mg Pilocarpine HCl (Isopto Carpine 1% Opht Soln) 1 drop OD QID [facility] Last Admin: 10/20/17 18:05 Dose: 1 drop - Labs Labs: 10/20/17 06:32 10/20/17 06:32 PT 14.1 SECONDS (9.7-12.2) H 10/14/17 07:48 INR 1.3 10/14/17 07:48 APTT 31 SECONDS (21-34) 09/20/17 08:43 - Constitutional Appears: Confused, Chronically Ill - Head Exam Head Exam: NORMAL INSPECTION - Eye Exam Eye Exam: Normal appearance - ENT Exam ENT Exam: Normal Exam - Respiratory Exam Additional comments: Few rhonchi bilaterally. - Cardiovascular Exam Cardiovascular Exam: REGULAR RHYTHM, Murmur - GI/Abdominal Exam GI & Abdominal Exam: Soft, Normal Bowel Sounds - Rectal Exam Rectal Exam: Deferred - Back Exam Back Exam: NORMAL INSPECTION - Neurological Exam Neurological Exam: Alert - Psychiatric Exam Psychiatric exam: Anxious - Skin Skin Exam: Normal Color, Warm Assessment and Plan (1) Influenza Status: Resolved (2) UTI (urinary tract infection) Status: Suspected (3) Abnormal head CT Status: Resolved (4) Abnormal head CT Status: Resolved (5) Staphylococcus aureus bacteremia Status: Resolved (6) CVA (cerebral vascular accident) Status: Resolved (7) Anorexia Assessment & Plan: On Glucerna via PEG. Status: Acute (8) Leucocytosis Assessment & Plan: Still on IV antibiotic. Status: Resolved
--- NOTE | 2017-10-20 20:26 | PN ---
DATE: 10/20/2017. SUBJECTIVE: The patient today is more alert, verbal. She was seen in her room, I came early and patient was trying to get out of bed. She states she needs to go home because she needs to do something else. Today, when I came back, she is resting. The patient has started PEG tube feeding. On review of her labs, her WBC now is 8, which is within normal limits. The patient has been followed by Dr. Kimbrough. The patient has not been taking any psych meds, but her mental status seems to be more improving now that she is having PEG tube feeding. PHYSICAL EXAMINATION: VITAL SIGNS: Temperature 98.2, pulse 88, blood pressure 142/70, respirations 20 and oxygen saturation 100%. REVIEW OF SYSTEMS: GENERAL: The patient is more alert, verbal, still appears with confusion. Now receiving PEG tube feeding. Not in acute respiratory distress. SKIN: No diaphoresis. HEENT: Legally blind, hard of hearing. NECK: Supple. RESPIRATORY: No dyspnea. CARDIOVASCULAR: No chest pain. GASTROINTESTINAL: Has PEG tube feeding. Family was reporting she was having loose stools. No nausea. No vomiting. EXTREMITIES: Has been bedbound. The patient may need to be monitored as patient tried to get out of bed this morning stating that she wants to go home and may be put on fall precaution. MUSCULOSKELETAL: Generalized weakness. NEUROLOGIC: Alert with periods of confusion. GENITOURINARY: No hematuria or dysuria. MENTAL STATUS EXAMINATION: Elderly female, who looks stated age, lying in bed. Still confused, but more verbal. Speech is spontaneous. Affect is reactive. Mood is dysphoric. Thought process confused often. Thought content, no overt psychosis. No suicidal or homicidal ideation. Attention and memory seem to be limited. Insight and judgment are limited. Impulse control is fair at this time. 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 Status post percutaneous endoscopic gastrostomy tube feeding. PLAN AND RECOMMENDATIONS: The patient seen, meds reviewed. Continue PEG tube feeding. The patient also is taking antibiotics. Continue B12 supplement. The patient followed by DARON Granados and Dr. Kimbrough. Continue treatment plan as outlined. The patient will be going for subacute rehab possibly [facility] when she is more medically stable. Fredy Harper MD [facility]
[2017-10-20] MEDS: LUMIGAN OU SCH (22:11)
[2017-10-20 22:54] LABS: GASTRIN 495 pg/mL (<=100)
[2017-10-21] MEDS: Brimonidine 0.2% Opth Sol (5ml) OU SCH ×3 (05:07→21:54)
--- NOTE | 2017-10-21 08:05 | CP.PCM.PN ---
Subjective - Date & Time of Evaluation Date of Evaluation: 10/21/17 Time of Evaluation: 08:03 - Subjective Subjective: Patient continues to complain of pain around gastrostomy. She denies having nausea and vomiting. She had two soft bowel movements today. Objective - Vital Signs/Intake and Output Vital Signs (last 24 hours): Temp Pulse Resp BP Pulse Ox 98.4 F 111 H 20 158/62 H 97 10/20/17 23:15 10/20/17 23:15 10/20/17 23:15 10/20/17 23:15 10/20/17 23:15 Intake and Output: 10/21/17 10/21/17 06:59 18:59 Intake Total 920 Output Total 200 Balance 720 - Medications Medications: Current Medications Acetaminophen (Tylenol 325mg Tab) 650 mg PO Q6 PRN PRN Reason: Pain, moderate (4-7) Last Admin: 10/15/17 16:49 Dose: 650 mg Aspirin (Ecotrin) 81 mg PO DAILY [facility] Last Admin: 10/20/17 10:06 Dose: 81 mg Brimonidine Tartrate (Alphagan 0.2% Opht) 0 ml OU Q8H [facility] Last Admin: 10/21/17 05:07 Dose: 1 drop Clonidine HCl (Catapres) 0.1 mg PO TID PRN PRN Reason: Diastolic blood pressure Last Admin: 09/20/17 18:22 Dose: 0.1 mg Clopidogrel Bisulfate (Plavix) 75 mg PO DAILY [facility] Last Admin: 10/20/17 10:07 Dose: 75 mg Cyanocobalamin (Vitamin B12 1000 Mcg Tab) 1,000 mcg PO DAILY [facility] Last Admin: 10/20/17 10:07 Dose: 1,000 mcg Heparin Sodium (Porcine) (Heparin) 5,000 units SC Q8 [facility] Last Admin: 10/21/17 06:55 Dose: Not Given Home Med (Patient's Own Drops) 1 drop OU HS [facility] Last Admin: 10/20/17 22:11 Dose: 1 drop Home Med (Patient's Own Drops) 1 drop OD QID [facility] Last Admin: 10/07/17 10:29 Dose: 1 drop Imipenem/Cilastatin Sodium 500 (mg/ Sodium Chloride) 100 mls @ 100 mls/hr IVPB Q6 [facility] Last Admin: 10/21/17 05:07 Dose: 100 mls/hr Dextrose/Sodium Chloride (Dextrose 5%/0.45% Ns 1000 Ml) 1,000 mls @ 20 mls/hr IV .Q24H [facility] Last Admin: 10/20/17 16:00 Dose: Not Given Losartan Potassium (Cozaar) 100 mg PO DAILY [facility] Last Admin: 10/20/17 10:06 Dose: 100 mg Metoprolol Succinate (Toprol Xl) 50 mg PO DAILY [facility] Last Admin: 10/20/17 10:07 Dose: 50 mg Pilocarpine HCl (Isopto Carpine 1% Opht Soln) 1 drop OD QID [facility] Last Admin: 10/20/17 22:11 Dose: 1 drop - Labs Labs: 10/20/17 06:32 10/20/17 06:32 PT 14.1 SECONDS (9.7-12.2) H 10/14/17 07:48 INR 1.3 10/14/17 07:48 APTT 31 SECONDS (21-34) 09/20/17 08:43 - Constitutional Appears: No Acute Distress - Head Exam Head Exam: ATRAUMATIC, NORMOCEPHALIC - Neck Exam Neck Exam: absent: Lymphadenopathy, Thyromegaly - Respiratory Exam Respiratory Exam: NORMAL BREATHING PATTERN. absent: Rales, Rhonchi, Wheezes - Cardiovascular Exam Cardiovascular Exam: REGULAR RHYTHM, +S1, +S2. absent: Gallop, Rubs, Murmur - GI/Abdominal Exam GI & Abdominal Exam: Soft, Normal Bowel Sounds. absent: Tenderness, Organomegaly Additional comments: Gastrostomy site clean and dry - Rectal Exam Rectal Exam: Deferred - Extremities Exam Extremities Exam: absent: Calf Tenderness, Pedal Edema Assessment and Plan (1) Inadequate oral intake Assessment & Plan: Patient complains of pain around gastrostomy. Will order CT scan. Status: Acute
[2017-10-21] MEDS: Metoprolol Succinate 50 mg XL Tab PO SCH (09:18)
[2017-10-21] MEDS: PILOCARPINE 1% OD SCH ×4 (09:18→21:54)
[2017-10-21] MEDS ORDERED: Iohexol 240 (50 ml) PO ONE (12:45)
--- NOTE | 2017-10-21 15:10 | CT ---
CT chest, abdomen, and pelvis without IV contrast Indication: Leukocytosis, abdominal pain post PEG Technique: Contiguous axial images of the chest, abdomen, and pelvis without oral or IV contrast. Coronal and Sagittal reformats generated and reviewed. This CT exam was performed using 1 or more of the following dose reduction techniques: Automated exposure control, adjustment of the MAA and/or kV according to patient size, and/or use of iterative reconstruction technique. Radiation dose: Total exam DLP = 742.19 MGy-cm. Comparison: CT abdomen pelvis with contrast performed 10/11/17, chest x-ray performed 10/18/17 Findings: Included inferior right thyroid lower pole appears heterogeneous with substernal extension and hypodense nodule. Cardiomegaly. Trace pericardial effusion. Coronary artery calcifications. Mild bibasilar atelectasis. No significant pleural effusion or definite pneumothorax evident. 3.3 cm hepatic lobe hypodense lesion measures approximately 6 HU consistent with cyst. Indeterminate hyperdense 11 mm exophytic left renal lesion, upper pole. No hydronephrosis. No obstructing calculus. Contracted state of gallbladder limits evaluation. Fatty atrophy of the pancreas. The noncontrast spleen and adrenal glands appear unremarkable. Peg tube. The stomach is nondistended. The bowel loops appear within normal limits of caliber without evidence of intestinal obstruction. There is no definite free air. Abdominal aortic aneurysm measures approximately 2.6 cm in AP dimension. Atherosclerotic calcifications of the aorta and branches. The urinary bladder appears unremarkable. Osseous demineralization. Multilevel degenerative changes of the spine. Scoliosis. Scattered sclerotic foci, possibly bone islands. Impression: Included inferior right thyroid lower pole appears heterogeneous with substernal extension and hypodense nodule. Cardiomegaly. Trace pericardial effusion. Coronary artery calcifications. Mild bibasilar atelectasis. Peg tube. 3.3 cm hepatic lobe hypodense lesion measures approximately 6 HU consistent with cyst. Indeterminate hyperdense 11 mm exophytic left renal lesion, upper pole. Suggest further evaluation with ultrasound if indicated. Contracted state of gallbladder limits evaluation. Fatty atrophy of the pancreas. Abdominal aortic aneurysm measures approximately 2.6 cm in AP dimension.
[2017-10-21] MEDS: Dextrose 5%/0.45% NS 1,000 ML IV SCH (16:00)
--- NOTE | 2017-10-21 18:23 | CP.PCM.PN ---
Subjective - Date & Time of Evaluation Date of Evaluation: 10/20/17 Time of Evaluation: 19:00 - Subjective Subjective: INFECTIOUS DISEASE PROGRESS NOTE TUAN DURAN MD, FACP 10/20/2017 6T 665-B CHART REVIEWED EXAMINATION NOTED DISCUSSED WITH MEDICAL STAFF CLINICALLY IN HER CHRONIC MENTAL ISSUES, NO CHANGES APPRECIATED WBC HAS RESPONDED FROM ELEVATED WBC EARLIER THIS WEEK OBSERVE ON PRIMAXIN FOLLOW [facility] Objective - Vital Signs/Intake and Output Vital Signs (last 24 hours): Temp Pulse Resp BP Pulse Ox 97.8 F 79 20 132/69 98 10/21/17 15:00 10/21/17 15:00 10/21/17 15:00 10/21/17 15:00 10/21/17 15:00 Intake and Output: 10/21/17 10/21/17 06:59 18:59 Intake Total 920 Output Total 200 Balance 720 - Medications Medications: Current Medications Acetaminophen (Tylenol 325mg Tab) 650 mg PO Q6 PRN PRN Reason: Pain, moderate (4-7) Last Admin: 10/15/17 16:49 Dose: 650 mg Aspirin (Ecotrin) 81 mg PO DAILY [facility] Last Admin: 10/21/17 09:18 Dose: 81 mg Brimonidine Tartrate (Alphagan 0.2% Opht) 0 ml OU Q8H [facility] Last Admin: 10/21/17 13:14 Dose: 1 drop Clonidine HCl (Catapres) 0.1 mg PO TID PRN PRN Reason: Diastolic blood pressure Last Admin: 09/20/17 18:22 Dose: 0.1 mg Clopidogrel Bisulfate (Plavix) 75 mg PO DAILY [facility] Last Admin: 10/21/17 09:18 Dose: 75 mg Cyanocobalamin (Vitamin B12 1000 Mcg Tab) 1,000 mcg PO DAILY [facility] Last Admin: 10/21/17 09:18 Dose: 1,000 mcg Home Med (Patient's Own Drops) 1 drop OU HS [facility] Last Admin: 10/20/17 22:11 Dose: 1 drop Home Med (Patient's Own Drops) 1 drop OD QID [facility] Last Admin: 10/07/17 10:29 Dose: 1 drop Imipenem/Cilastatin Sodium 500 (mg/ Sodium Chloride) 100 mls @ 100 mls/hr IVPB Q6 [facility] Last Admin: 10/21/17 17:54 Dose: 100 mls/hr Dextrose/Sodium Chloride (Dextrose 5%/0.45% Ns 1000 Ml) 1,000 mls @ 20 mls/hr IV .Q24H [facility] Last Admin: 10/21/17 16:00 Dose: Not Given Losartan Potassium (Cozaar) 100 mg PO DAILY [facility] Last Admin: 10/21/17 09:17 Dose: 100 mg Metoprolol Succinate (Toprol Xl) 50 mg PO DAILY [facility] Last Admin: 10/21/17 09:18 Dose: 50 mg Pilocarpine HCl (Isopto Carpine 1% Opht Soln) 1 drop OD QID [facility] Last Admin: 10/21/17 17:55 Dose: 1 drop - Labs Labs: 10/20/17 06:32 10/20/17 06:32 PT 14.1 SECONDS (9.7-12.2) H 10/14/17 07:48 INR 1.3 10/14/17 07:48 APTT 31 SECONDS (21-34) 09/20/17 08:43 Assessment and Plan (1) Fever Status: Resolved (2) Coag negative Staphylococcus bacteremia Status: Resolved (3) UTI (urinary tract infection) Status: Suspected (4) Benign hypertension Status: Chronic (5) Influenza Status: Resolved (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
--- NOTE | 2017-10-21 18:56 | CP.PCM.PN ---
Subjective - Date & Time of Evaluation Date of Evaluation: 10/21/17 Time of Evaluation: 18:52 - Subjective Subjective: INFECTIOUS DISEASE PROGRESS NOTE TUAN DURAN MD, FACP 6T [id number] 10/21/2017 CHART REVIEWED PT EXAMINED CASE DISCUSSED CLINICALLY AFEBRILE, CHRONIC MENTAL ISSUES-NOT NEW LEGALLY BLIND AND HARD OF HEARING ABDOMEN PEG SITE IS OZZING BLOOD CT SCAN NO ABSCESS INTERPRETED PLAN: DECREASE DOSE OF PRIMAXIN, Q 8 HOURS OBSERVE MEDICALLY TO RECHECK NEEDED Objective - Vital Signs/Intake and Output Vital Signs (last 24 hours): Temp Pulse Resp BP Pulse Ox 97.8 F 79 20 132/69 98 10/21/17 15:00 10/21/17 15:00 10/21/17 15:00 10/21/17 15:00 10/21/17 15:00 Intake and Output: 10/21/17 10/21/17 06:59 18:59 Intake Total 920 Output Total 200 Balance 720 - Medications Medications: Current Medications Acetaminophen (Tylenol 325mg Tab) 650 mg PO Q6 PRN PRN Reason: Pain, moderate (4-7) Last Admin: 10/15/17 16:49 Dose: 650 mg Aspirin (Ecotrin) 81 mg PO DAILY [facility] Last Admin: 10/21/17 09:18 Dose: 81 mg Brimonidine Tartrate (Alphagan 0.2% Opht) 0 ml OU Q8H [facility] Last Admin: 10/21/17 13:14 Dose: 1 drop Clonidine HCl (Catapres) 0.1 mg PO TID PRN PRN Reason: Diastolic blood pressure Last Admin: 09/20/17 18:22 Dose: 0.1 mg Clopidogrel Bisulfate (Plavix) 75 mg PO DAILY [facility] Last Admin: 10/21/17 09:18 Dose: 75 mg Cyanocobalamin (Vitamin B12 1000 Mcg Tab) 1,000 mcg PO DAILY [facility] Last Admin: 10/21/17 09:18 Dose: 1,000 mcg Home Med (Patient's Own Drops) 1 drop OU HS [facility] Last Admin: 10/20/17 22:11 Dose: 1 drop Home Med (Patient's Own Drops) 1 drop OD QID [facility] Last Admin: 10/07/17 10:29 Dose: 1 drop Dextrose/Sodium Chloride (Dextrose 5%/0.45% Ns 1000 Ml) 1,000 mls @ 20 mls/hr IV .Q24H [facility] Last Admin: 10/21/17 16:00 Dose: Not Given Imipenem/Cilastatin Sodium 500 (mg/ Sodium Chloride) 100 mls @ 100 mls/hr IVPB Q8 [facility] Losartan Potassium (Cozaar) 100 mg PO DAILY [facility] Last Admin: 10/21/17 09:17 Dose: 100 mg Metoprolol Succinate (Toprol Xl) 50 mg PO DAILY [facility] Last Admin: 10/21/17 09:18 Dose: 50 mg Pilocarpine HCl (Isopto Carpine 1% Opht Soln) 1 drop OD QID [facility] Last Admin: 10/21/17 17:55 Dose: 1 drop - Labs Labs: 10/20/17 06:32 10/20/17 06:32 PT 14.1 SECONDS (9.7-12.2) H 10/14/17 07:48 INR 1.3 10/14/17 07:48 APTT 31 SECONDS (21-34) 09/20/17 08:43 - Constitutional Appears: Non-toxic, Older Than Stated Age, Confused, Chronically Ill - Head Exam Head Exam: NORMAL INSPECTION - ENT Exam ENT Exam: Mucous Membranes Moist - Neck Exam Neck Exam: Normal Inspection - Respiratory Exam Respiratory Exam: NORMAL BREATHING PATTERN - Cardiovascular Exam Cardiovascular Exam: REGULAR RHYTHM - GI/Abdominal Exam GI & Abdominal Exam: Soft, Normal Bowel Sounds - Neurological Exam Neurological Exam: Altered - Skin Skin Exam: Dry, Warm Assessment and Plan (1) Fever Status: Resolved (2) Coag negative Staphylococcus bacteremia Status: Resolved (3) UTI (urinary tract infection) Status: Suspected (4) Benign hypertension Status: Chronic (5) Influenza Status: Resolved (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 Status: Resolved (13) Status post insertion of percutaneous endoscopic gastrostomy (PEG) tube Status: Acute
--- NOTE | 2017-10-21 20:16 | PN ---
DATE: SUBJECTIVE: The patient is seen with her daughter. The patient went for CAT scan of the abdomen. According to daughter, there was some bleeding at the PEG tube site. The patient is on PEG tube feeding. The patient had a CAT scan of the abdomen, but the patient is still taking heparin and aspirin. The patient's CAT scan result of the abdomen and chest and pelvis showed the following results; presence of cardiomegaly; bibasilar atelectasis; presence of PEG tube; fatty atrophy of the pancreas; there is abdominal aortic aneurysm, measuring 2.6 cm in the AP dimension; there is also indeterminate hyperdense 11 mm exophytic left renal lesion upper pole, suggest further evaluation, ultrasound if needed; contracted state of the gallbladder, limited evaluation; cardiomegaly as stated; trace pericardial effusion; coronary artery calcification that included inferior right thyroid lower pole appears heterogeneous with substernal extension and hypodense nodule. VITAL SIGNS: Temperature 98.1, pulse 88, blood pressure 157/72, respirations 20, and oxygen saturation is 100%. REVIEW OF SYSTEMS: GENERAL: The patient is alert, verbal, still confused and thinks she is at home but redirectable, tolerating PEG tube feeding. SKIN: No diaphoresis. HEENT: Legally blind. Hard of hearing. No headache. NECK: Supple. RESPIRATORY: No dyspnea. CARDIOVASCULAR: No chest pain. GASTROINTESTINAL: Tolerating PEG tube, no bleeding further noticed from the PEG tube site. EXTREMITIES: She has been bedbound. The patient has not been walking. MUSCULOSKELETAL: Feels weak. NEUROLOGIC: Alert, but often with periods of confusion. GENITOURINARY: No dysuria. MENTAL STATUS EXAMINATION: Elderly female who looks stated age, oriented x1 for now, only to person, not to place and time, not agitated. Speech is spontaneous. Affect is reactive. Mood is dysphoric. Thought process confused. Thought content, the patient is often unaware that she is in hospital. No paranoia. No suicidal or homicidal ideation. The patient was looking for her granddaughter. Attention and memory seem to be limited. Insight and judgment are limited. Impulse control is fair at this time. IMPRESSION: Delirium, metabolic encephalopathy, status post percutaneous endoscopic gastrostomy tube feeding, history of cerebrovascular accident of the right basal ganglia, history of dementia with mood changes. PLAN AND RECOMMENDATIONS: The patient is seen, medications reviewed. Continue present management. The patient is to continue PEG tube feeding. The patient is on antibiotics, currently on meropenem. The patient is awaiting medical clearance prior to transfer to [facility] for subacute rehab. Her sugar is 142, her potassium now is 3.9. Fredy Harper MD [facility]
[2017-10-21] MEDS: LUMIGAN OU SCH (21:53)
[2017-10-22] MEDS: Brimonidine 0.2% Opth Sol (5ml) OU SCH ×3 (06:04→21:02)
[2017-10-22] MEDS: Metoprolol Succinate 50 mg XL Tab PO SCH (09:20)
[2017-10-22] MEDS: PILOCARPINE 1% OD SCH ×4 (09:20→21:02)
[2017-10-22] MEDS: Saccharomyces Boulardi 250 mg Cap PO SCH ×2 (09:20→17:16)
--- NOTE | 2017-10-22 11:42 | CP.PCM.PN ---
Subjective - Date & Time of Evaluation Date of Evaluation: 10/22/17 Time of Evaluation: 11:39 - Subjective Subjective: Patient's mental status is unchanged. She still complains of "sorenss" at the site of the G-tube. Objective - Vital Signs/Intake and Output Vital Signs (last 24 hours): Temp Pulse Resp BP Pulse Ox 98.2 F 103 H 20 138/79 97 10/22/17 07:45 10/22/17 07:45 10/22/17 07:45 10/22/17 08:21 10/22/17 07:45 Intake and Output: 10/22/17 10/22/17 06:59 18:59 Intake Total 1140 Output Total 400 Balance 740 - Medications Medications: Current Medications Acetaminophen (Tylenol 325mg Tab) 650 mg PO Q6 PRN PRN Reason: Pain, moderate (4-7) Last Admin: 10/15/17 16:49 Dose: 650 mg Aspirin (Ecotrin) 81 mg PO DAILY [facility] Last Admin: 10/22/17 09:20 Dose: 81 mg Brimonidine Tartrate (Alphagan 0.2% Opht) 0 ml OU Q8H [facility] Last Admin: 10/22/17 06:04 Dose: 1 drop Clonidine HCl (Catapres) 0.1 mg PO TID PRN PRN Reason: Diastolic blood pressure Last Admin: 10/22/17 00:15 Dose: 0.1 mg Clopidogrel Bisulfate (Plavix) 75 mg PO DAILY [facility] Last Admin: 10/22/17 09:20 Dose: 75 mg Cyanocobalamin (Vitamin B12 1000 Mcg Tab) 1,000 mcg PO DAILY [facility] Last Admin: 10/22/17 09:20 Dose: 1,000 mcg Home Med (Patient's Own Drops) 1 drop OU HS [facility] Last Admin: 10/21/17 21:53 Dose: 1 drop Home Med (Patient's Own Drops) 1 drop OD QID [facility] Last Admin: 10/07/17 10:29 Dose: 1 drop Dextrose/Sodium Chloride (Dextrose 5%/0.45% Ns 1000 Ml) 1,000 mls @ 20 mls/hr IV .Q24H [facility] Last Admin: 10/21/17 16:00 Dose: Not Given Imipenem/Cilastatin Sodium 500 (mg/ Sodium Chloride) 100 mls @ 100 mls/hr IVPB Q8H [facility] Last Admin: 10/22/17 09:25 Dose: 100 mls/hr Losartan Potassium (Cozaar) 100 mg PO DAILY [facility] Last Admin: 10/22/17 09:20 Dose: 100 mg Metoprolol Succinate (Toprol Xl) 50 mg PO DAILY [facility] Last Admin: 10/22/17 09:20 Dose: 50 mg Pilocarpine HCl (Isopto Carpine 1% Opht Soln) 1 drop OD QID [facility] Last Admin: 10/22/17 09:20 Dose: 1 drop Saccharomyces Boulardii (Florastor) 250 mg PO BID [facility] Last Admin: 10/22/17 09:20 Dose: 250 mg - Labs Labs: 10/20/17 06:32 10/20/17 06:32 PT 14.1 SECONDS (9.7-12.2) H 10/14/17 07:48 INR 1.3 10/14/17 07:48 APTT 31 SECONDS (21-34) 09/20/17 08:43 - Constitutional Appears: No Acute Distress - Neck Exam Neck Exam: absent: Lymphadenopathy, Thyromegaly - Respiratory Exam Respiratory Exam: NORMAL BREATHING PATTERN. absent: Rales, Rhonchi, Wheezes - Cardiovascular Exam Cardiovascular Exam: +S1, +S2. absent: Rubs, Murmur - GI/Abdominal Exam GI & Abdominal Exam: Soft, Normal Bowel Sounds. absent: Tenderness, Organomegaly Additional comments: Dried blood noted on the skin adjacent to the gastrostomy. No discharge or leakage. - Rectal Exam Rectal Exam: Deferred - Extremities Exam Extremities Exam: absent: Calf Tenderness, Pedal Edema Assessment and Plan (1) Inadequate oral intake Assessment & Plan: Patient continues to complain of discomfort, soreness, at gastrostomy. She has been afebrile. CBC is pending from today. CT scan showed no hematoma or abscess. Continue antibiotics. Status: Acute
--- NOTE | 2017-10-22 12:28 | CP.PCM.PN ---
Subjective - Date & Time of Evaluation Date of Evaluation: 10/22/17 Time of Evaluation: 12:25 - Subjective Subjective: Complaining of pain at the PEG insertion and CT scan of the abdomen did not reveal any abscess or hematoma. Still confused. Objective - Vital Signs/Intake and Output Vital Signs (last 24 hours): Temp Pulse Resp BP Pulse Ox 98.2 F 103 H 20 138/79 97 10/22/17 07:45 10/22/17 07:45 10/22/17 07:45 10/22/17 08:21 10/22/17 07:45 Intake and Output: 10/22/17 10/22/17 06:59 18:59 Intake Total 1140 Output Total 400 Balance 740 - Medications Medications: Current Medications Acetaminophen (Tylenol 325mg Tab) 650 mg PO Q6 PRN PRN Reason: Pain, moderate (4-7) Last Admin: 10/15/17 16:49 Dose: 650 mg Aspirin (Ecotrin) 81 mg PO DAILY [facility] Last Admin: 10/22/17 09:20 Dose: 81 mg Brimonidine Tartrate (Alphagan 0.2% Opht) 0 ml OU Q8H [facility] Last Admin: 10/22/17 06:04 Dose: 1 drop Clonidine HCl (Catapres) 0.1 mg PO TID PRN PRN Reason: Diastolic blood pressure Last Admin: 10/22/17 00:15 Dose: 0.1 mg Clopidogrel Bisulfate (Plavix) 75 mg PO DAILY [facility] Last Admin: 10/22/17 09:20 Dose: 75 mg Cyanocobalamin (Vitamin B12 1000 Mcg Tab) 1,000 mcg PO DAILY [facility] Last Admin: 10/22/17 09:20 Dose: 1,000 mcg Home Med (Patient's Own Drops) 1 drop OU HS [facility] Last Admin: 10/21/17 21:53 Dose: 1 drop Home Med (Patient's Own Drops) 1 drop OD QID [facility] Last Admin: 10/07/17 10:29 Dose: 1 drop Dextrose/Sodium Chloride (Dextrose 5%/0.45% Ns 1000 Ml) 1,000 mls @ 20 mls/hr IV .Q24H [facility] Last Admin: 10/21/17 16:00 Dose: Not Given Imipenem/Cilastatin Sodium 500 (mg/ Sodium Chloride) 100 mls @ 100 mls/hr IVPB Q8H [facility] Last Admin: 10/22/17 09:25 Dose: 100 mls/hr Losartan Potassium (Cozaar) 100 mg PO DAILY [facility] Last Admin: 10/22/17 09:20 Dose: 100 mg Metoprolol Succinate (Toprol Xl) 50 mg PO DAILY [facility] Last Admin: 10/22/17 09:20 Dose: 50 mg Pilocarpine HCl (Isopto Carpine 1% Opht Soln) 1 drop OD QID [facility] Last Admin: 10/22/17 09:20 Dose: 1 drop Saccharomyces Boulardii (Florastor) 250 mg PO BID [facility] Last Admin: 10/22/17 09:20 Dose: 250 mg - Labs Labs: 10/20/17 06:32 10/20/17 06:32 PT 14.1 SECONDS (9.7-12.2) H 10/14/17 07:48 INR 1.3 10/14/17 07:48 APTT 31 SECONDS (21-34) 09/20/17 08:43 - Constitutional Appears: No Acute Distress, Chronically Ill - Head Exam Head Exam: NORMOCEPHALIC - Eye Exam Eye Exam: Normal appearance - ENT Exam ENT Exam: Normal Exam - Neck Exam Neck Exam: Normal Inspection - Respiratory Exam Respiratory Exam: Clear to Ausculation Bilateral - Cardiovascular Exam Cardiovascular Exam: REGULAR RHYTHM, Murmur - GI/Abdominal Exam GI & Abdominal Exam: Soft, Normal Bowel Sounds - Rectal Exam Rectal Exam: Deferred - Extremities Exam Extremities Exam: Normal Inspection - Back Exam Back Exam: NORMAL INSPECTION - Psychiatric Exam Additional comments: Confused. - Skin Skin Exam: Normal Color, Warm Assessment and Plan (1) Influenza Status: Resolved (2) UTI (urinary tract infection) Status: Suspected (3) Abnormal head CT Status: Resolved (4) Abnormal head CT Status: Resolved (5) Staphylococcus aureus bacteremia Status: Resolved (6) CVA (cerebral vascular accident) Status: Resolved (7) Anorexia Assessment & Plan: Continue PEG feeding. Status: Acute (8) Leucocytosis Assessment & Plan: On IV antibiotic. Status: Resolved
[2017-10-22 13:41] LABS: BASO # 0.1 K/uL (0.0-0.2); BASO % 1.3 % (0.0-2.0); EOS # 0.6 K/uL (0.0-0.7); HEMOGLOBIN 8.5 g/dL (11.0-16.0); LYMPH # 1.3 K/uL (1.0-4.3); LYMPH % 11.3 % (20.0-40.0); MEAN CELL VOLUME 82.4 fL (81.0-99.0); MEAN CORPUSCULAR HEMOGLOBIN 26.6 pg (27.0-31.0); MEAN CORPUSCULAR HGB CONC 32.3 g/dL (33.0-37.0); MONO # 0.9 K/uL (0.0-0.8); MONO % 7.7 % (0.0-10.0); NEUT # 8.4 K/uL (1.8-7.0); NEUT % 74.7 % (50.0-75.0); RBC 3.18 Mil/uL (3.80-5.20); RED CELL DISTRIBUTION WIDTH 15.6 % (11.5-14.5); WHITE BLOOD COUNT 11.3 K/uL (4.8-10.8)
[2017-10-22 14:02] LABS: ALB/GLOB RATIO 0.8 (1.0-2.1); ALBUMIN 2.8 g/dL (3.5-5.0); ALT/SGPT 18 U/L (9-52); AST/SGOT 30 U/L (14-36); BLOOD UREA NITROGEN 15 mg/dL (7-17); CALCIUM 8.6 mg/dl (8.6-10.4); GFR AFRICAN-AMERICAN > 60; GFR NON-AFRICAN AMERICAN > 60
[2017-10-22] MEDS: Dextrose 5%/0.45% NS 1,000 ML IV SCH (17:16)
[2017-10-22] MEDS: LUMIGAN OU SCH (21:02)
--- NOTE | 2017-10-22 22:08 | PN ---
DATE: SUBJECTIVE: The patient is seen, still with periods of confusion but tolerating PEG tube. The patient had CAT scan of the abdomen done, it showed no abscess. No recurrence of bleeding at the PEG side. Patient is noted to be increasingly getting confused. Patient is lucid but her intervals are getting to be getting shorter and shorter. I did discuss this with the family but the patient is not a candidate for meds for dementia as she becomes more confused with this. The patient is awaiting medical clearance to go to [facility] subacute rehab. Her is 89 years old and cannot take care of her at this time at the present condition if she is discharge to home. PHYSICAL EXAMINATION VITAL SIGNS: Temperature is 98.2, pulse 103, blood pressure 138/79, respirations 20, oxygen saturations 97%. REVIEW OF SYSTEMS: GENERAL: The patient is sleepy but arousable, still confused, lying in bed, tolerating PEG tube feedings. SKIN: No diaphoresis. HEENT: Legally blind, hard of hearing. No headache. NECK: Supple. RESPIRATORY: No dyspnea. CARDIOVASCULAR: No chest pain. GASTROINTESTINAL: Tolerating PEG tube feedings. No nausea. No vomiting. No diarrhea. EXTREMITIES: The patient has been bed bound. She has not been walking. MUSCULOSKELETAL: Feels weak. NEUROLOGIC: Alert with intermittent periods of confusion. The patient is confused. Dementia seems to be progressive. GENITOURINARY: No dysuria. MENTAL STATUS EXAMINATION: Elderly female, who looks stated age, oriented only to person. Patient is unsure she is in hospital. The patient thinks she is at home. Speech is low. Affect is restricted. Mood is dysphoric. Thought process confused. Thought content, no overt paranoia or hallucination. No suicidal thought or ideation. Attention and memory seem to be limited. Insight and judgment are limited. Impulse control is fair at this time. IMPRESSION: Delirium, metabolic encephalopathy, dementia with mood changes, history of severe right basal ganglia. The patient's last WBC is 11.3. The patient is afebrile. The patient is on antibiotic. The patient is followed by Dr. Kimbrough. For now, we will just follow up the patient. The patient has progressive dementia but unable to tolerate and family is concerned to try her again for medications for dementia if patient develops becomes more confused. Fredy Harper MD [facility] # [id number] [facility]
[2017-10-23] MEDS: Brimonidine 0.2% Opth Sol (5ml) OU SCH ×3 (05:47→21:24)
[2017-10-23] MEDS: Metoprolol Succinate 50 mg XL Tab PO SCH (10:05)
[2017-10-23] MEDS: PILOCARPINE 1% OD SCH ×4 (10:05→21:24)
[2017-10-23] MEDS: Saccharomyces Boulardi 250 mg Cap PO SCH ×2 (10:05→17:30)
--- NOTE | 2017-10-23 12:00 | CP.PCM.PN ---
Subjective - Date & Time of Evaluation Date of Evaluation: 10/23/17 Time of Evaluation: 11:57 - Subjective Subjective: Patient continues to complain of "soreness" at gastrostomy. Objective - Vital Signs/Intake and Output Vital Signs (last 24 hours): Temp Pulse Resp BP Pulse Ox 97.8 F 99 H 20 153/78 H 99 10/23/17 08:00 10/23/17 08:00 10/23/17 08:00 10/23/17 08:00 10/23/17 08:00 Intake and Output: 10/23/17 10/23/17 06:59 18:59 Intake Total 520 750 Balance 520 750 - Medications Medications: Current Medications Acetaminophen (Tylenol 325mg Tab) 650 mg PO Q6 PRN PRN Reason: Pain, moderate (4-7) Last Admin: 10/15/17 16:49 Dose: 650 mg Aspirin (Ecotrin) 81 mg PO DAILY [facility] Last Admin: 10/23/17 10:05 Dose: 81 mg Brimonidine Tartrate (Alphagan 0.2% Opht) 0 ml OU Q8H [facility] Last Admin: 10/23/17 05:47 Dose: 1 drop Clonidine HCl (Catapres) 0.1 mg PO TID PRN PRN Reason: Diastolic blood pressure Last Admin: 10/22/17 00:15 Dose: 0.1 mg Clopidogrel Bisulfate (Plavix) 75 mg PO DAILY [facility] Last Admin: 10/23/17 10:05 Dose: 75 mg Cyanocobalamin (Vitamin B12 1000 Mcg Tab) 1,000 mcg PO DAILY [facility] Last Admin: 10/23/17 10:14 Dose: 1,000 mcg Home Med (Patient's Own Drops) 1 drop OU HS [facility] Last Admin: 10/22/17 21:02 Dose: 1 drop Home Med (Patient's Own Drops) 1 drop OD QID [facility] Last Admin: 10/07/17 10:29 Dose: 1 drop Imipenem/Cilastatin Sodium 500 (mg/ Sodium Chloride) 100 mls @ 100 mls/hr IVPB Q8H [facility] Last Admin: 10/23/17 10:05 Dose: 100 mls/hr Losartan Potassium (Cozaar) 100 mg PO DAILY [facility] Last Admin: 10/23/17 10:05 Dose: 100 mg Metoprolol Succinate (Toprol Xl) 50 mg PO DAILY [facility] Last Admin: 10/23/17 10:05 Dose: 50 mg Pilocarpine HCl (Isopto Carpine 1% Opht Soln) 1 drop OD QID [facility] Last Admin: 10/23/17 10:05 Dose: 1 applic Saccharomyces Boulardii (Florastor) 250 mg PO BID [facility] Last Admin: 10/23/17 10:05 Dose: 250 mg - Labs Labs: 10/22/17 13:36 10/22/17 13:36 PT 14.1 SECONDS (9.7-12.2) H 10/14/17 07:48 INR 1.3 10/14/17 07:48 APTT 31 SECONDS (21-34) 09/20/17 08:43 - Constitutional Appears: No Acute Distress - Neck Exam Neck Exam: absent: Lymphadenopathy, Thyromegaly - Respiratory Exam Respiratory Exam: NORMAL BREATHING PATTERN. absent: Rales, Rhonchi, Wheezes - Cardiovascular Exam Cardiovascular Exam: REGULAR RHYTHM, +S1, +S2. absent: Gallop, Rubs, Murmur - GI/Abdominal Exam GI & Abdominal Exam: Soft, Tenderness, Normal Bowel Sounds. absent: Organomegaly Additional comments: Mild tenderness to palpation around G tube - Rectal Exam Rectal Exam: Deferred - Extremities Exam Extremities Exam: absent: Calf Tenderness, Pedal Edema Assessment and Plan (1) Inadequate oral intake Assessment & Plan: Patient has persistent discomfort around gastrostomy. Will check GI series via the G tube to assess positioning and possible leakage. Status: Acute
[2017-10-23 13:55] LABS: BASO # 0.1 K/uL (0.0-0.2); BASO % 0.8 % (0.0-2.0); EOS # 0.5 K/uL (0.0-0.7); EOS % 5.4 % (0.0-4.0); HEMOGLOBIN 9.3 g/dL (11.0-16.0); LYMPH # 1.3 K/uL (1.0-4.3); MEAN CELL VOLUME 82.3 fL (81.0-99.0); MEAN CORPUSCULAR HEMOGLOBIN 26.9 pg (27.0-31.0); MEAN CORPUSCULAR HGB CONC 32.7 g/dL (33.0-37.0); MONO # 0.8 K/uL (0.0-0.8); MONO % 8.5 % (0.0-10.0); NEUT # 6.9 K/uL (1.8-7.0); NEUT % 71.3 % (50.0-75.0); NRBC % 0.1 % (0.0-2.0); RBC 3.44 Mil/uL (3.80-5.20); RED CELL DISTRIBUTION WIDTH 15.7 % (11.5-14.5); WHITE BLOOD COUNT 9.6 K/uL (4.8-10.8)
[2017-10-23 14:02] LABS: ALB/GLOB RATIO 0.8 (1.0-2.1); ALBUMIN 2.8 g/dL (3.5-5.0); ALT/SGPT 15 U/L (9-52); AST/SGOT 25 U/L (14-36); BLOOD UREA NITROGEN 16 mg/dL (7-17); CALCIUM 8.5 mg/dl (8.6-10.4); GFR AFRICAN-AMERICAN > 60; GFR NON-AFRICAN AMERICAN > 60
--- NOTE | 2017-10-23 17:42 | PN ---
DATE: 10/23/2017 SUBJECTIVE: The patient was seen, still has periods of confusion. According to the CP, the patient tried to eat, but has very poor p.o. intake. She is on PEG tube feeding. Still disoriented. Her dementia seems to be progressive. The patient still thinks she is at home, but re-directable, tolerating PEG tube feeding without any major problems. PHYSICAL EXAMINATION: VITAL SIGNS: Temperature 97.8, pulse 99, blood pressure 153/78, respirations 20, and oxygen saturation is 99%. REVIEW OF SYSTEMS: GENERAL: The patient is still drowsy, but arousable, not in acute respiratory distress. Patient seen by Dr. Farooq. SKIN: No diaphoresis. HEENT: The patient is still hard of hearing, legally blind. NECK: Supple. RESPIRATORY: No dyspnea. CARDIOVASCULAR: No chest pain. GASTROINTESTINAL: PEG tube feeding, but complaining of diarrhea. No abdominal pain. The patient is complaining of soreness at the gastrostomy site. EXTREMITIES: The patient has not been walking. MUSCULOSKELETAL: Generalized weakness. NEUROLOGIC: The patient is sleepy, but arousable, still confused, disoriented. MENTAL STATUS EXAMINATION: Elderly female who looks stated age, oriented x1 only to person. The patient is unsure she is in the hospital. Speech is spontaneous. Affect is restricted. Mood is dysphoric. Thought process, confused. Thought content, no overt psychosis. No suicidal or homicidal ideation. Attention and memory seems to be limited. Insight and judgment are limited. Impulse control is fair at this time. 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 PLAN AND RECOMMENDATIONS: The patient is seen and meds reviewed. Continue present management. Continue PEG tube feeding. The patient to continue her p.o. feeding, but the patient's appetite is very poor. Review of her labs, her last WBC was 11.3. The patient is still taking antibiotics from Dr. Kimbrough. The patient may go to [facility] once medically stable or subacute rehab. According to her daughter, the patient's is 89 years old and cannot take care of her at home at this time due to her present condition. Family is aware also with the progression of the patient's dementia, but the patient cannot take any medications for dementia as she seems to have paradoxical reaction to psych medications. Fredy Harper MD [facility]
[2017-10-23] MEDS: LUMIGAN OU SCH (21:24)
[2017-10-24] MEDS: Brimonidine 0.2% Opth Sol (5ml) OU SCH ×3 (05:19→22:12)
[2017-10-24 07:25] LABS: BASO # 0.1 K/uL (0.0-0.2); BASO % 0.6 % (0.0-2.0); EOS # 0.5 K/uL (0.0-0.7); EOS % 6.3 % (0.0-4.0); HEMOGLOBIN 8.5 g/dL (11.0-16.0); LYMPH # 1.5 K/uL (1.0-4.3); LYMPH % 17.5 % (20.0-40.0); MEAN CELL VOLUME 81.8 fL (81.0-99.0); MEAN CORPUSCULAR HEMOGLOBIN 27.1 pg (27.0-31.0); MEAN CORPUSCULAR HGB CONC 33.1 g/dL (33.0-37.0); MEAN PLATELET VOLUME 9.1 fL (7.2-11.7); MONO # 0.7 K/uL (0.0-0.8); MONO % 8.5 % (0.0-10.0); NEUT # 5.7 K/uL (1.8-7.0); NEUT % 67.1 % (50.0-75.0); RBC 3.15 Mil/uL (3.80-5.20); RED CELL DISTRIBUTION WIDTH 15.7 % (11.5-14.5); WHITE BLOOD COUNT 8.6 K/uL (4.8-10.8)
[2017-10-24] MEDS ORDERED: Iohexol 240 200 ML ONE (07:48)
[2017-10-24 07:50] LABS: ALB/GLOB RATIO 0.8 (1.0-2.1); ALBUMIN 2.6 g/dL (3.5-5.0); ALT/SGPT 15 U/L (9-52); AST/SGOT 22 U/L (14-36); BLOOD UREA NITROGEN 14 mg/dL (7-17); CALCIUM 8.3 mg/dl (8.6-10.4); GFR AFRICAN-AMERICAN > 60; GFR NON-AFRICAN AMERICAN > 60
--- NOTE | 2017-10-24 08:06 | CP.PCM.PN ---
Subjective - Date & Time of Evaluation Date of Evaluation: 10/24/17 Time of Evaluation: 08:03 - Subjective Subjective: Patient states that the abdomen is "soft but sore." Objective - Vital Signs/Intake and Output Vital Signs (last 24 hours): Temp Pulse Resp BP Pulse Ox 97.8 F 100 H 20 162/75 H 96 10/23/17 23:30 10/23/17 23:30 10/23/17 23:30 10/23/17 23:30 10/23/17 23:30 Intake and Output: 10/24/17 10/24/17 06:59 18:59 Intake Total 1440 Balance 1440 - Medications Medications: Current Medications Acetaminophen (Tylenol 325mg Tab) 650 mg PO Q6 PRN PRN Reason: Pain, moderate (4-7) Last Admin: 10/15/17 16:49 Dose: 650 mg Aspirin (Ecotrin) 81 mg PO DAILY [facility] Last Admin: 10/23/17 10:05 Dose: 81 mg Brimonidine Tartrate (Alphagan 0.2% Opht) 0 ml OU Q8H [facility] Last Admin: 10/24/17 05:19 Dose: 1 drop Clonidine HCl (Catapres) 0.1 mg PO TID PRN PRN Reason: Diastolic blood pressure Last Admin: 10/22/17 00:15 Dose: 0.1 mg Clopidogrel Bisulfate (Plavix) 75 mg PO DAILY [facility] Last Admin: 10/23/17 10:05 Dose: 75 mg Cyanocobalamin (Vitamin B12 1000 Mcg Tab) 1,000 mcg PO DAILY [facility] Last Admin: 10/23/17 10:14 Dose: 1,000 mcg Home Med (Patient's Own Drops) 1 drop OU HS [facility] Last Admin: 10/23/17 21:24 Dose: 1 drop Home Med (Patient's Own Drops) 1 drop OD QID [facility] Last Admin: 10/07/17 10:29 Dose: 1 drop Imipenem/Cilastatin Sodium 500 (mg/ Sodium Chloride) 100 mls @ 100 mls/hr IVPB Q8H [facility] Last Admin: 10/24/17 01:03 Dose: 100 mls/hr Losartan Potassium (Cozaar) 100 mg PO DAILY [facility] Last Admin: 10/23/17 10:05 Dose: 100 mg Metoprolol Succinate (Toprol Xl) 50 mg PO DAILY [facility] Last Admin: 10/23/17 10:05 Dose: 50 mg Pilocarpine HCl (Isopto Carpine 1% Opht Soln) 1 drop OD QID [facility] Last Admin: 10/23/17 21:24 Dose: 1 applic Saccharomyces Boulardii (Florastor) 250 mg PO BID [facility] Last Admin: 10/23/17 17:30 Dose: 250 mg - Labs Labs: 10/24/17 07:10 10/24/17 07:10 PT 14.1 SECONDS (9.7-12.2) H 10/14/17 07:48 INR 1.3 10/14/17 07:48 APTT 31 SECONDS (21-34) 09/20/17 08:43 - Constitutional Appears: No Acute Distress - Head Exam Head Exam: ATRAUMATIC, NORMOCEPHALIC - Eye Exam Eye Exam: EOMI, PERRL - Neck Exam Neck Exam: absent: Lymphadenopathy, Thyromegaly - Respiratory Exam Respiratory Exam: NORMAL BREATHING PATTERN. absent: Rales, Rhonchi, Wheezes - Cardiovascular Exam Cardiovascular Exam: REGULAR RHYTHM, +S1, +S2. absent: Gallop, Rubs, Murmur - GI/Abdominal Exam GI & Abdominal Exam: Soft, Normal Bowel Sounds. absent: Tenderness, Organomegaly Additional comments: No induration around gastrostomy - Rectal Exam Rectal Exam: Deferred - Extremities Exam Extremities Exam: absent: Calf Tenderness, Pedal Edema Assessment and Plan (1) Inadequate oral intake Assessment & Plan: Patient continues to complain of soreness at gastrostomy. She has been afebrile ; WBC count has been normal. UGI series via gastrostomy tube ordered for today. Continue antibiotics. Consider repeat CT scan. Status: Acute
[2017-10-24] MEDS: Saccharomyces Boulardi 250 mg Cap PO SCH ×2 (10:55→18:43)
[2017-10-24] MEDS: Metoprolol Succinate 50 mg XL Tab PO SCH (10:55)
[2017-10-24] MEDS: PILOCARPINE 1% OD SCH ×4 (11:06→22:12)
--- NOTE | 2017-10-24 17:02 | CP.PCM.PN ---
Subjective - Date & Time of Evaluation Date of Evaluation: 10/23/17 Time of Evaluation: 13:15 - Subjective Subjective: INFECTIOUS DISEASE PROGRESS NOTE TUAN DURAN MD, FACP 10/23/2017 6T 665-B CHART REVIEWED PT S EXAM NOTED CASE DISCUSSED CLINICALLY ONLY COMPLAINING OF PEG SITE SORENESS AFEBRILE NL WBC FOLLOW CBC TESTING CONSIDER TO D/C'ING IV ANTIBIOTICS SOON. Objective - Vital Signs/Intake and Output Vital Signs (last 24 hours): Temp Pulse Resp BP Pulse Ox 98.2 F 100 H 20 129/74 94 L 10/24/17 08:57 10/24/17 08:57 10/24/17 08:57 10/24/17 08:57 10/24/17 08:57 Intake and Output: 10/24/17 10/24/17 06:59 18:59 Intake Total 1440 460 Balance 1440 460 - Medications Medications: Current Medications Acetaminophen (Tylenol 325mg Tab) 650 mg PO Q6 PRN PRN Reason: Pain, moderate (4-7) Last Admin: 10/15/17 16:49 Dose: 650 mg Aspirin (Ecotrin) 81 mg PO DAILY [facility] Last Admin: 10/24/17 10:55 Dose: 81 mg Brimonidine Tartrate (Alphagan 0.2% Opht) 0 ml OU Q8H [facility] Last Admin: 10/24/17 14:46 Dose: 1 drop Clonidine HCl (Catapres) 0.1 mg PO TID PRN PRN Reason: Diastolic blood pressure Last Admin: 10/22/17 00:15 Dose: 0.1 mg Clopidogrel Bisulfate (Plavix) 75 mg PO DAILY [facility] Last Admin: 10/24/17 10:55 Dose: 75 mg Cyanocobalamin (Vitamin B12 1000 Mcg Tab) 1,000 mcg PO DAILY [facility] Last Admin: 10/24/17 10:55 Dose: 1,000 mcg Home Med (Patient's Own Drops) 1 drop OU HS [facility] Last Admin: 10/23/17 21:24 Dose: 1 drop Home Med (Patient's Own Drops) 1 drop OD QID [facility] Last Admin: 10/07/17 10:29 Dose: 1 drop Imipenem/Cilastatin Sodium 500 (mg/ Sodium Chloride) 100 mls @ 100 mls/hr IVPB Q8H [facility] Last Admin: 10/24/17 10:55 Dose: 100 mls/hr Losartan Potassium (Cozaar) 100 mg PO DAILY [facility] Last Admin: 10/24/17 10:55 Dose: 100 mg Metoprolol Succinate (Toprol Xl) 50 mg PO DAILY [facility] Last Admin: 10/24/17 10:55 Dose: 50 mg Pilocarpine HCl (Isopto Carpine 1% Opht Soln) 1 drop OD QID [facility] Last Admin: 10/24/17 14:44 Dose: 1 drop Saccharomyces Boulardii (Florastor) 250 mg PO BID [facility] Last Admin: 10/24/17 10:55 Dose: 250 mg - Labs Labs: 10/24/17 07:10 10/24/17 07:10 PT 14.1 SECONDS (9.7-12.2) H 10/14/17 07:48 INR 1.3 10/14/17 07:48 APTT 31 SECONDS (21-34) 09/20/17 08:43 Assessment and Plan (1) Fever Status: Resolved (2) Coag negative Staphylococcus bacteremia Status: Resolved (3) UTI (urinary tract infection) Status: Suspected (4) Benign hypertension Status: Chronic (5) Influenza Status: Resolved (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 Status: Acute
--- NOTE | 2017-10-24 17:12 | CP.PCM.PN ---
Subjective - Date & Time of Evaluation Date of Evaluation: 10/24/17 Time of Evaluation: 17:08 - Subjective Subjective: INFECTIOUS DISEASE PROGRESS NOTE TUAN DURAN MD, FACP 6T 665-B 10/24/2017 CLINCIALLY STABLE APPEARS WITHOUT DISCOMFORT S/P UGI SERIES VIA PEG OFFICAL RESULTS NOT AVAILABLE DISCUSSED WITH RN OFFI WATCH CBC-H/H ESPECIALLY,. NO SIGNS OF INFECTION TO D/C IV AB AFTER TODAYS LAST DOSE AND OBSERVE RESPONSE ABD SOFTER ON A DAILY BASES. Objective - Vital Signs/Intake and Output Vital Signs (last 24 hours): Temp Pulse Resp BP Pulse Ox 98.2 F 100 H 20 129/74 94 L 10/24/17 08:57 10/24/17 08:57 10/24/17 08:57 10/24/17 08:57 10/24/17 08:57 Intake and Output: 10/24/17 10/24/17 06:59 18:59 Intake Total 1440 460 Balance 1440 460 - Medications Medications: Current Medications Acetaminophen (Tylenol 325mg Tab) 650 mg PO Q6 PRN PRN Reason: Pain, moderate (4-7) Last Admin: 10/15/17 16:49 Dose: 650 mg Aspirin (Ecotrin) 81 mg PO DAILY [facility] Last Admin: 10/24/17 10:55 Dose: 81 mg Brimonidine Tartrate (Alphagan 0.2% Opht) 0 ml OU Q8H [facility] Last Admin: 10/24/17 14:46 Dose: 1 drop Clonidine HCl (Catapres) 0.1 mg PO TID PRN PRN Reason: Diastolic blood pressure Last Admin: 10/22/17 00:15 Dose: 0.1 mg Clopidogrel Bisulfate (Plavix) 75 mg PO DAILY [facility] Last Admin: 10/24/17 10:55 Dose: 75 mg Cyanocobalamin (Vitamin B12 1000 Mcg Tab) 1,000 mcg PO DAILY [facility] Last Admin: 10/24/17 10:55 Dose: 1,000 mcg Home Med (Patient's Own Drops) 1 drop OU HS [facility] Last Admin: 10/23/17 21:24 Dose: 1 drop Home Med (Patient's Own Drops) 1 drop OD QID [facility] Last Admin: 10/07/17 10:29 Dose: 1 drop Imipenem/Cilastatin Sodium 500 (mg/ Sodium Chloride) 100 mls @ 100 mls/hr IVPB Q8H [facility] Last Admin: 10/24/17 10:55 Dose: 100 mls/hr Losartan Potassium (Cozaar) 100 mg PO DAILY [facility] Last Admin: 10/24/17 10:55 Dose: 100 mg Metoprolol Succinate (Toprol Xl) 50 mg PO DAILY [facility] Last Admin: 10/24/17 10:55 Dose: 50 mg Pilocarpine HCl (Isopto Carpine 1% Opht Soln) 1 drop OD QID [facility] Last Admin: 10/24/17 14:44 Dose: 1 drop Saccharomyces Boulardii (Florastor) 250 mg PO BID [facility] Last Admin: 10/24/17 10:55 Dose: 250 mg - Labs Labs: 10/24/17 07:10 10/24/17 07:10 PT 14.1 SECONDS (9.7-12.2) H 10/14/17 07:48 INR 1.3 10/14/17 07:48 APTT 31 SECONDS (21-34) 09/20/17 08:43 - Constitutional Appears: Non-toxic, No Acute Distress, Older Than Stated Age, Cachectic, Chronically Ill - Head Exam Head Exam: NORMAL INSPECTION - ENT Exam ENT Exam: Mucous Membranes Moist - Respiratory Exam Respiratory Exam: Decreased Breath Sounds, NORMAL BREATHING PATTERN - Cardiovascular Exam Cardiovascular Exam: REGULAR RHYTHM - GI/Abdominal Exam GI & Abdominal Exam: Soft, Normal Bowel Sounds. 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
--- NOTE | 2017-10-24 17:43 | PN ---
DATE: 10/24/2017 SUBJECTIVE: The patient is seen. The patient did not eat her breakfast. She states that she ate, still with periods of confusion, tolerating PEG tube feeding. Other than that, her stay in the hospital was uneventful. The patient awaiting medical clearance to go for subacute rehab. Her dementia is still persistent . The patient seems to live in the past. The patient is not sure if she is in the hospital. VITAL SIGNS: Temperature 98.2, pulse 100, blood pressure 129/74, respirations 20, and oxygen saturation 94%. REVIEW OF HER LABS: Her WBC is 8.6. REVIEW OF SYSTEMS: GENERAL: The patient is sleepy but arousable, still confused, seen in her room, resting, tolerating PEG tube feedings. SKIN: No pruritus. HEENT: Legally blind. No headache. NECK: Supple. RESPIRATORY: No dyspnea. CARDIOVASCULAR: No chest pain. GASTROINTESTINAL: Has very poor p.o. intake but the patient has PEG tube feeding. No nausea, no vomiting. EXTREMITIES: The patient has been bedbound. MUSCULOSKELETAL: Feels weak. NEUROLOGIC: Alert with Intermittent periods of confusion. MENTAL STATUS EXAMINATION: Elderly female, who looks stated age, oriented x1 only to person, not to place. Speech is spontaneous. Affect is reactive. Mood is dysphoric. Thought process, confused off and on. Thought content, no overt psychosis. The patient is anxious at home and doing some chores. The patient seems to be unaware that she is in the hospital. No suicidal or homicidal ideation. No psychosis. Attention and memory seems to be limited. Insight and judgment are limited. Impulse control is fair at this time. 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 PLAN AND RECOMMENDATIONS: The patient is seen, medications reviewed. Continue present management. Continue antibiotics as ordered by Dr. Kimbrough. The patient is improving, although her dementia is persistent. Once the patient is medically stable, she can go to [facility] subacute rehab. Behavioral joyner, the patient is manageable. She has no behavioral issues. The patient is off psych medications; however, her dementia is progressive. Fredy Harper MD [facility] # [id number]
--- NOTE | 2017-10-24 18:27 | CP.PCM.PN ---
Subjective - Date & Time of Evaluation Date of Evaluation: 10/24/17 Time of Evaluation: 18:24 - Subjective Subjective: Patient complaining of few loose stools for the past 3 days. No fever, no abdominal cramps. UGI series via PEG looks OK. Will decrease Jevity feeding to 35ml/Hr, and check stools for C.Dif toxin ( doubt). Objective - Vital Signs/Intake and Output Vital Signs (last 24 hours): Temp Pulse Resp BP Pulse Ox 97.6 F 94 H 20 134/74 98 10/24/17 15:15 10/24/17 15:15 10/24/17 15:15 10/24/17 15:15 10/24/17 15:15 Intake and Output: 10/24/17 10/24/17 06:59 18:59 Intake Total 1440 460 Balance 1440 460 - Medications Medications: Current Medications Acetaminophen (Tylenol 325mg Tab) 650 mg PO Q6 PRN PRN Reason: Pain, moderate (4-7) Last Admin: 10/15/17 16:49 Dose: 650 mg Aspirin (Ecotrin) 81 mg PO DAILY [facility] Last Admin: 10/24/17 10:55 Dose: 81 mg Brimonidine Tartrate (Alphagan 0.2% Opht) 0 ml OU Q8H [facility] Last Admin: 10/24/17 14:46 Dose: 1 drop Clonidine HCl (Catapres) 0.1 mg PO TID PRN PRN Reason: Diastolic blood pressure Last Admin: 10/22/17 00:15 Dose: 0.1 mg Clopidogrel Bisulfate (Plavix) 75 mg PO DAILY [facility] Last Admin: 10/24/17 10:55 Dose: 75 mg Cyanocobalamin (Vitamin B12 1000 Mcg Tab) 1,000 mcg PO DAILY [facility] Last Admin: 10/24/17 10:55 Dose: 1,000 mcg Home Med (Patient's Own Drops) 1 drop OU HS [facility] Last Admin: 10/23/17 21:24 Dose: 1 drop Home Med (Patient's Own Drops) 1 drop OD QID [facility] Last Admin: 10/07/17 10:29 Dose: 1 drop Imipenem/Cilastatin Sodium 500 (mg/ Sodium Chloride) 100 mls @ 100 mls/hr IVPB Q8H [facility] Stop: 10/25/17 09:00 Last Admin: 10/24/17 10:55 Dose: 100 mls/hr Dextrose/Sodium Chloride (Dextrose 5%/0.45% Ns 1000 Ml) 1,000 mls @ 30 mls/hr IV .Q24H [facility] Losartan Potassium (Cozaar) 100 mg PO DAILY [facility] Last Admin: 10/24/17 10:55 Dose: 100 mg Metoprolol Succinate (Toprol Xl) 50 mg PO DAILY [facility] Last Admin: 10/24/17 10:55 Dose: 50 mg Pilocarpine HCl (Isopto Carpine 1% Opht Soln) 1 drop OD QID [facility] Last Admin: 10/24/17 14:44 Dose: 1 drop Saccharomyces Boulardii (Florastor) 500 mg PO BID [facility] - Labs Labs: 10/24/17 07:10 10/24/17 07:10 PT 14.1 SECONDS (9.7-12.2) H 10/14/17 07:48 INR 1.3 10/14/17 07:48 APTT 31 SECONDS (21-34) 09/20/17 08:43 - Constitutional Appears: No Acute Distress, Confused, Chronically Ill - Head Exam Head Exam: NORMAL INSPECTION - Eye Exam Eye Exam: Normal appearance - ENT Exam ENT Exam: Normal Exam - Neck Exam Neck Exam: Normal Inspection - Respiratory Exam Respiratory Exam: Clear to Ausculation Bilateral, NORMAL BREATHING PATTERN - Cardiovascular Exam Cardiovascular Exam: REGULAR RHYTHM, Murmur - GI/Abdominal Exam GI & Abdominal Exam: Soft, Normal Bowel Sounds - Rectal Exam Rectal Exam: Deferred - Extremities Exam Extremities Exam: Normal Inspection - Back Exam Back Exam: NORMAL INSPECTION - Neurological Exam Neurological Exam: Alert, Awake Additional comments: Confused. - Psychiatric Exam Additional comments: Confused. - Skin Skin Exam: Dry, Intact, Normal Color, Warm Assessment and Plan (1) Influenza Status: Resolved (2) UTI (urinary tract infection) Status: Suspected (3) Abnormal head CT Status: Resolved (4) Abnormal head CT Status: Resolved (5) Staphylococcus aureus bacteremia Status: Resolved (6) CVA (cerebral vascular accident) Status: Resolved (7) Anorexia Status: Acute (8) Leucocytosis Status: Resolved
[2017-10-24] MEDS: Dextrose 5%/0.45% NS 1,000 ML IV SCH (18:42)
[2017-10-24] MEDS: LUMIGAN OU SCH (22:11)
[2017-10-25] MEDS: Brimonidine 0.2% Opth Sol (5ml) OU SCH ×3 (06:00→22:19)
[2017-10-25 06:26] LABS: BASO # 0.1 K/uL (0.0-0.2); BASO % 0.7 % (0.0-2.0); EOS # 0.6 K/uL (0.0-0.7); EOS % 6.8 % (0.0-4.0); HEMOGLOBIN 8.6 g/dL (11.0-16.0); LYMPH # 1.4 K/uL (1.0-4.3); LYMPH % 16.8 % (20.0-40.0); MEAN CELL VOLUME 81.7 fL (81.0-99.0); MEAN CORPUSCULAR HEMOGLOBIN 26.5 pg (27.0-31.0); MEAN CORPUSCULAR HGB CONC 32.5 g/dL (33.0-37.0); MEAN PLATELET VOLUME 8.9 fL (7.2-11.7); MONO # 0.9 K/uL (0.0-0.8); MONO % 10.6 % (0.0-10.0); NEUT # 5.4 K/uL (1.8-7.0); NEUT % 65.1 % (50.0-75.0); NRBC % 0.1 % (0.0-2.0); RBC 3.25 Mil/uL (3.80-5.20); RED CELL DISTRIBUTION WIDTH 16.2 % (11.5-14.5); WHITE BLOOD COUNT 8.4 K/uL (4.8-10.8)
[2017-10-25 06:52] LABS: ALB/GLOB RATIO 0.9 (1.0-2.1); ALBUMIN 2.7 g/dL (3.5-5.0); ALT/SGPT 19 U/L (9-52); AST/SGOT 21 U/L (14-36); BLOOD UREA NITROGEN 16 mg/dL (7-17); CALCIUM 8.2 mg/dl (8.6-10.4); GFR AFRICAN-AMERICAN > 60; GFR NON-AFRICAN AMERICAN > 60
[2017-10-25] MEDS: Saccharomyces Boulardi 250 mg Cap PO SCH ×2 (09:53→18:09)
[2017-10-25] MEDS: PILOCARPINE 1% OD SCH ×4 (09:54→22:19)
[2017-10-25] MEDS: Metoprolol Succinate 50 mg XL Tab PO SCH (09:54)
--- NOTE | 2017-10-25 11:19 | CP.PCM.PN ---
Subjective - Date & Time of Evaluation Date of Evaluation: 10/25/17 Time of Evaluation: 11:16 - Subjective Subjective: Patient complained of diarrhea yesterday. She still reports having soreness around G tube. Objective - Vital Signs/Intake and Output Vital Signs (last 24 hours): Temp Pulse Resp BP Pulse Ox 98.1 F 97 H 20 168/90 H 98 10/25/17 08:19 10/25/17 08:19 10/25/17 08:19 10/25/17 08:19 10/25/17 08:19 Intake and Output: 10/25/17 10/25/17 06:59 18:59 Intake Total 540 Balance 540 - Medications Medications: Current Medications Acetaminophen (Tylenol 325mg Tab) 650 mg PO Q6 PRN PRN Reason: Pain, moderate (4-7) Last Admin: 10/15/17 16:49 Dose: 650 mg Aspirin (Ecotrin) 81 mg PO DAILY [facility] Last Admin: 10/25/17 09:53 Dose: 81 mg Brimonidine Tartrate (Alphagan 0.2% Opht) 0 ml OU Q8H [facility] Last Admin: 10/25/17 06:00 Dose: 1 drop Clonidine HCl (Catapres) 0.1 mg PO TID PRN PRN Reason: Diastolic blood pressure Last Admin: 10/22/17 00:15 Dose: 0.1 mg Clopidogrel Bisulfate (Plavix) 75 mg PO DAILY [facility] [place] Last Admin: 10/25/17 09:54 Dose: 75 mg Cyanocobalamin (Vitamin B12 1000 Mcg Tab) 1,000 mcg PO DAILY [facility] Last Admin: 10/25/17 09:54 Dose: 1,000 mcg Home Med (Patient's Own Drops) 1 drop OU HS [facility] Last Admin: 10/24/17 22:11 Dose: 1 drop Home Med (Patient's Own Drops) 1 drop OD QID [facility] Last Admin: 10/07/17 10:29 Dose: 1 drop Dextrose/Sodium Chloride (Dextrose 5%/0.45% Ns 1000 Ml) 1,000 mls @ 30 mls/hr IV .Q24H [facility] Last Admin: 10/24/17 18:42 Dose: 30 mls/hr Losartan Potassium (Cozaar) 100 mg PO DAILY [facility] Last Admin: 10/25/17 09:53 Dose: 100 mg Metoprolol Succinate (Toprol Xl) 50 mg PO DAILY [facility] Last Admin: 10/25/17 09:54 Dose: 50 mg Pilocarpine HCl (Isopto Carpine 1% Opht Soln) 1 drop OD QID [facility] Last Admin: 10/25/17 09:54 Dose: 1 drop Saccharomyces Boulardii (Florastor) 500 mg PO BID [facility] Last Admin: 10/25/17 09:53 Dose: 500 mg - Labs Labs: 10/25/17 06:18 10/25/17 06:18 PT 14.1 SECONDS (9.7-12.2) H 10/14/17 07:48 INR 1.3 10/14/17 07:48 APTT 31 SECONDS (21-34) 09/20/17 08:43 - Constitutional Appears: No Acute Distress - Head Exam Head Exam: ATRAUMATIC, NORMOCEPHALIC - Neck Exam Neck Exam: absent: Lymphadenopathy, Thyromegaly - Respiratory Exam Respiratory Exam: NORMAL BREATHING PATTERN. absent: Rales, Rhonchi, Wheezes - Cardiovascular Exam Cardiovascular Exam: REGULAR RHYTHM, +S1, +S2. absent: Gallop, Rubs, Murmur - GI/Abdominal Exam GI & Abdominal Exam: Soft, Tenderness, Normal Bowel Sounds. absent: Organomegaly Additional comments: Tenderness on manipulation of gastrostomy tube - Rectal Exam Rectal Exam: Deferred - Extremities Exam Extremities Exam: absent: Calf Tenderness, Pedal Edema Assessment and Plan (1) Inadequate oral intake Assessment & Plan: Patient reports diarrhea but symptoms are otherwise unchanged. She remains afebrile. WBC count is stable at 8400. Upper GI series via G tube shows that the tube is in adequate position; no leak demonstrated. Plan is to observe off antibiotics. Agree with checking stool for C difficile toxin. Status: Acute
--- NOTE | 2017-10-25 14:21 | PN ---
DATE: 10/25/2017. SUBJECTIVE: The patient is still confused and today seen in room refusing to eat her PEG tube feeding. The patient is awaiting medical clearance to go for subacute rehab. Psych joyner her dementia seems to be stable. The patient has advanced dementia but redirectable. Today, she needs some monitoring as she thinks she is at home and she wants to get out of the bed. Other than that no major behavioral problems. Compliant with meds. PHYSICAL EXAMINATION: VITAL SIGNS: Temperature 98.1, pulse 97, blood pressure 168/90, respirations 20, oxygen saturation is 98%. According to the nurse, the patient is awaiting clearance from Dr. Farooq. LABORATORY DATA: Review of her labs. The patient's potassium is now 4.2, sodium 136. Liver function test is within normal limits. Her B12 has improved, her B12 now is 951 from 254 with the supplements. Free T4 is 153, prolactin is 15.4, folate is 6.5, methylmalonic acid is 150 within normal limits. Lipase is 40. REVIEW OF SYSTEMS: GENERAL: The patient is alert, more verbal, still confused in her room, thinks she is at home. SKIN: No pruritus. HEENT: Legally blind, still hard of hearing. No headache. NECK: Supple. RESPIRATORY: No dyspnea. CARDIOVASCULAR: No chest pain. GASTROINTESTINAL: The patient is complaining of pain, status PEG tube placement. No nausea. No vomiting. She has loose stools. EXTREMITIES: She has been bed bound for months. MUSCULOSKELETAL: Generalized weak. NEUROLOGIC: Alert with off and on periods of confusion. The patient has short lucid intervals. MENTAL STATUS EXAMINATION: Elderly female who looks stated age, oriented x1, thinks she is at home. Speech is spontaneous. Affect is reactive. Mood is dysphoric. Thought process, confused. Thought content, no overt paranoia or hallucination. No suicidal ideation. Attention and memory seemed to be limited. Insight and judgment are limited. Impulse control is fair at this time. 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 PLAN AND RECOMMENDATIONS: The patient was seen, meds reviewed. Keep the patient off psych meds as the patient is very sensitive to meds. Continue PEG tube as ordered. Psych joyner, the patient has dementia, but not agitated at this time. Once the patient is medically cleared the patient is stable psych joyner to go for subacute rehab. The family wants the patient to go to [facility] as she was there before. The patient is manageable at this time without any psych meds. She is redirectable, but needs a lot of direction as patient's dementia progressed. The patient is manageable at this time. Fredy Harper MD [email or web address]
--- NOTE | 2017-10-25 15:00 | CP.PCM.PN ---
Subjective - Date & Time of Evaluation Date of Evaluation: 10/25/17 Time of Evaluation: 14:57 - Subjective Subjective: Patient continues to have diarrhea. Stools for C. Difficile positive. Patient afebrile, has no complaint of abdominal pain. Another stools specimen was sent to recheck C.Difficile toxin. Objective - Vital Signs/Intake and Output Vital Signs (last 24 hours): Temp Pulse Resp BP Pulse Ox 98.1 F 97 H 20 168/90 H 98 10/25/17 08:19 10/25/17 08:19 10/25/17 08:19 10/25/17 08:19 10/25/17 08:19 Intake and Output: 10/25/17 10/25/17 06:59 18:59 Intake Total 540 Balance 540 - Medications Medications: Current Medications Acetaminophen (Tylenol 325mg Tab) 650 mg PO Q6 PRN PRN Reason: Pain, moderate (4-7) Last Admin: 10/15/17 16:49 Dose: 650 mg Aspirin (Ecotrin) 81 mg PO DAILY [facility] Last Admin: 10/25/17 09:53 Dose: 81 mg Brimonidine Tartrate (Alphagan 0.2% Opht) 0 ml OU Q8H [facility] Last Admin: 10/25/17 13:21 Dose: 1 drop Clonidine HCl (Catapres) 0.1 mg PO TID PRN PRN Reason: Diastolic blood pressure Last Admin: 10/22/17 00:15 Dose: 0.1 mg Clopidogrel Bisulfate (Plavix) 75 mg PO DAILY [facility] Last Admin: 10/25/17 09:54 Dose: 75 mg Cyanocobalamin (Vitamin B12 1000 Mcg Tab) 1,000 mcg PO DAILY [facility] Last Admin: 10/25/17 09:54 Dose: 1,000 mcg Home Med (Patient's Own Drops) 1 drop OU HS [facility] Last Admin: 10/24/17 22:11 Dose: 1 drop Home Med (Patient's Own Drops) 1 drop OD QID [facility] Last Admin: 10/07/17 10:29 Dose: 1 drop Dextrose/Sodium Chloride (Dextrose 5%/0.45% Ns 1000 Ml) 1,000 mls @ 30 mls/hr IV .Q24H [facility] Last Admin: 10/24/17 18:42 Dose: 30 mls/hr Losartan Potassium (Cozaar) 100 mg PO DAILY [facility] Last Admin: 10/25/17 09:53 Dose: 100 mg Metoprolol Succinate (Toprol Xl) 50 mg PO DAILY [facility] Last Admin: 10/25/17 09:54 Dose: 50 mg Pilocarpine HCl (Isopto Carpine 1% Opht Soln) 1 drop OD QID [facility] Last Admin: 10/25/17 13:20 Dose: 1 drop Saccharomyces Boulardii (Florastor) 500 mg PO BID [facility] Last Admin: 10/25/17 09:53 Dose: 500 mg - Labs Labs: 10/25/17 06:18 10/25/17 06:18 PT 14.1 SECONDS (9.7-12.2) H 10/14/17 07:48 INR 1.3 10/14/17 07:48 APTT 31 SECONDS (21-34) 09/20/17 08:43 - Constitutional Appears: No Acute Distress, Confused, Chronically Ill - Head Exam Head Exam: NORMAL INSPECTION - Eye Exam Eye Exam: Normal appearance - ENT Exam ENT Exam: Normal Exam - Neck Exam Neck Exam: Normal Inspection - Respiratory Exam Respiratory Exam: Clear to Ausculation Bilateral, NORMAL BREATHING PATTERN - Cardiovascular Exam Cardiovascular Exam: REGULAR RHYTHM, Murmur - Extremities Exam Extremities Exam: Normal Inspection - Back Exam Back Exam: NORMAL INSPECTION - Neurological Exam Additional comments: Confused. - Psychiatric Exam Psychiatric exam: Anxious - Skin Skin Exam: Dry, Normal Color, Warm Assessment and Plan (1) Influenza Status: Resolved (2) UTI (urinary tract infection) Status: Suspected (3) Abnormal head CT Status: Resolved (4) Abnormal head CT Status: Resolved (5) Staphylococcus aureus bacteremia Status: Resolved (6) CVA (cerebral vascular accident) Status: Resolved (7) Anorexia Status: Acute (8) Leucocytosis Status: Resolved (9) Clostridium difficile colitis Assessment & Plan: Vancomycine 250 mgvia PEG stat. Status: Acute
[2017-10-25] MEDS ORDERED: Vancomycin 125 MG/5 ML SOLN (ORAL/RECTAL) PO SCH ×2 (15:15→18:00)
[2017-10-25] MEDS: Dextrose 5%/0.45% NS 1,000 ML IV SCH (18:00)
[2017-10-25] MEDS: Vancomycin 125 MG/5 ML SOLN (ORAL/RECTAL) PO SCH ×2 (18:02→23:44)
[2017-10-25] MEDS: LUMIGAN OU SCH (22:18)
--- NOTE | 2017-10-25 22:47 | CP.PCM.PN ---
Subjective - Date & Time of Evaluation Date of Evaluation: 10/25/17 Time of Evaluation: 19:00 - Subjective Subjective: INFECTIOUS DISEASE PROGRESS NOTES TUAN DURAN MD,FACP 6T 667 10/25/2017 CLINICALLY STABLE CALLED BY THE RN THAT HER STOOL FOR C. DIFF IS POSITIVE RX; VANCOMYCIN VIA PEG 125MG Q 6 HRS X 10 DAYS. DOING WELL OFF IV ANTIBIOTICS OBSERVE CLINICALLY PROGNOSIS IS NOTED. Objective - Vital Signs/Intake and Output Vital Signs (last 24 hours): Temp Pulse Resp BP Pulse Ox 98.0 F 91 H 18 125/66 99 10/25/17 17:03 10/25/17 17:03 10/25/17 17:03 10/25/17 17:03 10/25/17 17:03 - Medications Medications: Current Medications Acetaminophen (Tylenol 325mg Tab) 650 mg PO Q6 PRN PRN Reason: Pain, moderate (4-7) Last Admin: 10/15/17 16:49 Dose: 650 mg Aspirin (Ecotrin) 81 mg PO DAILY [facility] Last Admin: 10/25/17 09:53 Dose: 81 mg Brimonidine Tartrate (Alphagan 0.2% Opht) 0 ml OU Q8H [facility] Last Admin: 10/25/17 22:19 Dose: 1 drop Clonidine HCl (Catapres) 0.1 mg PO TID PRN PRN Reason: Diastolic blood pressure Last Admin: 10/22/17 00:15 Dose: 0.1 mg Clopidogrel Bisulfate (Plavix) 75 mg PO DAILY [facility] Last Admin: 10/25/17 09:54 Dose: 75 mg Cyanocobalamin (Vitamin B12 1000 Mcg Tab) 1,000 mcg PO DAILY [facility] Last Admin: 10/25/17 09:54 Dose: 1,000 mcg Home Med (Patient's Own Drops) 1 drop OU HS [facility] Last Admin: 10/25/17 22:18 Dose: 1 drop Home Med (Patient's Own Drops) 1 drop OD QID [facility] Last Admin: 10/07/17 10:29 Dose: 1 drop Dextrose/Sodium Chloride (Dextrose 5%/0.45% Ns 1000 Ml) 1,000 mls @ 30 mls/hr IV .Q24H [facility] Last Admin: 10/25/17 18:00 Dose: Not Given Losartan Potassium (Cozaar) 100 mg PO DAILY [facility] Last Admin: 10/25/17 09:53 Dose: 100 mg Metoprolol Succinate (Toprol Xl) 50 mg PO DAILY [facility] Last Admin: 10/25/17 09:54 Dose: 50 mg Pilocarpine HCl (Isopto Carpine 1% Opht Soln) 1 drop OD QID [facility] Last Admin: 10/25/17 22:19 Dose: 1 drop Saccharomyces Boulardii (Florastor) 500 mg PO BID [facility] Last Admin: 10/25/17 18:09 Dose: 500 mg Vancomycin HCl (Vancocin (Oral Or Rectal Use)) 125 mg PO Q6H [facility] Last Admin: 10/25/17 18:02 Dose: 125 mg - Labs Labs: 10/25/17 06:18 10/25/17 06:18 PT 14.1 SECONDS (9.7-12.2) H 10/14/17 07:48 INR 1.3 10/14/17 07:48 APTT 31 SECONDS (21-34) 09/20/17 08:43 Assessment and Plan (1) Fever Status: Resolved (2) Coag negative Staphylococcus bacteremia Status: Resolved (3) UTI (urinary tract infection) Status: Suspected (4) Benign hypertension Status: Chronic (5) Influenza Status: Resolved (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
[2017-10-26] MEDS: Brimonidine 0.2% Opth Sol (5ml) OU SCH ×3 (05:26→22:00)
[2017-10-26] MEDS: Vancomycin 125 MG/5 ML SOLN (ORAL/RECTAL) PO SCH ×4 (05:27→23:41)
[2017-10-26] MEDS: Metoprolol Succinate 50 mg XL Tab PO SCH (10:04)
[2017-10-26] MEDS: PILOCARPINE 1% OD SCH ×4 (10:05→22:00)
[2017-10-26] MEDS: Saccharomyces Boulardi 250 mg Cap PO SCH ×2 (10:05→18:24)
--- NOTE | 2017-10-26 13:06 | CP.PCM.PN ---
Subjective - Date & Time of Evaluation Date of Evaluation: 10/26/17 Time of Evaluation: 13:03 - Subjective Subjective: Patient is more alert today. Diarrhea had stopped, but mild abdominal pain persists. On Vancomycin via PEG. Objective - Vital Signs/Intake and Output Vital Signs (last 24 hours): Temp Pulse Resp BP Pulse Ox 97.8 F 103 H 20 143/79 97 10/26/17 08:36 10/26/17 08:36 10/26/17 08:36 10/26/17 08:36 10/26/17 08:36 Intake and Output: 10/26/17 10/26/17 06:59 18:59 Intake Total 700 Balance 700 - Medications Medications: Current Medications Acetaminophen (Tylenol 325mg Tab) 650 mg PO Q6 PRN PRN Reason: Pain, moderate (4-7) Last Admin: 10/15/17 16:49 Dose: 650 mg Aspirin (Ecotrin) 81 mg PO DAILY [facility] Last Admin: 10/26/17 10:04 Dose: 81 mg Brimonidine Tartrate (Alphagan 0.2% Opht) 0 ml OU Q8H [facility] Last Admin: 10/26/17 05:26 Dose: 1 drop Clonidine HCl (Catapres) 0.1 mg PO TID PRN PRN Reason: Diastolic blood pressure Last Admin: 10/22/17 00:15 Dose: 0.1 mg Clopidogrel Bisulfate (Plavix) 75 mg PO DAILY [facility] Last Admin: 10/26/17 10:04 Dose: 75 mg Cyanocobalamin (Vitamin B12 1000 Mcg Tab) 1,000 mcg PO DAILY [facility] Last Admin: 10/26/17 10:04 Dose: 1,000 mcg Home Med (Patient's Own Drops) 1 drop OU HS [facility] Last Admin: 10/25/17 22:18 Dose: 1 drop Home Med (Patient's Own Drops) 1 drop OD QID [facility] Last Admin: 10/07/17 10:29 Dose: 1 drop Dextrose/Sodium Chloride (Dextrose 5%/0.45% Ns 1000 Ml) 1,000 mls @ 30 mls/hr IV .Q24H [facility] Last Admin: 10/25/17 18:00 Dose: Not Given Losartan Potassium (Cozaar) 100 mg PO DAILY [facility] Last Admin: 10/26/17 10:04 Dose: 100 mg Metoprolol Succinate (Toprol Xl) 50 mg PO DAILY [facility] Last Admin: 10/26/17 10:04 Dose: 50 mg Pilocarpine HCl (Isopto Carpine 1% Opht Soln) 1 drop OD QID [facility] Last Admin: 10/26/17 10:05 Dose: 1 drop Saccharomyces Boulardii (Florastor) 500 mg PO BID [facility] Last Admin: 10/26/17 10:05 Dose: 500 mg Vancomycin HCl (Vancocin (Oral Or Rectal Use)) 125 mg PO Q6H [facility] Last Admin: 10/26/17 05:27 Dose: 125 mg - Labs Labs: 10/25/17 06:18 10/25/17 06:18 PT 14.1 SECONDS (9.7-12.2) H 10/14/17 07:48 INR 1.3 10/14/17 07:48 APTT 31 SECONDS (21-34) 09/20/17 08:43 - Constitutional Appears: No Acute Distress, Chronically Ill - Head Exam Head Exam: NORMAL INSPECTION - Eye Exam Eye Exam: Normal appearance - ENT Exam ENT Exam: Normal Exam - Neck Exam Neck Exam: Normal Inspection - Respiratory Exam Respiratory Exam: Clear to Ausculation Bilateral, NORMAL BREATHING PATTERN - Cardiovascular Exam Cardiovascular Exam: REGULAR RHYTHM, Murmur - GI/Abdominal Exam GI & Abdominal Exam: Soft, Tenderness, Normal Bowel Sounds - Rectal Exam Rectal Exam: Deferred - Extremities Exam Extremities Exam: Normal Inspection - Back Exam Back Exam: NORMAL INSPECTION - Neurological Exam Neurological Exam: Alert, Awake Additional comments: Patient is bed bound and confused. - Psychiatric Exam Additional comments: Confused. - Skin Skin Exam: Dry, Intact Assessment and Plan (1) Influenza Status: Resolved (2) UTI (urinary tract infection) Status: Suspected (3) Abnormal head CT Status: Resolved (4) Abnormal head CT Status: Resolved (5) Staphylococcus aureus bacteremia Status: Resolved (6) CVA (cerebral vascular accident) Status: Resolved (7) Anorexia Status: Acute (8) Leucocytosis Status: Resolved (9) Clostridium difficile colitis Assessment & Plan: To continue Vancomycin via PEG. Status: Acute
--- NOTE | 2017-10-26 15:48 | RAD ---
HISTORY: Check Peg Tube position. Rule out leakage. COMPARISON: Comparison made with CT scan chest abdomen pelvis 10/21/2017. TECHNIQUE: Oral contrast was injected into the PEG tube under fluoroscopy. Multiple fluoroscopic and overhead radiographic images were obtained. FINDINGS: The current study reveals in situ PEG tube, the inflated balloon of which appears be located in the lumen of the stomach. Oral contrast material opacified and partially distended stomach with some reflux into the distal esophagus. . Suspect small hiatal hernia. Oral contrast material also opacified the duodenum and proximal jejunum. . There are 2 curvilinear radiopaque densities, just to the right evidence of midline and just the left of midline on post-injection fluoroscopic images numbers 5, 6 7, 8 and 9 which are of uncertain etiology though could represent external contrast contamination as these curvilinear densities are not visualized on subsequent overhead radiographic images. Follow-up CT scan could be performed of the abdomen and pelvis could be performed if leak is suspected clinically. IMPRESSION: In situ PEG tube, the inflated balloon of which is located in the stomach. The stomach is opacified and partially distended with oral contrast material with some small amount of reflux to the distal esophagus. There appears be tiny hiatal hernia. Oral contrast material also opacified the viewed approximately jejunum. Two curvilinear radiopaque densities, just to the right evidence of midline and just the left of midline on post-injection fluoroscopic images numbers 5, 6 7, 8 and 9 which are of uncertain etiology though could represent external contrast contamination as these curvilinear densities are not visualized on subsequent overhead radiographic images. Follow-up CT scan could be performed of the abdomen and pelvis could be performed if leak is suspected clinically.
--- NOTE | 2017-10-26 16:46 | PN ---
DATE: 10/26/2017 SUBJECTIVE: The patient is seen, still confused, is more alert and verbal today. The patient is positive for Clostridium difficile, was in isolation room, and taking vancomycin now. The patient was then medically cleared to go for subacute rehab until her Clostridium difficile infection will be fully treated. Today, she was asking her daughter that she will need some help if she goes to the bathroom, she has been having diarrhea 2 or 3 times today. VITAL SIGNS: Temperature 97.8, pulse of 103, blood pressure 143/79, respirations 20, oxygen saturation 97%. The patient is on vancomycin 125 mg q.6 hours. REVIEW OF SYSTEMS: GENERAL: The patient is more alert, verbal, still confused, seen in her room, complaining of diarrhea. SKIN: No diaphoresis. HEENT: Still legally blind. No headache. Hard of hearing. NECK: Supple. RESPIRATORY: No dyspnea. CARDIOPULMONARY: No chest pain. GASTROINTESTINAL: Complaining of diarrhea. The patient is status post PEG tube placement and having PEG tube feeding. No abdominal pain. EXTREMITIES: Has been bed bound for weeks. Now has not been ambulating. The patient will be monitored. She is trying to get monitor for fall and has been trying to get out of bed. MUSCULOSKELETAL Feels weak. NEUROLOGIC: Alert with periods of confusion. Today, she is more alert and verbal; although, she is still confused. The patient has more lucid intervals today. MENTAL STATUS EXAMINATION: Elderly female, looked stated age, oriented to place and person, more verbal. Affect is reactive. Speech spontaneous. Thought process is still confused. Thought content, no overt paranoia. No suicidal or homicidal ideation. Complaining of diarrhea. Attention and memory still limited. Insight and judgment limited. Impulse control is fair at this time. 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 Review of her labs; last potassium is now 4.2 and her last sodium is 136. PLAN AND RECOMMENDATIONS: The patient is seen, medications reviewed. Continue present management. The patient is going to be treated by Dr. Kimbrough with vancomycin for the patient's Clostridium difficile infection. Continue PEG tube feeding. Continue antibiotics as ordered. The patient is awaiting medical clearance to go for subacute rehab, possibly to [facility] once medically cleared, once her Clostridium difficile colitis infection is fully treated. Fredy Harper MD
[2017-10-26] MEDS: LUMIGAN OU SCH (22:00)
[2017-10-27] MEDS: Vancomycin 125 MG/5 ML SOLN (ORAL/RECTAL) PO SCH ×3 (05:00→17:15)
[2017-10-27] MEDS: Brimonidine 0.2% Opth Sol (5ml) OU SCH ×3 (05:01→21:36)
[2017-10-27] MEDS: Saccharomyces Boulardi 250 mg Cap PO SCH ×2 (09:25→17:14)
[2017-10-27] MEDS: PILOCARPINE 1% OD SCH ×4 (09:25→21:37)
[2017-10-27] MEDS: Metoprolol Succinate 50 mg XL Tab PO SCH (09:26)
--- NOTE | 2017-10-27 15:39 | CP.PCM.PN ---
Subjective - Date & Time of Evaluation Date of Evaluation: 10/27/17 Time of Evaluation: 15:37 - Subjective Subjective: Patient had 2 bouts of diarrhea today. Afebrile. Objective - Vital Signs/Intake and Output Vital Signs (last 24 hours): Temp Pulse Resp BP Pulse Ox 97.9 F 91 H 18 135/77 98 10/27/17 07:30 10/27/17 07:30 10/27/17 07:30 10/27/17 07:30 10/27/17 07:30 Intake and Output: 10/27/17 10/27/17 06:59 18:59 Intake Total 460 Balance 460 - Medications Medications: Current Medications Acetaminophen (Tylenol 325mg Tab) 650 mg PO Q6 PRN PRN Reason: Pain, moderate (4-7) Last Admin: 10/15/17 16:49 Dose: 650 mg Aspirin (Ecotrin) 81 mg PO DAILY [facility] Last Admin: 10/27/17 09:25 Dose: 81 mg Brimonidine Tartrate (Alphagan 0.2% Opht) 0 ml OU Q8H [facility] Last Admin: 10/27/17 05:01 Dose: 1 drop Clonidine HCl (Catapres) 0.1 mg PO TID PRN PRN Reason: Diastolic blood pressure Last Admin: 10/22/17 00:15 Dose: 0.1 mg Clopidogrel Bisulfate (Plavix) 75 mg PO DAILY [facility] Last Admin: 10/27/17 09:25 Dose: 75 mg Cyanocobalamin (Vitamin B12 1000 Mcg Tab) 1,000 mcg PO DAILY [facility] Last Admin: 10/27/17 09:25 Dose: 1,000 mcg Home Med (Patient's Own Drops) 1 drop OU HS [facility] Last Admin: 10/26/17 22:00 Dose: 1 drop Home Med (Patient's Own Drops) 1 drop OD QID [facility] Last Admin: 10/07/17 10:29 Dose: 1 drop Losartan Potassium (Cozaar) 100 mg PO DAILY [facility] Last Admin: 10/27/17 09:25 Dose: 100 mg Metoprolol Succinate (Toprol Xl) 50 mg PO DAILY [facility] Last Admin: 10/27/17 09:26 Dose: 50 mg Pilocarpine HCl (Isopto Carpine 1% Opht Soln) 1 drop OD QID [facility] Last Admin: 10/27/17 09:25 Dose: 1 drop Saccharomyces Boulardii (Florastor) 500 mg PO BID [facility] Last Admin: 10/27/17 09:25 Dose: 500 mg Vancomycin HCl (Vancocin (Oral Or Rectal Use)) 125 mg PO Q6H [facility] Last Admin: 10/27/17 05:00 Dose: 125 mg - Labs Labs: 10/25/17 06:18 10/25/17 06:18 PT 14.1 SECONDS (9.7-12.2) H 10/14/17 07:48 INR 1.3 10/14/17 07:48 APTT 31 SECONDS (21-34) 09/20/17 08:43 - Constitutional Appears: Confused, Chronically Ill - Head Exam Head Exam: NORMAL INSPECTION - Eye Exam Eye Exam: Normal appearance - ENT Exam ENT Exam: Normal Exam - Neck Exam Neck Exam: Normal Inspection - Respiratory Exam Respiratory Exam: Clear to Ausculation Bilateral, NORMAL BREATHING PATTERN - Cardiovascular Exam Cardiovascular Exam: REGULAR RHYTHM, Murmur - GI/Abdominal Exam GI & Abdominal Exam: Soft, Normal Bowel Sounds - Rectal Exam Rectal Exam: NORMAL INSPECTION - Extremities Exam Extremities Exam: Normal Inspection - Back Exam Back Exam: NORMAL INSPECTION - Neurological Exam Additional comments: Confused. - Skin Skin Exam: Dry, Intact, Normal Color, Warm Assessment and Plan (1) Influenza Status: Resolved (2) UTI (urinary tract infection) Status: Suspected (3) Abnormal head CT Status: Resolved (4) Abnormal head CT Status: Resolved (5) Staphylococcus aureus bacteremia Status: Resolved (6) CVA (cerebral vascular accident) Status: Resolved (7) Anorexia Status: Acute (8) Leucocytosis Status: Resolved (9) Clostridium difficile colitis Assessment & Plan: To continue Vancomysine via PEG. Status: Acute
--- NOTE | 2017-10-27 16:16 | CP.PCM.PN ---
Subjective - Date & Time of Evaluation Date of Evaluation: 10/27/17 Time of Evaluation: 16:13 - Subjective Subjective: Patient complains of feeling warm. The soreness around the tube is about the same. Family reports two loose bowel movements today. Objective - Vital Signs/Intake and Output Vital Signs (last 24 hours): Temp Pulse Resp BP Pulse Ox 97.9 F 91 H 18 135/77 98 10/27/17 07:30 10/27/17 07:30 10/27/17 07:30 10/27/17 07:30 10/27/17 07:30 Intake and Output: 10/27/17 10/27/17 06:59 18:59 Intake Total 460 Balance 460 - Medications Medications: Current Medications Acetaminophen (Tylenol 325mg Tab) 650 mg PO Q6 PRN PRN Reason: Pain, moderate (4-7) Last Admin: 10/15/17 16:49 Dose: 650 mg Aspirin (Ecotrin) 81 mg PO DAILY [facility] Last Admin: 10/27/17 09:25 Dose: 81 mg Brimonidine Tartrate (Alphagan 0.2% Opht) 0 ml OU Q8H [facility] Last Admin: 10/27/17 05:01 Dose: 1 drop Clonidine HCl (Catapres) 0.1 mg PO TID PRN PRN Reason: Diastolic blood pressure Last Admin: 10/22/17 00:15 Dose: 0.1 mg Clopidogrel Bisulfate (Plavix) 75 mg PO DAILY [facility] Last Admin: 10/27/17 09:25 Dose: 75 mg Cyanocobalamin (Vitamin B12 1000 Mcg Tab) 1,000 mcg PO DAILY [facility] Last Admin: 10/27/17 09:25 Dose: 1,000 mcg Home Med (Patient's Own Drops) 1 drop OU HS [facility] Last Admin: 10/26/17 22:00 Dose: 1 drop Home Med (Patient's Own Drops) 1 drop OD QID [facility] Last Admin: 10/07/17 10:29 Dose: 1 drop Losartan Potassium (Cozaar) 100 mg PO DAILY [facility] Last Admin: 10/27/17 09:25 Dose: 100 mg Metoprolol Succinate (Toprol Xl) 50 mg PO DAILY [facility] Last Admin: 10/27/17 09:26 Dose: 50 mg Pilocarpine HCl (Isopto Carpine 1% Opht Soln) 1 drop OD QID [facility] Last Admin: 10/27/17 09:25 Dose: 1 drop Saccharomyces Boulardii (Florastor) 500 mg PO BID [facility] Last Admin: 10/27/17 09:25 Dose: 500 mg Vancomycin HCl (Vancocin (Oral Or Rectal Use)) 125 mg PO Q6H [facility] Last Admin: 10/27/17 05:00 Dose: 125 mg - Labs Labs: 10/25/17 06:18 10/25/17 06:18 PT 14.1 SECONDS (9.7-12.2) H 10/14/17 07:48 INR 1.3 10/14/17 07:48 APTT 31 SECONDS (21-34) 09/20/17 08:43 - Constitutional Appears: No Acute Distress - Head Exam Head Exam: ATRAUMATIC, NORMOCEPHALIC - Neck Exam Neck Exam: absent: Lymphadenopathy, Thyromegaly - Respiratory Exam Respiratory Exam: NORMAL BREATHING PATTERN. absent: Rales, Rhonchi, Wheezes - Cardiovascular Exam Cardiovascular Exam: REGULAR RHYTHM, +S1, +S2. absent: Gallop, Rubs, Murmur - GI/Abdominal Exam GI & Abdominal Exam: Soft, Normal Bowel Sounds. absent: Tenderness, Organomegaly Additional comments: G tube in place without erythema or induration - Rectal Exam Rectal Exam: Deferred - Extremities Exam Extremities Exam: absent: Calf Tenderness, Pedal Edema Assessment and Plan (1) Inadequate oral intake Assessment & Plan: Tube is functioning well. Patient remains afebrile. WBC count is stable. Continue tube feedings. Status: Acute
[2017-10-27] MEDS: LUMIGAN OU SCH (21:36)
--- NOTE | 2017-10-27 23:35 | PN ---
DATE: 10/27/2017. SUBJECTIVE: The patient is being seen in her room, patient currently receiving vancomycin for C. difficile colitis, still confused, seen today. According to the nurse diarrhea has improved. Patient is eating poorly regular food but has been tube feeding. PHYSICAL EXAMINATION: VITAL SIGNS: Temperature 98.4, pulse 74, blood pressure 172/69, respirations 18, oxygen sat is 98% on room air. REVIEW OF SYSTEMS: GENERAL: The patient is alert, but confused seen in her room, not agitated. Tolerating PEG tube feeding. Complaining of pain. SKIN: No diaphoresis. HEENT: Hard of hearing, legally blind. NECK: Supple. RESPIRATORY: No dyspnea. CARDIOVASCULAR: No chest pain. GASTROINTESTINAL: Tolerating PEG feeding. Diarrhea has improved. No abdominal pain. No nausea, no vomiting. EXTREMITIES: Has been bed bound. MUSCULOSKELETAL: Feels weak. NEUROLOGIC: Alert with periods of confusion. Patient will need assistance during meals as she is blind. MENTAL STATUS EXAMINATION: Elderly female, who looks stated age. The patient is still confused but responds to verbal cues. Speech is spontaneous. Affect is reactive. Mood is dysphoric. Thought process confused off and on. Thought content, no overt psychosis. No suicidal or homicidal ideation. Attention and memory still limited. Insight and judgment limited. Impulse control is fair at this time. 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 PLAN AND RECOMMENDATIONS: The patient meds reviewed. Continue PEG tube feeding as ordered. We will keep the patient off psych meds for now. Continue B12 supplements. Patient is on vancomycin 125 mg p.o. q [address] Kimbrough. Patient is still being treated for C. difficile colitis and is medically clear to go for sub acute rehab. Plan is patient to go for subacute rehab once medically stable. Fredy Harper MD
[2017-10-28] MEDS: Vancomycin 125 MG/5 ML SOLN (ORAL/RECTAL) PO SCH ×4 (00:23→17:48)
[2017-10-28] MEDS: Brimonidine 0.2% Opth Sol (5ml) OU SCH ×3 (05:20→21:08)
[2017-10-28 08:11] LABS: BASO # 0.1 K/uL (0.0-0.2); BASO % 0.7 % (0.0-2.0); EOS # 0.6 K/uL (0.0-0.7); EOS % 6.3 % (0.0-4.0); HEMOGLOBIN 9.1 g/dL (11.0-16.0); LYMPH # 1.6 K/uL (1.0-4.3); LYMPH % 17.6 % (20.0-40.0); MEAN CELL VOLUME 82.3 fL (81.0-99.0); MEAN CORPUSCULAR HGB CONC 32.8 g/dL (33.0-37.0); MEAN PLATELET VOLUME 9.2 fL (7.2-11.7); MONO # 0.9 K/uL (0.0-0.8); MONO % 9.8 % (0.0-10.0); NEUT # 6.1 K/uL (1.8-7.0); NEUT % 65.6 % (50.0-75.0); NRBC % 0.1 % (0.0-2.0); RBC 3.38 Mil/uL (3.80-5.20); RED CELL DISTRIBUTION WIDTH 16.4 % (11.5-14.5); WHITE BLOOD COUNT 9.3 K/uL (4.8-10.8)
--- NOTE | 2017-10-28 08:22 | CP.PCM.PN ---
Subjective - Date & Time of Evaluation Date of Evaluation: 10/28/17 Time of Evaluation: 08:19 - Subjective Subjective: Patient remains confused. She denies having abdominal pain, nausea, vomiting. Her appetite is poor. Objective - Vital Signs/Intake and Output Vital Signs (last 24 hours): Temp Pulse Resp BP Pulse Ox 97.5 F L 100 H 20 163/84 H 95 10/27/17 23:25 10/27/17 23:25 10/27/17 23:25 10/27/17 23:25 10/27/17 23:25 Intake and Output: 10/28/17 10/28/17 06:59 18:59 Intake Total 240 460 Balance 240 460 - Medications Medications: Current Medications Acetaminophen (Tylenol 325mg Tab) 650 mg PO Q6 PRN PRN Reason: Pain, moderate (4-7) Last Admin: 10/15/17 16:49 Dose: 650 mg Aspirin (Ecotrin) 81 mg PO DAILY [facility] Last Admin: 10/27/17 09:25 Dose: 81 mg Brimonidine Tartrate (Alphagan 0.2% Opht) 0 ml OU Q8H [facility] Last Admin: 10/28/17 05:20 Dose: 1 drop Clonidine HCl (Catapres) 0.1 mg PO TID PRN PRN Reason: Diastolic blood pressure Last Admin: 10/22/17 00:15 Dose: 0.1 mg Clopidogrel Bisulfate (Plavix) 75 mg PO DAILY [facility] Last Admin: 10/27/17 09:25 Dose: 75 mg Cyanocobalamin (Vitamin B12 1000 Mcg Tab) 1,000 mcg PO DAILY [facility] Last Admin: 10/27/17 09:25 Dose: 1,000 mcg Home Med (Patient's Own Drops) 1 drop OU HS [facility] Last Admin: 10/27/17 21:36 Dose: 1 drop Home Med (Patient's Own Drops) 1 drop OD QID [facility] Last Admin: 10/07/17 10:29 Dose: 1 drop Losartan Potassium (Cozaar) 100 mg PO DAILY [facility] Last Admin: 10/27/17 09:25 Dose: 100 mg Metoprolol Succinate (Toprol Xl) 50 mg PO DAILY [facility] Last Admin: 10/27/17 09:26 Dose: 50 mg Pilocarpine HCl (Isopto Carpine 1% Opht Soln) 1 drop OD QID [facility] Last Admin: 10/27/17 21:37 Dose: 1 drop Saccharomyces Boulardii (Florastor) 500 mg PO BID [facility] Last Admin: 10/27/17 17:14 Dose: 500 mg Vancomycin HCl (Vancocin (Oral Or Rectal Use)) 125 mg PO Q6H [facility] Last Admin: 10/28/17 05:20 Dose: 125 mg - Labs Labs: 10/28/17 07:58 10/25/17 06:18 PT 14.1 SECONDS (9.7-12.2) H 10/14/17 07:48 INR 1.3 10/14/17 07:48 APTT 31 SECONDS (21-34) 09/20/17 08:43 - Constitutional Appears: No Acute Distress - Head Exam Head Exam: ATRAUMATIC - Neck Exam Neck Exam: absent: Lymphadenopathy, Thyromegaly - Respiratory Exam Respiratory Exam: NORMAL BREATHING PATTERN. absent: Rales, Rhonchi, Wheezes - Cardiovascular Exam Cardiovascular Exam: REGULAR RHYTHM, +S1, +S2. absent: Gallop, Rubs, Murmur - GI/Abdominal Exam GI & Abdominal Exam: Soft, Normal Bowel Sounds. absent: Tenderness, Organomegaly Additional comments: Gastrostomy site is clean and dry - Rectal Exam Rectal Exam: Deferred - Extremities Exam Extremities Exam: absent: Calf Tenderness, Pedal Edema Assessment and Plan (1) Inadequate oral intake Assessment & Plan: Patient remains afebrile. WBC count is within normal limits. Continue tube feedings and vancomycin for C difficile infection. Status: Acute
[2017-10-28 08:27] LABS: ALB/GLOB RATIO 0.9 (1.0-2.1); ALBUMIN 2.9 g/dL (3.5-5.0); ALT/SGPT 13 U/L (9-52); AST/SGOT 27 U/L (14-36); BLOOD UREA NITROGEN 22 mg/dL (7-17); CALCIUM 8.8 mg/dl (8.6-10.4); GFR AFRICAN-AMERICAN > 60; GFR NON-AFRICAN AMERICAN > 60
[2017-10-28] MEDS: PILOCARPINE 1% OD SCH ×4 (10:00→21:07)
[2017-10-28] MEDS: Saccharomyces Boulardi 250 mg Cap PO SCH ×2 (10:19→17:49)
[2017-10-28] MEDS: Metoprolol Succinate 50 mg XL Tab PO SCH (10:20)
--- NOTE | 2017-10-28 19:58 | CP.PCM.PN ---
Subjective - Date & Time of Evaluation Date of Evaluation: 10/28/17 Time of Evaluation: 19:56 - Subjective Subjective: Patient is more alert today, has no more diarrhea, but still with a poor appetite. Objective - Vital Signs/Intake and Output Vital Signs (last 24 hours): Temp Pulse Resp BP Pulse Ox 98.3 F 95 H 18 123/66 100 10/28/17 16:00 10/28/17 16:00 10/28/17 16:00 10/28/17 16:00 10/28/17 16:00 Intake and Output: 10/28/17 10/29/17 18:59 06:59 Intake Total 460 Balance 460 - Medications Medications: Current Medications Acetaminophen (Tylenol 325mg Tab) 650 mg PO Q6 PRN PRN Reason: Pain, moderate (4-7) Last Admin: 10/15/17 16:49 Dose: 650 mg Aspirin (Ecotrin) 81 mg PO DAILY [facility] Last Admin: 10/28/17 10:19 Dose: 81 mg Brimonidine Tartrate (Alphagan 0.2% Opht) 0 ml OU Q8H [facility] Last Admin: 10/28/17 14:00 Dose: 1 drop Clonidine HCl (Catapres) 0.1 mg PO TID PRN PRN Reason: Diastolic blood pressure Last Admin: 10/22/17 00:15 Dose: 0.1 mg Clopidogrel Bisulfate (Plavix) 75 mg PO DAILY [facility] Last Admin: 10/28/17 10:20 Dose: 75 mg Cyanocobalamin (Vitamin B12 1000 Mcg Tab) 1,000 mcg PO DAILY [facility] Last Admin: 10/28/17 10:20 Dose: 1,000 mcg Home Med (Patient's Own Drops) 1 drop OU HS [facility] Last Admin: 10/27/17 21:36 Dose: 1 drop Home Med (Patient's Own Drops) 1 drop OD QID [facility] Last Admin: 10/07/17 10:29 Dose: 1 drop Losartan Potassium (Cozaar) 100 mg PO DAILY [facility] Last Admin: 10/28/17 09:39 Dose: 100 mg Metoprolol Succinate (Toprol Xl) 50 mg PO DAILY [facility] Last Admin: 10/28/17 10:20 Dose: 50 mg Pilocarpine HCl (Isopto Carpine 1% Opht Soln) 1 drop OD QID [facility] Last Admin: 10/28/17 17:48 Dose: 1 drop Saccharomyces Boulardii (Florastor) 500 mg PO BID [facility] Last Admin: 10/28/17 17:49 Dose: 500 mg Vancomycin HCl (Vancocin (Oral Or Rectal Use)) 125 mg PO Q6H [facility] Last Admin: 10/28/17 17:48 Dose: 125 mg - Labs Labs: 10/28/17 07:58 10/28/17 07:58 PT 14.1 SECONDS (9.7-12.2) H 10/14/17 07:48 INR 1.3 10/14/17 07:48 APTT 31 SECONDS (21-34) 09/20/17 08:43 - Constitutional Appears: No Acute Distress, Chronically Ill - Head Exam Head Exam: NORMAL INSPECTION - Eye Exam Eye Exam: Normal appearance - ENT Exam ENT Exam: Normal Exam - Neck Exam Neck Exam: Normal Inspection - Respiratory Exam Respiratory Exam: Clear to Ausculation Bilateral, NORMAL BREATHING PATTERN - Cardiovascular Exam Cardiovascular Exam: REGULAR RHYTHM - GI/Abdominal Exam GI & Abdominal Exam: Soft, Normal Bowel Sounds - Rectal Exam Rectal Exam: Deferred - Extremities Exam Extremities Exam: Normal Inspection - Back Exam Back Exam: NORMAL INSPECTION - Neurological Exam Neurological Exam: Alert Additional comments: confused. - Psychiatric Exam Additional comments: Confused. - Skin Skin Exam: Dry, Intact, Normal Color Assessment and Plan (1) Influenza Status: Resolved (2) UTI (urinary tract infection) Status: Suspected (3) Abnormal head CT Status: Resolved (4) Abnormal head CT Status: Resolved (5) Staphylococcus aureus bacteremia Status: Resolved (6) CVA (cerebral vascular accident) Status: Resolved (7) Anorexia Status: Acute (8) Leucocytosis Status: Resolved (9) Clostridium difficile colitis Assessment & Plan: To continue Vancomycin through PEG. Status: Acute
--- NOTE | 2017-10-28 20:38 | PN ---
DATE: 10/28/2017. SUBJECTIVE: The patient is seen. The patient is more alert, verbal, still confused. The patient is awaiting medical clearance to go to [facility] for subacute rehab. The patient is awaiting negative C. difficile toxin assay prior to going to the shelter. Other than that, the p.o. intake is still poor, but has PEG tube feeding. PHYSICAL EXAMINATION VITAL SIGNS: Temperature 97.5, pulse rate 100, blood pressure 163/84, respirations 20, and oxygen saturation 95%. REVIEW OF SYSTEMS: GENERAL: The patient is sleeping, but arousable, still confused, seen in her room with her daughter. SKIN: No diaphoresis. HEENT: Still legally blind and hard of hearing. NECK: Supple. RESPIRATORY: No dyspnea. CARDIOVASCULAR: No chest pain. GASTROINTESTINAL: Tolerating PEG tube feeding, but has very poor p.o. intake. No nausea. No vomiting. No abdominal pain. Still has loose stools. EXTREMITIES: She has been bed bound. MUSCULOSKELETAL: Feels weak. NEUROLOGIC: Alert with intermittent periods of confusion. GENITOURINARY: No dysuria. MENTAL STATUS EXAMINATION: Elderly female, who looks stated age, oriented x1. The patient is still confused. Speech is spontaneous, stated hard of hearing. Affect is reactive. Mood is dysphoric. Thought process is confused often. Thought content, no overt paranoia. No suicidal or homicidal ideation. Attention and memory seemed to be limited. Insight and judgment limited. Impulse control is fair at this time. IMPRESSION: History of delirium, metabolic encephalopathy, failure to thrive status post percutaneous endoscopic gastrostomy tube feeding, history of cardiovascular accident of the right basal ganglion as well as dementia with mood changes. PLAN AND RECOMMENDATIONS: The patient is seen, meds reviewed. Continue present management. Continue antibiotics, order for C. difficile colitis. Once the patient is medically cleared, the patient can go to [facility] for subacute rehab. Psych joyner, we will hold off any psych meds for now as the patient is very sensitive to psych meds. Fredy Harper MD [facility] # [id number]
[2017-10-28] MEDS: LUMIGAN OU SCH (21:08)
[2017-10-29] MEDS: Vancomycin 125 MG/5 ML SOLN (ORAL/RECTAL) PO SCH ×4 (00:09→17:57)
[2017-10-29] MEDS: Brimonidine 0.2% Opth Sol (5ml) OU SCH ×3 (05:33→21:17)
[2017-10-29] MEDS: Metoprolol Succinate 50 mg XL Tab PO SCH (09:30)
[2017-10-29] MEDS: PILOCARPINE 1% OD SCH ×4 (09:31→21:16)
[2017-10-29] MEDS: Saccharomyces Boulardi 250 mg Cap PO SCH ×2 (09:33→17:57)
--- NOTE | 2017-10-29 10:28 | CP.PCM.PN ---
Subjective - Date & Time of Evaluation Date of Evaluation: 10/29/17 Time of Evaluation: 10:26 - Subjective Subjective: Covering Dr Farooq CC: CDiff colitis No diarrhea/abd pain Confused Objective - Vital Signs/Intake and Output Vital Signs (last 24 hours): Temp Pulse Resp BP Pulse Ox 98 F 96 H 20 162/85 H 99 10/28/17 23:25 10/28/17 23:25 10/28/17 23:25 10/28/17 23:25 10/28/17 23:25 Intake and Output: 10/29/17 10/29/17 06:59 18:59 Intake Total 940 Balance 940 - Medications Medications: Current Medications Acetaminophen (Tylenol 325mg Tab) 650 mg PO Q6 PRN PRN Reason: Pain, moderate (4-7) Last Admin: 10/15/17 16:49 Dose: 650 mg Aspirin (Ecotrin) 81 mg PO DAILY [facility] Last Admin: 10/29/17 09:30 Dose: 81 mg Brimonidine Tartrate (Alphagan 0.2% Opht) 0 ml OU Q8H [facility] Last Admin: 10/29/17 05:33 Dose: 1 drop Clonidine HCl (Catapres) 0.1 mg PO TID PRN PRN Reason: Diastolic blood pressure Last Admin: 10/22/17 00:15 Dose: 0.1 mg Clopidogrel Bisulfate (Plavix) 75 mg PO DAILY [facility] Last Admin: 10/29/17 09:30 Dose: 75 mg Cyanocobalamin (Vitamin B12 1000 Mcg Tab) 1,000 mcg PO DAILY [facility] Last Admin: 10/29/17 09:30 Dose: 1,000 mcg Home Med (Patient's Own Drops) 1 drop OU HS [facility] Last Admin: 10/28/17 21:08 Dose: 1 drop Home Med (Patient's Own Drops) 1 drop OD QID [facility] Last Admin: 10/07/17 10:29 Dose: 1 drop Losartan Potassium (Cozaar) 100 mg PO DAILY [facility] Last Admin: 10/29/17 09:30 Dose: 100 mg Metoprolol Succinate (Toprol Xl) 50 mg PO DAILY [facility] Last Admin: 10/29/17 09:30 Dose: 50 mg Pilocarpine HCl (Isopto Carpine 1% Opht Soln) 1 drop OD QID [facility] Last Admin: 02/24/18 09:31 Dose: 1 drop Saccharomyces Boulardii (Florastor) 500 mg PO BID [facility] Last Admin: 10/29/17 09:33 Dose: 500 mg Vancomycin HCl (Vancocin (Oral Or Rectal Use)) 125 mg PO Q6H [facility] Last Admin: 10/29/17 05:32 Dose: 125 mg - Labs Labs: 10/28/17 07:58 10/28/17 07:58 PT 14.1 SECONDS (9.7-12.2) H 10/14/17 07:48 INR 1.3 10/14/17 07:48 APTT 31 SECONDS (21-34) 09/20/17 08:43 - Constitutional Appears: Confused, Chronically Ill - Respiratory Exam Respiratory Exam: NORMAL BREATHING PATTERN - Cardiovascular Exam Cardiovascular Exam: REGULAR RHYTHM - GI/Abdominal Exam GI & Abdominal Exam: Soft. absent: Tenderness Assessment and Plan (1) Clostridium difficile colitis Assessment & Plan: Responding clinically to Vancomycin Continue present management Status: Acute
--- NOTE | 2017-10-29 18:44 | PN ---
DATE: 10/29/2017 SUBJECTIVE: The patient is seen. Still confused and has very poor p.o. intake, but the patient is tolerating PEG tube feeding. Has loose stools but no diarrhea. The patient is on vancomycin p.o. for treatment of C. difficile colitis. The patient awaiting a negative C. difficile toxin assay prior to transfer to [facility]. Other than that, no behavioral problems, but her family is concerned about the deteriorating memory of the patient. The patient still recognizes her family members. VITAL SIGNS: Temperature 98, pulse 96, blood pressure 162/85, respirations 20, and oxygen sat 99%. REVIEW OF SYSTEMS: GENERAL: The patient is sleepy, but arousable, still confused. SKIN: No diaphoresis. HEENT: Still hard of hearing, legally blind. NECK: Supple. RESPIRATORY: No dyspnea. CARDIOVASCULAR: No chest pain. GASTROINTESTINAL: PEG tube feeding. Has loose stools. No nausea, no vomiting. No abdominal pain. P.o. intake is poor. EXTREMITIES: Has been bed bound. MUSCULOSKELETAL: Weak. Has generalized debility. NEURO: Alert with periods of confusion. Her dementia seems to be getting progressive. According to the family, the patient is still able to recall events in the past, but not the rest of the event. MENTAL STATUS EXAMINATION: Elderly female, who looks stated age, oriented to person only and not to place and time, still confused. Speech is slow. Affect, restricted. Mood, dysphoric. Thought process, confused. Thought content, no overt paranoia. No hallucinations. No suicidal ideation. Attention and memory still limited. Insight and judgment limited. Impulse control is fair at this time. IMPRESSION: History of delirium with metabolic encephalopathy as well as dementia with mood changes. Failure to thrive. Status post percutaneous endoscopic gastrostomy tube feeding. History of Clostridium difficile colitis. History of cerebrovascular accident of the right basal ganglia. PLAN AND RECOMMENDATIONS: The patient is seen, meds reviewed. Continue present management. The patient is currently being treated for C. difficile colitis. Once the patient's C. difficile toxin assay negative, she can be transferred to [facility], for further treatment in subacute rehab. Family wants her to go there as the patient is very debilitated and her 93-year-old cannot take care of her at this point. Continue antibiotics as ordered. We will hold off any psych meds as stated earlier. The patient has paradoxical reaction to psych meds and becomes more confused. The patient is confused at baseline and doubtful of any favorable response to psych meds, especially the dementia medication. Fredy Harper MD
--- NOTE | 2017-10-29 18:57 | CP.PCM.PN ---
Subjective - Date & Time of Evaluation Date of Evaluation: 10/29/17 Time of Evaluation: 18:55 - Subjective Subjective: Patient awake, in no distress, confused, with no diarrhea, no abdominal pain, but still with poor appetite. Will check stools for c.difficile toxin. Objective - Vital Signs/Intake and Output Vital Signs (last 24 hours): Temp Pulse Resp BP Pulse Ox 97.9 F 86 20 107/67 97 10/29/17 07:30 10/29/17 07:30 10/29/17 07:30 10/29/17 07:30 10/29/17 07:30 Intake and Output: 10/29/17 10/29/17 06:59 18:59 Intake Total 940 Balance 940 - Medications Medications: Current Medications Acetaminophen (Tylenol 325mg Tab) 650 mg PO Q6 PRN PRN Reason: Pain, moderate (4-7) Last Admin: 10/15/17 16:49 Dose: 650 mg Aspirin (Ecotrin) 81 mg PO DAILY [facility] Last Admin: 10/29/17 09:30 Dose: 81 mg Brimonidine Tartrate (Alphagan 0.2% Opht) 0 ml OU Q8H [facility] Last Admin: 10/29/17 14:42 Dose: 1 drop Clonidine HCl (Catapres) 0.1 mg PO TID PRN PRN Reason: Diastolic blood pressure Last Admin: 10/22/17 00:15 Dose: 0.1 mg Clopidogrel Bisulfate (Plavix) 75 mg PO DAILY [facility] Last Admin: 10/29/17 09:30 Dose: 75 mg Cyanocobalamin (Vitamin B12 1000 Mcg Tab) 1,000 mcg PO DAILY [facility] Last Admin: 10/29/17 09:30 Dose: 1,000 mcg Home Med (Patient's Own Drops) 1 drop OU HS [facility] Last Admin: 10/28/17 21:08 Dose: 1 drop Home Med (Patient's Own Drops) 1 drop OD QID [facility] Last Admin: 10/07/17 10:29 Dose: 1 drop Losartan Potassium (Cozaar) 100 mg PO DAILY [facility] Last Admin: 10/29/17 09:30 Dose: 100 mg Metoprolol Succinate (Toprol Xl) 50 mg PO DAILY [facility] Last Admin: 10/29/17 09:30 Dose: 50 mg Pilocarpine HCl (Isopto Carpine 1% Opht Soln) 1 drop OD QID [facility] Last Admin: 10/29/17 17:57 Dose: 1 drop Saccharomyces Boulardii (Florastor) 500 mg PO BID [facility] Last Admin: 10/29/17 17:57 Dose: 500 mg Vancomycin HCl (Vancocin (Oral Or Rectal Use)) 125 mg PO Q6H [facility] Last Admin: 10/29/17 17:57 Dose: 125 mg - Labs Labs: 10/28/17 07:58 10/28/17 07:58 PT 14.1 SECONDS (9.7-12.2) H 10/14/17 07:48 INR 1.3 10/14/17 07:48 APTT 31 SECONDS (21-34) 09/20/17 08:43 - Constitutional Appears: No Acute Distress, Chronically Ill - Head Exam Head Exam: NORMAL INSPECTION - Eye Exam Eye Exam: Normal appearance - ENT Exam ENT Exam: Normal Exam - Neck Exam Neck Exam: Normal Inspection - Respiratory Exam Respiratory Exam: Clear to Ausculation Bilateral, Respiratory Distress - Cardiovascular Exam Cardiovascular Exam: REGULAR RHYTHM, Murmur - GI/Abdominal Exam GI & Abdominal Exam: Soft, Normal Bowel Sounds - Rectal Exam Rectal Exam: Deferred - Extremities Exam Extremities Exam: Normal Inspection - Back Exam Back Exam: NORMAL INSPECTION - Neurological Exam Neurological Exam: Alert, Awake Additional comments: Confused. - Psychiatric Exam Additional comments: Confused. - Skin Skin Exam: Dry, Intact, Normal Color, Warm Assessment and Plan (1) Influenza Status: Resolved (2) UTI (urinary tract infection) Status: Suspected (3) Abnormal head CT Status: Resolved (4) Abnormal head CT Status: Resolved (5) Staphylococcus aureus bacteremia Status: Resolved (6) CVA (cerebral vascular accident) Status: Resolved (7) Anorexia Status: Acute (8) Leucocytosis Status: Resolved (9) Clostridium difficile colitis Assessment & Plan: On Vancomycine via PEG. Status: Acute
[2017-10-29] MEDS: LUMIGAN OU SCH (21:17)
[2017-10-30] MEDS: Vancomycin 125 MG/5 ML SOLN (ORAL/RECTAL) PO SCH ×4 (00:23→18:00)
[2017-10-30] MEDS: Brimonidine 0.2% Opth Sol (5ml) OU SCH ×3 (05:35→21:35)
[2017-10-30] MEDS: Metoprolol Succinate 50 mg XL Tab PO SCH (09:35)
[2017-10-30] MEDS: Saccharomyces Boulardi 250 mg Cap PO SCH ×2 (09:36→18:00)
[2017-10-30] MEDS: PILOCARPINE 1% OD SCH ×4 (09:38→21:35)
--- NOTE | 2017-10-30 17:16 | PN ---
DATE: 10/30/2017 SUBJECTIVE: The patient is seen. The patient is still confused but more alert. According to the clinical partner who helps her eat, the patient ate almost 50% of her meals. The patient is still on PEG tube feeding and awaiting medical clearance to be transferred for subacute rehab. The patient not agitated today. VITAL SIGNS: Temperature, 98.1, pulse is 91, blood pressure is 120/69, respirations 20, oxygen saturation is 98%. REVIEW OF SYSTEMS: GENERAL: The patient is alert but confused, seen in her room, not agitated, not in any acute respiratory distress. SKIN: No diaphoresis. HEENT: Still hard of hearing, legally blind. No headache. NECK: Supple. RESPIRATORY: No dyspnea. CARDIOVASCULAR: No chest pain. GASTROINTESTINAL: The patient is eating better; still has loose stools. The patient will need assistance during meals, especially she is visually impaired but generally tolerating PEG tube feedings. EXTREMITIES: Has been bed-bound for months. MUSCULOSKELETAL: Still feels weak. NEUROLOGIC: Alert with periods of confusion. GENITOURINARY: Not having any urinary problems or dysuria. MENTAL STATUS EXAMINATION: Elderly female who looks stated age , oriented only to person, still confused, hard of hearing, and legally blind. Speech is spontaneous. Affect is reactive. Mood is dysphoric. The patient is still unsure if she is in the hospital. Thought process, confused off and on. Thought content, no overt paranoia, hallucinations, or suicidal or homicidal ideation. She has been generally cooperative with staff as well as care. The patient is still on vancomycin and awaiting test to get a negative C. difficile toxin assay before going to the half-way. Attention and memory sill limited. Insight and judgment limited. Impulse control is fair at this time. At this point, the patient needs maximal assistance. 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 PLAN AND RECOMMENDATIONS: The patient is seen, medications reviewed. Continue with PEG tube feedings. Continue present management. Continue antibiotic for C. difficile colitis. The patient, as stated, awaiting medical clearance to go to subacute rehab at [facility]. Fredy Harper MD [facility] # [id number] [facility]el
[2017-10-30] MEDS: LUMIGAN OU SCH (21:35)
[2017-10-31] MEDS: Vancomycin 125 MG/5 ML SOLN (ORAL/RECTAL) PO SCH ×5 (00:15→23:48)
[2017-10-31] MEDS: Brimonidine 0.2% Opth Sol (5ml) OU SCH ×3 (06:01→22:06)
[2017-10-31] MEDS: PILOCARPINE 1% OD SCH ×4 (10:00→22:05)
[2017-10-31] MEDS: Saccharomyces Boulardi 250 mg Cap PO SCH ×2 (10:29→17:14)
[2017-10-31] MEDS: Metoprolol Succinate 50 mg XL Tab PO SCH (10:30)
--- NOTE | 2017-10-31 13:03 | CP.PCM.PN ---
Subjective - Date & Time of Evaluation Date of Evaluation: 10/31/17 Time of Evaluation: 12:57 - Subjective Subjective: Patient had 2 loose MM today. No fever, no abdominal cramps. Now is complaining of decreased hearing in both ears. Objective - Vital Signs/Intake and Output Vital Signs (last 24 hours): Temp Pulse Resp BP Pulse Ox 98.1 F 94 H 20 133/76 95 10/31/17 08:41 10/31/17 08:41 10/31/17 08:41 10/31/17 08:41 10/31/17 08:41 Intake and Output: 10/31/17 10/31/17 06:59 18:59 Intake Total 1160 Balance 1160 - Medications Medications: Current Medications Acetaminophen (Tylenol 325mg Tab) 650 mg PO Q6 PRN PRN Reason: Pain, moderate (4-7) Last Admin: 10/15/17 16:49 Dose: 650 mg Aspirin (Ecotrin) 81 mg PO DAILY [facility] Last Admin: 10/31/17 10:29 Dose: 81 mg Brimonidine Tartrate (Alphagan 0.2% Opht) 0 ml OU Q8H [facility] Last Admin: 10/31/17 06:01 Dose: 1 drop Clonidine HCl (Catapres) 0.1 mg PO TID PRN PRN Reason: Diastolic blood pressure Last Admin: 10/31/17 00:16 Dose: 0.1 mg Clopidogrel Bisulfate (Plavix) 75 mg PO DAILY [facility] Last Admin: 10/31/17 10:30 Dose: 75 mg Cyanocobalamin (Vitamin B12 1000 Mcg Tab) 1,000 mcg PO DAILY [facility] Last Admin: 10/31/17 10:30 Dose: 1,000 mcg Home Med (Patient's Own Drops) 1 drop OU HS [facility] Last Admin: 10/30/17 21:35 Dose: 1 drop Home Med (Patient's Own Drops) 1 drop OD QID [facility] Last Admin: 10/07/17 10:29 Dose: 1 drop Losartan Potassium (Cozaar) 100 mg PO DAILY [facility] Last Admin: 10/31/17 10:29 Dose: 100 mg Metoprolol Succinate (Toprol Xl) 50 mg PO DAILY [facility] Last Admin: 10/31/17 10:30 Dose: 50 mg Pilocarpine HCl (Isopto Carpine 1% Opht Soln) 1 drop OD QID [facility] Last Admin: 10/30/17 21:35 Dose: 1 drop Saccharomyces Boulardii (Florastor) 500 mg PO BID [facility] Last Admin: 10/31/17 10:29 Dose: 500 mg Vancomycin HCl (Vancocin (Oral Or Rectal Use)) 125 mg PO Q6H [facility] Last Admin: 10/31/17 06:02 Dose: 125 mg - Labs Labs: 10/28/17 07:58 10/28/17 07:58 PT 14.1 SECONDS (9.7-12.2) H 10/14/17 07:48 INR 1.3 10/14/17 07:48 APTT 31 SECONDS (21-34) 09/20/17 08:43 - Constitutional Appears: Chronically Ill - Head Exam Head Exam: NORMAL INSPECTION - Eye Exam Eye Exam: Normal appearance - ENT Exam ENT Exam: Normal Exam - Neck Exam Neck Exam: Normal Inspection - Respiratory Exam Respiratory Exam: Clear to Ausculation Bilateral - Cardiovascular Exam Cardiovascular Exam: REGULAR RHYTHM - GI/Abdominal Exam GI & Abdominal Exam: Soft, Normal Bowel Sounds - Rectal Exam Rectal Exam: Deferred - Extremities Exam Extremities Exam: Normal Inspection - Back Exam Back Exam: NORMAL INSPECTION - Neurological Exam Neurological Exam: Alert, Awake Additional comments: Confused. - Psychiatric Exam Additional comments: Confused. Assessment and Plan (1) Influenza Status: Resolved (2) UTI (urinary tract infection) Status: Suspected (3) Abnormal head CT Status: Resolved (4) Abnormal head CT Status: Resolved (5) Staphylococcus aureus bacteremia Status: Resolved (6) CVA (cerebral vascular accident) Status: Resolved (7) Anorexia Status: Acute (8) Leucocytosis Status: Resolved (9) Clostridium difficile colitis Assessment & Plan: Recheck stoools for C Difficile. Status: Acute
--- NOTE | 2017-10-31 17:58 | PN ---
DATE: SUBJECTIVE: The patient is seen with her daughters. The patient did not eat her breakfast well today, but yesterday she had eaten almost 50% of her breakfast. Note, the patient is PEG tube feeding and may only need one full meal as supplement. Yesterday, she ate better, but did not eat very well her lunch and dinner today. Her daughters are hoping she would eat better for the lunch time. Still confused, but manageable. The patient knows she is in hospital. PHYSICAL EXAMINATION: VITAL SIGNS: Temperature 98.1, pulse 94, blood pressure 133/76, respirations 20, and oxygen saturation is 95%. GENERAL: The patient tolerating PEG tube feeding. Her blood sugar is 127. REVIEW OF SYSTEMS: GENERAL: The patient is alert, but still confused. Not agitated, not in acute respiratory distress. SKIN: No diaphoresis. HEENT: Still hard of hearing, legally blind. The patient will need assistance during meals. NECK: Supple. RESPIRATORY: No dyspnea. CARDIOPULMONARY: No chest pain. GASTROINTESTINAL: The patient tolerating PEG tube feeding, still has loose stools. No nausea, no vomiting. EXTREMITIES: The patient has unsteady gait, has been bed bound for weeks. MUSCULOSKELETAL: Denies weakness. NEUROLOGIC: Alert with periods of confusion. GENITOURINARY: Not having any urinary problems or dysuria. MENTAL STATUS EXAMINATION: Elderly female, who looks stated age, oriented x3, place and person, and to time. Mood is calm. Affect is reactive. Speech is spontaneous. Thought process is confused often as above. Thought content, no overt paranoia, no hallucinations. No suicidal or homicidal ideation. Attention and memory seem to be limited. Insight and judgment limited. Impulse control is fair at this time. IMPRESSION: History of delirium, metabolic encephalopathy, history of cerebrovascular accident in the right basal ganglion, failure to thrive, status post PEG tube feeding, history of dementia with mood changes, Clostridium difficile colitis. PLAN AND RECOMMENDATIONS: The patient is seen, meds reviewed. Continue antibiotics. The patient is on vancomycin, prescribed by Dr. Kimbrough 125 mg q.6 hours for Clostridium difficile colitis. The patient will need negative Clostridium difficile assay [facility]. She has been compliant with her meds. No behavioral problems. We will keep the patient off psych meds for now. Continue treatment plan as outlined. Continue PEG tube feeding as ordered. Fredy Harper MD
[2017-10-31] MEDS: LUMIGAN OU SCH (22:06)
[2017-11-01] MEDS: Brimonidine 0.2% Opth Sol (5ml) OU SCH ×3 (05:26→21:16)
[2017-11-01] MEDS: Vancomycin 125 MG/5 ML SOLN (ORAL/RECTAL) PO SCH ×4 (05:26→23:48)
[2017-11-01] MEDS: Metoprolol Succinate 50 mg XL Tab PO SCH (10:09)
[2017-11-01] MEDS: PILOCARPINE 1% OD SCH ×4 (10:10→21:16)
[2017-11-01] MEDS: Saccharomyces Boulardi 250 mg Cap PO SCH ×2 (10:10→17:23)
--- NOTE | 2017-11-01 12:01 | PN ---
DATE: 11/01/2017 SUBJECTIVE: The patient is seen. The patient today feels alert, but confused today, has agreed to eat her breakfast with assistance. The patient's C. Difficile toxin assay result is now negative. The patient is awaiting medical clearance to go for subacute rehab to [facility]. VITAL SIGNS: Temperature is 97.6, pulse is 95, blood pressure is 146/70, respirations 20, oxygen saturation is 97%. REVIEW OF SYSTEMS: GENERAL: The patient is alert, verbal, still confused, but not agitated, seen in her room. SKIN: No diaphoresis. HEENT: Still hard of hearing, legally blind. No headache. NECK: Supple. RESPIRATORY: No dyspnea. CARDIOVASCULAR: No chest pain. GASTROINTESTINAL: Tolerating PEG tube feeding, has loose stools. No nausea. No vomiting. The patient is eating supplemental regular food variably. EXTREMITIES: Has been bed-bound for weeks. MUSCULOSKELETAL: Feels weak. NEUROLOGIC: Alert with periods of confusion. MENTAL STATUS EXAMINATION: An elderly female who looks stated age, oriented x2. The patient knows she is in the hospital, oriented to person at this time. Affect is restricted. Mood is dysphoric. Speech is spontaneous. Still has periods of confusion. Thought content, no overt psychosis, no suicidal ideation. Attention and memory is limited. Impulse control is fair at this time. IMPRESSION: History of delirium, metabolic encephalopathy, cerebrovascular accident with right basal ganglia, dementia with mood changes, status post percutaneous endoscopic gastrostomy tube feeding, history of failure to thrive. Clostridium difficile colitis, improved. PLAN AND RECOMMENDATIONS: The patient is seen, medications reviewed. The patient is C. Difficile toxin assay negative. The patient is awaiting medical clearance to transfer to [facility] for subacute rehab. The patient needs reconditioning at this time. She has been in the hospital for many weeks and may benefit from going to [facility]. We will keep the patient off psych meds as the patient is very sensitive to psych meds. Fredy Harper MD
--- NOTE | 2017-11-01 13:43 | CP.PCM.PN ---
Subjective - Date & Time of Evaluation Date of Evaluation: 11/01/17 Time of Evaluation: 13:40 - Subjective Subjective: Patient has no diarrhea today. Afebrile. Stools for c diff yesterday was negative. Will order another stools specimen for C Difficile toxin. Objective - Vital Signs/Intake and Output Vital Signs (last 24 hours): Temp Pulse Resp BP Pulse Ox 97.6 F 95 H 20 146/78 97 11/01/17 08:38 11/01/17 08:38 11/01/17 08:38 11/01/17 08:38 11/01/17 08:38 Intake and Output: 11/01/17 11/01/17 06:59 18:59 Intake Total 360 520 Balance 360 520 - Medications Medications: Current Medications Acetaminophen (Tylenol 325mg Tab) 650 mg PO Q6 PRN PRN Reason: Pain, moderate (4-7) Last Admin: 10/15/17 16:49 Dose: 650 mg Aspirin (Ecotrin) 81 mg PO DAILY [facility] Last Admin: 11/01/17 10:10 Dose: 81 mg Brimonidine Tartrate (Alphagan 0.2% Opht) 0 ml OU Q8H [facility] Last Admin: 11/01/17 05:26 Dose: 1 drop Clonidine HCl (Catapres) 0.1 mg PO TID PRN PRN Reason: Diastolic blood pressure Last Admin: 10/31/17 00:16 Dose: 0.1 mg Clopidogrel Bisulfate (Plavix) 75 mg PO DAILY [facility] Last Admin: 11/01/17 10:09 Dose: 75 mg Cyanocobalamin (Vitamin B12 1000 Mcg Tab) 1,000 mcg PO DAILY [facility] Last Admin: 11/01/17 10:09 Dose: 1,000 mcg Home Med (Patient's Own Drops) 1 drop OU HS [facility] Last Admin: 10/31/17 22:06 Dose: 1 drop Home Med (Patient's Own Drops) 1 drop OD QID [facility] Last Admin: 10/07/17 10:29 Dose: 1 drop Losartan Potassium (Cozaar) 100 mg PO DAILY [facility] Last Admin: 11/01/17 10:09 Dose: 100 mg Metoprolol Succinate (Toprol Xl) 50 mg PO DAILY [facility] Last Admin: 11/01/17 10:09 Dose: 50 mg Pilocarpine HCl (Isopto Carpine 1% Opht Soln) 1 drop OD QID [facility] Last Admin: 11/01/17 10:10 Dose: 1 drop Saccharomyces Boulardii (Florastor) 500 mg PO BID [facility] Last Admin: 11/01/17 10:10 Dose: 500 mg Vancomycin HCl (Vancocin (Oral Or Rectal Use)) 125 mg PO Q6H [facility] Last Admin: 11/01/17 11:30 Dose: 125 mg - Labs Labs: 10/28/17 07:58 10/28/17 07:58 PT 14.1 SECONDS (9.7-12.2) H 10/14/17 07:48 INR 1.3 10/14/17 07:48 APTT 31 SECONDS (21-34) 09/20/17 08:43 - Constitutional Appears: No Acute Distress, Chronically Ill - Head Exam Head Exam: NORMAL INSPECTION - Eye Exam Eye Exam: Normal appearance - ENT Exam ENT Exam: Normal Exam - Respiratory Exam Respiratory Exam: Clear to Ausculation Bilateral, NORMAL BREATHING PATTERN - Cardiovascular Exam Cardiovascular Exam: REGULAR RHYTHM, Murmur - GI/Abdominal Exam GI & Abdominal Exam: Soft, Normal Bowel Sounds - Rectal Exam Rectal Exam: Deferred - Extremities Exam Extremities Exam: Normal Inspection - Back Exam Back Exam: NORMAL INSPECTION - Neurological Exam Neurological Exam: Alert, Awake Additional comments: confused. - Psychiatric Exam Additional comments: Confused. - Skin Skin Exam: Dry, Intact, Normal Color, Warm Assessment and Plan (1) Influenza Status: Resolved (2) UTI (urinary tract infection) Status: Resolved (3) Abnormal head CT Status: Resolved (4) Abnormal head CT Status: Resolved (5) Staphylococcus aureus bacteremia Status: Resolved (6) CVA (cerebral vascular accident) Status: Resolved (7) Anorexia Status: Acute (8) Leucocytosis Status: Resolved (9) Clostridium difficile colitis Assessment & Plan: To continue Vancomycin via PEG. Status: Acute
--- NOTE | 2017-11-01 19:40 | CP.PCM.PN ---
Subjective - Date & Time of Evaluation Date of Evaluation: 10/27/17 Time of Evaluation: 19:20 - Subjective Subjective: INFECTIOUS DISEASE PROGRESS NOTE TUAN DURAN MD, FACP 6T 667 10/27/2017 CHART REVIEWED EXAMINATION NOTED CASE DISCUSSED LOOSE BM X 2 BUT BEING FEED VIA PEG AFEBRILE CHRONIC DEMENTIA FINISH VANCOMYCIN DISCUSSED Objective - Vital Signs/Intake and Output Vital Signs (last 24 hours): Temp Pulse Resp BP Pulse Ox 97.2 F L 81 20 118/76 96 11/01/17 16:00 11/01/17 16:00 11/01/17 16:00 11/01/17 16:00 11/01/17 16:00 Intake and Output: 11/01/17 11/02/17 18:59 06:59 Intake Total 520 Balance 520 - Medications Medications: Current Medications Acetaminophen (Tylenol 325mg Tab) 650 mg PO Q6 PRN PRN Reason: Pain, moderate (4-7) Last Admin: 10/15/17 16:49 Dose: 650 mg Aspirin (Ecotrin) 81 mg PO DAILY [facility] Last Admin: 11/01/17 10:10 Dose: 81 mg Brimonidine Tartrate (Alphagan 0.2% Opht) 0 ml OU Q8H [facility] Last Admin: 11/01/17 14:13 Dose: 1 drop Clonidine HCl (Catapres) 0.1 mg PO TID PRN PRN Reason: Diastolic blood pressure Last Admin: 10/31/17 00:16 Dose: 0.1 mg Clopidogrel Bisulfate (Plavix) 75 mg PO DAILY [facility] Last Admin: 11/01/17 10:09 Dose: 75 mg Cyanocobalamin (Vitamin B12 1000 Mcg Tab) 1,000 mcg PO DAILY [facility] Last Admin: 11/01/17 10:09 Dose: 1,000 mcg Home Med (Patient's Own Drops) 1 drop OU HS [facility] Last Admin: 10/31/17 22:06 Dose: 1 drop Home Med (Patient's Own Drops) 1 drop OD QID [facility] Last Admin: 10/07/17 10:29 Dose: 1 drop Losartan Potassium (Cozaar) 100 mg PO DAILY [facility] Last Admin: 11/01/17 10:09 Dose: 100 mg Metoprolol Succinate (Toprol Xl) 50 mg PO DAILY [facility] Last Admin: 11/01/17 10:09 Dose: 50 mg Pilocarpine HCl (Isopto Carpine 1% Opht Soln) 1 drop OD QID [facility] Last Admin: 11/01/17 17:23 Dose: 1 drop Saccharomyces Boulardii (Florastor) 500 mg PO BID [facility] Last Admin: 11/01/17 17:23 Dose: 500 mg Vancomycin HCl (Vancocin (Oral Or Rectal Use)) 125 mg PO Q6H [facility] Last Admin: 11/01/17 17:24 Dose: 125 mg - Labs Labs: 10/28/17 07:58 10/28/17 07:58 PT 14.1 SECONDS (9.7-12.2) H 10/14/17 07:48 INR 1.3 10/14/17 07:48 APTT 31 SECONDS (21-34) 09/20/17 08:43 Assessment and Plan (1) Fever Status: Resolved (2) Coag negative Staphylococcus bacteremia Status: Resolved (3) UTI (urinary tract infection) Status: Resolved (4) Benign hypertension Status: Chronic (5) Influenza Status: Resolved (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
--- NOTE | 2017-11-01 19:44 | CP.PCM.PN ---
Subjective - Date & Time of Evaluation Date of Evaluation: 10/28/17 Time of Evaluation: 20:00 - Subjective Subjective: INFECTIOUS DISEASE PROGRESS NOTE TUAN DURAN MD, FACP CHART REVIEWED CASE DISCUSSED EXAMINATION NOTED 6T 10/28/2017 CLINICALLY CHRONICALLY DEMENTED AND PHYSICALLY INCAPACITATED VIA SIGHT AND HEARING ALSO DIARRHEA MARKEDLY LESS FINISH VANCOMYCIN AND RECHECK CONTINUE FLORASTOR Objective - Vital Signs/Intake and Output Vital Signs (last 24 hours): Temp Pulse Resp BP Pulse Ox 97.2 F L 81 20 118/76 96 11/01/17 16:00 11/01/17 16:00 11/01/17 16:00 11/01/17 16:00 11/01/17 16:00 Intake and Output: 11/01/17 11/02/17 18:59 06:59 Intake Total 520 Balance 520 - Medications Medications: Current Medications Acetaminophen (Tylenol 325mg Tab) 650 mg PO Q6 PRN PRN Reason: Pain, moderate (4-7) Last Admin: 10/15/17 16:49 Dose: 650 mg Aspirin (Ecotrin) 81 mg PO DAILY [facility] Last Admin: 11/01/17 10:10 Dose: 81 mg Brimonidine Tartrate (Alphagan 0.2% Opht) 0 ml OU Q8H [facility] Last Admin: 11/01/17 14:13 Dose: 1 drop Clonidine HCl (Catapres) 0.1 mg PO TID PRN PRN Reason: Diastolic blood pressure Last Admin: 10/31/17 00:16 Dose: 0.1 mg Clopidogrel Bisulfate (Plavix) 75 mg PO DAILY [facility] Last Admin: 11/01/17 10:09 Dose: 75 mg Cyanocobalamin (Vitamin B12 1000 Mcg Tab) 1,000 mcg PO DAILY [facility] Last Admin: 11/01/17 10:09 Dose: 1,000 mcg Home Med (Patient's Own Drops) 1 drop OU HS [facility] Last Admin: 10/31/17 22:06 Dose: 1 drop Home Med (Patient's Own Drops) 1 drop OD QID [facility] Last Admin: 10/07/17 10:29 Dose: 1 drop Losartan Potassium (Cozaar) 100 mg PO DAILY [facility] Last Admin: 11/01/17 10:09 Dose: 100 mg Metoprolol Succinate (Toprol Xl) 50 mg PO DAILY [facility] Last Admin: 02/27/18 10:09 Dose: 50 mg Pilocarpine HCl (Isopto Carpine 1% Opht Soln) 1 drop OD QID [facility] Last Admin: 11/01/17 17:23 Dose: 1 drop Saccharomyces Boulardii (Florastor) 500 mg PO BID [facility] Last Admin: 11/01/17 17:23 Dose: 500 mg Vancomycin HCl (Vancocin (Oral Or Rectal Use)) 125 mg PO Q6H [facility] Last Admin: 11/01/17 17:24 Dose: 125 mg - Labs Labs: 10/28/17 07:58 10/28/17 07:58 PT 14.1 SECONDS (9.7-12.2) H 10/14/17 07:48 INR 1.3 10/14/17 07:48 APTT 31 SECONDS (21-34) 09/20/17 08:43 Assessment and Plan (1) Fever Status: Resolved (2) Coag negative Staphylococcus bacteremia Status: Resolved (3) UTI (urinary tract infection) Status: Resolved (4) Benign hypertension Status: Chronic (5) Influenza Status: Resolved (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
[2017-11-01] MEDS: LUMIGAN OU SCH (21:16)
[2017-11-02] MEDS: Brimonidine 0.2% Opth Sol (5ml) OU SCH ×3 (05:42→21:35)
[2017-11-02] MEDS: Vancomycin 125 MG/5 ML SOLN (ORAL/RECTAL) PO SCH ×3 (05:42→18:15)
[2017-11-02] MEDS: Saccharomyces Boulardi 250 mg Cap PO SCH ×2 (09:54→18:15)
[2017-11-02] MEDS: Metoprolol Succinate 50 mg XL Tab PO SCH (09:55)
[2017-11-02] MEDS: PILOCARPINE 1% OD SCH ×4 (09:56→21:35)
--- NOTE | 2017-11-02 16:34 | CP.PCM.PN ---
Subjective - Date & Time of Evaluation Date of Evaluation: 11/02/17 Time of Evaluation: 16:30 - Subjective Subjective: Patient is slightly more alert, and more talkative. Had one soft BM today. Afebrile, no abdominal cramps. Objective - Vital Signs/Intake and Output Vital Signs (last 24 hours): Temp Pulse Resp BP Pulse Ox 97.5 F L 98 H 20 127/80 95 11/02/17 08:20 11/02/17 08:20 11/02/17 08:20 11/02/17 08:20 11/02/17 08:20 Intake and Output: 11/02/17 11/02/17 06:59 18:59 Intake Total 580 Balance 580 - Medications Medications: Current Medications Acetaminophen (Tylenol 325mg Tab) 650 mg PO Q6 PRN PRN Reason: Pain, moderate (4-7) Last Admin: 10/15/17 16:49 Dose: 650 mg Aspirin (Ecotrin) 81 mg PO DAILY [facility] Last Admin: 11/02/17 09:55 Dose: 81 mg Brimonidine Tartrate (Alphagan 0.2% Opht) 0 ml OU Q8H [facility] Last Admin: 11/02/17 13:25 Dose: 1 drop Clonidine HCl (Catapres) 0.1 mg PO TID PRN PRN Reason: Diastolic blood pressure Last Admin: 10/31/17 00:16 Dose: 0.1 mg Clopidogrel Bisulfate (Plavix) 75 mg PO DAILY [facility] Last Admin: 11/02/17 09:55 Dose: 75 mg Cyanocobalamin (Vitamin B12 1000 Mcg Tab) 1,000 mcg PO DAILY [facility] Last Admin: 11/02/17 09:54 Dose: 1,000 mcg Home Med (Patient's Own Drops) 1 drop OU HS [facility] Last Admin: 11/01/17 21:16 Dose: 1 drop Home Med (Patient's Own Drops) 1 drop OD QID [facility] Last Admin: 10/07/17 10:29 Dose: 1 drop Losartan Potassium (Cozaar) 100 mg PO DAILY [facility] Last Admin: 11/02/17 09:55 Dose: 100 mg Metoprolol Succinate (Toprol Xl) 50 mg PO DAILY [facility] Last Admin: 11/02/17 09:55 Dose: 50 mg Pilocarpine HCl (Isopto Carpine 1% Opht Soln) 1 drop OD QID [facility] Last Admin: 11/02/17 13:25 Dose: 1 drop Saccharomyces Boulardii (Florastor) 500 mg PO BID [facility] Last Admin: 11/02/17 09:54 Dose: 500 mg Vancomycin HCl (Vancocin (Oral Or Rectal Use)) 125 mg PO Q6H [facility] Last Admin: 11/02/17 12:15 Dose: 125 mg - Labs Labs: 10/28/17 07:58 10/28/17 07:58 PT 14.1 SECONDS (9.7-12.2) H 10/14/17 07:48 INR 1.3 10/14/17 07:48 APTT 31 SECONDS (21-34) 09/20/17 08:43 - Constitutional Appears: No Acute Distress, Chronically Ill - Head Exam Head Exam: NORMOCEPHALIC - Eye Exam Eye Exam: Normal appearance - ENT Exam ENT Exam: Normal Exam - Neck Exam Neck Exam: Normal Inspection - Respiratory Exam Respiratory Exam: Clear to Ausculation Bilateral, NORMAL BREATHING PATTERN - Cardiovascular Exam Cardiovascular Exam: REGULAR RHYTHM, Murmur - GI/Abdominal Exam GI & Abdominal Exam: Soft, Normal Bowel Sounds - Rectal Exam Rectal Exam: Deferred - Extremities Exam Extremities Exam: Normal Inspection - Back Exam Back Exam: NORMAL INSPECTION - Neurological Exam Neurological Exam: Alert, Awake, Oriented x3 Additional comments: Confused. - Psychiatric Exam Additional comments: Confused. - Skin Skin Exam: Intact, Normal Color, Warm Assessment and Plan (1) Influenza Status: Resolved (2) UTI (urinary tract infection) Status: Resolved (3) Abnormal head CT Status: Resolved (4) Abnormal head CT Status: Resolved (5) Staphylococcus aureus bacteremia Status: Resolved (6) CVA (cerebral vascular accident) Status: Resolved (7) Anorexia Status: Acute (8) Leucocytosis Status: Resolved (9) Clostridium difficile colitis Assessment & Plan: Awaiting repeated stools for c difficile toxin. If negative, will discharge patient to subacute rehabilitation. Status: Acute
--- NOTE | 2017-11-02 17:36 | PN ---
DATE: 11/02/2017 SUBJECTIVE: The patient is seen. The patient is more alert today but still confused. The patient was asking bedtime because she was still having loose bowel movements. According to the case manager specialist, the patient will need three negative C. difficile assay results. Therefore, she can go for subacute rehab. The patient had one and will need two negative results for C. difficile toxin assay. Other than that, the patient is manageable. The patient is currently on vancomycin prescribed by Dr. Kimbrough 125 mg q.6 hours for C. difficile colitis. PHYSICAL EXAMINATION VITAL SIGNS: Temperature 97.5, pulse 98, blood pressure 127/80, respirations 20, oxygen saturation 95%. REVIEW OF SYSTEMS: GENERAL: The patient is alert, but confused. She is more alert today insisting that she wants a bed [place] because she needs to go to the bathroom. SKIN: No diaphoresis. HEENT: He is still legally blind. Hard of hearing. No headache. NECK: Supple. RESPIRATORY: No dyspnea. CARDIOVASCULAR: No chest pain. GASTROINTESTINAL: Has loose stools, but no abdominal pain. No nausea or vomiting. Tolerating PEG tube feeding. EXTREMITIES: The patient has been bed bound. Has not been ambulating. MUSCULOSKELETAL: Generalized weakness. NEUROLOGIC: Alert with periods of confusion. The patient has increasing periods of confusion lately. At times, she does not know if she is in the hospital, but lately she has been oriented and she notes she is in the hospital. Oriented to person and not much to time. MENTAL STATUS EXAM: Elderly female looks stated age. Oriented to place and person. Affect is reactive. Mood is anxious at times, dysphoric. Speech is spontaneous. Thought process, confused off and on. Thought content, no overt psychosis. Today, she wants to go to the bathroom asking for bedbound. The patient is awaiting three negative C. difficile assay results before going for subacute rehab to [facility]. The patient has no paranoia. No hallucinations. No suicidal or homicidal ideation. Attention and memory seems to be limited. Insight and judgment is limited. Impulse control is fair. IMPRESSION: History of delirium. Metabolic encephalopathy. 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 difficile colitis, failure to thrive, status post PEG tube feeding. PLAN AND RECOMMENDATION: The patient is seen and meds reviewed. Continue present management. Her B12 level was low, but now the patient is noted to have supplements. Her blood sugar is 154. Continue treatment plan as outlined. The patient is awaiting medical clearance with three negative C. difficile assay before going to [facility]. Psych joyner, the behavior is manageable although she is still confused , but we will keep her off psych meds. Fredy Harper MD [facility]
[2017-11-02] MEDS: LUMIGAN OU SCH (21:35)
[2017-11-03] MEDS: Vancomycin 125 MG/5 ML SOLN (ORAL/RECTAL) PO SCH ×2 (00:26→05:51)
[2017-11-03] MEDS: Brimonidine 0.2% Opth Sol (5ml) OU SCH ×3 (05:51→21:06)
[2017-11-03] MEDS: PILOCARPINE 1% OD SCH ×4 (10:05→21:07)
[2017-11-03] MEDS: Saccharomyces Boulardi 250 mg Cap PO SCH ×2 (10:05→18:13)
[2017-11-03] MEDS: Metoprolol Succinate 50 mg XL Tab PO SCH (10:13)
[2017-11-03] MEDS: LUMIGAN OU SCH (21:07)
--- NOTE | 2017-11-03 22:57 | PN ---
DATE: 11/03/2017 SUBJECTIVE: The patient is still confused, today was resting, seen with her two daughters. The patient had two negative C. difficile toxin assay so far, and waiting for the third one before transfer to [facility] for subacute rehab. The patient still has loose stools, may be related to her PEG tube feeding, but other than that not complaining of abdominal pain. No other complaints. She is redirectable. PHYSICAL EXAMINATION VITAL SIGNS: Temperature 97.5, pulse 83, blood pressure 134/70, respirations 18, and oxygen saturation 99%. REVIEW OF SYSTEMS: GENERAL: The patient is sleepy, but arousable. Still confused. Seen in her room, resting. SKIN: No diaphoresis. HEENT: Legally blind, hard of hearing. No headache. NECK: Supple. RESPIRATORY: No dyspnea. CARDIOVASCULAR: No chest pain or palpitations. GASTROINTESTINAL: Tolerating PEG tube feeding, but has very poor p.o. intake. The patient is eating poorly. EXTREMITIES: Has been bed bound for a weeks. MUSCULOSKELETAL: Generalized weakness. NEUROLOGIC: Alert with periods of confusion. The patient has been here for over a month. MENTAL STATUS EXAMINATION: Elderly female in hospital gown, looks stated age, oriented to place and person, but has persistent confusion and disorientation and thinks she is still at home. Speech is spontaneous. Affect, restricted. Mood is dysphoric. Thought process, confused off and on. Thought content, no overt paranoia or hallucinations. No suicidal or homicidal ideation. Attention and memory still limited. Insight and judgment limited. Impulse control is fair at this time. 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 PLAN AND RECOMMENDATIONS: The patient is seen, medications reviewed. Continue antibiotics. The patient is on vancomycin for C. difficile colitis. The patient is awaiting one more negative C. difficile toxin result and the patient can go for subacute rehab to [facility]. We will keep the patient off psych meds. Continue antibiotics as ordered. The patient also is taking B12 supplements. Fredy Harper MD [facility] # [id number] [facility]
[2017-11-04] MEDS: Brimonidine 0.2% Opth Sol (5ml) OU SCH ×2 (05:53→13:13)
[2017-11-04] MEDS: Saccharomyces Boulardi 250 mg Cap PO SCH (09:59)
[2017-11-04] MEDS: Metoprolol Succinate 50 mg XL Tab PO SCH (09:59)
[2017-11-04] MEDS: PILOCARPINE 1% OD SCH ×2 (10:00→13:13)
--- NOTE | 2017-11-04 15:54 | PN ---
DATE: 11/04/2017 SUBJECTIVE: The patient is seen. The patient had the third negative C. difficile assay toxin, resolved. The patient; however, noted this morning to be more confused and still unsure if she is in the hospital or at home. She was telling the nurse that she left the hospital and came back. The patient has not left the hospital this week. The patient now can go to [facility] for subacute rehab. The patient had 3 negatives C. difficile assay. The patient also off vancomycin. She is more verbal and was asking a bedpan but still very confused. The patient's dementia seems to be getting progressive. Her lucid intervals seems to be getting shorter and shorter. The patient seems to be more disoriented compared to last few days. VITAL SIGNS: Temperature 98.1, pulse of 91, blood pressure 124/71, respirations 20, O2 sat is 100%. REVIEW OF SYSTEMS: GENERAL: The patient is seen in her room. Alert, verbal, still confused, asking for bedpan, states she wanted to use the bathroom. SKIN: No diaphoresis. HEENT: Still legally blind. Hard of hearing. NECK: Supple. RESPIRATORY: No dyspnea. CARDIOPULMONARY: No chest pain. GASTROINTESTINAL: The patient's p.o. intake is variable but has PEG tube feeding. Has loose stools. EXTREMITIES: Has been bed bound. MUSCULOSKELETAL Feels weak. NEUROLOGIC: Alert with increasing periods of confusion. The patient is not taking any psych meds at this time but is manageable. She is more verbal, looking for her children. MENTAL STATUS EXAMINATION: Elderly female, who looked stated age, oriented to place and person. She knows it is [facility] ([facility] but she is unsure how long she has been here. Affect is reactive. Mood is dysphoric and anxious. Thought process, confused off and on. Thought content, the patient is looking for her children. No paranoia. No suicidal or homicidal ideation. No hallucination. Attention and memory still limited. Insight and judgment limited. Impulse control is fair at this time. 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 PLAN AND RECOMMENDATIONS: The patient is seen, medications reviewed. Psychwise, the patient is stable to go to [facility] for subacute rehab. The patient now is awaiting authorization from insurance. She will be there for subacute rehab. I will keep her off any psych medications; however, if her dementia will continue to progress, the patient lives with her 92-year-old , the family will need to provide some extra help for her as well as the patient will need maximum care at home because of her dementia. Continue treatment plan as outlined. As stated the patient is cleared to go for subacute rehab once cleared by her insurance. Fredy Harper MD
[2017-11-04 17:26] VITALS: BP 136/75; PULSE 82; RESP 18; TEMP 97.6; O2SAT 99
== END 2017-11-04 18:27 | DRG 64 ==
LOC: C.ER 08:06 → C.9E 09:37 → C.5S 20:48 → C.9E 21:36 → C.5S 21:36 → C.6T 09-27 22:23
PROVIDERS: ADMIT Internal Medicine Cardiovascular Disease; ATTEND Internal Medicine Cardiovascular Disease
PROC: 0DH63UZ Insertion of Feeding Device into Stomach, Percutaneous Approach (ICD-10-PCS; principal; 2017-10-17 09:50)
DX: I63.9 Cerebral infarction, unspecified (principal); G92 Toxic encephalopathy; A04.72 Enterocolitis due to Clostridium difficile, not specified as recurrent; R78.81 Bacteremia; G81.94 Hemiplegia, unspecified affecting left nondominant side; C85.90 Non-Hodgkin lymphoma, unspecified, unspecified site; G82.20 Paraplegia, unspecified; N39.0 Urinary tract infection, site not specified; G30.1 Alzheimer's disease with late onset; F02.80 Dementia in other diseases classified elsewhere, unspecified severity, without behavioral disturbance, psychotic disturbance, mood disturbance, and anxiety; E11.40 Type 2 diabetes mellitus with diabetic neuropathy, unspecified; D64.9 Anemia, unspecified; E87.6 Hypokalemia; H40.9 Unspecified glaucoma; H54.8 Legal blindness, as defined in USA; I10 Essential (primary) hypertension; I77.1 Stricture of artery; J11.1 Influenza due to unidentified influenza virus with other respiratory manifestations; J20.9 Acute bronchitis, unspecified; J34.2 Deviated nasal septum; K44.9 Diaphragmatic hernia without obstruction or gangrene; K94.21 Gastrostomy hemorrhage; R62.7 Adult failure to thrive; Z79.84 Long term (current) use of oral hypoglycemic drugs; Z86.73 Personal history of transient ischemic attack (TIA), and cerebral infarction without residual deficits